=== PATIENT | male | born 1955 | race African-American/Black ===

== ENCOUNTER 2016-04-03 11:48 | Inpatient (IN) | payer OTHER ==
[2016-04-03 12:38] LABS: BASOPHIL 0.8 % (0-2.0); EOSINOPHIL 6.4 % (0-4.5); MCHC 33.5 g/dl (32.0-35.9); MEAN CELL VOLUME 86.5 fl (80-96); MEAN PLT VOLUME 8.7 fl (7.5-11.1); NEUTROPHILS 56.3 % (42.8-82.8); PLATELET COUNT 261 K/MM3 (134-434); RDW 14.7 % (11.9-15.9); WHITE BLOOD COUNT 6.2 K/mm3 (4.0-10.0)
[2016-04-03 12:58] VITALS: BMI 30.9
--- NOTE | 2016-04-03 13:11 | PDOC ---
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 At about 10:30am this morning, the patient felt very weak and almost fell down. The aid went to catch the patient and brought him into the hospital via ambulance. The patients blood sugar was 64 upon arrival to the emergency room. Denies fever, chills, nausea, vomiting. Denies chest pain, SOB, cough. Allergies: Citric acid <Tiffanie Flannery - Last Filed: 04/03/16 13:13> - General History Source: Patient Exam Limitations: No Limitations <Edel Dave - Last Filed: 04/04/16 12:01> - General Chief Complaint: Lethargy Stated Complaint: LETHARGY Time Seen by Provider: 04/03/16 11:56 Past History <Tiffanie Flannery - Last Filed: 04/03/16 13:13> - Past Medical History Asthma: Yes Cardiac Disorders: Yes ([place]) CVA: Yes COPD: Yes DVT: Yes Diabetes: Yes GI Disorders: Yes (dumping syndrome ) HTN: Yes - Surgical History Abdominal Surgery: Yes (gastric bypass 07/2015) Appendectomy: Yes GI Surgery: Yes (BYPASS) - Immunization History Immunization Up to Date: Yes - Psycho/Social/Smoking Cessation Hx Anxiety: No Suicidal Ideation: No Smoking History: Former smoker Have you smoked in the past 12 months: No Number of Cigarettes Smoked Daily: 0 If you are a former smoker, when did you quit?: 37 YRS AGO Information on smoking cessation initiated: No Hx Alcohol Use: No Drug/Substance Use Hx: No Substance Use Type: None <Edel Dave - Last Filed: 04/04/16 12:01> - Past Medical History Allergies/Adverse Reactions: Allergies Allergy/AdvReac Type Severity Reaction Status Date / Time citric acid Allergy Hives Verified 12/19/15 13:22 Home Medications: Ambulatory Orders Pantoprazole Sodium [Protonix] 40 mg PO DAILY 07/15/15 Aspirin [Aspirin EC] 81 mg PO DAILY 12/19/15 Escitalopram Oxalate [Lexapro -] 25 mg PO DAILY 04/03/16 Amlodipine Besylate [Norvasc -] 10 mg PO DAILY 04/04/16 Atorvastatin Ca [Lipitor] 60 mg PO HS #30 tablet 04/04/16 Carvedilol [Coreg] 25 mg PO BID 04/04/16 Cholecalciferol (Vitamin D3) [Vitamin D -] 400 unit PO DAILY 04/04/16 Clopidogrel Bisulfate [Plavix -] 75 mg PO DAILY 04/04/16 Cyanocobalamin (Vitamin B-12) [Vitamin B-12] 1,000 mcg PO DAILY 04/04/16 Glipizide 5 mg PO AC 04/04/16 Iron 18 mg PO DAILY 04/04/16 Multivitamins [Multivit ([facility] Formul[facility])] 1 tab PO DAILY 04/04/16 Thiamine HCl [Vitamin B1 -] 100 mg PO DAILY 04/04/16 Review of Systems - Review of Systems Able to Perform ROS?: Yes Comments:: 04/03/16 13:12 GENERAL/CONSTITUTIONAL: No: fever, chills, weakness, loss of appetite. HEAD, EYES, EARS, NOSE AND THROAT: No: change in vision, ear pain, discharge, sore throat, throat swelling. CARDIOVASCULAR: No: chest pain, lightheadedness, palpitations, syncope RESPIRATORY: No: cough, shortness of breath, wheezing, hemoptysis, stridor. GASTROINTESTINAL: No: nausea, vomiting, abdominal cramping, diarrhea, rectal bleeding, constipation. GENITOURINARY: No: dysuria, hematuria, frequency, urgency, flank pain. MUSCULOSKELETAL: No: back pain, neck pain, joint pain, muscle swelling or pain SKIN: No: lesions, pallor, rash or easy bruising. NEUROLOGIC: yes: slurred speech, weakness,No: headache, vertigo, paresthesias, weakness ENDOCRINE: No: unexplained weight gain or loss HEMATOLOGIC/LYMPHATIC: No: anemia, easy bleeding, swelling nodes <Tiffanie Flannery - Last Filed: 04/03/16 13:13> *Physical Exam - Vital Signs Last Vital Signs Temp Pulse Resp BP Pulse Ox 98.5 F 56 L 21 130/85 97 04/03/16 11:57 04/03/16 11:57 04/03/16 11:57 04/03/16 11:57 04/03/16 11:57 - Physical Exam Comments: 04/03/16 13:13 GENERAL: The patient is in no acute distress. HEAD: Normal with no signs of trauma. EYES: PERRLA, EOMI, sclera anicteric, conjunctiva clear. ENT: Ears normal, nares patent, oropharynx clear without exudates. Moist mucous membranes. NECK: Normal range of motion, supple without lymphadenopathy, JVD, or masses. LUNGS: Breath sounds equal, clear to auscultation bilaterally. No wheezes, and no crackles. HEART: Bradycardic. Regular rhythm, normal S1 and S2 without murmur, rub or gallop. ABDOMEN: Soft, nontender, normoactive bowel sounds. No guarding, no rebound. EXTREMITIES: Normal range of motion, no edema. No clubbing or cyanosis. No erythema, or tenderness. NEUROLOGICAL: See NIHSS. MUSCULOSKELETAL: Back nontender to palpation, no CVA tenderness SKIN: Warm, Dry, normal turgor, no rashes or lesions noted. <Tiffanie Flannery - Last Filed: 04/03/16 13:13> - Vital Signs Last Vital Signs Temp Pulse Resp BP Pulse Ox 98.5 F 56 L 21 130/85 97 04/03/16 11:57 04/03/16 11:57 04/03/16 11:57 04/03/16 11:57 04/03/16 11:57 <Edel Dave - Last Filed: 04/04/16 12:01> ED Treatment Course - LABORATORY CBC & Chemistry Diagram: 04/03/16 12:00 04/03/16 12:00 - RADIOLOGY Radiograph Interpretation: 04/03/16 13:13 EXAM#: TYPE/EXAM: RESULT: [id number] RAD/CHEST X-RAY PORTABLE* Sluggish. Chest. Single AP view compared with October 05, 2015. Unremarkable contour of the cardiomediastinal silhouette. No evidence of pneumonia, atelectasis, CHF. No pneumothorax or large pleural effusion is seen. No evidence of bulky hilar adenopathy. Intact visualized osseous structures. EKG leads are noted. Impression No evidence of active pulmonary disease. Reported By: Arsen Blank MD 04/03/16 [id number] EXAM#: TYPE/EXAM: RESULT: [id number] CT/HEAD CT WITHOUT CONTRAST CT SCAN OF THE BRAIN C-. Reason for the study. Lethargic. Comparison study CT brain, October 24, 2014 Findings. Serial axial images of the brain were obtained from foramen magnum to the cranial vertex without intravenous contrast. The study was supplemented with computer-generated coronal and sagittal reconstruction images. Warehouse Consultant image was reviewed. There is no evidence of acute subarachnoid hemorrhage, acute intra-axial or extra-axial fluid collection consistent with subdural or epidural hematoma. No mass effect, midline shift, acute territorial ischemic changes, herniation or edema is present. Normal kumar matter white matter differentiation. The cortical sulci sylvian fissure, perimesencephalic cisterns are not effaced. CSF spaces are age-appropriate, no interval change from prior CT. Examination of the bone windows show no fracture. Deformity of the right zygomatic arch. Metallic plate is seen in the mandible on the videotape operator images. Retention cyst or polyp in the left matter sinus. Impression. No evidence of acute intracranial hemorrhage, edema, midline shift, mass effect , or skull fracture. No CT evidence of acute territorial infarction. Reported By: Arsen Blank MD 04/03/16 1234 <Tiffanie Flannery - Last Filed: 04/03/16 13:13> - LABORATORY CBC & Chemistry Diagram: 04/04/16 07:45 04/04/16 07:45 - RADIOLOGY Radiology Studies Ordered: Category Date Time Status HEAD CT WITHOUT CONTRAST [CT] Stat CT Scan 04/03/16 11:56 Completed CHEST X-RAY PORTABLE* [RAD] Stat Radiology 04/03/16 11:56 Completed <Edel Dave - Last Filed: 04/04/16 12:01> Medical Decision Making - Medical Decision Making 04/03/16 13:11 A portion of this note was documented by scribe services under my direction. I have reviewed the details of the note, within reason, and agree with the documentation with the following case summary and management plan written by me. Nursing documentation reviewed and incorporated into medical decision making 61 yo M with reported h/o CVA in 2010? 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 noted that he became unsteady on his feel and almost fell over No headache Pt taking all his medications as prescribed Code catrachito called immediately upon evaluation of this patient 04/03/16 13:17 Laboratory Tests 04/03/16 12:00 Sodium 144 Potassium 3.3 L Chloride 106 Carbon Dioxide 28 Anion Gap 10 BUN 8 D Creatinine 0.7 Random Glucose 77 04/03/16 13:25 Laboratory Tests 04/03/16 12:00 Creatine Kinase 113 Troponin I < 0.02 04/03/16 15:03 CT negative and demonstrates no CVA Pt thinks his speech has been slurred since yesterday Case reviewed with Dr Constantino Will admit for further work up Case reviewed with hospitalist Pt is NOT a TPA candidate Clinical impression: possible TIA <Edel Dave - Last Filed: 04/04/16 12:01> *DC/Admit/Observation/Transfer - Attestations Scribe Attestion: 04/03/16 13:13 Documentation prepared by FREDDIE Rodriguez, acting as biomedical repair technician for Edel Dave MD. <Tiffanie Flannery - Last Filed: 04/03/16 13:13> - Discharge Dispostion Admit: Yes <Edel Dave - Last Filed: 04/04/16 12:01> Diagnosis at time of Disposition: TIA (transient ischemic attack) Qualifiers: Transient cerebral ischemia type: other Qualified Code(s): G45.8 - Other transient cerebral ischemic attacks and related syndromes - Discharge Dispostion Disposition: HOME Condition at time of disposition: Stable - Prescriptions - Referrals NIH Stroke Scale - Last Known Well Date/Time & Onset Date Last Known Well: 04/02/16 - Initial Evaluation Level of consciousness: Alert Ask patient the month and their age: Answers both correctly Ask patient to open & close eyes; make fist and let go: Obeys both correctly Best gaze (horizontal eye movement): Normal Visual field testing: Partial hemianopia Facial paresis (Show teeth/raise eyebrows/close eyes tight): Normal symmetrical movement Motor Function: Left Arm: Normal Motor Function: Right Arm: Normal (extends arm 90 (or 45) degrees for 10 seconds without drift Motor Function: Left Leg: Normal (extends leg 30 degrees for 5 seconds without drift) Motor Function: Right Leg: Normal (extends leg 30 degrees for 5 seconds without drift) Limb Ataxia: No ataxia Sensory(Use pinprick test arms,legs,trunk,face/side to side): Normal Best language (Describe picture, name items, read sentences): No Aphasia Dysarthria (read several words): Normal articulation Extinction and Inattention: No abnormality - Total Score NIH Stroke Scale Score: 1 <Edel Dave - Last Filed: 04/04/16 12:01> tPA Exclusion checklist 3-4.5h - Time Elapsed Date last known well: 04/02/16 - Thrombolytic Therapy Candidate Is patient eligible for thrombolytic therapy: No - Exclusion Criteria 3-4.5 hr SBP greater than 185 or DBP greater than 110mmHg despite tx: No Recent IC/spinal surgery,head trauma or stroke<3mos.: No Hx IC hemorrhage, IC neoplasm, AV malformation or aneurysm: No Active internal bleeding: No Blding diathesis(low plt ct, inc PTT,INR>1.7 or use of NOAC): No CT demonstrates multilobar infarct(>1/3 cerebral hemiphere): No Arterial puncture at noncompressible site in previous 7 days: No Blood glucose concentration less than 50mg/dL (2.7mmol/L): No - Relative Exclusion Criteria 3-4.5 hr Life expectancy <1 yr or severe co-morbid illness: No : No Patient/family refused: No Rapid improvement: No Stroke severity too mild: Yes Recent acute MT (w/in previous 3 months): No Seizure at onset with postictal residual neuro impairments: No Major surgery or serious trauma w/in previous 14 days: No Recent GI or hemorrhage (w/in previous 21 days): No - Add'l Relative Exclusion 3-4.5 hr Age > 80: No Hx of both diabetes AND prior ischemic stroke: Yes Taking an oral anticoagulant regardless of INR: No NIHSS >25: No - Ineligibility reason(s) Reasons No tPA given: Outside of window - delayed arrival <Edel Dave - Last Filed: 04/04/16 12:01>
[2016-04-03 13:15] LABS: ALBUMIN 3.6 g/dl (3.4-5.0); ANION GAP 10 (8-16); BILIRUBIN,TOTAL 0.6 mg/dL (0.2-1.0); CALCIUM 8.5 mg/dL (8.5-10.1); CO2 28 mmol/L (21-32); CREATININE 0.7 mg/dL (0.7-1.3); GLUCOSE,RANDOM 77 mg/dL (74-106); SGOT/AST 14 U/L (15-37); SGPT/ALT 25 U/L (12-78); TOT PROT 6.6 g/dl (6.4-8.2)
[2016-04-03 13:17] LABS: ALK PHOS 104 U/L (45-117); TROPONIN I < 0.02 ng/ml (0.00-0.05)
[2016-04-03 13:46] LABS: PH,URINE 6.5 (5.0-8.0); URINE APPEARANCE CLEAR; URINE BILIRUBIN NEGATIVE (NEGATIVE); URINE BLOOD NEGATIVE (NEGATIVE); URINE COLOR LT. YELLOW; URINE GLUCOSE (UA) NEGATIVE (NEGATIVE); URINE KETONE NEGATIVE (NEGATIVE); URINE LEUK ESTERASE NEGATIVE (NEGATIVE); URINE NITRITE NEGATIVE (NEGATIVE); URINE PROTEIN NEGATIVE (NEGATIVE); URINE UROBILINOGEN 0.2 E.U/dl E.U./dl (0.2-1.0)
--- NOTE | 2016-04-03 14:11 | CONSULT ---
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 At about 10:30am this morning, the patient felt very weak and almost fell down. The aid went to catch the patient and brought him into the hospital via ambulance. The patients blood sugar was 64 upon arrival to the emergency room. He completed CT head in the ER and no acute changes noted. Discussed with him importance of CVA work up and he is hesitant on staying but advised him to do so. Will try to expedite work up for him. Past History - Past Medical History Asthma: Yes Cardiac Disorders: Yes ([place]) CVA: Yes COPD: Yes DVT: Yes Diabetes: Yes GI Disorders: Yes (dumping syndrome ) HTN: Yes - Surgical History Abdominal Surgery: Yes (gastric bypass 07/2015) Appendectomy: Yes GI Surgery: Yes (BYPASS) - Immunization History Immunization Up to Date: Yes - Psycho/Social/Smoking Cessation Hx Anxiety: No Suicidal Ideation: No Smoking History: Former smoker Have you smoked in the past 12 months: No Number of Cigarettes Smoked Daily: 0 If you are a former smoker, when did you quit?: 37 YRS AGO Information on smoking cessation initiated: No Hx Alcohol Use: No Drug/Substance Use Hx: No Substance Use Type: None - Past Medical History Allergies/Adverse Reactions: Allergies Allergy/AdvReac Type Severity Reaction Status Date / Time citric acid Allergy Hives Verified 12/19/15 13:22 Home Medications: Ambulatory Orders Metformin HCl [Metformin HCl ER] 1,000 mg PO BID 07/15/15 Pantoprazole Sodium [Protonix] 40 mg PO DAILY 07/15/15 Aspirin [Aspirin EC] 81 mg PO 12/19/15 Cyclobenzaprine HCl [Flexeril -] 10 mg PO TID 04/03/16 Escitalopram Oxalate [Lexapro -] 20 mg PO DAILY 04/03/16 Methocarbamol 500 mg PO BID 04/03/16 Ursodiol [Actigal] 300 mg PO DAILY 04/03/16 Review of Systems GENERAL/CONSTITUTIONAL: No: fever, chills, weakness, loss of appetite. HEAD, EYES, EARS, NOSE AND THROAT: No: change in vision, ear pain, discharge, sore throat, throat swelling. CARDIOVASCULAR: No: chest pain, lightheadedness, palpitations, syncope RESPIRATORY: No: cough, shortness of breath, wheezing, hemoptysis, stridor. GASTROINTESTINAL: No: nausea, vomiting, abdominal cramping, diarrhea, rectal bleeding, constipation. GENITOURINARY: No: dysuria, hematuria, frequency, urgency, flank pain. MUSCULOSKELETAL: No: back pain, neck pain, joint pain, muscle swelling or pain SKIN: No: lesions, pallor, rash or easy bruising. NEUROLOGIC: yes: slurred speech, no weakness, moving extremities equally, sensory intact ENDOCRINE: No: unexplained weight gain or loss HEMATOLOGIC/LYMPHATIC: No: anemia, easy bleeding, swelling nodes *Physical Exam Last Vital Signs Temp Pulse Resp BP Pulse Ox 98.5 F 56 L 21 130/85 97 04/03/16 11:57 04/03/16 11:57 04/03/16 11:57 04/03/16 11:57 04/03/16 11:57 GENERAL: The patient is in no acute distress. HEAD: Normal with no signs of trauma. EYES: PERRLA, EOMI, sclera anicteric, conjunctiva clear. ENT: Ears normal, nares patent, oropharynx clear without exudates. Moist mucous membranes. NECK: Normal range of motion, supple without lymphadenopathy, JVD, or masses. LUNGS: Breath sounds equal, clear to auscultation bilaterally. No wheezes, and no crackles. HEART: Bradycardic. Regular rhythm, normal S1 and S2 without murmur, rub or gallop. ABDOMEN: Soft, nontender, normoactive bowel sounds. No guarding, no rebound. EXTREMITIES: Normal range of motion, no edema. No clubbing or cyanosis. No erythema, or tenderness. NEUROLOGICAL: See ABove, slurred speech, no weakness, moving extremities equally , sensory intact MUSCULOSKELETAL: Back nontender to palpation, no CVA tenderness SKIN: Warm, Dry, normal turgor, no rashes or lesions noted. CBCD WBC 6.2 K/mm3 (4.0-10.0) 04/03/16 12:00 RBC 4.39 M/mm3 (4.00-5.60) 04/03/16 12:00 Hgb 12.7 GM/dL (11.7-16.9) 04/03/16 12:00 Hct 38.0 % (35.4-49) 04/03/16 12:00 MCV 86.5 fl (80-96) 04/03/16 12:00 MCHC 33.5 g/dl (32.0-35.9) 04/03/16 12:00 RDW 14.7 % (11.9-15.9) 04/03/16 12:00 Plt Count 261 K/MM3 (134-434) 04/03/16 12:00 MPV 8.7 fl (7.5-11.1) 04/03/16 12:00 CMP Sodium 144 mmol/L (136-145) 04/03/16 12:00 Potassium 3.3 mmol/L (3.5-5.1) L 04/03/16 12:00 Chloride 106 mmol/L (98-107) 04/03/16 12:00 Carbon Dioxide 28 mmol/L (21-32) 04/03/16 12:00 Anion Gap 10 (8-16) 04/03/16 12:00 BUN 8 mg/dL (7-18) D 04/03/16 12:00 Creatinine 0.7 mg/dL (0.7-1.3) 04/03/16 12:00 Creat Clearance w eGFR > 60 (>60) 04/03/16 12:00 Calcium 8.5 mg/dL (8.5-10.1) 04/03/16 12:00 Total Bilirubin 0.6 mg/dL (0.2-1.0) 04/03/16 12:00 AST 14 U/L (15-37) L 04/03/16 12:00 ALT 25 U/L (12-78) 04/03/16 12:00 Alkaline Phosphatase 104 U/L (45-117) 04/03/16 12:00 Total Protein 6.6 g/dl (6.4-8.2) 04/03/16 12:00 Albumin 3.6 g/dl (3.4-5.0) 04/03/16 12:00 - RADIOLOGY Radiograph Interpretation: CT SCAN OF THE BRAIN C-. Reason for the study. Lethargic. Comparison study CT brain, October 24, 2014 Impression. No evidence of acute intracranial hemorrhage, edema, midline shift, mass effect , or skull fracture. No CT evidence of acute territorial infarction. Plan: 61 year old male, with significant past medical history of HTN, COPD, multiple CVAs with right sided residual weakness (2010), diabetes, gastric bypass, who presents today via ambulance complaining of dizziness and slurred speech starting yesterday. At about 10:30am this morning, the patient felt very weak and almost fell down. The aid went to catch the patient and brought him into the hospital via ambulance. The patients blood sugar was 64 upon arrival to the emergency room. He completed CT head in the ER and no acute changes noted. Discussed with him importance of CVA work up and he is hesitant on staying but advised him to do so. MRI brain CD, Echo Lipid Profile, Statin ASA 81mg (reports taking at home daily, will increase if CVA found) Speech and swallow evaluation BP control, 140-160 systolic acceptable Monitor hypoglycemia Maintain normal glycemic range
[2016-04-03] MEDS ORDERED: ONDANSETRON 4 MG/2 ML VIAL IVPB PRN (14:49)
--- NOTE | 2016-04-03 14:52 | HP ---
CHIEF COMPLAINT: AMS PCP: Dr. 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 On arrival to the ED, he was initially noted to be lethargic. 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 Smoking: Former smoker, quit >35 yrs ago Alcohol: None Drugs: None Allergies citric acid Allergy (Verified 12/19/15 13:22) Hives HOME MEDICATIONS: Medication Instructions Recorded Metformin HCl [Metformin HCl ER] 1,000 mg PO BID 07/15/15 Pantoprazole Sodium [Protonix] 40 mg PO DAILY 07/15/15 Aspirin [Aspirin EC] 81 mg PO DAILY 12/19/15 Cyclobenzaprine HCl [Flexeril -] 10 mg PO TID 04/03/16 Escitalopram Oxalate [Lexapro -] 20 mg PO DAILY 04/03/16 Methocarbamol 500 mg PO BID 04/03/16 Ursodiol [Actigal] 300 mg PO DAILY 04/03/16 REVIEW OF SYSTEMS CONSTITUTIONAL: Absent: fever, chills, diaphoresis, generalized weakness, malaise, loss of appetite, weight change HEENT: Absent: rhinorrhea, nasal congestion, throat pain, throat swelling, difficulty swallowing, mouth swelling, ear pain, eye pain, visual changes CARDIOVASCULAR: Absent: chest pain, syncope, palpitations, irregular heart rate, lightheadedness , peripheral edema RESPIRATORY: Absent: cough, shortness of breath, dyspnea with exertion, orthopnea, wheezing, stridor, hemoptysis GASTROINTESTINAL: Absent: abdominal pain, abdominal distension, nausea, vomiting, diarrhea, constipation, melena, hematochezia GENITOURINARY: Absent: dysuria, frequency, urgency, hesitancy, hematuria, flank pain, genital pain MUSCULOSKELETAL: Absent: myalgia, arthralgia, joint swelling, back pain, neck pain SKIN: Absent: rash, itching, pallor HEMATOLOGIC/IMMUNOLOGIC: Absent: easy bleeding, easy bruising, lymphadenopathy, frequent infections ENDOCRINE: Absent: unexplained weight gain, unexplained weight loss, heat intolerance, cold intolerance NEUROLOGIC: See HPI. PSYCHIATRIC: Absent: anxiety, depression, suicidal or homicidal ideation, hallucinations. PHYSICAL EXAMINATION Vital Signs - 24 hr 04/03/16 04/03/16 11:57 12:00 Temperature 98.5 F Pulse Rate 56 L Respiratory 21 Rate Blood Pressure 130/85 O2 Sat by Pulse 97 97 Oximetry (%) GENERAL: Awake, alert, and fully oriented, in no acute distress. HEAD: Normal with no signs of trauma. EYES: Pupils equal, round and reactive to light, extraocular movements intact, sclera anicteric, conjunctiva clear. No lid lag. EARS, NOSE, THROAT: Ears normal, nares patent, oropharynx clear without exudates. Moist mucous membranes. NECK: Normal range of motion, supple without lymphadenopathy, JVD, or masses. LUNGS: Breath sounds equal, clear to auscultation bilaterally. No wheezes, and no crackles. No accessory muscle use. HEART: Regular rate and rhythm, normal S1 and S2 without murmur, rub or gallop. ABDOMEN: Soft, nontender, not distended, normoactive bowel sounds, no guarding, no rebound, no masses. No hepatomegaly or splenomegaly. MUSCULOSKELETAL: Normal range of motion at all joints. No bony deformities or tenderness. No CVA tenderness. UPPER EXTREMITIES: 2+ pulses, warm, well-perfused. No cyanosis. No clubbing. Cap refill <2 seconds. No peripheral edema. LOWER EXTREMITIES: 2+ pulses, warm, well-perfused. No calf tenderness. No peripheral edema. NEUROLOGICAL: Cranial nerves II-XII intact. Normal speech. Normal gait. PSYCHIATRIC: Cooperative. Good eye contact. Appropriate mood and affect. SKIN: Warm, dry, normal turgor, no rashes or lesions noted. Laboratory Results - last 24 hr 04/03/16 04/03/16 04/03/16 12:00 12:00 12:57 WBC 6.2 RBC 4.39 Hgb 12.7 Hct 38.0 MCV 86.5 MCHC 33.5 RDW 14.7 Plt Count 261 MPV 8.7 Neutrophils % 56.3 D Lymphocytes % 27.1 D Monocytes % 9.4 Eosinophils % 6.4 H Basophils % 0.8 Sodium 144 Potassium 3.3 L Chloride 106 Carbon Dioxide 28 Anion Gap 10 BUN 8 D Creatinine 0.7 Creat Clearance w eGFR > 60 Random Glucose 77 Calcium 8.5 Total Bilirubin 0.6 AST 14 L ALT 25 Alkaline Phosphatase 104 Creatine Kinase 113 Troponin I < 0.02 Total Protein 6.6 Albumin 3.6 Urine Color Lt. yellow Urine Appearance Clear Urine pH 6.5 D Ur Specific D[place]agh <= 1.005 Urine Protein Negative Urine Glucose (UA) Negative Urine Ketones Negative Urine Blood Negative Urine Nitrite Negative Urine Bilirubin Negative Urine Urobilinogen 0.2 e.u/dl Ur Leukocyte Esterase Negative ASSESSMENT/PLAN: 61 year old male placed in observation for TIA. Problem List - Problem (1) TIA (transient ischemic attack) Assessment/Plan: -Brain MRI, carotid dopplers, echocardiogram -Continue ASA -Check lipid profile, A1C -Monitor on telemetry -PT evaluation -Send urine toxicology Code(s): G45.9 - TRANSIENT CEREBRAL ISCHEMIC ATTACK, UNSPECIFIED Qualifiers: Transient cerebral ischemia type: other Qualified Code(s): G45.8 - Other transient cerebral ischemic attacks and related syndromes (2) Back pain Assessment/Plan: -Patient is on two centrally-acting muscle relaxants at home. There is a possibility that this could be contributing to his AMS. Will attempt to dc one if patient can tolerate. Code(s): M54.9 - DORSALGIA, UNSPECIFIED (3) DM II (diabetes mellitus, type II), controlled Assessment/Plan: -Continue Metformin (short expected length of stay) -Diabetic diet Code(s): E11.9 - TYPE 2 DIABETES MELLITUS WITHOUT COMPLICATIONS (4) HLD (hyperlipidemia) Assessment/Plan: -Check lipids -Not currently on medications Code(s): E78.5 - HYPERLIPIDEMIA, UNSPECIFIED (5) HTN (hypertension) Assessment/Plan: -Near goal -Not currently on any medications Code(s): I10 - ESSENTIAL (PRIMARY) HYPERTENSION (6) DVT prophylaxis Assessment/Plan: -Early ambulation -SCDs Code(s): [id number] - Visit type - Emergency Visit Emergency Visit: Yes ED Registration Date: 04/03/16 Care time: The patient presented to the Emergency Department on the above date and was hospitalized for further evaluation of their emergent condition. - New Patient This patient is new to me today: Yes Date on this admission: 04/03/16 - Critical Care Critical Care patient: No
[2016-04-03] MEDS ORDERED: POTASSIUM CHLORIDE TABS 20 MEQ TABLET.ER (FP) PO ONE (18:15)
--- NOTE | 2016-04-03 18:19 | EKG ---
Test Reason : Blood Pressure : / mmHG Vent. Rate : 053 BPM Atrial Rate : 053 BPM P-R Int : 178 ms QRS Dur : 106 ms QT Int : 456 ms P-R-T Axes : 051 061 067 degrees QTc Int : 427 ms SINUS BRADYCARDIA OTHERWISE NORMAL ECG WHEN COMPARED WITH ECG OF 05-OCT-2015 13:17, VENT. RATE HAS DECREASED BY 31 BPM Confirmed by JOANNA CANCHOLA MD ([id number]) on 04/03/2016 6:19:34 PM Referred By: Confirmed By:JOANNA CANCHOLA MD
[2016-04-03] MEDS: metFORMIN HCL 500 MG TABLET (FP) PO SCH (18:47)
--- NOTE | 2016-04-03 19:02 | HOSP ---
Subjective - Review of Symptoms Events since last encounter: Nurse called stating that the patient has cough that he takes Mucinex for it at home. Ordering his Mucinex 600mg po bid Physical Examination Vital Signs: Vital Signs Temperature 98.4 F 04/03/16 18:03 Pulse Rate 62 04/03/16 18:03 Respiratory Rate 18 04/03/16 18:03 Blood Pressure 132/94 04/03/16 18:03 O2 Sat by Pulse Oximetry (%) 98 04/03/16 18:34
[2016-04-03] MEDS: ASPIRIN/DIPYRIDAMOLE 25 MG/200 MG CAPSULE (FP) PO SCH (21:17)
[2016-04-03] MEDS: guaiFENesin 600 MG TABLET.ER (FP) PO SCH (21:17)
[2016-04-03] MEDS: METHOCARBAMOL 500 MG TABLET PO SCH (21:17)
[2016-04-04] MEDS: metFORMIN HCL 500 MG TABLET (FP) PO SCH (06:08)
[2016-04-04 06:25] VITALS: TEMP 98.1
[2016-04-04 08:14] LABS: BASOPHIL 0.9 % (0-2.0); EOSINOPHIL 7.3 % (0-4.5); MCH 29.2 pg (25.7-33.7); MCHC 33.6 g/dl (32.0-35.9); MEAN CELL VOLUME 86.7 fl (80-96); MEAN PLT VOLUME 8.9 fl (7.5-11.1); NEUTROPHILS 47.1 % (42.8-82.8); PLATELET COUNT 265 K/MM3 (134-434); RDW 14.2 % (11.9-15.9)
[2016-04-04] MEDS ORDERED: PT OWN MED DRAWER 7, Y5N ONE (08:56)
[2016-04-04 08:59] LABS: ALBUMIN 3.9 g/dl (3.4-5.0); ALK PHOS 109 U/L (45-117); ANION GAP 6 (8-16); BILIRUBIN,TOTAL 0.8 mg/dL (0.2-1.0); CALCIUM 8.9 mg/dL (8.5-10.1); CHOLESTEROL 166 mg/dL (50-200); CO2 30 mmol/L (21-32); CREATININE 0.8 mg/dL (0.7-1.3); GLUCOSE,RANDOM 85 mg/dL (74-106); LDL CHOLESTEROL (ONLY SJRH) 101 mg/dL (5-100); MAGNESIUM 2.3 mg/dL (1.8-2.4); SGOT/AST 17 U/L (15-37); SGPT/ALT 24 U/L (12-78); THYROID STIMULATING HORMONE 0.83 uIU/ml (0.358-3.74); TOT PROT 6.8 g/dl (6.4-8.2); TROPONIN I < 0.02 ng/ml (0.00-0.05)
[2016-04-04] MEDS: ESCITALOPRAM OXALATE 20 MG TABLET (FP) PO SCH ×2 (08:59→10:01)
[2016-04-04] MEDS: ASPIRIN/DIPYRIDAMOLE 25 MG/200 MG CAPSULE (FP) PO SCH ×2 (08:59→10:01)
[2016-04-04] MEDS: METHOCARBAMOL 500 MG TABLET PO SCH (08:59)
[2016-04-04] MEDS: guaiFENesin 600 MG TABLET.ER (FP) PO SCH (09:00)
[2016-04-04 09:49] LABS: URINE MARIJUANA THC NEGATIVE ng/ml (CUTOFF=50)
[2016-04-04] MEDS ORDERED: URSODIOL 300 MG CAPSULE PO SCH (10:00)
[2016-04-04] MEDS ORDERED: ASPIRIN COATED 81 MG TABLET.EC PO SCH (10:00)
[2016-04-04] MEDS ORDERED: PANTOPRAZOLE 40 MG TABLET (FP) PO SCH (10:00)
--- NOTE | 2016-04-04 10:05 | PN ---
Progress Note (short form) - Note Progress Note: Neurology The patient is a 61 year old male, with significant past medical history of HTN , COPD, multiple CVAs with right sided residual weakness (2010), diabetes, gastric bypass, who presented via ambulance complaining of dizziness and slurred speech. The patients blood sugar was 64 upon arrival to the emergency room. He completed CT head in the ER and no acute changes noted. MRI brain completed and reviewed and with lacunar infarct noted in L periventricular centrum semiovale, subacute in duration. Echo reviewed and normal LV function and EF. CD reviewed and without significant HD stenosis. Patient takes combo ASA 81 and Plavix at home which i advised strong compliance and continuation. His statin has been increased to 80mg but I advised 60mg as outpatient to avoid myalgia. He will be seeing me in the office for follow up. Active Medications Dipyridamole/Aspirin (Aggrenox -) 1 combo PO BID [facility] Last Admin: 04/04/16 08:59 Dose: 1 combo Escitalopram Oxalate (Lexapro -) 20 mg PO DAILY [facility] Last Admin: 04/04/16 08:59 Dose: 20 mg Guaifenesin (Mucinex -) 600 mg PO BID [facility] Last Admin: 04/04/16 09:00 Dose: 600 mg Metformin HCl (Glucophage -) 1,000 mg PO BIDAC [facility] Last Admin: 04/04/16 06:08 Dose: Not Given Methocarbamol (Robaxin -) 500 mg PO BID [facility] Last Admin: 04/04/16 08:59 Dose: Not Given Ondansetron HCl (Zofran Injection) 4 mg IVPB Q6H PRN PRN Reason: NAUSEA Pantoprazole Sodium (Protonix -) 40 mg PO DAILY [facility] Last Admin: 04/04/16 09:00 Dose: 40 mg Ursodiol (Actigal -) 300 mg PO DAILY [facility] Last Admin: 04/04/16 08:59 Dose: Not Given *Physical Exam Vital Signs 04/04/16 06:00 Temperature 98.1 F Pulse Rate 70 Respiratory 20 Rate Blood Pressure 140/99 O2 Sat by Pulse 96 Oximetry (%) GENERAL: The patient is in no acute distress. HEAD: Normal with no signs of trauma. EYES: PERRLA, EOMI, sclera anicteric, conjunctiva clear. ENT: Ears normal, nares patent, oropharynx clear without exudates. Moist mucous membranes. NECK: Normal range of motion, supple without lymphadenopathy, JVD, or masses. LUNGS: Breath sounds equal, clear to auscultation bilaterally. No wheezes, and no crackles. HEART: Bradycardic. Regular rhythm, normal S1 and S2 without murmur, rub or gallop. ABDOMEN: Soft, nontender, normoactive bowel sounds. No guarding, no rebound. EXTREMITIES: Normal range of motion, no edema. No clubbing or cyanosis. No erythema, or tenderness. NEUROLOGICAL: See ABove, slurred speech, no weakness, moving extremities equally , sensory intact MUSCULOSKELETAL: Back nontender to palpation, no CVA tenderness SKIN: Warm, Dry, normal turgor, no rashes or lesions noted. CBCD WBC 6.2 K/mm3 (4.0-10.0) 04/03/16 12:00 RBC 4.39 M/mm3 (4.00-5.60) 04/03/16 12:00 Hgb 12.7 GM/dL (11.7-16.9) 04/03/16 12:00 Hct 38.0 % (35.4-49) 04/03/16 12:00 MCV 86.5 fl (80-96) 04/03/16 12:00 MCHC 33.5 g/dl (32.0-35.9) 04/03/16 12:00 RDW 14.7 % (11.9-15.9) 04/03/16 12:00 Plt Count 261 K/MM3 (134-434) 04/03/16 12:00 MPV 8.7 fl (7.5-11.1) 04/03/16 12:00 CMP Sodium 144 mmol/L (136-145) 04/03/16 12:00 Potassium 3.3 mmol/L (3.5-5.1) L 04/03/16 12:00 Chloride 106 mmol/L (98-107) 04/03/16 12:00 Carbon Dioxide 28 mmol/L (21-32) 04/03/16 12:00 Anion Gap 10 (8-16) 04/03/16 12:00 BUN 8 mg/dL (7-18) D 04/03/16 12:00 Creatinine 0.7 mg/dL (0.7-1.3) 04/03/16 12:00 Creat Clearance w eGFR > 60 (>60) 04/03/16 12:00 Calcium 8.5 mg/dL (8.5-10.1) 04/03/16 12:00 Total Bilirubin 0.6 mg/dL (0.2-1.0) 04/03/16 12:00 AST 14 U/L (15-37) L 04/03/16 12:00 ALT 25 U/L (12-78) 04/03/16 12:00 Alkaline Phosphatase 104 U/L (45-117) 04/03/16 12:00 Total Protein 6.6 g/dl (6.4-8.2) 04/03/16 12:00 Albumin 3.6 g/dl (3.4-5.0) 04/03/16 12:00 - RADIOLOGY CT head MRI brain Echo CD all reviewed as above Plan: 61 year old male, with significant past medical history of HTN, COPD, multiple CVAs with right sided residual weakness (2010), diabetes, gastric bypass, who presents today via ambulance complaining of dizziness and slurred speech starting yesterday. At about 10:30am this morning, the patient felt very weak and almost fell down. The aid went to catch the patient and brought him into the hospital via ambulance. The patients blood sugar was 64 upon arrival to the emergency room. He completed CT head in the ER and no acute changes noted. MRI brain reviewed and consistent with lacunar infarct, my suspicion would be hypertensive CVA given lack of embolic features CD, Echo reviewed and within normal limits Lipid Profile, Statin increased to 60mg Continue dual antiplatelet ASA 81 and Plavix 75 BP control, goal as outpatient < 140/90 Possibly for discharge today Will follow up as outpatient
[2016-04-04 10:56] VITALS: BP 150/90; PULSE 68
--- NOTE | 2016-04-04 10:58 | CONSULT ---
Admitting History and Physical - Primary Care Physician PCP: Ronal Hennessy - Admission History of Present Illness: Per Neurology note in EMR: "Plan: 61 year old male, with significant past medical history of HTN, COPD, multiple CVAs with right sided residual weakness (2010), diabetes, gastric bypass, who presents today via ambulance complaining of dizziness and slurred speech starting yesterday. At about 10:30am this morning, the patient felt very weak and almost fell down. The aid went to catch the patient and brought him into the hospital via ambulance. The patients blood sugar was 64 upon arrival to the emergency room. He completed CT head in the ER and no acute changes noted. MRI brain reviewed and consistent with lacunar infarct, my suspicion would be hypertensive CVA given lack of embolic features CD, Echo reviewed and within normal limits Lipid Profile, Statin increased to 60mg Continue dual antiplatelet ASA 81 and Plavix 75 BP control, goal as outpatient < 140/90 Possibly for discharge today" Chart reviewed. Pt not evaluated. I was told pt signed out AMA. - Past Medical History REPLENISHER: Yes: Peripheral Neuropathy, Vertigo Cardiovascular: Yes: CAD, CHF, HTN, [place] Musculoskeletal: Yes: Chronic low back pain - Smoking History Smoking history: Former smoker Have you smoked in the past 12 months: No Aproximately how many cigarettes per day: 0 If you are a former smoker, when did you quit?: 37 YRS AGO - Alcohol/Substance Use Hx Alcohol Use: No - Social History History of Recent Travel: No History - Admission Reason For Visit: TRANSIENT ISCHEMIC ATTACK - Hearing Hearing: Normal Hearing Aide: No Speech Evaluation - Communication Primary Language: ROMANIAN - Swallow Evaluation/Bedside Assessment Current Nutritional Intake: Regular, Thin Liquids
--- NOTE | 2016-04-04 13:04 | PN ---
Teaching Attending Note Name of Resident: Surya Bansal ATTENDING PHYSICIAN STATEMENT I saw and evaluated the patient. I reviewed the resident's note and discussed the case with the resident. I agree with the resident's findings and plan as documented. SUBJECTIVE: no fever or chills , no weakness, feels back at base line . ate regular breakfast with no problem . walked normally with his cane OBJECTIVE: NAD , AAOx3 CV: RRR, no MRG Lungs : CTAB ext : No edema neuro : no facial droop, EOMI, round equal pupils , reactive to light . NL facial sensation . strength 5/5 in upper and lower ext prox and distally , sensation to light toucah NL , reflexes 2+ biceps , and unable to access knee jerk appropriately due to position . no pronator drift . gait , steady with cane ASSESSMENT AND PLAN: 61 y/o man with h/o multiple medical problems including TIAs, stroke , DM who presnted with slurred speech and AMS. 1- subacute stroke on MRI of the brain. he actually takes ASA and plavix at home which I will cont ( was started on aggrenox here ) . will not increase asa due to increased risk of bleed. tele , no A fib echo reviewed LDL > 70 . will increase Lipitor to 60 /day will resume BP ,meds tomorrow refused PT, but he walked steady fro me . he refused speech eval , but he tolerated his breakfast CUS : with no significant stenosis f/u neuro as outpt 2- DM cont glipizide as out pt . not on Metformin any more 3- HTN as above . cont coreg and norvasc tomorrow . asked to d/w PCP the use of ACEI dispo : dc home .
--- NOTE | 2016-04-04 17:45 | DS ---
Physical Exam: SUBJECTIVE: Patient seen and examined Pt feeling well back at base want to go home no new weakness, numbness, tingling no slurred speech n o dizziness or confusion no lightheadedness, headache, blurred or double vision OBJECTIVE: Vital Signs Period Temp Pulse Resp BP Sys/[place] Pulse Ox Last 24 Hr 97.6 F-98.4 F 62-73 18-20 132-150/88-99 96-98 PHYSICAL EXAM GENERAL: The patient is awake, alert, and fully oriented, in no acute distress. HEAD: Normal with no signs of trauma. EYES: PERRL, extraocular movements intact, sclera anicteric, conjunctiva clear. ENT: Ears normal, nares patent, oropharynx clear without exudates, moist mucous membranes. NECK: Trachea midline, full range of motion, supple. LUNGS: Breath sounds equal, clear to auscultation bilaterally, no wheezes, no crackles, no accessory muscle use. HEART: Regular rate and rhythm, S1, S2 without murmur, rub or gallop. ABDOMEN: Soft, nontender, nondistended, normoactive bowel sounds, no guarding, no rebound, no hepatosplenomegaly, no masses. EXTREMITIES: 2+ pulses, warm, well-perfused, no edema. NEUROLOGICAL: Cranial nerves II through XII grossly intact. Normal speech, gait not observed. normal gross sensation, 2+ reflex in brachial and patellar. strength 5/5 in all ext PSYCH: Normal mood, normal affect. SKIN: Warm, dry, normal turgor, no rashes or lesions noted. LABS Laboratory Results - last 24 hr 04/03/16 04/04/16 04/04/16 18:45 01:15 07:45 WBC 6.0 RBC 4.56 Hgb 13.3 Hct 39.6 MCV 86.7 MCHC 33.6 RDW 14.2 Plt Count 265 MPV 8.9 Neutrophils % 47.1 Lymphocytes % 36.5 D Monocytes % 8.2 Eosinophils % 7.3 H Basophils % 0.9 Sodium Potassium Chloride Carbon Dioxide Anion Gap BUN Creatinine Creat Clearance w eGFR POC Glucometer 99 Random Glucose Hemoglobin A1c % Calcium Magnesium Total Bilirubin AST ALT Alkaline Phosphatase Creatine Kinase Troponin I Total Protein Albumin Triglycerides Cholesterol Total LDL Cholesterol HDL Cholesterol TSH Opiates Screen Negative Methadone Screen Negative Barbiturate Screen Negative Phencyclidine Screen Negative Ur Amphetamines Screen Negative MDMA (Ecstasy) Screen Negative Benzodiazepines Screen Negative Cocaine Screen Negative U Marijuana (THC) Screen Negative 04/04/16 04/04/16 07:45 07:45 WBC RBC Hgb Hct MCV MCHC RDW Plt Count MPV Neutrophils % Lymphocytes % Monocytes % Eosinophils % Basophils % Sodium 142 Potassium 3.3 L Chloride 106 Carbon Dioxide 30 Anion Gap 6 L BUN 11 D Creatinine 0.8 Creat Clearance w eGFR > 60 POC Glucometer Random Glucose 85 Hemoglobin A1c % 5.4 D Calcium 8.9 Magnesium 2.3 Total Bilirubin 0.8 D AST 17 D ALT 24 Alkaline Phosphatase 109 Creatine Kinase 82 Troponin I < 0.02 Total Protein 6.8 Albumin 3.9 Triglycerides 133 Cholesterol 166 D Total LDL Cholesterol 101 H D HDL Cholesterol 40 TSH 0.83 D Opiates Screen Methadone Screen Barbiturate Screen Phencyclidine Screen Ur Amphetamines Screen MDMA (Ecstasy) Screen Benzodiazepines Screen Cocaine Screen U Marijuana (THC) Screen CBC, BMP 04/04/16 07:45 04/04/16 07:45 Laboratory Tests 04/03/16 04/04/16 04/04/16 12:00 07:45 07:45 Hemoglobin A1c % 5.4 D Calcium 8.9 Magnesium 2.3 Total Bilirubin 0.8 D Troponin I < 0.02 < 0.02 Total LDL Cholesterol 101 H D HDL Cholesterol 40 TSH 0.83 D MRI brain w/o contrast 04/03/16: Compared to prior CT scan of the head dated 12/2016 There is moderate atrophy, ventricular dilatation and periventricular chronic microvascular ischemic changes. No mass lesion or intracranial hemorrhage is seen. There is no shift of the midline structures. There is a faint tiny focus of restricted diffusion in the left periventricular white matter, posteriorly on diffusion weighted axial images #20 that appears hypointense on the ADC images compatible with an acute/subacute lacunar infarct , likely subacute. Correlate clinically. The craniocervical junction appears unremarkable. 2.8 cm retention cyst versus polyp in the left maxillary antrum. Partial opacification of the ethmoid air cells. Flow voids are present within the central intracranial arterial circulation there is partial opacification of the mastoid air cells. No suspicious bone marrow abnormal signal is identified. Impression: Moderate atrophy and chronic microvascular ischemic changes without evidence of acute intracranial pathology. Left periventricular lacunar infarct, likely subacute. No mass lesion or intracranial hemorrhage is seen Echocardiogram: 04/03/16 Normal left ventricular size and function. no wall motion abnormalities. Mild MR, TR, Aortic sclerosis Us Carotid 04/03/16 : No color Doppler evidence of any significant plaque or luminal narrowing with no elevation of peak systolic velocity No color Doppler evidence of any hemodynamically significant stenosis No color Doppler evidence of dissection. CXR 04/03/16 No evidence of active pulmonary disease. CT head w/o contrast 04/03/16: No evidence of acute intracranial hemorrhage, edema, midline shift, mass effect, or skull fracture. No CT evidence of acute territorial infarction. 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 On arrival to the ED, he was initially noted to be lethargic. 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 He was started on aggrenox here but we found out that he actually takes ASA and Plavix at home which were continued. Pt has no event on the monitor, no AFIB, echo was done and reviewed. Ultrasound carotid showed no hemodynamically significant stenosis. LDL was 101 due to his risk factors his goal is 70, we increased his Lipitor to 60 mg PO daily. Blood blood pressure was in 140's. Antihypertensives were held today and are to be resumed (norvasc and coreg) tomorrow upon discharges, consider CALEB inhibitors due to Pt diabetes. Pt ate breakfast without complication but refused to wait for speech eval. Pt ambulates without problem without. Pt was seen by Dr Stovall during this admission and is to follow up with him in 1-2 weeks. Pt is supposed to continue his diabetic diet and the glipizide. Follow up with PCP within 1 week. Date of Discharge: 04/04/16 Minutes to complete discharge: 40 Discharge Summary Reason For Visit: TRANSIENT ISCHEMIC ATTACK Current Active Problems DVT prophylaxis (Acute) Stroke (Acute) HLD (hyperlipidemia) (Chronic) HNP (herniated nucleus pulposus) (Chronic) HTN (hypertension) (Chronic) Knee pain, bilateral (Chronic) Neck pain (Chronic) Shoulder pain, right (Chronic) Condition: Stable - Instructions Diet, Activity, Other Instructions: You had a Left Periventricular Subacute Lacunar Infarct You had a subacute Stoke Discharge Home Resume home activity Start Copreg and Norvasc tomorrow Increase Lipitor to 60mg Orally daily Follow up with Dr Stovall neurologist 1-2 weeks Referrals: Rohit Stovall MD [Staff Physician] - STAFF,NOT ON [Primary Care Provider] - Disposition: HOME - Home Medications Comprehensive Discharge Medication List: Ambulatory Orders Pantoprazole Sodium [Protonix] 40 mg PO DAILY 07/15/15 Aspirin [Aspirin EC] 81 mg PO DAILY 12/19/15 Escitalopram Oxalate [Lexapro -] 25 mg PO DAILY 04/03/16 Amlodipine Besylate [Norvasc -] 10 mg PO DAILY 04/04/16 Atorvastatin Ca [Lipitor] 60 mg PO HS #30 tablet 04/04/16 Carvedilol [Coreg] 25 mg PO BID 04/04/16 Cholecalciferol (Vitamin D3) [Vitamin D -] 400 unit PO DAILY 04/04/16 Clopidogrel Bisulfate [Plavix -] 75 mg PO DAILY 04/04/16 Cyanocobalamin (Vitamin B-12) [Vitamin B-12] 1,000 mcg PO DAILY 04/04/16 Glipizide 5 mg PO AC 04/04/16 Iron 18 mg PO DAILY 04/04/16 Multivitamins [Multivit ([facility] Formulary)] 1 tab PO DAILY 04/04/16 Thiamine HCl [Vitamin B1 -] 100 mg PO DAILY 04/04/16 This patient is new to me today: Yes Date on this admission: 04/05/16 Emergency Visit: Yes ED Registration Date: 04/03/16 Care time: The patient presented to the Emergency Department on the above date and was hospitalized for further evaluation of their emergent condition. Critical Care patient: No - Discharge Referral Referred to [facility] No
== END 2016-04-04 10:07 | disposition home or self-care (01) | DRG 45 ==
LOC: JER 11:48 → JERBED 15:10 → OBSVTOIN 15:10 → J4S 17:35
PROVIDERS: ADMIT Internal Medicine; ATTEND Internal Medicine
DX: I63.9 Cerebral infarction, unspecified (principal); E78.5 Hyperlipidemia, unspecified; I10 Essential (primary) hypertension; M25.562 Pain in left knee; M25.561 Pain in right knee; M54.2 Cervicalgia; E11.9 Type 2 diabetes mellitus without complications; I69.351 Hemiplegia and hemiparesis following cerebral infarction affecting right dominant side
CPT/HCPCS: 36415; 70450-TC; 70551-TC; 71010-TC; 80053; 80061; 80307; 81003; 82550; 83036; 83721; 83735; 84443; 84484; 85025; 87086; 93005; 93010; 93306-TC; 93880-TC; 99285-25; G0378

== ENCOUNTER 2016-05-10 09:49 | Observation (INO) | payer OTHER ==
[2016-05-10] MEDS ORDERED: HYDROmorphone HCL CARPU-JECT 1 MG/1 ML DISP.SYRIN IVPUSH ONE ×2 (10:18→12:37)
--- NOTE | 2016-05-10 10:18 | PDOC ---
History of Present Illness - General Chief Complaint: Chest Pain Stated Complaint: CHEST PAIN/BACK PAIN Time Seen by Provider: 05/10/16 09:59 - History of Present Illness Initial Comments: 05/10/16 10:10 61-year-old male with a past medical history of hypertension, COPD, multiple CVAs, with some residual right-sided weakness, diabetes, gastric bypass, MA, who was most recently here on 04/03/16 for a subacute CVA He also has issues with chronic back pain Patient is complaining of 3 days of stabbing right periscapular pain, which is been constant, and is worse with musculoskeletal movements He states the pain is also worse with deep inspiration, and it makes him feel short of breath because it hurts to take a deep breath He does also admit to some midsternal chest pain which is been off and on, rather than constant, for the past 3 days, and he thinks it may be radiating around from his back He denies any palpitations, neck jaw or arm radiation He denies any cough or sputum He denies any fevers or chills He states the chest pain is also worse with musculoskeletal maneuvers He denies any leg swelling or calf pain He denies any abdominal pain He denies any fevers or chills He denies any other complaints at this time, and the remainder of the review of systems is negative He denies any new neurologic complaints Of note, the patient states that he had a costal nerve block on that side, a few days prior to the pain starting Pt is on aspirin and Plavix at this time Past History - Past Medical History Allergies/Adverse Reactions: Allergies Allergy/AdvReac Type Severity Reaction Status Date / Time citric acid Allergy Hives Verified 12/19/15 13:22 Home Medications: Ambulatory Orders Amlodipine Besylate [Norvasc -] 10 mg PO DAILY 05/10/16 Aspirin [Aspirin EC] 81 mg PO DAILY 05/10/16 Atorvastatin Ca [Lipitor] 40 mg PO HS 05/10/16 Carvedilol [Coreg -] 25 mg PO BID 05/10/16 Cholecalciferol (Vitamin D3) [Vitamin D3] 2,000 unit PO DAILY 05/10/16 Clopidogrel Bisulfate [Clopidogrel] 75 mg PO DAILY 05/10/16 Cyanocobalamin (Vitamin B-12) [Vitamin B-12] 1,000 mcg PO DAILY 05/10/16 Diphenhydramine [Benadryl -] 50 mg PO TID PRN 05/10/16 Escitalopram Oxalate [Lexapro -] 5 mg PO DAILY 05/10/16 Escitalopram Oxalate [Lexapro -] 20 mg PO DAILY 05/10/16 Folic Acid 1 mg PO DAILY 05/10/16 Gabapentin 800 mg PO TID 05/10/16 Glipizide 5 mg PO DAILY 05/10/16 Pantoprazole Sodium [Protonix -] 40 mg PO DAILY 05/10/16 Vitamin B Complex 100 No.2 [B-100 Complex] 100 mg PO DAILY 05/10/16 Anemia: No Asthma: Yes Cancer: No Cardiac Disorders: Yes (MA) CVA: Yes COPD: Yes CHF: No DVT: Yes Dementia: No Diabetes: Yes GI Disorders: Yes (dumping syndrome ) Disorders: No HTN: Yes Hypercholesterolemia: No Liver Disease: No Seizures: No Thyroid Disease: No - Surgical History Abdominal Surgery: Yes (gastric bypass 07/2015) Appendectomy: Yes Cardiac Surgery: No Cholecystectomy: No GI Surgery: Yes ([facility]) Lung Surgery: No Neurologic Surgery: No Orthopedic Surgery: No - Immunization History Immunization Up to Date: Yes - Psycho/Social/Smoking Cessation Hx Anxiety: No Suicidal Ideation: No Smoking History: Former smoker Have you smoked in the past 12 months: No Number of Cigarettes Smoked Daily: 0 If you are a former smoker, when did you quit?: 37 YRS AGO Hx Alcohol Use: No Drug/Substance Use Hx: No Substance Use Type: None Review of Systems - Review of Systems Able to Perform ROS?: Yes Comments:: 05/10/16 10:23 12 point review of systems is as per history of present illness and otherwise negative *Physical Exam - Physical Exam Comments: 05/10/16 10:23 Physical exam GENERAL: The patient is awake, alert, and complaining of severe pain HEAD: Normal with no signs of trauma. EYES: Anicteric, conjunctiva normal ENT: Because membranes moist NECK: Normal range of motion, supple LUNGS: Breath sounds equal, clear to auscultation bilaterally. No wheezes, and no crackles. BACK: There is diffuse T-spine tenderness without point tenderness There is right periscapular tenderness to palpation CHEST WALL: There is mid sternal and costochondral tenderness to palpation HEART: Regular rate and rhythm, normal S1 and S2 without murmur, rub or gallop. ABDOMEN: Soft, nontender, normoactive bowel sounds. No guarding, no rebound. No masses appreciated. EXTREMITIES: Normal range of motion, no edema. No clubbing or cyanosis. No cords, erythema, or tenderness. NEUROLOGICAL: Alert and answering questions Chronic neurologic changes as documented on most recent admission from prior CVAs PSYCH: Normal mood, normal affect. SKIN: Warm, Dry, ED Treatment Course - LABORATORY CBC & Chemistry Diagram: 05/10/16 10:55 05/10/16 10:55 Medical Decision Making - Medical Decision Making 05/10/16 10:25 EKG Normal sinus rhythm 79 normal axis Normal AV and IV conduction time Normal QTC There are septal abnormalities of uncertain age There is nonspecific ST-T waves When compared to the EKG of 04/03/16 Today's EKG is similar to the prior EKG 61-year-old male, with musculoskeletal sounding back and chest pain However, he has a history of multiple CVAs, as well as a prior MA, and multiple cardiac risk factors He is currently on aspirin and Plavix Was to cardiac workup, more most likely need a CTA of the chest 05/10/16 12:38 Chest pain suddenly worsened, described as sharp and stabbing Chest x-ray-NAD Repeat EKG Normal sinus rhythm 78, normal axis Normal AV and IV conduction time Essentially normal EKG Unchanged from prior EKG Laboratory Results - last 24 hr 05/10/16 05/10/16 05/10/16 10:55 10:55 10:55 WBC 9.6 D RBC 4.56 Hgb 13.2 Hct 39.9 MCV 87.4 MCHC 33.0 RDW 14.6 Plt Count 239 MPV 8.2 Sodium 141 Potassium 4.2 D Chloride 103 Carbon Dioxide 30 Anion Gap 8 BUN 11 Creatinine 0.7 Creat Clearance w eGFR > 60 Random Glucose 104 D Calcium 8.5 Magnesium 2.1 Total Bilirubin 1.1 H D AST 28 D ALT 35 D Alkaline Phosphatase 117 Creatine Kinase 201 H CK-MB (CK-2) < 1.0 CK-MB (CK-2) Rel Index < 1.0 Troponin I < 0.03 L B-Natriuretic Peptide 45.85 Total Protein 7.1 Albumin 3.5 Lipase 65 L 05/10/16 14:00 CTA chest No evidence of pulmonary embolism Mild right basilar atelectasis with no acute pathology in the chest Labwork reviewed 05/10/16 14:27 Impression-chest pain, possibly musculoskeletal, in patient with multiple cardiac risk factors Will place in observation, serial enzymes, cardiology consult Case discussed with hospitalist *DC/Admit/Observation/Transfer Diagnosis at time of Disposition: Chest pain, Scapulalgia - Discharge Dispostion Admit: Yes
[2016-05-10] MEDS ORDERED: SODIUM CHLORIDE 1,000 ML IV STA (10:20)
[2016-05-10] MEDS ORDERED: HYDROmorphone HCL CARPU-JECT 1 MG/1 ML DISP.SYRIN ONE ×2 (10:43→12:58)
[2016-05-10 11:05] LABS: MCH 28.9 pg (25.7-33.7); MEAN CELL VOLUME 87.4 fl (80-96); MEAN PLT VOLUME 8.2 fl (7.5-11.1); PLATELET COUNT 239 K/MM3 (134-434); RDW 14.6 % (11.9-15.9); WHITE BLOOD COUNT 9.6 K/mm3 (4.0-10.0)
[2016-05-10 11:18] LABS: ALBUMIN 3.5 g/dl (3.4-5.0); ANION GAP 8 (8-16); BILIRUBIN,TOTAL 1.1 mg/dL (0.2-1.0); CALCIUM 8.5 mg/dL (8.5-10.1); CO2 30 mmol/L (21-32); CREATININE 0.7 mg/dL (0.7-1.3); GLUCOSE,RANDOM 104 mg/dL (74-106); SGPT/ALT 35 U/L (12-78); TOT PROT 7.1 g/dl (6.4-8.2)
[2016-05-10 11:21] LABS: ALK PHOS 117 U/L (45-117)
[2016-05-10 11:23] LABS: MAGNESIUM 2.1 mg/dL (1.8-2.4)
[2016-05-10 11:24] LABS: SGOT/AST 28 U/L (15-37)
[2016-05-10 12:21] LABS: CPK(DFH) 201 IU/L (38-174)
[2016-05-10 12:24] LABS: TROPONIN I (DFP) < 0.03 ng/ml (0.03-0.50)
[2016-05-10] MEDS ORDERED: diphenhydrAMINE HCL 25 MG CAPSULE (FP) PO PRN (15:05)
--- NOTE | 2016-05-10 15:05 | HP ---
CHIEF COMPLAINT: Right scapula pain HISTORY OF PRESENT ILLNESS: This is a 61-year-old man who comes to the ER complaining of pain in his right scapula for the last 3 days. The pain sometimes radiated to the middle of his chest. It is worse with movement and with inspiration. He denies palpitations, shortness of breath, nausea, cough, fever, chills. He says he has chronic back pain and last week had a procedure where he got an injection that burned the nerves in his back. He thinks his current symptoms were caused by the procedure. PAST MEDICAL HISTORY CAD AR Hypertension Hyperlipidemia CVA TIAs Type 2 diabetes mellitus Chronic back pain PAST SURGICAL HISTORY Gastric bypass Allergies citric acid Allergy (Verified 12/19/15 13:22) Hives HOME MEDICATIONS 3 Medication Instructions Recorded Amlodipine Besylate [Norvasc -] 10 mg PO DAILY 05/10/16 Aspirin [Aspirin EC] 81 mg PO DAILY 05/10/16 Atorvastatin Ca [Lipitor] 40 mg PO HS 05/10/16 Carvedilol [Coreg -] 25 mg PO BID 05/10/16 Cholecalciferol (Vitamin D3) 2,000 unit PO DAILY 05/10/16 [Vitamin D3] Clopidogrel Bisulfate [Clopidogrel] 75 mg PO DAILY 05/10/16 Cyanocobalamin (Vitamin B-12) 1,000 mcg PO DAILY 05/10/16 [Vitamin B-12] Diphenhydramine [Benadryl -] 50 mg PO TID PRN 05/10/16 Escitalopram Oxalate [Lexapro -] 5 mg PO DAILY 05/10/16 Escitalopram Oxalate [Lexapro -] 20 mg PO DAILY 05/10/16 Folic Acid 1 mg PO DAILY 05/10/16 Gabapentin 800 mg PO TID 05/10/16 Glipizide 5 mg PO DAILY 05/10/16 Pantoprazole Sodium [Protonix -] 40 mg PO DAILY 05/10/16 Vitamin B Complex 100 No.2 [B-100 100 mg PO DAILY 05/10/16 Complex] Social History: Smoking: Former smoker Alcohol: None Drugs: None Recent Travel: No Family History: Non-contributory REVIEW OF SYSTEMS CONSTITUTIONAL: Absent: fever, chills, diaphoresis, generalized weakness, malaise, loss of appetite, weight change HEENT: Absent: rhinorrhea, nasal congestion, throat pain, throat swelling, difficulty swallowing, mouth swelling, ear pain, eye pain, visual changes CARDIOVASCULAR: Present: chest pain. Absent: syncope, palpitations, lightheadedness, peripheral edema RESPIRATORY: Absent: cough, shortness of breath, dyspnea with exertion, orthopnea, wheezing, stridor, hemoptysis GASTROINTESTINAL: Absent: abdominal pain, abdominal distension, nausea, vomiting , diarrhea, constipation, melena, hematochezia GENITOURINARY: Absent: dysuria, frequency, urgency, hesitancy, hematuria, flank pain MUSCULOSKELETAL: Present: back pain, bilateral knee pain, right shoulder pain. Absent: joint swelling, neck pain SKIN: Absent: rash, itching, pallor HEMATOLOGIC/IMMUNOLOGIC: Absent: easy bleeding, easy bruising, lymphadenopathy, frequent infections ENDOCRINE: Absent: unexplained weight gain, unexplained weight loss, heat intolerance, cold intolerance NEUROLOGIC: Absent: headache, focal weakness, paresthesias, dizziness, unsteady gait, seizure, mental status changes, bladder or bowel incontinence PSYCHIATRIC: Absent: anxiety, depression, suicidal or homicidal ideation, hallucinations. PHYSICAL EXAMINATION GENERAL: Awake, alert, and fully oriented, in no acute distress. HEAD: Normal with no signs of trauma. EYES: Pupils equal, round and reactive to light, extraocular movements intact, sclerae anicteric, conjunctivae clear. EARS, NOSE, THROAT: Ears normal, nares patent, oropharynx clear without exudates. Moist mucous membranes. NECK: Normal range of motion, supple without lymphadenopathy, JVD, or masses. LUNGS: Breath sounds equal, clear to auscultation bilaterally. No wheezes, and no crackles. No accessory muscle use. HEART: Regular rate and rhythm, normal S1 and S2 without murmur, rub or gallop. ABDOMEN: Soft, mild RUQ tenderness, not distended, normoactive bowel sounds, no guarding, no rebound, no masses. No hepatomegaly or splenomegaly. MUSCULOSKELETAL: Normal range of motion at all joints. No bony deformities or tenderness. No CVA tenderness. Tenderness of right scapula. No chest wall tenderness. UPPER EXTREMITIES: 2+ pulses, warm, well-perfused. No cyanosis. No clubbing. Cap refill <2 seconds. No peripheral edema. LOWER EXTREMITIES: 2+ pulses, warm, well-perfused. No calf tenderness. No peripheral edema. NEUROLOGICAL: Cranial nerves II-XII intact. Normal speech. Gait not observed. PSYCHIATRIC: Cooperative. Good eye contact. Appropriate mood and affect. SKIN: Warm, dry, normal turgor, no rashes or lesions noted. Laboratory Tests 05/10/16 05/10/16 05/10/16 10:55 10:55 10:55 WBC 9.6 D RBC 4.56 Hgb 13.2 Hct 39.9 MCV 87.4 MCHC 33.0 RDW 14.6 Plt Count 239 MPV 8.2 Sodium 141 Potassium 4.2 D Chloride 103 Carbon Dioxide 30 Anion Gap 8 BUN 11 Creatinine 0.7 Creat Clearance w eGFR > 60 Random Glucose 104 D Calcium 8.5 Magnesium 2.1 Total Bilirubin 1.1 H D AST 28 D ALT 35 D Alkaline Phosphatase 117 Creatine Kinase 201 H CK-MB (CK-2) < 1.0 CK-MB (CK-2) Rel Index < 1.0 Troponin I < 0.03 L B-Natriuretic Peptide 45.85 Total Protein 7.1 Albumin 3.5 Lipase 65 L Chest x-ray: No acute process. Chest CTA: No PE. Right basilar atelectasis. EKG: Sinus rhythm, rate 79, septal infarct. ASSESSMENT/PLAN: This is a 61-year-old man with a history of CAD, AR, HTN, hyperlipidemia, CVA, TIAs, type 2 DM and chronic back pain who presented to the ER with pain in his right shoulder, chest pain for 3 days. The pain appears to be musculoskeletal, but he has history of CAD/AR and he has RUQ tenderness on exam. He is being placed in observation now for further evaluation of an emergent condition. 1. Right shoulder, chest, RUQ abdominal pain - Likely musculoskeletal - Monitor on telemetry - Serial troponins - RUQ US 2. CAD, history of AR - Continue aspirin, Plavix, Coreg, Norvasc, Lipitor 3. Hypertension - Continue Coreg, Norvasc 4. Hyperlipidemia - Continue Lipitor 5. History of CVA, TIAs - Continue aspirin, Lipitor 6. Type 2 diabetes mellitus - Continue glipizide - Fingersticks with Novolog sliding scale 7. Chronic back pain - Continue Neurontin Visit type - Emergency Visit Emergency Visit: Yes ED Registration Date: 05/10/16 Care time: The patient presented to the Emergency Department on the above date and was hospitalized for further evaluation of their emergent condition. - New Patient This patient is new to me today: Yes Date on this admission: 05/10/16 - Critical Care Critical Care patient: No
[2016-05-10] MEDS ORDERED: ONDANSETRON 4 MG/2 ML VIAL IVPB PRN (15:11)
--- NOTE | 2016-05-10 16:04 | EKG ---
Test Reason : Blood Pressure : / mmHG Vent. Rate : 079 BPM Atrial Rate : 079 BPM P-R Int : 162 ms QRS Dur : 094 ms QT Int : 370 ms P-R-T Axes : 071 057 058 degrees QTc Int : 424 ms NORMAL SINUS RHYTHM SEPTAL INFARCT , AGE UNDETERMINED ABNORMAL ECG WHEN COMPARED WITH ECG OF 03-APR-2016 11:57, VENT. RATE HAS INCREASED BY 26 BPM Confirmed by DAVIS SAAB, TRENT ([id number]) on 05/10/2016 4:04:24 PM Referred By: Confirmed By:TRENT CANNON MD
[2016-05-10 17:06] VITALS: BMI 31.6
[2016-05-10] MEDS: INSULIN SLIDING SCALE (NOVOLOG) 1 VIAL SQ SCH ×2 (17:47→23:30)
[2016-05-10] MEDS: morphine CARPU-JECT 2 MG/1 ML DISP.SYRIN IVPUSH PRN ×2 (18:05→23:27)
[2016-05-10] MEDS: oxyCODONE HCL 5 MG TABLET PO PRN (21:12)
[2016-05-10] MEDS: ACETAMINOPHEN 325 MG TABLET (FP) PO PRN (21:19)
[2016-05-10] MEDS ORDERED: ATORVASTATIN CA 40 MG TABLET (FP) PO SCH (22:00)
[2016-05-10] MEDS: GABAPENTIN 400 MG CAPSULE (FP) PO SCH (23:27)
[2016-05-10] MEDS: CARVEDILOL 25 MG TABLET (FP) PO SCH (23:27)
[2016-05-11] MEDS: oxyCODONE HCL 5 MG TABLET PO PRN ×2 (04:23→10:55)
[2016-05-11] MEDS: ACETAMINOPHEN 325 MG TABLET (FP) PO PRN ×2 (04:26→11:03)
[2016-05-11] MEDS: glipiZIDE 5 MG TABLET (FP) PO SCH ×2 (06:51→11:02)
[2016-05-11] MEDS: INSULIN SLIDING SCALE (NOVOLOG) 1 VIAL SQ SCH ×2 (06:51→11:50)
[2016-05-11] MEDS: GABAPENTIN 400 MG CAPSULE (FP) PO SCH (06:51)
--- NOTE | 2016-05-11 07:02 | CON.CARD ---
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 States that over the past 3 days has had ongoing right scapular pain with radiation towards the chest. Worse with movement of his arm or back. Pain intermittently worsens to 10/10. No prior similar discomfort. normally walks with cane b/c of LE weakness 2/2 h/o CVA. no recent change in functional status no orthopnea, pnd, le edema, sob, palps, dizziness, bleeding, new neurologic symptoms no f/c/s, n/v/d, headache, rashes, cough, congestion. 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: Yes: Peripheral Neuropathy, Vertigo Cardio/Vascular: Yes: CAD, CHF, HTN, DC Musculoskeletal: Yes: Chronic low back pain - Alcohol/Substance Use Hx Alcohol Use: No - Smoking History Smoking history: Former smoker Have you smoked in the past 12 months: No Aproximately how many cigarettes per day: 0 If you are a former smoker, when did you quit?: 37 YRS AGO - Family Disease History Family History: Denies hx of premature cad Ambulatory Orders Amlodipine Besylate [Norvasc -] 10 mg PO DAILY 05/10/16 Aspirin [Aspirin EC] 81 mg PO DAILY 05/10/16 Atorvastatin Ca [Lipitor] 40 mg PO HS 05/10/16 Carvedilol [Coreg -] 25 mg PO BID 05/10/16 Cholecalciferol (Vitamin D3) [Vitamin D3] 2,000 unit PO DAILY 05/10/16 Clopidogrel Bisulfate [Clopidogrel] 75 mg PO DAILY 05/10/16 Cyanocobalamin (Vitamin B-12) [Vitamin B-12] 1,000 mcg PO DAILY 05/10/16 Diphenhydramine [Benadryl -] 50 mg PO TID PRN 05/10/16 Escitalopram Oxalate [Lexapro -] 5 mg PO DAILY 05/10/16 Escitalopram Oxalate [Lexapro -] 20 mg PO DAILY 05/10/16 Folic Acid 1 mg PO DAILY 05/10/16 Gabapentin 800 mg PO TID 05/10/16 Glipizide 5 mg PO DAILY 05/10/16 Pantoprazole Sodium [Protonix -] 40 mg PO DAILY 05/10/16 Vitamin B Complex 100 No.2 [B-100 Complex] 100 mg PO DAILY 05/10/16 Current Medications Acetaminophen (Tylenol -) 650 mg PO Q4H PRN PRN Reason: FEVER OR PAIN Last Admin: 05/11/16 04:26 Dose: 650 mg Amlodipine Besylate (Norvasc -) 10 mg PO DAILY [facility] Aspirin (Ecotrin -) 81 mg PO DAILY [facility] Atorvastatin Calcium (Lipitor -) 40 mg PO HS [facility] Last Admin: 05/10/16 23:27 Dose: 40 mg Carvedilol (Coreg -) 25 mg PO BID [facility] Last Admin: 05/10/16 23:27 Dose: 25 mg Cholecalciferol (Vitamin D3 -) 2,000 unit PO DAILY [facility] Clopidogrel Bisulfate (Plavix -) 75 mg PO DAILY [facility] Cyanocobalamin (Vitamin B12 -) 1,000 mcg PO DAILY [facility] Diphenhydramine HCl (Benadryl -) 50 mg PO TID PRN PRN Reason: FOR ITCHING Escitalopram Oxalate (Lexapro -) 20 mg PO DAILY [facility] Folic Acid (Folic Acid -) 1 mg PO DAILY [facility] Gabapentin (Neurontin -) 800 mg PO TID [facility] Last Admin: 05/11/16 06:51 Dose: Not Given Glipizide (Glucotrol -) 5 mg PO ACBK [facility] Last Admin: 05/11/16 06:51 Dose: Not Given Insulin Aspart (Novolog Vial Sliding Scale -) 1 vial SQ ACHS [facility] PRN Reason: Protocol Last Admin: 05/11/16 06:51 Dose: Not Given Morphine Sulfate (Morphine Injection -) 1 mg IVPUSH Q4H PRN PRN Reason: PAIN Last Admin: 05/10/16 23:27 Dose: 1 mg Multivitamins (Total B With C -) 1 each PO DAILY [facility] Ondansetron HCl (Zofran Injection) 4 mg IVPB Q6H PRN PRN Reason: NAUSEA Oxycodone HCl (Roxicodone -) 10 mg PO Q6H PRN PRN Reason: PAIN Last Admin: 05/11/16 04:23 Dose: 10 mg Pantoprazole Sodium (Protonix -) 40 mg PO DAILY [facility] Vital Signs - 24 hr 05/10/16 05/10/16 05/10/16 10:00 15:49 16:53 Temperature 97.8 F 97.9 F Pulse Rate 86 Pulse Rate [ 83 85 Right] Respiratory 20 20 16 Rate Blood Pressure 148/89 Blood Pressure 120/70 125/81 [Left Arm] O2 Sat by Pulse 99 98 95 Oximetry (%) NAD, calm JVD flat, neck supple ctab, nl effort RRR nl s1, s2 no m/r/g ttp of right scapular area + bs soft nt nd ext without e/c/c diminished dp/pt no carotid bruits aaox3 no jaundice, diaphoresis Laboratory Tests 02/28/16 05/10/16 05/10/16 15:00 10:55 10:55 Hgb 13.2 INR 1.12 Potassium 4.2 D Creatinine 0.7 Total Bilirubin 1.1 H D AST 28 D ALT 35 D Alkaline Phosphatase 117 Creatine Kinase CK-MB (CK-2) < 1.0 Troponin I B-Natriuretic Peptide 45.85 Albumin 3.5 Lipase 65 L 05/10/16 10:55 Hgb INR Potassium Creatinine Total Bilirubin AST ALT Alkaline Phosphatase Creatine Kinase 201 H CK-MB (CK-2) Troponin I < 0.03 L B-Natriuretic Peptide Albumin Lipase EKG: wnl tele: NSR CTA: wnl echo 03/2016: nl lv/rv. mild mr/tr 61 yo with h/o possible prior DC's (although states that subsequent catheterization did not require intervention)), per patient enlarged heart/ possible CHF ?diastolic, HTN, HL, COPD, multiple CVA's on dapt, DM II, obesity s /p gastric bypass surgery 07/2015, chronic back pain s/p recent nerve block/pain injection p/w scapular pain. scapular pain - appears musculoskeletal and reproducible to palpation. CE's neg x 2. EKG without ischemic changes - recent echo last month unremarkable - telemetry monitoring - pain management per pmd possible diastolic heart failure - currently euvolemic off diuretics - echo with preserved function - con't coreg. bp/hr well controlled. h/o CVA - con't asa, plavix. no new sx's. HTN - well contorlled on current regimen HL - con't statin
[2016-05-11 07:10] LABS: TROPONIN I < 0.02 ng/ml (0.00-0.05)
[2016-05-11] MEDS ORDERED: ASPIRIN COATED 81 MG TABLET.EC PO SCH (10:00)
[2016-05-11] MEDS ORDERED: CYANOCOBALAMIN 1,000 MCG TABLET (FP) PO SCH (10:00)
[2016-05-11] MEDS ORDERED: CHOLECALCIFEROL (VITAMIN D3) 1,000 UNIT TABLET (FP) PO SCH (10:00)
[2016-05-11] MEDS ORDERED: FOLIC ACID 1 MG TABLET (FP) PO SCH (10:00)
[2016-05-11] MEDS ORDERED: VITAMIN B COMPLEX W/C COMBO TABLET (FP) PO SCH (10:00)
[2016-05-11] MEDS ORDERED: ESCITALOPRAM OXALATE 20 MG TABLET (FP) PO SCH (10:00)
[2016-05-11] MEDS ORDERED: CLOPIDOGREL BISULFATE 75 MG TABLET (FP) PO SCH (10:00)
[2016-05-11] MEDS ORDERED: PANTOPRAZOLE 40 MG TABLET (FP) PO SCH (10:00)
[2016-05-11] MEDS ORDERED: amLODIPine BESYLATE 10 MG TABLET (FP) PO SCH (10:00)
[2016-05-11 10:16] VITALS: BP 106/66; PULSE 63; TEMP 98.1
[2016-05-11] MEDS: CARVEDILOL 25 MG TABLET (FP) PO SCH (10:57)
[2016-05-11] MEDS: morphine CARPU-JECT 2 MG/1 ML DISP.SYRIN IVPUSH PRN (12:00)
--- NOTE | 2016-05-11 12:15 | PN ---
Progress Note (short form) - Note Progress Note: s: no cp sob palps dizzy; c/o right lower back pain o: Vital Signs Period Temp Pulse Resp BP Sys/[place]inton Pulse Ox Last 24 Hr 97.7 F-98.2 F 63-95 16-20 106-175/66-87 93-98 in distress due to back pain JVD flat ctab, nl effort RRR nl s1, s2 no m/r/g ttp of right scapular area ext without e/c/c aaox3 no jaundice, diaphoresis Current Medications Generic Name Dose Route Start Last Admin Trade Name Freq PRN Reason Stop Dose Admin Acetaminophen 650 mg 05/10/16 15:11 05/11/16 11:03 Tylenol - PO 650 mg Q4H PRN Administration FEVER OR PAIN Amlodipine Besylate 10 mg 05/11/16 10:00 05/11/16 10:57 Norvasc - PO 10 mg DAILY [facility] Administration Aspirin 81 mg 05/11/16 10:00 05/11/16 10:57 Ecotrin - PO 81 mg DAILY [facility] Administration Atorvastatin Calcium 40 mg 05/10/16 22:00 05/10/16 23:27 Lipitor - PO 40 mg HS [facility] Administration Carvedilol 25 mg 05/10/16 22:00 05/11/16 10:57 Coreg - PO 25 mg BID [facility] Administration Cholecalciferol 2,000 unit 05/11/16 10:00 05/11/16 10:58 Vitamin D3 - PO 2,000 unit DAILY [facility] Administration Clopidogrel Bisulfate 75 mg 05/11/16 10:00 05/11/16 10:57 Plavix - PO 75 mg DAILY [facility] Administration Cyanocobalamin 1,000 mcg 05/11/16 10:00 05/11/16 10:57 Vitamin B12 - PO 1,000 mcg DAILY [facility] Administration Diphenhydramine HCl 50 mg 05/10/16 15:05 Benadryl - PO TID PRN FOR ITCHING Escitalopram Oxalate 20 mg 05/11/16 10:00 05/11/16 10:57 Lexapro - PO 20 mg DAILY [facility] Administration Folic Acid 1 mg 05/11/16 10:00 05/11/16 10:57 Folic Acid - PO 1 mg DAILY [facility] Administration Gabapentin 800 mg 05/10/16 22:00 05/11/16 06:51 Neurontin - PO Not Given TID [facility] Glipizide 5 mg 05/11/16 07:00 05/11/16 11:02 Glucotrol - PO 5 mg ACBK [facility] Administration Insulin Aspart 1 vial 05/10/16 16:30 05/11/16 11:50 Novolog Vial Sliding Scale - SQ 2 units ACHS [facility] Administration Protocol Morphine Sulfate 1 mg 05/10/16 17:44 05/11/16 12:00 Morphine Injection - IVPUSH 1 mg Q4H PRN Administration PAIN Multivitamins 1 each 05/11/16 10:00 05/11/16 10:58 Total B With C - PO 1 each DAILY [facility] Administration Ondansetron HCl 4 mg 05/10/16 15:11 Zofran Injection IVPB Q6H PRN NAUSEA Oxycodone HCl 10 mg 05/10/16 17:43 05/11/16 10:55 Roxicodone - PO 10 mg Q6H PRN Administration PAIN Pantoprazole Sodium 40 mg 05/11/16 10:00 05/11/16 10:57 Protonix - PO 40 mg DAILY [facility] Administration CBC, BMP 05/10/16 10:55 05/10/16 10:55 tele: sr, sinus tachy echo 03/2016: nl lv/rv. mild mr/tr a/p: 61 yo with h/o possible prior CO's (although states that subsequent catheterization did not require intervention)), per patient enlarged heart/ possible CHF ?diastolic, HTN, HL, COPD, multiple CVA's on dapt, DM II, obesity s /p gastric bypass surgery 07/2015, chronic back pain s/p recent nerve block/pain injection p/w scapular pain. scapular pain - appears musculoskeletal and reproducible to palpation. CE's neg x 3. 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 bp/hr well controlled. h/o CVA - con't asa, plavix. no new sx's. HTN - cont current meds - pain control HL - con't statin can dc tele
--- NOTE | 2016-05-11 12:29 | DS ---
Physical Exam: SUBJECTIVE: Patient seen and examined sitting in chair and eating lunch, denies chest pain, difficulty breathing, lightheadedness or dizziness. Observed walking assist x1, with cane within the room. Abdominal ultrasound done for gordon-scapular pain, no acute disease. OBJECTIVE: Vital Signs Period Temp Pulse Resp BP Sys/[place]inton Pulse Ox Last 24 Hr 97.7 F-98.2 F 63-95 16-20 106-175/66-87 93-98 PHYSICAL EXAM GENERAL: The patient is awake, alert, and fully oriented, in no acute distress. LUNGS: Bilateral posterior diminished breath sounds equal, no wheezes or no crackles on auscultation. HEART: Regular rate and rhythm, S1, S2 without murmur. ABDOMEN: Soft, nondistended, normoactive bowel sounds, no guarding, no rebound, no masses. Tenderness to right gordon-scapula, reproducible with movement and deep inspiration. EXTREMITIES: 2+ pulses, warm, well-perfused, no edema. NEUROLOGICAL: Alert and oriented. Normal speech, gait not observed, walks with cane. PSYCH: Normal mood, normal affect, lethargic, falling asleep during physical exam. SKIN: Warm, diaphoretic, normal turgor, no rashes or lesions noted. LABS CBCD WBC 9.6 K/mm3 (4.0-10.0) D 05/10/16 10:55 RBC 4.56 M/mm3 (4.00-5.60) 05/10/16 10:55 Hgb 13.2 GM/dL (11.7-16.9) 05/10/16 10:55 Hct 39.9 % (35.4-49) 05/10/16 10:55 MCV 87.4 fl (80-96) 05/10/16 10:55 MCHC 33.0 g/dl (32.0-35.9) 05/10/16 10:55 RDW 14.6 % (11.9-15.9) 05/10/16 10:55 Plt Count 239 K/MM3 (134-434) 05/10/16 10:55 MPV 8.2 fl (7.5-11.1) 05/10/16 10:55 CMP Sodium 141 mmol/L (136-145) 05/10/16 10:55 Potassium 4.2 mmol/L (3.5-5.1) D 05/10/16 10:55 Chloride 103 mmol/L (98-107) 05/10/16 10:55 Carbon Dioxide 30 mmol/L (21-32) 05/10/16 10:55 Anion Gap 8 (8-16) 05/10/16 10:55 BUN 11 mg/dL (7-18) 05/10/16 10:55 Creatinine 0.7 mg/dL (0.7-1.3) 05/10/16 10:55 Creat Clearance w eGFR > 60 (>60) 05/10/16 10:55 Random Glucose 104 mg/dL (74-106) D 05/10/16 10:55 Calcium 8.5 mg/dL (8.5-10.1) 05/10/16 10:55 Total Bilirubin 1.1 mg/dL (0.2-1.0) H D 05/10/16 10:55 AST 28 U/L (15-37) D 05/10/16 10:55 ALT 35 U/L (12-78) D 05/10/16 10:55 Alkaline Phosphatase 117 U/L (45-117) 05/10/16 10:55 Total Protein 7.1 g/dl (6.4-8.2) 05/10/16 10:55 Albumin 3.5 g/dl (3.4-5.0) 05/10/16 10:55 CARDIAC ENZYMES Creatine Kinase 95 IU/L (39-308) 05/11/16 06:04 Troponin I < 0.02 ng/ml (0.00-0.05) 05/11/16 06:04 05/10/16 05/10/16 05/11/16 10:55 18:30 06:04 Troponin I < 0.03 L < 0.02 < 0.02 Imaging: Ultrasound Abdomen (05/11/16): Mild hepatosplenomegdaly with course echotexture r /o fatty infiltration vs. hepatocellular disease. No gallstones identified, no intra or extrahepatic bile duct dilation seen. CTA (05/10/16): No evidence of pulmonary embolism. Mild right basilar atelectasis with no acute pathology within the chest. The trachea is mildly enlarged and ectatic. The heart is not enlarged. The upper abdomen demonstrates the patient to be s/p gastric surgery. No acute pathology. CXR (05/10/16): heart size is within normal limits, lung phillips are free of pulmonary infiltrates or pleural effusions. There is tortuosity and calcification of the thoracic aorta and degenerative changes of the thoracic spine. No acute disease. EKG (05/10/16): Normal sinus rhythm, septal infarct. Ventricular rate has increased by 26 bpm when compared to EKG on 04/03/16. HOSPITAL COURSE: This is a 61 year old male with a past medical history of CAD, NE's, HTN, HLD, COPD, CVA with residual right sided weakness, DM II, obesity, gastric bypass surgery in 07/2015, chronic back pain, and s/p recent nerve block/pain injection , presented to the ED on 05/10/16 with 3 days of stabbing, scapular pain radiating to the chest, that is reproducible on muscular movements and with deep inspiration. Most likely pain of musculoskeletal in origin because reproducible on palpation, with movement, and on inspiration, and s/p lumbar radiofrequency, and less likely of cardiac origin because the troponins were negative x 3, ECHO from last month unremarkable, EKG shows no ischemic changes, CXR shows heart size within normal limits, lung phillips clear. Not likely Aortic Dissection, because CTA showed no acute pathology. On 05/11/16 patient received abdominal ultrasound for periscapular pain, showing mild hepatosplenomegdaly, LFT's within normal limits. Pt denies shortness of breath, dizziness, or chest pain, and is stable for discharge. Patient should continue home medications and follow-up with pharmacy consultant within one week. Spoke to nurse at Dr. Maricruz Courtney (pain management: [phone]). Patient had lumbar radio frequency on 05/02. The patient received 30 day Rx for Oxycodone 15mg , Neurotin 800mg, and Nucynta 50mg on 05/02. Instructed the patient to follow-up with Dr. Courtney on 05/15/16 at 4:15pm at [address] [place] [address] Please return to the ED with new, persistent or worsening symptoms. This discharge took 45 minutes to complete. Date of Admission:05/10/16 Date of Discharge: 05/11/16 Minutes to complete discharge: 45 Discharge Summary Reason For Visit: SCAOYKAKGIA,CHEST PAIN Current Active Problems Chest pain (Acute) Periscapular pain (Acute) Back pain (Chronic) Back pain at L4-L5 level (Chronic) Bulging disc (Chronic) Chronic pain (Chronic) DM II (diabetes mellitus, type II), controlled (Chronic) Degenerative joint disease of knee (Chronic) HLD (hyperlipidemia) (Chronic) HNP (herniated nucleus pulposus) (Chronic) HTN (hypertension) (Chronic) Knee pain, bilateral (Chronic) Neck pain (Chronic) Shoulder pain, right (Chronic) Stroke (Chronic) - Home Medications Comprehensive Discharge Medication List: Ambulatory Orders Amlodipine Besylate [Norvasc -] 10 mg PO DAILY 05/10/16 Aspirin [Aspirin EC] 81 mg PO DAILY 05/10/16 Atorvastatin Ca [Lipitor] 40 mg PO HS 05/10/16 Carvedilol [Coreg -] 25 mg PO BID 05/10/16 Cholecalciferol (Vitamin D3) [Vitamin D3] 2,000 unit PO DAILY 05/10/16 Clopidogrel Bisulfate [Clopidogrel] 75 mg PO DAILY 05/10/16 Cyanocobalamin (Vitamin B-12) [Vitamin B-12] 1,000 mcg PO DAILY 05/10/16 Diphenhydramine [Benadryl -] 50 mg PO TID PRN 05/10/16 Escitalopram Oxalate [Lexapro -] 5 mg PO DAILY 05/10/16 Escitalopram Oxalate [Lexapro -] 20 mg PO DAILY 05/10/16 Folic Acid 1 mg PO DAILY 05/10/16 Gabapentin 800 mg PO TID 05/10/16 Glipizide 5 mg PO DAILY 05/10/16 Pantoprazole Sodium [Protonix -] 40 mg PO DAILY 05/10/16 Vitamin B Complex 100 No.2 [B-100 Complex] 100 mg PO DAILY 05/10/16 This patient is new to me today: Yes Date on this admission: 05/11/16 Emergency Visit: Yes ED Registration Date: 05/10/16 Care time: The patient presented to the Emergency Department on the above date and was hospitalized for further evaluation of their emergent condition. Critical Care patient: No - Discharge Referral Referred to [facility] Med P.C.: No
[2016-05-11] MEDS ORDERED: TAPENTADOL HYDROCHLORIDE 50 MG TABLET PO ONE (14:19)
--- NOTE | 2016-05-14 16:26 | EKG ---
Test Reason : Blood Pressure : / mmHG Vent. Rate : 078 BPM Atrial Rate : 078 BPM P-R Int : 162 ms QRS Dur : 090 ms QT Int : 376 ms P-R-T Axes : 080 068 058 degrees QTc Int : 428 ms NORMAL SINUS RHYTHM NORMAL ECG WHEN COMPARED WITH ECG OF 10-MAY-2016 10:03, NO SIGNIFICANT CHANGE WAS FOUND Confirmed by JOANNA CANCHOLA MD ([id number]) on 05/14/2016 4:25:43 PM Referred By: Confirmed By:JOANNA CANCHOLA MD
== END 2016-05-11 15:20 | disposition home health service (06) ==
LOC: JER 09:49 → JERBED 14:36 → J4W 17:30
PROVIDERS: ADMIT Internal Medicine; ATTEND Registered Nurse
DX: M89.8X1 Other specified disorders of bone, shoulder (principal); J44.9 Chronic obstructive pulmonary disease, unspecified; I25.2 Old myocardial infarction; J98.11 Atelectasis; E11.9 Type 2 diabetes mellitus without complications; M54.89 Other dorsalgia; E78.5 Hyperlipidemia, unspecified; I25.10 Atherosclerotic heart disease of native coronary artery without angina pectoris; R10.11 Right upper quadrant pain; M17.9 Osteoarthritis of knee, unspecified; I11.0 Hypertensive heart disease with heart failure; I50.30 Unspecified diastolic (congestive) heart failure; I69.351 Hemiplegia and hemiparesis following cerebral infarction affecting right dominant side; Z98.84 Bariatric surgery status
CPT/HCPCS: 36415; 71010-TC; 71275-TC; 76705-TC; 80053; 82550; 82553; 83690; 83735; 83880; 84484; 85027; 93005; 93010; 99284-25; G0378

== ENCOUNTER 2016-06-13 12:19 | Inpatient (IN) | payer OTHER ==
[2016-06-13 12:41] VITALS: BMI 35.6
--- NOTE | 2016-06-13 12:51 | PDOC ---
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 He reports having a sudden onset of dizziness while watching TV with pain at the of his head. He reports after his alerting 911. He reports over the past 1-2 hours his symptoms improved. He denies any change in version during his symptomatic episode.He notes his last glucose reading was around 300 after eating. His notes having some slurring since his dizziness episode. Upon ED arrival the patient reports feeling lethargic. He reports being plavix and aspirin. He denies any recent fevers, chills, or headache. He denies any recent nausea, vomit, diarrhea or constipation. He denies any recent chest pain or shortness of breath. He denies any recent dysuria, frequency, urgency or hematuria. Allergies: Citric Acid. NKDA. Past surgical history: See HPI and Appendectomy. Social History: Former. Former EtOH use and drug use. PCP: Not on Staff <Checo Meuller - Last Filed: 06/13/16 14:40> <Scott Fuller - Last Filed: 06/13/16 15:15> - General Chief Complaint: Lightheaded Stated Complaint: HIGH BLOOD SUGAR Time Seen by Provider: 06/13/16 12:50 NIH Stroke Scale - Last Known Well Date/Time & Onset Date Last Known Well: 06/13/16 Time Last Known Well: 11:00 - Initial Evaluation Level of consciousness: Alert Ask patient the month and their age: Answers both correctly Ask patient to open & close eyes; make fist and let go: Obeys both correctly Best gaze (horizontal eye movement): Normal Visual field testing: No visual field loss Facial paresis (Show teeth/raise eyebrows/close eyes tight): Normal symmetrical movement Motor Function: Left Arm: Normal Motor Function: Right Arm: Drift Motor Function: Left Leg: Normal (extends leg 30 degrees for 5 seconds without drift) Motor Function: Right Leg: Normal (extends leg 30 degrees for 5 seconds without drift) Limb Ataxia: No ataxia Sensory(Use pinprick test arms,legs,trunk,face/side to side): Normal Best language (Describe picture, name items, read sentences): No Aphasia Dysarthria (read several words): Mild to moderate slurring of words Extinction and Inattention: No abnormality - Total Score NIH Stroke Scale Score: 2 <Scott Fuller - Last Filed: 06/13/16 15:15> tPA Exclusion Checklist 0-3hr - Thrombolytic Therapy Candidate Is the patient eligible for Thrombolytic Therapy?: No - Relative Exclusion Criteria 0-3h Rapid improvement: Yes Stroke severity too mild: Yes - Ineligibility reason(s) Reasons No tPA given: See reason(s) noted above <Scott Fuller - Last Filed: 06/13/16 15:15> Past History <Checo Mueller - Last Filed: 06/13/16 14:40> - Past Medical History Anemia: No Asthma: Yes Cancer: No Cardiac Disorders: Yes (MT) CVA: Yes COPD: Yes CHF: No DVT: Yes Dementia: No Diabetes: Yes GI Disorders: Yes (dumping syndrome ) Disorders: No HTN: Yes Hypercholesterolemia: No Liver Disease: No Seizures: No Thyroid Disease: No - Surgical History Abdominal Surgery: Yes (gastric bypass 07/2015) Appendectomy: Yes Cardiac Surgery: No Cholecystectomy: No GI Surgery: Yes (BYPASS) Lung Surgery: No Neurologic Surgery: No Orthopedic Surgery: No - Immunization History Immunization Up to Date: Yes - Psycho/Social/Smoking Cessation Hx Anxiety: No Suicidal Ideation: No Smoking History: Former smoker Have you smoked in the past 12 months: No Number of Cigarettes Smoked Daily: 0 If you are a former smoker, when did you quit?: 37 YRS AGO Information on smoking cessation initiated: No Hx Alcohol Use: No (past) Drug/Substance Use Hx: No (past) Substance Use Type: None <Scott Fuller - Last Filed: 06/13/16 15:15> - Past Medical History Allergies/Adverse Reactions: Allergies Allergy/AdvReac Type Severity Reaction Status Date / Time citric acid Allergy Hives Verified 12/19/15 13:22 Home Medications: Ambulatory Orders Amlodipine Besylate [Norvasc -] 10 mg PO DAILY 06/13/16 Aspirin [ASA -] 81 mg PO DAILY 06/13/16 Atorvastatin Ca [Lipitor] 40 mg PO HS 06/13/16 Carvedilol 25 mg PO DAILY 06/13/16 Cholecalciferol (Vitamin D3) [Vitamin D3] 2,000 unit PO DAILY 06/13/16 Clopidogrel Bisulfate [Plavix -] 75 mg PO DAILY 06/13/16 Cyanocobalamin (Vitamin B-12) [Vitamin B-12] 1,000 mcg PO DAILY 06/13/16 Diphenhydramine HCl [Benadryl -] 25 mg PO Q6H 06/13/16 Escitalopram Oxalate [Lexapro -] 20 mg PO DAILY 06/13/16 Folic Acid 1 mg PO DAILY 06/13/16 Gabapentin 800 mg PO TID 06/13/16 Glipizide [Glipizide ER] 5 mg PO DAILY 06/13/16 Pantoprazole Sodium 40 mg PO DAILY 06/13/16 Vitamin B Complex 1 each PO DAILY 06/13/16 Review of Systems - Review of Systems Constitutional: No: Chills, Fever Respiratory: No: Cough, Shortness of Breath Cardiac (ROS): No: Chest Pain ABD/GI: No: Vomiting Neurological: Yes: See HPI, Headache All Other Systems: Reviewed and Negative <Scott Fuller - Last Filed: 06/13/16 15:15> *Physical Exam - Vital Signs Last Vital Signs Temp Pulse Resp BP Pulse Ox 98.4 F 71 20 109/72 99 06/13/16 12:39 06/13/16 12:39 06/13/16 12:39 06/13/16 12:39 06/13/16 12:39 - Physical Exam Comments: 06/13/16 13:05 GENERAL: The patient is awake, alert, and fully oriented, in no acute distress. Speaking alert. HEAD: Normal with no signs of trauma. EYES: Pupils equal, round and reactive to light, extraocular movements intact, sclera anicteric, conjunctiva clear with no pallor. ENT: Ears normal, nares patent, oropharynx clear without exudates. Moist mucous membranes. NECK: Normal range of motion, supple without lymphadenopathy, JVD, or masses. LUNGS: Breath sounds equal, clear to auscultation bilaterally. No wheeze/ crackles. HEART: Regular rate and rhythm, normal S1 and S2 without murmur or rub. ABDOMEN: Soft/nontender/nondistended. BS wnl. No guarding or rebound. No palpable masses. No hepatosplenomegaly. EXTREMITIES: Normal range of motion, no edema. No clubbing or cyanosis. No cords , erythema, or tenderness. PSYCH: Normal mood, normal affect. SKIN: Warm, Dry, normal turgor, no rashes or lesions noted. <Checo Mueller - Last Filed: 06/13/16 14:40> - Vital Signs Last Vital Signs Temp Pulse Resp BP Pulse Ox 98.4 F 71 20 109/72 99 06/13/16 12:39 06/13/16 12:39 06/13/16 12:39 06/13/16 12:39 06/13/16 12:39 <Scott Fuller - Last Filed: 06/13/16 15:15> Heart Score/ECG Review #1 ECG reviewed & interpreted by me at: 12:48 General ECG Interpretation: Sinus Rhythm, Normal Rate (72), Normal Intervals ( qtc 422), No acute ischemic changes <Scott Fuller - Last Filed: 06/13/16 15:15> ED Treatment Course - LABORATORY CBC & Chemistry Diagram: 06/13/16 13:04 06/13/16 13:04 - RADIOLOGY Radiograph Interpretation: 06/13/16 13:[address] impressions reported by : No evidence of acute intracranial hemorrhage, edema, midline shift, mass effect , or skull fracture No CT evidence of acute territorial infarction. 06/13/16 14:40 CHEST X-RAY impressions reported by : No acute pathology. No significant change. <Checo Mueller - Last Filed: 06/13/16 14:40> - LABORATORY CBC & Chemistry Diagram: 06/13/16 13:04 06/13/16 13:04 <Scott Fuller - Last Filed: 06/13/16 15:15> Medical Decision Making - Critical Care Time Total Critical Care Time (minutes): 30 Critical Care Statement: The care of this patient involved high complexity decision making to prevent further life threatening deterioration of the patient 's condition and/or to evalute & treat vital organ system(s) failure or risk of failure. - Medical Decision Making 06/13/16 13:14 A portion of this note was documented by scribe services under my direction. I have reviewed the details of the note, within reason, and agree with the documentation with the following case summary and management plan written by me. 61-year-old male with multiple medical problems including TIA and CVA presents with episode of acute onset headache and dizziness around 11 AM while seated watching TV. The dizziness lasted about 1.5-2 hours, now resolved. The headache has also resolved. Patient and aide report a slight exacerbation of his slurred speech which is persistent. He has had episodes of this in the past but he is slurring slightly more than his baseline at this time. Exam as noted. 61-year-old male with multiple medical problems and multiple risk factors for ACS and TIA/CVA presents with acute onset at 11 AM of headache and imbalance, now resolved but with mild persistence of dysarthria. Given last known well 2 hours ago, code kumar initiated and stroke protocol ordered NIH is 2 compared to patient's baseline, he is on aspirin and Plavix, and his symptoms have essentially resolved. Would not be a TPA candidate. Will discuss with neurology. Likely admission 06/13/16 13:50 CT shows no acute bleed. Seen with Dr. Granger at bedside, ? any new deficit. Not candidate for TPA given resolution of symptoms and low NIHSS. Will increase ASA and Plavix, admit for further stroke care. 06/13/16 15:01 Other than glucose 56, no acute abnormalities. Will proceed with stroke admit. 06/13/16 15:14 Accepted for obs stroke by Dr. Pacheco <Scott Fuller - Last Filed: 06/13/16 15:15> *DC/Admit/Observation/Transfer - Attestations Scribe Attestion: 06/13/16 13:05 Documentation prepared by Checo Mueller, acting as medical data entry clerk for Scott Fuller MD. <Checo Mueller - Last Filed: 06/13/16 14:40> - Discharge Dispostion Admit: Yes <Scott Fuller - Last Filed: 06/13/16 15:15> Diagnosis at time of Disposition: TIA (transient ischemic attack) Qualifiers: Transient cerebral ischemia type: unspecified Qualified Code(s): G45.9 - Transient cerebral ischemic attack, unspecified - Discharge Dispostion Condition at time of disposition: Guarded
[2016-06-13] MEDS ORDERED: CLOPIDOGREL BISULFATE 300 MG TABLET PO ONE (13:49)
[2016-06-13] MEDS ORDERED: ASPIRIN 81 MG CHEWABLE TABLETS PO ONE (13:49)
[2016-06-13 13:55] LABS: EOSINOPHIL 7.6 % (0-4.5); MCH 28.9 pg (25.7-33.7); MCHC 33.1 g/dl (32.0-35.9); MEAN CELL VOLUME 87.2 fl (80-96); MEAN PLT VOLUME 8.2 fl (7.5-11.1); NEUTROPHILS 41.7 % (42.8-82.8); PLATELET COUNT 240 K/MM3 (134-434); RDW 14.4 % (11.9-15.9); WHITE BLOOD COUNT 6.7 K/mm3 (4.0-10.0)
[2016-06-13] MEDS ORDERED: ASPIRIN 81 MG CHEWABLE TABLETS ONE (14:01)
[2016-06-13] MEDS ORDERED: CLOPIDOGREL BISULFATE 300 MG TABLET ONE (14:01)
[2016-06-13 14:25] LABS: ALBUMIN 3.3 g/dl (3.4-5.0); ANION GAP 8 (8-16); CALCIUM 8.3 mg/dL (8.5-10.1); CHOLESTEROL 129 mg/dL (50-200); CO2 30 mmol/L (21-32); CREATININE 0.7 mg/dL (0.7-1.3); GLUCOSE,RANDOM 56 mg/dL (74-106)
--- NOTE | 2016-06-13 14:32 | CON.NEURO ---
Consult Consult Specialty:: NEUROLOGY Reason for Consultation:: code kumar: sudden dysarthria, dizziness - History of Present Illness Chief Complaint: dizziness, slurred speech History of Present Illness: 61 year old male, with past medical history of HTN, high cholesterol, COPD, multiple CVAs with residual facial drop, bilateral legs weakness, diabetes, gastric bypass, [place], on ASA and Plavix was BIBA for sudden slurred speech and dizziness. He reports having a sudden onset of dizziness while watching TV with his . He also had occipital pain at that time. His called 911.He states he had multiple CVAs in the past, last one two months ago in [facility] but the MRI brain in is negative for acute stroke. He also reports his first stroke was fifteen years ago and started with bilateral legs weakness. Most of his " strokes" are starting with dizziness and slurred speech. In ED his dizziness and headache solved. Per his home care nurse, which is at bedside he has the same slurry speech in 2016 when he was admitted in [facility] for TIA and he had complete stroke work up. The patient has chronic back pain and he is using oxycodone and other pain medication for this chronic issue. His PMD and his neurologist are located in [place]. He reports over the past 1-2 hours his symptoms improved. He denies any change in version during his symptomatic episode.He notes his last glucose reading was around 300 after eating. The patient is not a candidate for ivtpa as his symptoms improved in ED. His slurred speech seems chronic. 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: Peripheral Neuropathy, Vertigo Cardio/Vascular: Yes: CAD, CHF, HTN, LA Musculoskeletal: Yes: Chronic low back pain - Alcohol/Substance Use Hx Alcohol Use: No (past) - Smoking History Smoking history: Former smoker Have you smoked in the past 12 months: No Aproximately how many cigarettes per day: 0 If you are a former smoker, when did you quit?: 37 YRS AGO - Social History Usual Living Arrangement: With Spouse History of Recent Travel: No Home Medications - Allergies Allergies/Adverse Reactions: Allergies Allergy/AdvReac Type Severity Reaction Status Date / Time citric acid Allergy Hives Verified 12/19/15 13:22 - Home Medications Home Medications: Ambulatory Orders Amlodipine Besylate [Norvasc -] 10 mg PO DAILY 06/13/16 Aspirin [ASA -] 81 mg PO DAILY 06/13/16 Atorvastatin Ca [Lipitor] 40 mg PO HS 06/13/16 Carvedilol 25 mg PO DAILY 06/13/16 Cholecalciferol (Vitamin D3) [Vitamin D3] 2,000 unit PO DAILY 06/13/16 Clopidogrel Bisulfate [Plavix -] 75 mg PO DAILY 06/13/16 Cyanocobalamin (Vitamin B-12) [Vitamin B-12] 1,000 mcg PO DAILY 06/13/16 Diphenhydramine HCl [Benadryl Capsule -] 25 mg PO Q6H 06/13/16 Escitalopram Oxalate [Lexapro -] 20 mg PO DAILY 06/13/16 Folic Acid 1 mg PO DAILY 06/13/16 Gabapentin 800 mg PO TID 06/13/16 Pantoprazole Sodium 40 mg PO DAILY 06/13/16 Vitamin B Complex 1 each PO DAILY 06/13/16 Amoxicillin/Potassium Clav [Augmentin 875-125 Tablet] 1 each PO Q12H #14 tablet 06/14/16 Physical Exam-Neuro Vital Signs: Vital Signs Temperature 98.4 F 06/13/16 12:39 Pulse Rate 71 06/13/16 12:39 Respiratory Rate 20 06/13/16 12:39 Blood Pressure 109/72 06/13/16 12:39 O2 Sat by Pulse Oximetry (%) 99 06/13/16 12:39 Constitutional: Yes: No Distress, Calm Neck: Yes: Supple, Trachea Midline Cardiovascular: Yes: Regular Rate and Rhythm, S1, S2 Respiratory: Yes: Regular, CTA Bilaterally Gastrointestinal: Yes: Normal Bowel Sounds, Soft Edema: No Psychiatric: Yes: Alert, Oriented - Neuro Exam Level Of Consciousness: Yes: Oriented to Person, Oriented to Place Eyes: Yes: PERRLA Speech: Slurred Dominant Hand: Right Cranial Nerves II-XII Intact: No (right facial droop) Gag: Present DTR's: 1+ Left Bicep, 1+ Right Bicep, 1+ Left Tricep, 1+ Right Tricep, 1+ Left Brachioradialis, 1+ Right Brachioradialis, 1+ Left Achilles, 1+ Right Achilles Babinski: Absent Response to light touch: Normal Response to pain prick: Normal Response to temperature: Normal Response to vibration: Normal Coordination: Normal: Finger to Nose, Heel to [place] Motor Strength: 4/5: Left Leg, Right Leg, 5/5: Left Arm, Right Arm Gait: Deferred NIH Stroke Scale - Last Known Well Date/Time & Onset Symptom Onset Date: 06/13/16 Symptom Onset Time: 11:00 Date Last Known Well: 06/13/16 Time Last Known Well: 10:00 - Initial Evaluation Level of consciousness: Alert Ask patient the month & their age: Answers Both Correctly Ask Patient to open & close eyes; make fist and let go.: Obeys Both Correctly Best gaze (horizontal eye movement): Normal Visual Field Testing: No Visual Loss Facial Palsy(Show teeth or raise eyebrows & close eyes: Minor Paralysis ( Flattened nasolabial fold, asymmetry on smiling). Motor Function - Left Arm: No Drift;extends limb 90 (or siting 45) degress & hold full 10 seconds Motor Function - Right Leg: Drift; leg falls by the end of 5 sec period but does not hit the bed. Dysarthria/Articulation: Mild to moderate dysarthria;slurs some words/ understood w/difficulty Extinction and Inattention: No abnormality - Total Score NIH Stroke Scale Score: 3 Imaging - Results Cat Scan: Report Reviewed, Image Reviewed Ultrasound: Report Reviewed, Image Reviewed MRI: Report Reviewed, Image Reviewed Problem List - Problems (1) TIA (transient ischemic attack) Code(s): G45.9 - TRANSIENT CEREBRAL ISCHEMIC ATTACK, UNSPECIFIED Qualifiers: Transient cerebral ischemia type: unspecified Qualified Code(s): G45.9 - Transient cerebral ischemic attack, unspecified (2) Dysarthria as late effect of cerebrovascular accident (CVA) Code(s): I69.322 - DYSARTHRIA FOLLOWING CEREBRAL INFARCTION Assessment/Plan 61 year old male, with past medical history of HTN, high cholesterol, COPD, multiple CVAs with residual facial drop, bilateral legs weakness, diabetes, gastric bypass, [place], on ASA and Plavix was BIBA for sudden slurred speech and dizziness. He reports having a sudden onset of dizziness while watching TV with his . He also had occipital pain at that time. His called 911.He states he had multiple CVAs in the past, last one two months ago in [facility] but the MRI brain in is negative for acute stroke. He also reports his first stroke was fifteen years ago and started with bilateral legs weakness. Most of his " strokes" are starting with dizziness and slurred speech. In ED his dizziness and headache solved. Per his home care nurse, which is at bedside he has the same slurry speech in 2016 when he was admitted in [facility] for TIA and he had complete stroke work up. The patient has chronic back pain and he is using oxycodone and other pain medication for this chronic issue. His PMD and his neurologist are located in [place]. He reports over the past 1-2 hours his symptoms improved. He denies any change in version during his symptomatic episode.He notes his last glucose reading was around 300 after eating. The patient is not a candidate for ivtpa as his symptoms improved in ED. His slurred speech seems chronic. NIHS is 3p: 1p for facial droop, 1p dysarthria, 1p RLE drift Impression: reexpression old lacunar stroke versus new TIA Plan: - give extra 300mg. Plavix. po one time, then continues asa 81mg. po daily, Plavix 75mg.po daily - to do MRI brain to rule out stroke, he had doppler carotids, echocardiogram two months ago. - check for UTI, Holter 24h. - PT/OT/ST - drug screen: slurred speech and dizziness can be side effects from oxycodone overuse or other drugs. - DVT prophylaxis with heparin sq. Critical Care Time spent in ED 50 min. Thank you for this consult. Will follow
[2016-06-13 14:37] LABS: ALK PHOS 112 U/L (45-117); BILIRUBIN,TOTAL 0.6 mg/dL (0.2-1.0); SGPT/ALT 40 U/L (12-78); TOT PROT 6.7 g/dl (6.4-8.2); TROPONIN I < 0.02 ng/ml (0.00-0.05)
[2016-06-13 14:48] LABS: INR 1.12 (0.82-1.09); PROTHROMBIN TIME (PATIENT) 12.3 SEC (9.98-11.88)
[2016-06-13 15:21] LABS: URINE APPEARANCE CLEAR; URINE BILIRUBIN NEGATIVE (NEGATIVE); URINE BLOOD NEGATIVE (NEGATIVE); URINE COLOR YELLOW; URINE GLUCOSE (UA) NEGATIVE (NEGATIVE); URINE KETONE NEGATIVE (NEGATIVE); URINE LEUK ESTERASE NEGATIVE (NEGATIVE); URINE NITRITE NEGATIVE (NEGATIVE); URINE PROTEIN NEGATIVE (NEGATIVE); URINE UROBILINOGEN 2.0 E.U/dl E.U./dl (0.2-1.0)
[2016-06-13 15:58] LABS: LDL CHOLESTEROL (ONLY SJRH) 68 mg/dL (5-100)
[2016-06-13 15:59] LABS: SGOT/AST 40 U/L (15-37)
--- NOTE | 2016-06-13 16:50 | HP ---
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 The symptoms started 11am. The Pt had a dull headache b/l, 8/10, with the severity gradually reduced over the next 2 hours. No accompanied nausea, vomiting, no sudden onset, no focal numbness/tingling/ weakness, no aura, no photophobia, no phonophobia. Pt also complained of dizziness, feels like then room is spinning and moving around, Pt had poor coordination and unsteady gait and worsening balance. Symptoms does not increase with sudden head movement or change in position. Pt denies blurred vision, double vision, no slurred speech, no focal new weakness/tingling/ numbness, no tinnitus. no recent cold, no n/v, no fever, chills, no cough, no chest pain or sob, No dysuria or hematuria. Pt c/o of diarrhea (watery brown non bloody liquid stool) 6 times yesterday but none today. ER course was notable for: (1) ASA, Plavix (2) CT head w/o contrast showed no acute event, no bleeding Recent Travel: None PAST MEDICAL HISTORY: CVA, [place] x2 last one was 8 years ago, DM, HTN, HPLD, COPD, Asthma, Cardiomegaly, chronic low back pain/herniated disc PAST SURGICAL HISTORY: Appendectomy, gastric Bypass Social History: Smoking: former smoker quit 30 years ago, smoker for close to 20 years 1.5 to 2 pack per day Alcohol: denies Drugs: denies Family History: Various family history of cancer from brother and sisters (Pelvic cancer, throat cancer, breast cancer, Liver cirrhosis and cancer). Mother of heart problem Allergies citric acid Allergy (Verified 12/19/15 13:22) Hives HOME MEDICATIONS: Home Medications Medication Instructions Recorded Amlodipine Besylate [Norvasc -] 10 mg PO DAILY 06/13/16 Aspirin [ASA -] 81 mg PO DAILY 06/13/16 Atorvastatin Ca [Lipitor] 40 mg PO HS 06/13/16 Carvedilol 25 mg PO DAILY 06/13/16 Cholecalciferol (Vitamin D3) 2,000 unit PO DAILY 06/13/16 [Vitamin D3] Clopidogrel Bisulfate [Plavix -] 75 mg PO DAILY 06/13/16 Cyanocobalamin (Vitamin B-12) 1,000 mcg PO DAILY 06/13/16 [Vitamin B-12] Diphenhydramine HCl [Benadryl -] 25 mg PO Q6H 06/13/16 Escitalopram Oxalate [Lexapro -] 20 mg PO DAILY 06/13/16 Folic Acid 1 mg PO DAILY 06/13/16 Gabapentin 800 mg PO TID 06/13/16 Glipizide [Glipizide ER] 5 mg PO DAILY 06/13/16 Pantoprazole Sodium 40 mg PO DAILY 06/13/16 Vitamin B Complex 1 each PO DAILY 06/13/16 REVIEW OF SYSTEMS CONSTITUTIONAL: Absent: fever, chills, diaphoresis, generalized weakness, malaise, loss of appetite, weight change HEENT: Absent: rhinorrhea, nasal congestion, throat pain, throat swelling, difficulty swallowing, mouth swelling, ear pain, eye pain, visual changes CARDIOVASCULAR: Absent: chest pain, syncope, palpitations, irregular heart rate, lightheadedness , peripheral edema RESPIRATORY: Absent: cough, shortness of breath, dyspnea with exertion, orthopnea, wheezing, stridor, hemoptysis GASTROINTESTINAL: Absent: abdominal pain, abdominal distension, nausea, vomiting, diarrhea, constipation, melena, hematochezia GENITOURINARY: Absent: dysuria, frequency, urgency, hesitancy, hematuria, flank pain, genital pain MUSCULOSKELETAL: Absent: myalgia, arthralgia, joint swelling, back pain, neck pain SKIN: Absent: rash, itching, pallor HEMATOLOGIC/IMMUNOLOGIC: Absent: easy bleeding, easy bruising, lymphadenopathy, frequent infections ENDOCRINE: Absent: unexplained weight gain, unexplained weight loss, heat intolerance, cold intolerance NEUROLOGIC:mild right right weakness from old CVA , dizziness, unsteady gait, headache, Absent: paresthesias, seizure, mental status changes, bladder or bowel incontinence PSYCHIATRIC: anxiety, Absent: depression, suicidal or homicidal ideation, hallucinations. PHYSICAL EXAMINATION Vital Signs - 24 hr 06/13/16 06/13/16 15:47 16:00 Pulse Rate 75 Pulse Rate [ 68 Left] Respiratory 17 20 Rate Blood Pressure 103/82 [Arm] O2 Sat by Pulse 100 100 Oximetry (%) GENERAL: Awake, alert, and fully oriented, in no acute distress. HEAD: Normal with no signs of trauma. EYES: Pupils equal, round and reactive to light, extraocular movements intact, sclera anicteric, conjunctiva clear. No lid lag. EARS, NOSE, THROAT: Ears normal, nares patent, oropharynx clear without exudates. Moist mucous membranes. NECK: Normal range of motion, supple without lymphadenopathy, JVD, or masses. LUNGS: Breath sounds equal, clear to auscultation bilaterally. No wheezes, and no crackles. No accessory muscle use. HEART: Regular rate and rhythm, normal S1 and S2 without murmur, rub or gallop. ABDOMEN: Soft, nontender, not distended, normoactive bowel sounds, no guarding, no rebound, no masses. No hepatomegaly or splenomegaly. MUSCULOSKELETAL: Normal range of motion at all joints. No bony deformities or tenderness. No CVA tenderness. UPPER EXTREMITIES: 2+ pulses, warm, well-perfused. No cyanosis. No clubbing. No peripheral edema. LOWER EXTREMITIES: 2+ pulses, warm, well-perfused. No calf tenderness. No peripheral edema. NEUROLOGICAL: Cranial nerves II-XII intact. Normal speech. Strength 4.5/5 in right arm and 5/5 in left arm. 4.5/5 b/l lower ext strength. Normal sensation to light touch in all ext. 2+ reflex in bicep and brachioradialis reflex, 2+ b/ l in patellar reflex unsteady gait use cane. PSYCHIATRIC: Cooperative. Good eye contact. Appropriate mood and affect. SKIN: Warm, dry, normal turgor, no rashes or lesions noted, normal capillary refill. CBC, BMP 06/13/16 13:04 06/13/16 13:04 Laboratory Tests 06/13/16 06/13/16 13:04 13:04 INR 1.12 Calcium 8.3 L Total Bilirubin 0.6 D AST 40 H D ALT 40 Alkaline Phosphatase 112 Troponin I < 0.02 Albumin 3.3 L Total LDL Cholesterol 68 D HDL Cholesterol 49 D ASSESSMENT/PLAN: 61 year old male with pmh of HTN, DM, HPLD, MIx2 on ASA and Plavix, multiple CVA and TIAs presented to the ED complaint of dizziness. Dizziness r/o Posterior TIA vs vertigo Symptoms are vertiginous of nature. Worry about central versus peripheral vertigo. Worry about posterior circulation CVA which could cause similar symptoms. Also consider possible dehydration from diarrhea, medication such as narcotic effect or hyper/hypoglycemia. CT head negative ASA given Plavix given Neurology consulted MRI brain ordered MRA head/neck ordered TSH Lipid profile Vitamin B12 HgA1c Consider meclezine 25mg po Prn H/O CAD/NH Resume aspirin and plavix HTN resume antihypertensive (coreg and norvac) DM resume Glipizide Novolog sliding scale HPLD Resume atorvastatin FEN Fluid: none Electrolytes: no abnormalities Nutrition: Diabetic cardiac diet DVT prophylaxis: Heparin 5000 U q8h Disposition: keep in Stroke telemetry pending MRI/MRA. Visit type - Emergency Visit Emergency Visit: Yes ED Registration Date: 06/13/16 Care time: The patient presented to the Emergency Department on the above date and was hospitalized for further evaluation of their emergent condition. - New Patient This patient is new to me today: Yes Date on this admission: 06/14/16 - Critical Care Critical Care patient: No
[2016-06-13] MEDS ORDERED: oxyCODONE HCL 5 MG TABLET PO ONE ×2 (18:22→21:25)
--- NOTE | 2016-06-13 18:31 | PN ---
Teaching Attending Note Name of Resident: Surya Bansal ATTENDING PHYSICIAN STATEMENT I saw and evaluated the patient. I reviewed the resident's note and discussed the case with the resident. I agree with the resident's findings and plan as documented. SUBJECTIVE: This is a 61-year-old man with a history of CAD, ME, HTN, hyperlipidemia, CVA, TIAs, type 2 DM, chronic back pain who presented OBJECTIVE: Vital Signs Period Temp Pulse Resp BP Sys/[place] Pulse Ox Last 24 Hr 97.4 F-98.4 F 68-78 17-20 103-119/45-82 98-100 HEART: LUNGS: ABDOMEN: EXTREMITIES: NEUROLOGICAL: ASSESSMENT AND PLAN:
[2016-06-13] MEDS: HEPARIN NA (PORCINE) 5,000 UNITS/ML 1ML VIAL SQ SCH (21:24)
[2016-06-13] MEDS: GABAPENTIN 400 MG CAPSULE (FP) PO SCH (21:25)
[2016-06-13] MEDS: INSULIN SLIDING SCALE (NOVOLOG) 1 VIAL SQ SCH (21:25)
[2016-06-13] MEDS ORDERED: ATORVASTATIN CA 40 MG TABLET (FP) PO SCH (22:00)
[2016-06-13] MEDS ORDERED: oxyCODONE HCL 5 MG TABLET ONE (22:02)
[2016-06-14] MEDS: GABAPENTIN 400 MG CAPSULE (FP) PO SCH ×2 (05:48→13:17)
[2016-06-14] MEDS: HEPARIN NA (PORCINE) 5,000 UNITS/ML 1ML VIAL SQ SCH ×2 (05:48→13:17)
[2016-06-14] MEDS: INSULIN SLIDING SCALE (NOVOLOG) 1 VIAL SQ SCH ×3 (06:03→16:40)
[2016-06-14] MEDS ORDERED: glipiZIDE-XL 5 MG TAB.ER.24 PO SCH (07:00)
[2016-06-14] MEDS ORDERED: CARVEDILOL 25 MG TABLET (FP) PO SCH (10:00)
[2016-06-14] MEDS ORDERED: amLODIPine BESYLATE 10 MG TABLET (FP) PO SCH (10:00)
[2016-06-14] MEDS ORDERED: CHOLECALCIFEROL (VITAMIN D3) 1,000 UNIT TABLET (FP) PO SCH (10:00)
[2016-06-14] MEDS ORDERED: PANTOPRAZOLE 40 MG TABLET (FP) PO SCH (10:00)
[2016-06-14] MEDS ORDERED: CYANOCOBALAMIN 1,000 MCG TABLET (FP) PO SCH (10:00)
[2016-06-14] MEDS ORDERED: FOLIC ACID 1 MG TABLET (FP) PO SCH (10:00)
[2016-06-14] MEDS ORDERED: CLOPIDOGREL BISULFATE 75 MG TABLET (FP) PO SCH (10:00)
[2016-06-14] MEDS ORDERED: ASPIRIN 81 MG CHEWABLE TABLETS PO SCH (10:00)
[2016-06-14] MEDS ORDERED: oxyCODONE HCL 5 MG TABLET PO PRN (13:07)
--- NOTE | 2016-06-14 13:55 | PN ---
Teaching Attending Note Name of Resident: Surya Bansal ATTENDING PHYSICIAN STATEMENT I saw and evaluated the patient. I reviewed the resident's note and discussed the case with the resident. I agree with the resident's findings and plan as documented. SUBJECTIVE:no repeated episodes of dizzyness since admission. states that he been experiencing "dizzy spells" intermittently for several months but yesterday episode was severe and similar in nature to previous CVA which prompted him to come to the hospital. check his sugar when he woke up (90) he ate and took his home medications including glipizide and shortly afterwards felt dizzy, repeated his sugar at that time and was 300. admits to taking his percocet around the clock the past few days for uncontrolled pain. but states he been eating and drinking well, but did have several loose stools day prior to presentation which he has not experienced since then. no URI like symptoms. CP, SOB, fever, chills, blurred vision. at baseline has R sided weakness and ataxic gait OBJECTIVE: Last Vital Signs Temp Pulse Resp BP Pulse Ox 97.8 F 80 20 135/74 97 06/14/16 10:00 06/14/16 10:00 06/14/16 10:00 06/14/16 10:06/14/16 09:00 General NAD CV S1 S2 RRR no murmur/rub/gallop no carotid bruit Lungs CTA B/L no wheezing/rales/rhonchi Neuro sensation decreased on RUE/RLE strength 4/5 RUE 3/5 RLE/LLE. unsteady stance on standing, gait testing deferred. no dysmetria, negative heel to calvin testing ASSESSMENT AND PLAN: 61yo M with PMH CAD, HTN, CVA/TIA with residual R sided weakness and ataxic gait and DM presented to the ER and was admitted for further evaluation of their emergent condition 1. Dizzyness- cerebellar infarct vs hypoglycemia vs medication induced. Recent CVA workup done including carotid doppler and echo. repeat MRI shows subacute L periventricular infarct, unclear if this is same location as previous CVA. other possibility is glucose variability. states he often wakes up with his sugars 70-90's and that he often wakes up dizzy. he takes glipizide which is known to cause hypoglycemia. A1c 5.8. will recommend holding all oral agents and just diet controlled. will need to monitor sugars closely, perhaps not necessary at this time due to significant weight loss after bariatric surgery. also recommended decreasing opiate use, he states hes had "every intervention" with no relief but is controlled with percocet. refuses spinal surgery which according to him is his next available step. re-start percocet with caution. PT assessment to assess gait status. Vitamin B12 and TSH WNL. UA negative will d/w neuro if any other workup required at this time. if not once on cardiac monitoring for 24H can d/c home. can consider holter monitor if continues to experience dizzy episodes to r/o arrhythmia.
--- NOTE | 2016-06-14 14:50 | DS ---
Physical Exam: SUBJECTIVE: Patient seen and examined No symptoms feeling comfortable Only complains of back back which pt had for years no new focal neurological deficits no change in vision no dizziness no headache no fever or chills OBJECTIVE: Vital Signs Period Temp Pulse Resp BP Sys/[place]inton Pulse Ox Last 24 Hr 97.3 F-97.8 F 66-80 20-20 116-135/45-80 97-97 PHYSICAL EXAM GENERAL: Awake, alert, and fully oriented, in no acute distress. HEAD: Normal with no signs of trauma. EYES: Pupils equal, round and reactive to light, extraocular movements intact, sclera anicteric, conjunctiva clear. No lid lag. EARS, NOSE, THROAT: Ears normal, nares patent, oropharynx clear without exudates. Moist mucous membranes. NECK: Normal range of motion, supple without lymphadenopathy, JVD, or masses. LUNGS: Breath sounds equal, clear to auscultation bilaterally. No wheezes, and no crackles. No accessory muscle use. HEART: Regular rate and rhythm, normal S1 and S2 without murmur, rub or gallop. ABDOMEN: Soft, nontender, not distended, normoactive bowel sounds, no guarding, no rebound, no masses. No hepatomegaly or splenomegaly. MUSCULOSKELETAL: Normal range of motion at all joints. No bony deformities or tenderness. No CVA tenderness. UPPER EXTREMITIES: 2+ pulses, warm, well-perfused. No cyanosis. No clubbing. No peripheral edema. LOWER EXTREMITIES: 2+ pulses, warm, well-perfused. No calf tenderness. No peripheral edema. NEUROLOGICAL: Cranial nerves II-XII intact. Normal speech. Strength 4.5/5 in right arm and 5/5 in left arm. 4.5/5 b/l lower ext strength. Normal sensation to light touch in all ext. 2+ reflex in bicep and brachioradialis reflex, 2+ b/ l in patellar reflex unsteady gait use cane. PSYCHIATRIC: Cooperative. Good eye contact. Appropriate mood and affect. SKIN: Warm, dry, normal turgor, no rashes or lesions noted, normal capillary refill. Ambulatory Orders Amlodipine Besylate [Norvasc -] 10 mg PO DAILY 06/13/16 Aspirin [ASA -] 81 mg PO DAILY 06/13/16 Atorvastatin Ca [Lipitor] 40 mg PO HS 06/13/16 Carvedilol 25 mg PO DAILY 06/13/16 Cholecalciferol (Vitamin D3) [Vitamin D3] 2,000 unit PO DAILY 06/13/16 Clopidogrel Bisulfate [Plavix -] 75 mg PO DAILY 06/13/16 Cyanocobalamin (Vitamin B-12) [Vitamin B-12] 1,000 mcg PO DAILY 06/13/16 Diphenhydramine HCl [Benadryl Capsule -] 25 mg PO Q6H 06/13/16 Escitalopram Oxalate [Lexapro -] 20 mg PO DAILY 06/13/16 Folic Acid 1 mg PO DAILY 06/13/16 Gabapentin 800 mg PO TID 06/13/16 Pantoprazole Sodium 40 mg PO DAILY 06/13/16 Vitamin B Complex 1 each PO DAILY 06/13/16 Amoxicillin/Potassium Clav [Augmentin 875-125 Tablet] 1 each PO Q12H #14 tablet 06/14/16 LABS Laboratory Results - last 24 hr 06/13/16 06/14/16 06/14/16 20:13 05:44 06:20 POC Glucometer 119 88 Hemoglobin A1c % 5.8 D Vitamin B12 TSH 06/14/16 06/14/16 06/14/16 06:20 06:20 11:38 POC Glucometer 107 Hemoglobin A1c % Vitamin B12 601 D TSH 1.41 D HOSPITAL COURSE: Date of Admission:06/13/16 61 year old male with pmh of HTN, DM, HPLD, 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 The symptoms started 11am. The Pt had a dull headache b/l, 8/10, with the severity gradually reduced over the next 2 hours. No accompanied nausea, vomiting, no sudden onset, no focal numbness/tingling/ weakness, no aura, no photophobia, no phonophobia. Pt also complained of dizziness, feels like then room is spinning and moving around, Pt had poor coordination and unsteady gait and worsening balance. Symptoms does not increase with sudden head movement or change in position. Pt denies blurred vision, double vision, no slurred speech, no focal new weakness/tingling/ numbness, no tinnitus. no recent cold, no n/v, no fever, chills, no cough, no chest pain or sob, No dysuria or hematuria. Pt c/o of diarrhea (watery brown non bloody liquid stool) 6 times yesterday but none today. ER course was notable for:(1) ASA, Plavix (2) CT head w/o contrast showed no acute event, no bleeding 61 year old male with pmh of HTN, DM, HPLD, MIx2 on ASA and Plavix, multiple CVA and TIAs presented to the ED complaint of dizziness. Dizziness r/o Posterior TIA vs vertigo. Symptoms are vertiginous of nature. No focal neurological deficit. Worry about central versus peripheral vertigo. Worry about posterior circulation CVA which could cause similar symptoms. Also consider possible dehydration from diarrhea. Consider medication side effect such as narcotic effect with pt taking oxycone 15mg PO q8h. Pt admitted that he has been taking a little more than he supposed due to the increased back pain in the las 2 days. Worry about or hypoglycemia as the pt blood sugar tend to run low when he checks it at home sometimes wakes up with dizziness. CT head negative. On ASA and Plavix. Neurology consulted Dr Granger. MRI brain done, It showed old infarct and artifact and microvacular ischemic gliosis and/or demyelinating disease per neurologist. MRA head and neck showed no large vessel stenosis in basilar and carotid circulation.TSh 1.4, Vit B12 601, HDL 49, LDL 68 , HgA1C 5.8. Pt is to follow up with neurologist Dr Ruffin within 1-2 weeks. Pt has H/O CAD/MO. Resume aspirin and plavix on discharge. Pt has HTN but it is controlled resume antihypertensive (coreg and norvac). Pt has Diabetes type 2. HgA1c 5.8. Pt has multiple episode of blood sugar less than 70 which is too low and pt sometimes becomes symptomatic. Stop taking Glipizide. it causes hypoglycemia in the patient. Will manage blood sugar with diet and no antiglycemic agent. Pt has h/o Hyperlipidemia. LDL 68, pt goal is 70, Resume atorvastatin. Pt has sinusitis, it is seen on MRI brain, Start Augmentin 875- 125 mg q12h for 7 days. 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 It drops your blood sugar and may cause the dizziness Start taking Augmentin per neurology recommendations because you have sinusitis and it may cause your headache Disposition: HOME - Home Medications Comprehensive Discharge Medication List: Ambulatory Orders Amlodipine Besylate [Norvasc -] 10 mg PO DAILY 06/13/16 Aspirin [ASA -] 81 mg PO DAILY 06/13/16 Atorvastatin Ca [Lipitor] 40 mg PO HS 06/13/16 Carvedilol 25 mg PO DAILY 06/13/16 Cholecalciferol (Vitamin D3) [Vitamin D3] 2,000 unit PO DAILY 06/13/16 Clopidogrel Bisulfate [Plavix -] 75 mg PO DAILY 06/13/16 Cyanocobalamin (Vitamin B-12) [Vitamin B-12] 1,000 mcg PO DAILY 06/13/16 Diphenhydramine HCl [Benadryl -] 25 mg PO Q6H 06/13/16 Escitalopram Oxalate [Lexapro -] 20 mg PO DAILY 06/13/16 Folic Acid 1 mg PO DAILY 06/13/16 Gabapentin 800 mg PO TID 06/13/16 Glipizide [Glipizide ER] 5 mg PO DAILY 06/13/16 Pantoprazole Sodium 40 mg PO DAILY 06/13/16 Vitamin B Complex 1 each PO DAILY 06/13/16 This patient is new to me today: No Emergency Visit: Yes ED Registration Date: 06/13/16 Care time: The patient presented to the Emergency Department on the above date and was hospitalized for further evaluation of their emergent condition. Critical Care patient: No - Discharge Referral Referred to [facility] No
[2016-06-14] MEDS ORDERED: CYANOCOBALAMIN (VITAMIN B-12) 1000 MCG/1 ML VIAL IM ONE (16:45)
[2016-06-14 16:52] VITALS: BP 115/73; PULSE 71; TEMP 98.8
--- NOTE | 2016-06-14 17:12 | EKG ---
Test Reason : Blood Pressure : / mmHG Vent. Rate : 072 BPM Atrial Rate : 072 BPM P-R Int : 174 ms QRS Dur : 104 ms QT Int : 386 ms P-R-T Axes : 065 061 058 degrees QTc Int : 422 ms POOR DATA QUALITY, INTERPRETATION MAY BE ADVERSELY AFFECTED NORMAL SINUS RHYTHM NORMAL ECG WHEN COMPARED WITH ECG OF 10-MAY-2016 12:35, NO SIGNIFICANT CHANGE WAS FOUND Confirmed by DAVIS SABA, TRENT ([id number]) on 06/14/2016 5:12:28 PM Referred By: Confirmed By:TRENT CANNON MD
--- NOTE | 2016-06-14 17:52 | PN ---
Progress Note, Physician History of Present Illness: 61 year old male, with past medical history of HTN, high cholesterol, COPD, multiple CVAs with residual facial drop, bilateral legs weakness, diabetes, gastric bypass, [place], on ASA and Plavix was BIBA for sudden slurred speech and dizziness. He reports having a sudden onset of dizziness while watching TV with his . He also had occipital pain at that time. His called 911.He states he had multiple CVAs in the past, last one two months ago in [facility] but the MRI brain in is negative for acute stroke. He also reports his first stroke was fifteen years ago and started with bilateral legs weakness. Most of his " strokes" are starting with dizziness and slurred speech. In ED his dizziness and headache solved. Per his home economics teacher, which is at bedside he has the same slurry speech in 2016 when he was admitted in [facility] for TIA and he had complete stroke work up. The patient has chronic back pain and he is using oxycodone and other pain medication for this chronic issue. His PMD and his neurologist are located in [place]. He reports over the past 1-2 hours his symptoms improved. He denies any change in version during his symptomatic episode.He notes his last glucose reading was around 300 after eating. The patient is not a candidate for ivtpa as his symptoms improved in ED. His slurred speech seems chronic. - Current Medication List Current Medications: Active Medications Amlodipine Besylate (Norvasc -) 10 mg PO DAILY [facility] Last Admin: 06/14/16 09:15 Dose: 10 mg Aspirin (Asa -) 81 mg PO DAILY [facility] Last Admin: 06/14/16 09:15 Dose: 81 mg Atorvastatin Calcium (Lipitor -) 40 mg PO HS [facility] Last Admin: 06/13/16 21:25 Dose: 40 mg Carvedilol (Coreg -) 25 mg PO DAILY [facility] Cholecalciferol (Vitamin D3 -) 2,000 unit PO DAILY [facility] Last Admin: 06/14/16 09:15 Dose: 2,000 unit Clopidogrel Bisulfate (Plavix -) 75 mg PO DAILY [facility] Last Admin: 06/14/16 09:15 Dose: 75 mg Cyanocobalamin (Vitamin B12 -) 1,000 mcg PO DAILY [facility] Last Admin: 06/14/16 09:15 Dose: 1,000 mcg Folic Acid (Folic Acid -) 1 mg PO DAILY [facility] Last Admin: 06/14/16 09:15 Dose: 1 mg Gabapentin (Neurontin -) 800 mg PO TID [facility] Last Admin: 06/14/16 13:17 Dose: 800 mg Glipizide (Glucotrol Xl -) 5 mg PO DAILY@0700 [facility] Last Admin: 06/14/16 08:42 Dose: 5 mg Heparin Sodium (Porcine) (Heparin -) 5,000 unit SQ TID [facility] Last Admin: 06/14/16 13:17 Dose: 5,000 unit Insulin Aspart (Novolog Vial Sliding Scale -) 1 vial SQ ACHS [facility] PRN Reason: Protocol Last Admin: 06/14/16 16:40 Dose: Not Given Oxycodone HCl (Roxicodone -) 15 mg PO Q8H PRN PRN Reason: PAIN Last Admin: 06/14/16 13:18 Dose: 15 mg Pantoprazole Sodium (Protonix -) 40 mg PO DAILY [facility] Last Admin: 06/14/16 09:15 Dose: 40 mg - Objective Vital Signs: Vital Signs Temperature 98.8 F 06/14/16 16:51 Pulse Rate 71 06/14/16 16:51 Respiratory Rate 20 06/14/16 16:51 Blood Pressure 115/73 06/14/16 16:51 O2 Sat by Pulse Oximetry (%) 97 06/14/16 09:00 Constitutional: Yes: No Distress, Calm Eyes: Yes: Conjunctiva Clear, EOM Intact HENT: Yes: Atraumatic, Normocephalic Neck: Yes: Supple, Trachea Midline Genitourinary: Yes: WNL Breast(s): Yes: WNL Musculoskeletal: Yes: Back Pain, Muscle Weakness Extremities: Yes: WNL Edema: Yes Edema: LLE: 1+, RLE: 1+ Neurological: Yes: Alert, Oriented, Babinski negative, Cran Nerves II-XII Intact (right facial droop), Dysarthria, Pre-Existing Deficit, Unsteady Gait ...Motor Strength: LUE, LLE (LLE 4/5), RLE (RLE 4/5) Psychiatric: Yes: Alert, Oriented Labs: INR, PTT INR 1.12 (0.82-1.09) 06/13/16 13:04 - ....Imaging MRI: Report Reviewed, Image Reviewed Problem List - Problems (1) TIA (transient ischemic attack) Code(s): G45.9 - TRANSIENT CEREBRAL ISCHEMIC ATTACK, UNSPECIFIED Qualifiers: Transient cerebral ischemia type: unspecified Qualified Code(s): G45.9 - Transient cerebral ischemic attack, unspecified (2) Dysarthria as late effect of cerebrovascular accident (CVA) Code(s): I69.322 - DYSARTHRIA FOLLOWING CEREBRAL INFARCTION (3) Unsteady gait Code(s): R26.81 - UNSTEADINESS ON FEET Assessment/Plan 61 year old male, with past medical history of HTN, high cholesterol, COPD, multiple CVAs with residual facial drop, bilateral legs weakness, diabetes, gastric bypass, [place], on ASA and Plavix was BIBA for sudden slurred speech and dizziness. He reports having a sudden onset of dizziness while watching TV with his . He also had occipital pain at that time. His called 911.He states he had multiple CVAs in the past, last one two months ago in [facility] but the MRI brain in is negative for acute stroke. He also reports his first stroke was fifteen years ago and started with bilateral legs weakness. Most of his " strokes" are starting with dizziness and slurred speech. In ED his dizziness and headache solved. Per his home economics teacher, which is at bedside he has the same slurry speech in 2016 when he was admitted in [facility] for TIA and he had complete stroke work up. The patient has chronic back pain and he is using oxycodone and other pain medication for this chronic issue. His PMD and his neurologist are located in [place]. He reports over the past 1-2 hours his symptoms improved. He denies any change in version during his symptomatic episode.He notes his last glucose reading was around 300 after eating. The patient is not a candidate for ivtpa as his symptoms improved in ED. His slurred speech seems chronic. NIHS is 3p: 1p for facial droop, 1p dysarthria, 1p RLE drift Impression: reexpression old lacunar stroke ( due to dehydration, hypo/ hyperglycemia) versus opioids overdose versus new TIA MRI brain shows a hyperintense focus in the left smith radiata , hyperintense on DWI, ADC and [id number] . Possible shine throught artefact. The same focus left smith radiata is seen on the previous MRI brain. Plan: - most probable this is a reespresion of the old stroke due to dehydration ( he had diarrheea), hypoglycemia or overdose opioids. - continues asa 81mg. po daily, Plavix 75mg.po daily - counseling decreased opioids , pain medications. - PT/OT/ST - start Augmentin 875/125mg. po.bid for 7 days for his chronic/acute left maxillary sinusitis. - follow up with his neurologist for his headaches as outpatient. He can be discharged today. He is back to his baseline. thank you for this kind referral.
== END 2016-06-14 18:00 | disposition home or self-care (01) | DRG 47 ==
LOC: JER 12:19 → JERBED 15:15 → J4S 17:30 → OBSVTOIN 17:46
PROVIDERS: ADMIT Internal Medicine; ATTEND Internal Medicine
DX: G45.9 Transient cerebral ischemic attack, unspecified (principal); R26.81 Unsteadiness on feet; I10 Essential (primary) hypertension; J44.9 Chronic obstructive pulmonary disease, unspecified; Z86.73 Personal history of transient ischemic attack (TIA), and cerebral infarction without residual deficits; I69.322 Dysarthria following cerebral infarction; E11.9 Type 2 diabetes mellitus without complications; E78.5 Hyperlipidemia, unspecified; I25.10 Atherosclerotic heart disease of native coronary artery without angina pectoris; I25.2 Old myocardial infarction; Z87.891 Personal history of nicotine dependence
CPT/HCPCS: 36415; 70450-TC; 70544-TC; 70551-TC; 71010-TC; 80053; 81003; 82465; 82550; 82607; 83036; 83718; 83721; 84443; 84478; 84484; 85025; 85610; 93005; 93010; 97116-GP; 97162-PG; 99285-25; G0378; J1644

== ENCOUNTER 2016-07-25 12:44 | Inpatient (IN) | payer OTHER ==
--- NOTE | 2016-07-25 13:11 | PDOC ---
History of Present Illness - General History Source: Patient, Old Records Exam Limitations: No Limitations - History of Present Illness Initial Comments: 07/25/16 13:17 The patient is a 61-year-old man with a significant past medical history of asthma, hypertension, hypercholesterolemia, myocardial infarction x2, cerebrovascular accident (with residual right sided weakness), deep venous thrombosis (On Aspirin and Plavix), diabetes mellitus, chronic obstructive pulmonary disease and opioid dependence who presents to the emergency department for further evaluation of speech difficulty since 12:00 pm this afternoon. Upon triage, patient's blood pressure was 124/77, heart rate was 66 bpm and respiratory rate of 19. Patient states that his symptoms started approximately an hour prior to ED arrival (12:00 PM). Last night he was in his usual state of health and woke up feeling fine this morning. On his way to his car, he reports feeling generally weak with decreased bilateral hand strengths, as he was unable to grasp and close his hands. He also notes having speech difficulty, as if he were to be drunk. He currently complaints of a throbbing intermittent band-like headache. Patient was in this ED on 06/13 for similar symptoms. At 13:03 code kumar was activated and patient was rushed to Head CT. At 13:[address] At 13:28 Received a call from Radiology. 13:39 Dr. Stovall arrives to the ER Allergies: Citric Acid Past Surgical History: Gastric Bypass. Appendectomy. Social History: Former cigarette smoker, ETOH and opioid use. Neurologist: Dr. Сергей Herbert <Traci Ward - Last Filed: 07/25/16 15:11> <Scott Fuller - Last Filed: 08/20/16 21:31> - General Chief Complaint: CVA/TIA Stated Complaint: CVA/TIA Time Seen by Provider: 07/25/16 13:00 NIH Stroke Scale - Last Known Well Date/Time & Onset Date Last Known Well: 07/25/16 Time Last Known Well: 12:00 - Initial Evaluation Level of consciousness: Alert Ask patient the month and their age: Answers both correctly Ask patient to open & close eyes; make fist and let go: Obeys both correctly Best gaze (horizontal eye movement): Normal Visual field testing: No visual field loss Facial paresis (Show teeth/raise eyebrows/close eyes tight): Normal symmetrical movement Motor Function: Left Arm: Normal Motor Function: Right Arm: Normal (extends arm 90 (or 45) degrees for 10 seconds without drift Motor Function: Left Leg: Drift Motor Function: Right Leg: Drift Limb Ataxia: No ataxia Sensory(Use pinprick test arms,legs,trunk,face/side to side): Normal Best language (Describe picture, name items, read sentences): No Aphasia Dysarthria (read several words): Mild to moderate slurring of words Extinction and Inattention: No abnormality - Total Score NIH Stroke Scale Score: 3 <Scott Fuller - Last Filed: 08/20/16 21:31> tPA Exclusion Checklist 0-3hr - Thrombolytic Therapy Candidate Is the patient eligible for Thrombolytic Therapy?: No - Relative Exclusion Criteria 0-3h Stroke severity too mild: Yes - Ineligibility reason(s) Reasons No tPA given: See reason(s) noted above <Scott Fuller - Last Filed: 08/20/16 21:31> Past History <Traci Ward - Last Filed: 07/25/16 15:11> - Past Medical History Anemia: No Asthma: Yes Cancer: No Cardiac Disorders: Yes ([place]) CVA: Yes COPD: Yes CHF: No DVT: Yes Dementia: No Diabetes: Yes GI Disorders: Yes (dumping syndrome ) Disorders: No HTN: Yes Hypercholesterolemia: No Liver Disease: No Seizures: No Thyroid Disease: No - Surgical History Abdominal Surgery: Yes (gastric bypass 07/2015) Appendectomy: Yes Cardiac Surgery: No Cholecystectomy: No GI Surgery: Yes (BYPASS) Lung Surgery: No Neurologic Surgery: No Orthopedic Surgery: No - Immunization History Immunization Up to Date: Yes - Psycho/Social/Smoking Cessation Hx Anxiety: No Suicidal Ideation: No Smoking History: Former smoker Have you smoked in the past 12 months: No Number of Cigarettes Smoked Daily: 0 If you are a former smoker, when did you quit?: 37 YRS AGO Information on smoking cessation initiated: No Hx Alcohol Use: No (past) Drug/Substance Use Hx: No (past) Substance Use Type: None <Scott Fuller - Last Filed: 08/20/16 21:31> - Past Medical History Allergies/Adverse Reactions: Allergies Allergy/AdvReac Type Severity Reaction Status Date / Time citric acid Allergy Hives Verified 07/25/16 12:50 Home Medications: Ambulatory Orders Amlodipine Besylate [Norvasc -] 10 mg PO DAILY 06/13/16 Aspirin [ASA -] 81 mg PO DAILY 06/13/16 Carvedilol 25 mg PO DAILY 06/13/16 Cholecalciferol (Vitamin D3) [Vitamin D3] 2,000 unit PO DAILY 06/13/16 Clopidogrel Bisulfate [Plavix -] 75 mg PO DAILY 06/13/16 Cyanocobalamin (Vitamin B-12) [Vitamin B-12] 1,000 mcg PO DAILY 06/13/16 Diphenhydramine HCl [Benadryl Capsule -] 25 mg PO Q6H 06/13/16 Escitalopram Oxalate [Lexapro -] 20 mg PO DAILY 06/13/16 Folic Acid 1 mg PO DAILY 06/13/16 Gabapentin 800 mg PO TID 06/13/16 Pantoprazole Sodium 40 mg PO DAILY 06/13/16 Vitamin B Complex 1 each PO DAILY 06/13/16 Atorvastatin Ca [Lipitor] 80 mg PO HS #30 tablet 07/26/16 Review of Systems - Review of Systems Constitutional: No: Chills, Fever Respiratory: No: Cough, Shortness of Breath Cardiac (ROS): Yes: Lightheadedness. No: Chest Pain ABD/GI: No: Nausea, Vomiting Neurological: Yes: See HPI, Headache All Other Systems: Reviewed and Negative <Scott Fuller - Last Filed: 08/20/16 21:31> *Physical Exam - Vital Signs Last Vital Signs Temp Pulse Resp BP Pulse Ox 97.9 F 66 19 124/77 98 07/25/16 12:50 07/25/16 12:50 07/25/16 12:50 07/25/16 12:50 07/25/16 12:50 - Physical Exam Comments: 07/25/16 13:22 GENERAL: The patient is awake, alert, and fully oriented, in no acute distress. HEAD: Normal with no signs of trauma. EYES: Pupils equal, round and reactive to light, extraocular movements intact, sclera anicteric, conjunctiva clear with no pallor. ENT: Ears normal, nares patent, oropharynx clear without exudates. Moist mucous membranes. NECK: Normal range of motion, supple without lymphadenopathy, JVD, or masses. LUNGS: Breath sounds equal, clear to auscultation bilaterally. No wheeze/ crackles. HEART: Regular rate and rhythm, normal S1 and S2 without murmur or rub. ABDOMEN: Soft/nontender/nondistended. BS wnl. No guarding or rebound. No palpable masses. No hepatosplenomegaly. EXTREMITIES: Normal range of motion, no edema. No clubbing or cyanosis. No cords, erythema, or tenderness. NEUROLOGICAL:See NIHSS. PSYCH: Deferred. SKIN: Warm, Dry, normal turgor, no rashes or lesions noted. <Traci Ward - Last Filed: 07/25/16 15:11> - Vital Signs Last Vital Signs Temp Pulse Resp BP Pulse Ox 97.9 F 66 19 124/77 98 07/25/16 12:50 07/25/16 12:50 07/25/16 12:50 07/25/16 12:50 07/25/16 12:50 <Scott Fuller - Last Filed: 08/20/16 21:31> Heart Score/ECG Review #1 ECG reviewed & interpreted by me at: 13:23 General ECG Interpretation: Sinus Rhythm, Normal Rate (63), Normal Intervals ( qtc 446), No acute ischemic changes <Scott Fuller - Last Filed: 08/20/16 21:31> ED Treatment Course - LABORATORY CBC & Chemistry Diagram: 07/25/16 13:04 07/25/16 13:04 <Traci Ward - Last Filed: 07/25/16 15:11> - LABORATORY CBC & Chemistry Diagram: 07/26/16 05:35 07/26/16 05:35 - RADIOLOGY Radiology Studies Ordered: Category Date Time Status HEAD CT (STROKE) [CT] Stat CT Scan 07/25/16 13:02 Ordered CHEST X-RAY PORTABLE* [RAD] Stat Radiology 07/25/16 13:02 Ordered <Scott Fuller - Last Filed: 08/20/16 21:31> Medical Decision Making - Medical Decision Making 07/25/16 15:04 MicroBlogged Hospitalist. <Traci Ward - Last Filed: 07/25/16 15:11> - Critical Care Time Total Critical Care Time (minutes): 30 Critical Care Statement: The care of this patient involved high complexity decision making to prevent further life threatening deterioration of the patient 's condition and/or to evalute & treat vital organ system(s) failure or risk of failure. - Medical Decision Making 07/25/16 13:34 A portion of this note was documented by scribe services under my direction. I have reviewed the details of the note, within reason, and agree with the documentation with the following case summary and management plan written by me. 61-year-old male with history of hypertension, TIA/CVA in the past with baseline dysarthria presents with home health aide complaining of one hour of worsening of his dysarthria and generalized weakness. Vital signs normal, blood pressure 124/77. see NIH score, questionable change from baseline with mild to moderate dysarthria 61-year-old male admitted here about 4 weeks ago for TIA/CVA when he presented with an exacerbation of his baseline dysarthria, had MRI imaging and was discharged on meds, now presents with exacerbation of his dysarthria over the last one hour. Stroke protocol initiated CT shows interval lucency in the posterior cortical matter Reviewed with Dr. Stovall in the ED, given NIH score of 3 and questionable change from his baseline, TPA is not indicated. Question metabolic or infectious process, question opiate dependence/ intoxication. 07/25/16 15:12 Clinically unchanged. labs wnl, CXR without acute pathology. Tolerating PO. Accepted for inpatient stroke unit by Dr. Cardenas, signout given to SEC[employer] TIME WORKER Martine. <Scott Fuller - Last Filed: 08/20/16 21:31> *DC/Admit/Observation/Transfer - Attestations Scribe Attestion: 07/25/16 13:22 Documentation prepared by Traci Ward, acting as medical education manager for Scott Fuller MD. <Traci Ward - Last Filed: 07/25/16 15:11> - Discharge Dispostion Admit: Yes <Scott Fuller - Last Filed: 08/20/16 21:31> Diagnosis at time of Disposition: Dysarthria as late effect of cerebrovascular accident (CVA) - Discharge Dispostion Disposition: HOME Condition at time of disposition: Stable - Prescriptions
--- NOTE | 2016-07-25 14:00 | CONSULT ---
Consult - text type - Consultation Consultation Note: Neurology History of Present Illness The patient is a 61-year-old man with a significant past medical history of asthma, hypertension, hypercholesterolemia, myocardial infarction x2, cerebrovascular accident (with residual right sided weakness), deep venous thrombosis, diabetes mellitus, chronic obstructive pulmonary disease and opiod dependence who presents to the emergency department for further evaluation of speech difficulty. Patient states that his symptoms started approximately an hour prior to ED arrival. Last night he was in his usual state of health and woke up feeling fine this morning. On his way to his car, he reports feeling generally weak with decreased bilateral hand strengths, as he was unable to grasp objects. He is known from recent admission with similar complaints. Today , does have garbled speech with no other focal deficits. BP was surprisingly normotensive. CT head with questionable lucency in occipital region, not consistent with localization of symptomatology. ER contacted me for code winston evaluation. Patient seen immediately and discussed with Dr. Brown. Past History - Past Medical History Anemia: No Asthma: Yes Cancer: No Cardiac Disorders: Yes ([place]) CVA: Yes COPD: Yes CHF: No DVT: Yes Dementia: No Diabetes: Yes GI Disorders: Yes (dumping syndrome ) Disorders: No HTN: Yes Hypercholesterolemia: No Liver Disease: No Seizures: No Thyroid Disease: No - Surgical History Abdominal Surgery: Yes (gastric bypass 07/2015) Appendectomy: Yes Cardiac Surgery: No Cholecystectomy: No GI Surgery: Yes (BYPASS) Lung Surgery: No Neurologic Surgery: No Orthopedic Surgery: No - Immunization History Immunization Up to Date: Yes - Psycho/Social/Smoking Cessation Hx Anxiety: No Suicidal Ideation: No Smoking History: Former smoker Have you smoked in the past 12 months: No Number of Cigarettes Smoked Daily: 0 If you are a former smoker, when did you quit?: 37 YRS AGO Information on smoking cessation initiated: No Hx Alcohol Use: No (past) Drug/Substance Use Hx: No (past) Substance Use Type: None - Past Medical History Allergies/Adverse Reactions: Allergies Allergy/AdvReac Type Severity Reaction Status Date / Time citric acid Allergy Hives Verified 07/25/16 12:50 Home Medications: Ambulatory Orders Amlodipine Besylate [Norvasc -] 10 mg PO DAILY 06/13/16 Aspirin [ASA -] 81 mg PO DAILY 06/13/16 Atorvastatin Ca [Lipitor] 40 mg PO HS 06/13/16 Carvedilol 25 mg PO DAILY 06/13/16 Cholecalciferol (Vitamin D3) [Vitamin D3] 2,000 unit PO DAILY 06/13/16 Clopidogrel Bisulfate [Plavix -] 75 mg PO DAILY 06/13/16 Cyanocobalamin (Vitamin B-12) [Vitamin B-12] 1,000 mcg PO DAILY 06/13/16 Diphenhydramine HCl [Benadryl Capsule -] 25 mg PO Q6H 06/13/16 Escitalopram Oxalate [Lexapro -] 20 mg PO DAILY 06/13/16 Folic Acid 1 mg PO DAILY 06/13/16 Gabapentin 800 mg PO TID 06/13/16 Pantoprazole Sodium 40 mg PO DAILY 06/13/16 Vitamin B Complex 1 each PO DAILY 06/13/16 Amoxicillin/Potassium Clav [Augmentin 875-125 Tablet] 1 each PO Q12H #14 tablet 06/14/16 Review of Systems - Review of Systems Constitutional: No: Chills, Fever Respiratory: No: Cough, Shortness of Breath Cardiac (ROS): Yes: Lightheadedness. No: Chest Pain ABD/GI: No: Nausea, Vomiting Neurological: Yes: See HPI, Headache All Other Systems: Reviewed and Negative *Physical Exam - Vital Signs Last Vital Signs Temp Pulse Resp BP Pulse Ox 97.9 F 66 19 124/77 98 07/25/16 12:50 07/25/16 12:50 07/25/16 12:50 07/25/16 12:50 07/25/16 12:50 - Physical Exam Comments: 07/25/16 13:22 GENERAL: The patient is awake, alert, and fully oriented, in no acute distress. HEAD: Normal with no signs of trauma. EYES: Pupils equal, round and reactive to light, extraocular movements intact, sclera anicteric, conjunctiva clear with no pallor. ENT: Ears normal, nares patent, oropharynx clear without exudates. Moist mucous membranes. NECK: Normal range of motion, supple without lymphadenopathy, JVD, or masses. LUNGS: Breath sounds equal, clear to auscultation bilaterally. No wheeze/ crackles. HEART: Regular rate and rhythm, normal S1 and S2 without murmur or rub. ABDOMEN: Soft/nontender/nondistended. BS wnl. No guarding or rebound. No palpable masses. No hepatosplenomegaly. EXTREMITIES: Normal range of motion, no edema. No clubbing or cyanosis. No cords, erythema, or tenderness. NEUROLOGICAL: Level of consciousness: Alert Ask patient the month and their age: Answers both correctly Ask patient to open & close eyes; make fist and let go: Obeys both correctly Best gaze (horizontal eye movement): Normal Visual field testing: No visual field loss Facial paresis (Show teeth/raise eyebrows/close eyes tight): Normal symmetrical movement Motor Function: Left Arm: Normal Motor Function: Right Arm: Normal (extends arm 90 (or 45) degrees for 10 seconds without drift Motor Function: Left Leg: Drift Motor Function: Right Leg: Drift Limb Ataxia: No ataxia Sensory(Use pinprick test arms,legs,trunk,face/side to side): Normal Best language (Describe picture, name items, read sentences): No Aphasia Dysarthria (read several words): Mild to moderate slurring of words Extinction and Inattention: No abnormality - RADIOLOGY CT head reviewed Medical Decision Making 61-year-old man with a significant past medical history of asthma, hypertension , hypercholesterolemia, myocardial infarction x2, cerebrovascular accident ( with residual right sided weakness), deep venous thrombosis, diabetes mellitus, chronic obstructive pulmonary disease and opiod dependence who presents to the emergency department for further evaluation of speech difficulty. CT head with questionable lucency in occipital region, not consistent with localization of symptomatology. ER contacted me for code winston evaluation. Patient seen immediately and discussed with Dr. Brown. Low NIHSS and questionable if this is new as it seems consistent with prior CVA. Decision made not to pursue TPA at this time. Recommend MRI brain (may not require CD, Echo if recently completed). Already on ASA, plavix along with Statin 40. Speech/swallow eval.
[2016-07-25 14:03] LABS: EOSINOPHIL 7.1 % (0-4.5); MCH 29.3 pg (25.7-33.7); MCHC 33.9 g/dl (32.0-35.9); MEAN CELL VOLUME 86.5 fl (80-96); MEAN PLT VOLUME 8.3 fl (7.5-11.1); NEUTROPHILS 43.3 % (42.8-82.8); PLATELET COUNT 242 K/MM3 (134-434); RDW 14.4 % (11.9-15.9)
--- NOTE | 2016-07-25 14:10 | EKG ---
Test Reason : Blood Pressure : / mmHG Vent. Rate : 063 BPM Atrial Rate : 063 BPM P-R Int : 172 ms QRS Dur : 106 ms QT Int : 436 ms P-R-T Axes : 060 067 063 degrees QTc Int : 446 ms NORMAL SINUS RHYTHM NORMAL ECG WHEN COMPARED WITH ECG OF 13-JUN-2016 12:48, NO SIGNIFICANT CHANGE WAS FOUND Confirmed by GERARDO GUTIÉRREZ MD ([id number]) on 07/25/2016 2:10:34 PM Referred By: Confirmed By:GERARDO GUTIÉRREZ MD
--- NOTE | 2016-07-25 14:14 | CONSULT ---
Admitting History and Physical - Admission History of Present Illness: Per EMR: "History of Present Illness The patient is a 61-year-old man with a significant past medical history of asthma, hypertension, hypercholesterolemia, myocardial infarction x2, cerebrovascular accident (with residual right sided weakness), deep venous thrombosis, diabetes mellitus, chronic obstructive pulmonary disease and opiod dependence who presents to the emergency department for further evaluation of speech difficulty. Patient states that his symptoms started approximately an hour prior to ED arrival. Last night he was in his usual state of health and woke up feeling fine this morning. On his way to his car, he reports feeling generally weak with decreased bilateral hand strengths, as he was unable to grasp objects. He is known from recent admission with similar complaints. Today , does have garbled speech with no other focal deficits. BP was surprisingly normotensive. CT head with questionable lucency in occipital region, not consistent with localization of symptomatology. 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: Peripheral Neuropathy, Vertigo Cardiovascular: Yes: CAD, CHF, HTN, [place] Musculoskeletal: Yes: Chronic low back pain - Smoking History Smoking history: Former smoker Have you smoked in the past 12 months: No Aproximately how many cigarettes per day: 0 If you are a former smoker, when did you quit?: 37 YRS AGO - Alcohol/Substance Use Hx Alcohol Use: No (past) - Social History History of Recent Travel: No History - Admission Reason For Visit: CVA/TIA - Diagnostics X-ray: Report Reviewed CT Scan: Report Reviewed MRI: Pending - General Mental Status: Alert and Oriented, Awake and Alert, Able to Follow Commands Attention: Intact Ability to Follow Directions: Excellent Head/Neck Control: WFL - Hearing Hearing: Functional Speech Evaluation - Communication Primary Language: CAMBODIAN - Speech Production Able to Make Needs Known: Yes: WNL Intelligibility: Yes: Mildly Impaired - Speech Characteristics Voice Loudness: Normal Voice Pitch: Yes: Normal Voice Phonatory-based Quality: Yes: Hoarse Speech Pattern: Normal Nasal Resonance: Normal Articulation: Yes: Imprecise (slight. 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 Memory: Yes: WNL Short Term Memory: Yes: WNL - Swallow Evaluation/Bedside Assessment Current Nutritional Intake: NPO Oral Secretions: Yes: WFL Dentition: Yes: Adequate, Missing Teeth Facial Symmetry at Rest: Facial Droop Left Facial Symmetry on Retraction: Facial Droop Left Against Resistance Opening: Normal Against Resistance Closing: Normal Smile: Droops Left Lingual Movement: Normal, Symmetric Lingual Speed of Movement: Normal Lingual Movement Strgth Against Opposition: Normal Lingual Movement Characteristics: Normal Velopharyngeal Movement: Normal Laryngeal Elevation: WFL Laryngeal Movement: Able to Palpate Rate of Intake: WFL Labial Seal: WFL Chewing: WFL Oral Prep Time: WFL A-P Transit: WFL Pocketing: None Timing of Swallow: WFL Coughing/Throat Clear: No Change in Voice: No Recommendations - Speech Evaluation, Impression/Plan Impression: Pt presents with left facial weakness and bilateral ptosis, mild hoarse vocal quality. He is a good historian and language seemed intact.Pt passed 3 oz water test, and tolerated a slice of bread without mastication or swallowing difficulty. - Dysphagia Impressions/Plan Dysphagia Impressions: No Impairment *Silent aspiration: cannot be R/O at bedside - Recommendations Diet Consistency: Regular Medication Administration: Whole with water Liquids: Thin Liquids
[2016-07-25 14:33] LABS: INR 1.2 (0.82-1.09); PROTHROMBIN TIME (PATIENT) 13.2 SEC (9.98-11.88)
[2016-07-25 14:36] LABS: ALBUMIN 3.7 g/dl (3.4-5.0); ANION GAP 8 (8-16); CALCIUM 8.7 mg/dL (8.5-10.1); CO2 32 mmol/L (21-32); GLUCOSE,RANDOM 69 mg/dL (74-106)
[2016-07-25 14:42] LABS: ALK PHOS 127 U/L (45-117); BILIRUBIN,TOTAL 0.6 mg/dL (0.2-1.0); CHOLESTEROL 168 mg/dL (50-200); COCKROFT - GAULT 157.49; CREATININE 0.8 mg/dL (0.7-1.3); SGOT/AST 19 U/L (15-37); SGPT/ALT 31 U/L (12-78); TOT PROT 6.7 g/dl (6.4-8.2); TROPONIN I < 0.02 ng/ml (0.00-0.05)
--- NOTE | 2016-07-25 15:18 | HP ---
CHIEF COMPLAINT: Headache PCP: Dr. 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 ER course was notable for: (1) Head CT: Bilateral posterior cerebral lucency involving the occipital and parietal lobes compatible with bilateral acute infarcts with edema effacing the sulci (2) NIHSS=3 (3) Normotensive Recent Travel: None PAST MEDICAL HISTORY: As above PAST SURGICAL HISTORY: Gastric bypass 2015 Social History: Lives alone, has long-term girlfriend who helps him as needed. 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 Smoking: Quit 35 years ago. Alcohol: None x 14 yrs Drugs: None x 14 yrs Family History: Allergies citric acid Allergy (Verified 07/25/16 12:50) Hives HOME MEDICATIONS: Home Medications Medication Instructions Recorded Amlodipine Besylate [Norvasc -] 10 mg PO DAILY 06/13/16 Aspirin [ASA -] 81 mg PO DAILY 06/13/16 Atorvastatin Ca [Lipitor] 40 mg PO HS 06/13/16 Carvedilol 25 mg PO DAILY 06/13/16 Cholecalciferol (Vitamin D3) 2,000 unit PO DAILY 06/13/16 [Vitamin D3] Clopidogrel Bisulfate [Plavix -] 75 mg PO DAILY 06/13/16 Cyanocobalamin (Vitamin B-12) 1,000 mcg PO DAILY 06/13/16 [Vitamin B-12] Diphenhydramine HCl [Benadryl 25 mg PO Q6H 06/13/16 Capsule -] Escitalopram Oxalate [Lexapro -] 20 mg PO DAILY 06/13/16 Folic Acid 1 mg PO DAILY 06/13/16 Gabapentin 800 mg PO TID 06/13/16 Pantoprazole Sodium 40 mg PO DAILY 06/13/16 Vitamin B Complex 1 each PO DAILY 06/13/16 Amoxicillin/Potassium Clav 1 each PO Q12H #14 tablet 06/14/16 [Augmentin 875-125 Tablet] REVIEW OF SYSTEMS CONSTITUTIONAL: Generalized weakness Absent: fever, chills, diaphoresis, malaise, loss of appetite, weight change HEENT: Absent: rhinorrhea, nasal congestion, throat pain, throat swelling, difficulty swallowing, mouth swelling, ear pain, eye pain, visual changes CARDIOVASCULAR: Absent: chest pain, syncope, palpitations, irregular heart rate, lightheadedness , peripheral edema RESPIRATORY: Absent: cough, shortness of breath, dyspnea with exertion, orthopnea, wheezing, stridor, hemoptysis GASTROINTESTINAL: Absent: abdominal pain, abdominal distension, nausea, vomiting, diarrhea, constipation, melena, hematochezia GENITOURINARY: Absent: dysuria, frequency, urgency, hesitancy, hematuria, flank pain, genital pain MUSCULOSKELETAL: Absent: myalgia, arthralgia, joint swelling, back pain, neck pain SKIN: Absent: rash, itching, pallor HEMATOLOGIC/IMMUNOLOGIC: Absent: easy bleeding, easy bruising, lymphadenopathy, frequent infections ENDOCRINE: Absent: unexplained weight gain, unexplained weight loss, heat intolerance, cold intolerance NEUROLOGIC: See HPI PSYCHIATRIC: Absent: anxiety, depression, suicidal or homicidal ideation, hallucinations. PHYSICAL EXAMINATION Vital Signs - 24 hr 07/25/16 07/25/16 12:50 14:21 Temperature 97.9 F Pulse Rate 66 64 Pulse Rate [ 64 Apical] Respiratory 19 18 Rate Blood Pressure 124/77 Blood Pressure 143/68 [Left Arm] O2 Sat by Pulse 98 98 Oximetry (%) GENERAL: Awake, alert, and fully oriented, in no acute distress. EYES: Pupils equal, round and reactive to light, extraocular movements intact, sclera anicteric, conjunctiva clear. No lid lag. EARS, NOSE, THROAT: Ears normal, nares patent, oropharynx clear without exudates. Moist mucous membranes. NECK: Normal range of motion, supple without lymphadenopathy, JVD, or masses. LUNGS: Breath sounds equal, clear to auscultation bilaterally. No wheezes, and no crackles. No accessory muscle use. HEART: Regular rate and rhythm, normal S1 and S2 without murmur, rub or gallop. ABDOMEN: Soft, nontender, not distended, normoactive bowel sounds, no guarding, no rebound, no masses. No hepatomegaly or splenomegaly. MUSCULOSKELETAL: Normal range of motion at all joints. No bony deformities or tenderness. No CVA tenderness. UPPER EXTREMITIES: 2+ pulses, warm, well-perfused. No cyanosis. No clubbing. No peripheral edema. LOWER EXTREMITIES: 2+ pulses, warm, well-perfused. No calf tenderness. No peripheral edema. NEUROLOGICAL: Level of consciousness: Alert Ask patient the month and their age: Answers both correctly Ask patient to open & close eyes; make fist and let go: Obeys both correctly Best gaze (horizontal eye movement): Normal Visual field testing: No visual field loss Facial paresis (Show teeth/raise eyebrows/close eyes tight): Normal symmetrical movement Motor Function: Left Arm: Normal Motor Function: Right Arm: Normal (extends arm 90 (or 45) degrees for 10 seconds without drift Motor Function: Left Leg: Drift Motor Function: Right Leg: Drift Limb Ataxia: No ataxia Sensory(Use pinprick test arms,legs,trunk,face/side to side): Normal Best language (Describe picture, name items, read sentences): No Aphasia Dysarthria (read several words): Mild to moderate slurring of words Extinction and Inattention: No abnormality PSYCHIATRIC: Cooperative. Good eye contact. Appropriate mood and affect. SKIN: Warm, dry, normal turgor, no rashes or lesions noted, normal capillary refill. Laboratory Results - last 24 hr 07/25/16 07/25/16 07/25/16 13:04 13:04 13:04 WBC 6.0 RBC 4.46 Hgb 13.1 Hct 38.6 MCV 86.5 MCHC 33.9 RDW 14.4 Plt Count 242 MPV 8.3 Neutrophils % 43.3 Lymphocytes % 37.1 Monocytes % 11.5 H Eosinophils % 7.1 H Basophils % 1.0 INR 1.20 H Sodium 143 Potassium 3.3 L D Chloride 103 Carbon Dioxide 32 Anion Gap 8 BUN 13 Creatinine 0.8 Creat Clearance w eGFR > 60 Random Glucose 69 L D Calcium 8.7 Total Bilirubin 0.6 AST 19 D ALT 31 D Alkaline Phosphatase 127 H Creatine Kinase 126 Troponin I < 0.02 Total Protein 6.7 Albumin 3.7 Triglycerides 158 Cholesterol 168 D Blood Type Antibody Screen 07/25/16 13:04 WBC RBC Hgb Hct MCV MCHC RDW Plt Count MPV Neutrophils % Lymphocytes % Monocytes % Eosinophils % Basophils % INR Sodium Potassium Chloride Carbon Dioxide Anion Gap BUN Creatinine Creat Clearance w eGFR Random Glucose Calcium Total Bilirubin AST ALT Alkaline Phosphatase Creatine Kinase Troponin I Total Protein Albumin Triglycerides Cholesterol Blood Type A POSITIVE Antibody Screen Negative ASSESSMENT/PLAN: 61 year old male with acute CVA. Problem List - Problem (1) Stroke Assessment/Plan: -Seen by neurology and determined not to be a candidate for TPA given low NIHSS and questionable change from baseline -Monitor on telemetry -Continue ASA, Plavix -Bedside swallow eval passed -Echo and carotid dopplers completed in March 2016 -Increase Lipitor to 80mg hs -Follow up brain MRI Code(s): I63.9 - CEREBRAL INFARCTION, UNSPECIFIED (2) DM II (diabetes mellitus, type II), controlled Assessment/Plan: -Diet-controlled -Check HgbA1C Code(s): E11.9 - TYPE 2 DIABETES MELLITUS WITHOUT COMPLICATIONS (3) HLD (hyperlipidemia) Assessment/Plan: -Check lipids -Increase Lipitor as above Code(s): E78.5 - HYPERLIPIDEMIA, UNSPECIFIED (4) HTN (hypertension) Assessment/Plan: -At goal -Continue home Norvasc Code(s): I10 - ESSENTIAL (PRIMARY) HYPERTENSION (5) DVT prophylaxis Assessment/Plan: -Moderate risk -Early ambulation with PT -SCDs until risk of hemorrhagic conversion has abated Code(s): WFU1113 - Visit type - Emergency Visit Emergency Visit: Yes ED Registration Date: 07/25/16 Care time: The patient presented to the Emergency Department on the above date and was hospitalized for further evaluation of their emergent condition. - New Patient This patient is new to me today: Yes Date on this admission: 07/25/16 - Critical Care Critical Care patient: No
[2016-07-25 15:33] LABS: LDL CHOLESTEROL (ONLY SJRH) 103 mg/dL (5-100)
[2016-07-25] MEDS ORDERED: OXYCODONE/APAP 5/325MG COMBO TABLET PO ONE (16:38)
[2016-07-25] MEDS ORDERED: OXYCODONE/APAP 5/325MG COMBO TABLET ONE (16:48)
[2016-07-25] MEDS ORDERED: diphenhydrAMINE HCL 25 MG CAPSULE (FP) PO PRN (16:49)
[2016-07-25] MEDS ORDERED: ACETAMINOPHEN 325 MG TABLET (FP) PO PRN (16:51)
[2016-07-25] MEDS ORDERED: ONDANSETRON 4 MG/2 ML VIAL IVPB PRN (16:51)
[2016-07-25] MEDS: GABAPENTIN 400 MG CAPSULE (FP) PO SCH (21:51)
[2016-07-25] MEDS ORDERED: ATORVASTATIN CA 80 MG TABLET (FP) PO SCH (22:00)
[2016-07-26 04:31] VITALS: BMI 33.7
[2016-07-26] MEDS: GABAPENTIN 400 MG CAPSULE (FP) PO SCH ×2 (06:35→15:43)
[2016-07-26 07:39] LABS: EOSINOPHIL 6.8 % (0-4.5); MCH 29.4 pg (25.7-33.7); MCHC 34.2 g/dl (32.0-35.9); MEAN PLT VOLUME 8.4 fl (7.5-11.1); NEUTROPHILS 42.7 % (42.8-82.8); PLATELET COUNT 223 K/MM3 (134-434); RDW 14.4 % (11.9-15.9); WHITE BLOOD COUNT 5.6 K/mm3 (4.0-10.0)
[2016-07-26 07:54] LABS: INR 1.17 (0.82-1.09); PROTHROMBIN TIME (PATIENT) 12.9 SEC (9.98-11.88)
[2016-07-26 08:01] LABS: ALBUMIN 3.4 g/dl (3.4-5.0); ANION GAP 8 (8-16); CALCIUM 8.5 mg/dL (8.5-10.1); CO2 31 mmol/L (21-32); GLUCOSE,RANDOM 86 mg/dL (74-106); MAGNESIUM 2.4 mg/dL (1.8-2.4)
[2016-07-26 08:05] LABS: ALK PHOS 114 U/L (45-117); BILIRUBIN,TOTAL 0.6 mg/dL (0.2-1.0); CHOLESTEROL 143 mg/dL (50-200); COCKROFT - GAULT 161.2; CREATININE 0.8 mg/dL (0.7-1.3); LDL CHOLESTEROL (ONLY SJRH) 89 mg/dL (5-100); SGOT/AST 19 U/L (15-37); SGPT/ALT 27 U/L (12-78); TOT PROT 6.2 g/dl (6.4-8.2); TROPONIN I < 0.02 ng/ml (0.00-0.05)
[2016-07-26] MEDS ORDERED: POTASSIUM CHLORIDE ORAL LIQUID 20 MEQ/15 ML PO ONE ×2 (08:45→10:30)
[2016-07-26] MEDS ORDERED: PANTOPRAZOLE 40 MG TABLET (FP) PO SCH (10:00)
[2016-07-26] MEDS ORDERED: CARVEDILOL 25 MG TABLET (FP) PO SCH (10:00)
[2016-07-26] MEDS ORDERED: ESCITALOPRAM OXALATE 20 MG TABLET (FP) PO SCH (10:00)
[2016-07-26] MEDS ORDERED: VITAMIN B COMPLEX W/C COMBO TABLET (FP) PO SCH (10:00)
[2016-07-26] MEDS ORDERED: FOLIC ACID 1 MG TABLET (FP) PO SCH (10:00)
[2016-07-26] MEDS ORDERED: ASPIRIN 81 MG CHEWABLE TABLETS PO SCH (10:00)
[2016-07-26] MEDS ORDERED: CLOPIDOGREL BISULFATE 75 MG TABLET (FP) PO SCH (10:00)
[2016-07-26] MEDS ORDERED: CYANOCOBALAMIN 1,000 MCG TABLET (FP) PO SCH (10:00)
[2016-07-26] MEDS ORDERED: CHOLECALCIFEROL (VITAMIN D3) 1,000 UNIT TABLET (FP) PO SCH (10:00)
[2016-07-26] MEDS ORDERED: amLODIPine BESYLATE 10 MG TABLET (FP) PO SCH (10:00)
[2016-07-26 10:55] LABS: URINE APPEARANCE CLEAR; URINE BILIRUBIN NEGATIVE (NEGATIVE); URINE BLOOD NEGATIVE (NEGATIVE); URINE COLOR YELLOW; URINE GLUCOSE (UA) NEGATIVE (NEGATIVE); URINE KETONE NEGATIVE (NEGATIVE); URINE LEUK ESTERASE NEGATIVE (NEGATIVE); URINE NITRITE NEGATIVE (NEGATIVE); URINE PROTEIN NEGATIVE (NEGATIVE); URINE UROBILINOGEN NEGATIVE E.U./dl (0.2-1.0)
--- NOTE | 2016-07-26 10:56 | PN ---
Progress Note, P[facility]LAKER - Note Progress Note: Selected Entries 07/25/16 07/25/16 07/25/16 12:50 22:00 22:27 Eating (Feeding Independent ) Ability Supper 100% 100% Temperature 97.9 F 98.1 F 07/26/16 07/26/16 02:00 06:00 Eating (Feeding ) Ability Supper Temperature 97.8 F 98.4 F Laboratory Tests 07/25/16 07/26/16 13:04 05:35 WBC 6.0 5.6 Tolerating diet without difficulty.Left facial weakness seems improved. Dysphonia persists- LT vs recent onset? O x 3. Good historian. MRI pending.
--- NOTE | 2016-07-26 12:49 | PN ---
Progress Note (short form) - Note Progress Note: Neurology History of Present Illness The patient is a 61-year-old man with a significant past medical history of asthma, hypertension, hypercholesterolemia, myocardial infarction x2, cerebrovascular accident (with residual right sided weakness), deep venous thrombosis, diabetes mellitus, chronic obstructive pulmonary disease and opiod dependence who presented to the emergency department for further evaluation of speech difficulty. CT head with questionable lucency in occipital region, not consistent with localization of symptomatology. MRI completed and did not show acute infarcts. There was prior L basal ganglia infarcts noted along with R cerebellar. The patient's speech appears to be improved today. Informed him of MRI results and discussed prevention including medication compliance. Active Medications Acetaminophen (Tylenol -) 650 mg PO Q6H PRN PRN Reason: FEVER OR PAIN Amlodipine Besylate (Norvasc -) 10 mg PO DAILY [facility] Last Admin: 07/26/16 10:25 Dose: 10 mg Aspirin (Asa -) 81 mg PO DAILY [facility] Last Admin: 07/26/16 10:24 Dose: 81 mg Atorvastatin Calcium (Lipitor -) 80 mg PO HS [facility] Last Admin: 07/25/16 21:50 Dose: 80 mg Carvedilol (Coreg -) 25 mg PO DAILY [facility] Last Admin: 07/26/16 10:24 Dose: 25 mg Cholecalciferol (Vitamin D3 -) 2,000 unit PO DAILY [facility] Last Admin: 07/26/16 10:25 Dose: 2,000 unit Clopidogrel Bisulfate (Plavix -) 75 mg PO DAILY [facility] Last Admin: 07/26/16 10:25 Dose: 75 mg Cyanocobalamin (Vitamin B12 -) 1,000 mcg PO DAILY [facility] Last Admin: 07/26/16 10:25 Dose: 1,000 mcg Diphenhydramine HCl (Benadryl -) 25 mg PO Q6H PRN PRN Reason: ANXIETY Escitalopram Oxalate (Lexapro -) 20 mg PO DAILY [facility] Last Admin: 07/26/16 10:25 Dose: 20 mg Folic Acid (Folic Acid -) 1 mg PO DAILY [facility] Last Admin: 07/26/16 10:25 Dose: 1 mg Gabapentin (Neurontin -) 800 mg PO TID [facility] Last Admin: 07/26/16 06:35 Dose: 800 mg Multivitamins (Total B With C -) 1 each PO DAILY [facility] Last Admin: 07/26/16 11:28 Dose: 1 each Ondansetron HCl (Zofran Injection) 4 mg IVPB Q6H PRN PRN Reason: NAUSEA Pantoprazole Sodium (Protonix -) 40 mg PO DAILY [facility] Last Admin: 07/26/16 10:25 Dose: 40 mg *Physical Exam Vital Signs Period Temp Pulse Resp BP Sys/[place] Pulse Ox Last 24 Hr 97.8 F-98.4 F 64-76 18-19 124-143/68-93 98-98 - Physical Exam Comments: 07/25/16 13:22 GENERAL: The patient is awake, alert, and fully oriented, in no acute distress. HEAD: Normal with no signs of trauma. EYES: Pupils equal, round and reactive to light, extraocular movements intact, sclera anicteric, conjunctiva clear with no pallor. ENT: Ears normal, nares patent, oropharynx clear without exudates. Moist mucous membranes. NECK: Normal range of motion, supple without lymphadenopathy, JVD, or masses. LUNGS: Breath sounds equal, clear to auscultation bilaterally. No wheeze/ crackles. HEART: Regular rate and rhythm, normal S1 and S2 without murmur or rub. ABDOMEN: Soft/nontender/nondistended. BS wnl. No guarding or rebound. No palpable masses. No hepatosplenomegaly. EXTREMITIES: Normal range of motion, no edema. No clubbing or cyanosis. No cords, erythema, or tenderness. NEUROLOGICAL: Level of consciousness: Alert Ask patient the month and their age: Answers both correctly Ask patient to open & close eyes; make fist and let go: Obeys both correctly Best gaze (horizontal eye movement): Normal Visual field testing: No visual field loss Facial paresis (Show teeth/raise eyebrows/close eyes tight): Normal symmetrical movement Motor Function: Left Arm: Normal Motor Function: Right Arm: Normal (extends arm 90 (or 45) degrees for 10 seconds without drift Motor Function: Left Leg: Drift Motor Function: Right Leg: Drift Limb Ataxia: No ataxia Sensory(Use pinprick test arms,legs,trunk,face/side to side): Normal Best language (Describe picture, name items, read sentences): No Aphasia Dysarthria (read several words): Minimal slurring Extinction and Inattention: No abnormality - RADIOLOGY CT head reviewed MRI brain reviewed Medical Decision Making 61-year-old man with a significant past medical history of asthma, hypertension , hypercholesterolemia, myocardial infarction x2, cerebrovascular accident ( with residual right sided weakness), deep venous thrombosis, diabetes mellitus, chronic obstructive pulmonary disease and opiod dependence who presents to the emergency department for further evaluation of speech difficulty. CT head with questionable lucency in occipital region. MRI completed and did not show acute changes. Already on ASA, plavix along with Statin 40. Speech/swallow eval. Most likely TIA and we discussed CVA prevention in detail. No further work up at this time.
--- NOTE | 2016-07-26 13:28 | PN ---
Teaching Attending Note Name of Resident: Surya Bansal ATTENDING PHYSICIAN STATEMENT I saw and evaluated the patient. I reviewed the resident's note and discussed the case with the resident. I agree with the resident's findings and plan as documented. SUBJECTIVE:states he continues to have slurred speech but improved since yesterday. claims medication compliance. denies CP, SOB, fever, chills, weakness , N/V/C?D, blurred vision OBJECTIVE: Last Vital Signs Temp Pulse Resp BP Pulse Ox 98.2 F 74 18 142/88 96 07/26/16 10:00 07/26/16 10:00 07/26/16 10:00 07/26/16 10:07/26/16 09:00 General NAD CV S1 S2 RRR no murmur/rub/gallop Lungs CTA B/L no wheezing/rales/rhonchi Neuro +dsyphonia, CN II-XII grossly intact. dysmetria intact B/L. negative rhomberg. sensation and strength grossly intact all extremities negative pronator drift ASSESSMENT AND PLAN: 61yo M with PMH CAD, CVA/TIA, and DM presented to the ER and was admitted for further evaluation of their emergent condition 1. TIA- NIHSS low. CT showing questionable occipital infarct, MRI negative for acute changes. symptoms seem to have resolved. mild dysphonia but pt states he has "raspy" voice at baseline. evaluated by neuro and speech pathologist. had echo and carotid doppler last visit. cont asa/plavix. increased statin to 80mg. 2. DM- A1c 5.8. diet controlled. 3. d/c planning home pending PT assessment
--- NOTE | 2016-07-26 14:07 | DS ---
Physical Exam: SUBJECTIVE: Patient seen and examined Pt is awake, alert and fully oriented No focal weakness Pt said his speech is near normal no dizziness, no numbness or tingling OBJECTIVE: Vital Signs Period Temp Pulse Resp BP Sys/[place]inton Pulse Ox Last 24 Hr 97.8 F-98.4 F 65-76 18-18 128-142/84-93 96-98 PHYSICAL EXAM GENERAL: The patient is awake, alert, and fully oriented, in no acute distress. HEAD: Normal with no signs of trauma. EYES: PERRL, extraocular movements intact, sclera anicteric, conjunctiva clear. Minimal B/l Ptosis ENT: Ears normal, nares patent, oropharynx clear without exudates, moist mucous membranes. NECK: Trachea midline, full range of motion, supple. LUNGS: Breath sounds equal, clear to auscultation bilaterally, no wheezes, no crackles, no accessory muscle use. HEART: Regular rate and rhythm, S1, S2 with systolic murmur 2/6, rub or gallop. ABDOMEN: Soft, nontender, nondistended, normoactive bowel sounds, no guarding, no rebound, no hepatosplenomegaly, no masses. EXTREMITIES: 2+ pulses, warm, well-perfused, no edema. NEUROLOGICAL: Cranial nerves II through XII grossly intact. Normal speech, strength 5/5 in all extremities with minimal weakness in right arm, reflexes 2+ in all ext, normal sensation to light touch in all extremities, unsteady gait. PSYCH: Normal mood, normal affect. SKIN: Warm, dry, normal turgor, no rashes or lesions noted. LABS Laboratory Results - last 24 hr 07/26/16 07/26/16 07/26/16 05:35 05:35 05:35 WBC 5.6 RBC 4.35 Hgb 12.8 Hct 37.5 MCV 86.0 MCHC 34.2 RDW 14.4 Plt Count 223 MPV 8.4 Neutrophils % 42.7 L Lymphocytes % 38.3 Monocytes % 11.2 H Eosinophils % 6.8 H Basophils % 1.0 INR 1.17 H Sodium 145 Potassium 3.4 L Chloride 106 Carbon Dioxide 31 Anion Gap 8 BUN 16 D Creatinine 0.8 Creat Clearance w eGFR > 60 Random Glucose 86 D Hemoglobin A1c % Calcium 8.5 Magnesium 2.4 Total Bilirubin 0.6 AST 19 ALT 27 Alkaline Phosphatase 114 Creatine Kinase 95 Troponin I < 0.02 Total Protein 6.2 L Albumin 3.4 Triglycerides 92 D Cholesterol 143 Total LDL Cholesterol 89 HDL Cholesterol 44 Urine Color Urine Appearance Urine pH Urine Protein Urine Glucose (UA) Urine Ketones Urine Blood Urine Nitrite Urine Bilirubin Urine Urobilinogen Ur Leukocyte Esterase 07/26/16 07/26/16 05:35 09:30 WBC RBC Hgb Hct MCV MCHC RDW Plt Count MPV Neutrophils % Lymphocytes % Monocytes % Eosinophils % Basophils % INR Sodium Potassium Chloride Carbon Dioxide Anion Gap BUN Creatinine Creat Clearance w eGFR Random Glucose Hemoglobin A1c % 5.8 Calcium Magnesium Total Bilirubin AST ALT Alkaline Phosphatase Creatine Kinase Troponin I Total Protein Albumin Triglycerides Cholesterol Total LDL Cholesterol HDL Cholesterol Urine Color Yellow Urine Appearance Clear Urine pH 6.0 Urine Protein Negative Urine Glucose (UA) Negative Urine Ketones Negative Urine Blood Negative Urine Nitrite Negative Urine Bilirubin Negative Urine Urobilinogen Negative Ur Leukocyte Esterase Negative CBC, BMP 07/26/16 05:35 07/26/16 05:35 HOSPITAL COURSE: Date of Admission:07/25/16 This is a 61 year old male with a history of CAD s/p PR, 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 ER course was notable for: (1) Head CT: Bilateral posterior cerebral lucency involving the occipital and parietal lobes compatible with bilateral acute infarcts with edema effacing the sulci (2) NIHSS=3 (3) Normotensive Upon arrival to the ED, stroke protocol was initiated and neurology was consulted. Neurology saw patient immediately, CT head with questionable lucency in occipital region. Neurology recommended against TPA and ordered MRI. MRI completed and did not show acute changes. Already on ASA, plavix along with Statin 40. Speech/swallow eval was done. Physical therapy was ordered. Symptoms gradually resolved overnight. Per neurology, it was most likely TIA. CVA prevention was discussed in detail. No further work up at this time. Pt was discharged with follow up with neurology and PCP within 1 week. Date of Discharge: 07/26/16 Minutes to complete discharge: 40 Discharge Summary Reason For Visit: DYSARTHRIALATE EFFECT OF CVA Current Active Problems DVT prophylaxis (Acute) Dysarthria as late effect of cerebrovascular accident (CVA) (Acute) TIA (transient ischemic attack) (Acute) Unsteady gait (Acute) Condition: Stable - Instructions Diet, Activity, Other Instructions: Discharge Home resume diabetic, cardiac, low fat, low cholesterol, low sodium diet Follow up with neurologist within 1 week Follow Up with primary care physician within 1 week Resume Home medication If your start having stroke like symptoms such as weakness in arm, leg, numbness , tingling, slurred speech, facial droop, change in vision, please come back to the emergency room. Disposition: HOME - Home Medications Comprehensive Discharge Medication List: Ambulatory Orders Amlodipine Besylate [Norvasc -] 10 mg PO DAILY 06/13/16 Aspirin [ASA -] 81 mg PO DAILY 06/13/16 Atorvastatin Ca [Lipitor] 40 mg PO HS 06/13/16 Carvedilol 25 mg PO DAILY 06/13/16 Cholecalciferol (Vitamin D3) [Vitamin D3] 2,000 unit PO DAILY 06/13/16 Clopidogrel Bisulfate [Plavix -] 75 mg PO DAILY 06/13/16 Cyanocobalamin (Vitamin B-12) [Vitamin B-12] 1,000 mcg PO DAILY 06/13/16 Diphenhydramine HCl [Benadryl Capsule -] 25 mg PO Q6H 06/13/16 Escitalopram Oxalate [Lexapro -] 20 mg PO DAILY 06/13/16 Folic Acid 1 mg PO DAILY 06/13/16 Gabapentin 800 mg PO TID 06/13/16 Pantoprazole Sodium 40 mg PO DAILY 06/13/16 Vitamin B Complex 1 each PO DAILY 06/13/16 This patient is new to me today: Yes Emergency Visit: Yes ED Registration Date: 07/25/16 Care time: The patient presented to the Emergency Department on the above date and was hospitalized for further evaluation of their emergent condition. Critical Care patient: No - Discharge Referral Referred to [facility] No
[2016-07-26 15:31] VITALS: BP 101/59; PULSE 63; TEMP 97.9
== END 2016-07-26 16:45 | disposition home or self-care (01) | DRG 47 ==
LOC: JER 12:44 → JERBED 15:20 → J4S 19:10
PROVIDERS: ADMIT Internal Medicine; ATTEND Internal Medicine
DX: G45.9 Transient cerebral ischemic attack, unspecified (principal); I69.351 Hemiplegia and hemiparesis following cerebral infarction affecting right dominant side; R29.703 NIHSS score 3; G93.6 Cerebral edema; R26.81 Unsteadiness on feet; E11.9 Type 2 diabetes mellitus without complications; I10 Essential (primary) hypertension; I25.10 Atherosclerotic heart disease of native coronary artery without angina pectoris; I25.2 Old myocardial infarction; E78.00 Pure hypercholesterolemia, unspecified; I69.322 Dysarthria following cerebral infarction; F11.20 Opioid dependence, uncomplicated; J45.909 Unspecified asthma, uncomplicated; J44.9 Chronic obstructive pulmonary disease, unspecified
CPT/HCPCS: 36415; 70450-TC; 70551-TC; 71010-TC; 80053; 80061; 81003; 82465; 82550; 83036; 83718; 83721; 83735; 84478; 84484; 85025; 85610; 86850; 86900; 86901; 93005; 93010; 97116-GP; 97161-GP; 99285-25

== ENCOUNTER 2017-06-19 10:50 | Observation (INO) | payer OTHER ==
--- NOTE | 2017-06-19 11:22 | PDOC ---
History of Present Illness - General History Source: Patient Exam Limitations: No Limitations - History of Present Illness Initial Comments: 06/19/17 11:33 The patient is a 62 year old male with a significant past medical history of diabetes, hypertension, hyperlipidemia, CVA/TIA, CAD s/p [place], COPD, asthma, sleep apnea, and gastric bypass, who presents to the emergency department with left hand weakness and right sided headache since approximately 03:30 this morning. Patient states he was last known well at 01:00 am and woke up with symptoms at 04:30. Patient reports left hand weakness, and right sided frontal headache radiating into the occiput. Patient reports his symptoms are similar to when hes had a TIA in the past. Patient states he had similar symptoms 2 weeks ago, but what prompted him to come in today was the worsening headache. He reports bilateral leg weakness at baseline, but denies any changes in vision , changes in speech, head trauma, LOC, numbness or tingling. He denies any chest pain, shortness of breath, diaphoresis, or palpitations. He denies any abdominal pain, nausea, vomiting, or changes in bowel/bladder habits. He denies any fever or chills. He denies any recent travel or sick contacts. Allergies: NKDA Past Surgical History: Gastric bypass, appendectomy Social History: Non smoker. No ETOH or recreational drug use. <Candice Hoover - Last Filed: 06/19/17 13:44> - General History Source: Patient Exam Limitations: No Limitations <Beryl Pineda - Last Filed: 06/19/17 15:24> - General Chief Complaint: Headache Stated Complaint: HEADACHE Time Seen by Provider: 06/19/17 11:04 Past History <Candice Hoover - Last Filed: 06/19/17 13:44> - Past Medical History Anemia: No Asthma: Yes Cancer: No Cardiac Disorders: Yes (DE) CVA: Yes (nick lower/upper weakness uses a cane) COPD: No CHF: No DVT: Yes Dementia: No Diabetes: Yes GI Disorders: Yes (dumping syndrome ) Disorders: No HTN: Yes Hypercholesterolemia: No Liver Disease: No Seizures: No Thyroid Disease: No - Surgical History Abdominal Surgery: Yes (gastric bypass 07/2015) Appendectomy: Yes Cardiac Surgery: No Cholecystectomy: No GI Surgery: Yes (BYPASS) Lung Surgery: No Neurologic Surgery: No Orthopedic Surgery: No - Immunization History Immunization Up to Date: Yes - Suicide/Smoking/Psychosocial Hx Smoking History: Unknown if ever smoked Have you smoked in the past 12 months: No Number of Cigarettes Smoked Daily: 0 If you are a former smoker, when did you quit?: 37 YRS AGO Information on smoking cessation initiated: No Hx Alcohol Use: No Drug/Substance Use Hx: No Substance Use Type: None <Beryl Pineda - Last Filed: 06/19/17 15:24> - Past Medical History Allergies/Adverse Reactions: Allergies Allergy/AdvReac Type Severity Reaction Status Date / Time citric acid Allergy Hives Verified 06/19/17 11:11 Home Medications: Ambulatory Orders Amlodipine Besylate [Norvasc -] 10 mg PO DAILY 06/13/16 Aspirin [ASA -] 81 mg PO DAILY 06/13/16 Carvedilol 25 mg PO BID 06/13/16 Clopidogrel Bisulfate [Plavix -] 75 mg PO DAILY 06/13/16 Cyanocobalamin (Vitamin B-12) [Vitamin B-12] 1,000 mcg PO DAILY 06/13/16 Escitalopram Oxalate [Lexapro -] 25 mg PO DAILY 06/13/16 Folic Acid 1 mg PO DAILY 06/13/16 Gabapentin 800 mg PO TID 06/13/16 Pantoprazole Sodium 40 mg PO DAILY 06/13/16 Atorvastatin Ca [Lipitor] 80 mg PO HS #30 tablet 07/26/16 Albuterol Sulfate Inhaler - [Ventolin Hfa Inhaler -] 1 puff IH PRN 06/19/17 Cyclobenzaprine HCl 10 mg PO BID 06/19/17 Gabapentin 800 mg PO TID 06/19/17 Glipizide 5 mg PO DAILY 06/19/17 Meclizine HCl 25 mg PO BID 06/19/17 Multivitamins [Tab-A-Vit -] 1 tab PO DAILY 06/19/17 Thiamine HCl [Vitamin B1] 100 mg PO BID 06/19/17 Tramadol HCl 50 mg PO PRN 06/19/17 Review of Systems - Review of Systems Able to Perform ROS?: Yes Comments:: 06/19/17 11:34 GENERAL/CONSTITUTIONAL: No fever or chills. No weakness. HEAD, EYES, EARS, NOSE AND THROAT: No change in vision. No ear pain or discharge. No sore throat. CARDIOVASCULAR: No chest pain or shortness of breath. RESPIRATORY: No cough, wheezing, or hemoptysis. GASTROINTESTINAL: No nausea, vomiting, diarrhea or constipation. GENITOURINARY: No dysuria, frequency, or change in urination. MUSCULOSKELETAL: No joint or muscle swelling or pain. No neck or back pain. SKIN: No rash NEUROLOGIC: +Right sided headache, +Left hand weakness. No vertigo or loss of consciousness ENDOCRINE: No increased thirst. No abnormal weight change. HEMATOLOGIC/LYMPHATIC: No anemia, easy bleeding, or history of blood clots. ALLERGIC/IMMUNOLOGIC: No hives or skin allergy. <Candice Hoover - Last Filed: 06/19/17 13:44> *Physical Exam - Vital Signs Last Vital Signs Temp Pulse Resp BP Pulse Ox 97.5 F L 72 18 121/81 100 06/19/17 10:50 06/19/17 10:50 06/19/17 10:50 06/19/17 10:50 06/19/17 10:50 - Physical Exam Comments: 06/19/17 11:34 GENERAL: Awake, alert, and fully oriented, in no acute distress HEAD: No signs of trauma EYES: PERRLA, EOMI, sclera anicteric, conjunctiva clear ENT: Auricles normal inspection, hearing grossly normal, nares patent. Moist mucosa NECK: Normal ROM, supple, no lymphadenopathy, JVD, or masses LUNGS: Breath sounds equal, clear to auscultation bilaterally. No wheezes, and no crackles HEART: Regular rate and rhythm, normal S1 and S2, no murmurs, rubs or gallops ABDOMEN: Obese. Soft, nontender, normoactive bowel sounds. No guarding, no rebound. No masses EXTREMITIES: Normal range of motion, no edema. No clubbing or cyanosis. No cords, erythema, or tenderness. DP/PT pulses 2+ and symmetric. Warm and Well perfused. NEUROLOGICAL: Moves all extremities. Normal speech. Cranial nerves are grossly intact. Visual phillips intact. Speech clear. Mild left upper extremity weakness 4 +/5. Bilateral lower extremity weakness (old). Gait not tested. SKIN: Warm, Dry, normal turgor, no rashes or lesions noted. <Candice Hoover - Last Filed: 06/19/17 13:44> - Vital Signs Last Vital Signs Temp Pulse Resp BP Pulse Ox 97.5 F L 72 18 121/81 100 06/19/17 10:50 06/19/17 10:50 06/19/17 10:50 06/19/17 10:50 06/19/17 10:50 <Beryl Pineda - Last Filed: 06/19/17 15:24> Heart Score/ECG Review #1 General ECG Interpretation: Sinus Rhythm, Normal Rate (77), Normal Intervals, No acute ischemic changes <Beryl Pineda - Last Filed: 06/19/17 15:24> ED Treatment Course - LABORATORY CBC & Chemistry Diagram: 06/19/17 11:23 06/19/17 11:23 - RADIOLOGY Radiograph Interpretation: 06/19/17 13:13 EXAM: Head CT INTERPRETED BY: Dr. Ledesma REVIEWED BY: Dr. Pineda IMPRESSION: [id number] volume loss and moderate chronic microvascular ischemic disease change. No gross acute intracranial pathology is identified. Correlate clinically to determine further evaluation and follow-up. <Candice Hoover - Last Filed: 06/19/17 13:44> - LABORATORY CBC & Chemistry Diagram: 06/19/17 11:23 06/19/17 11:23 - RADIOLOGY Radiology Studies Ordered: Category Date Time Status HEAD CT (STROKE) [CT] Stat CT Scan 06/19/17 11:18 Ordered <Beryl Pineda - Last Filed: 06/19/17 15:24> Medical Decision Making - Medical Decision Making 06/19/17 13:16 First call placed to Neuro documentation lead at 13:18. Awaiting call back. Case discussed with Dr. Hancock at 13:43. Agreed to admit. <Candice Hoover - Last Filed: 06/19/17 13:44> - Medical Decision Making 06/19/17 11:19 62-year-old male history of diabetes, hypertension, COPD, asthma, obesity and prior TIAs/CVA is here today complaining of left arm weakness. Patient states he was last normal at 1 AM and awoke with symptoms at 4:30 AM. Describes mostly left hand weakness no change to his speech or vision no moderating factors no change since he noticed the weakness no improvement. 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 Sensation is intact throughout he also has bilateral lower extremity weakness with a drift both legs hit the bed which is old. Sensation is intact throughout otherwise is 0 exam is normal cardiac and lung exam is unremarkable and abdomen is soft nontender obese X Differential peripheral nerve injury subtle CVA electrolyte issues hyper-or hypoglycemia ICH plan. Will obtain consult neurology due to the patient's high risk factors and history had. Patient is currently outside the window for any TPA . EKG labs and possible observation <Beryl Pineda - Last Filed: 06/19/17 15:24> *DC/Admit/Observation/Transfer - Attestations Scribe Attestion: 06/19/17 11:34 Documentation prepared by Candice Hoover, acting as medical transcription editor for Beryl Pineda MD. <Candice Hoover - Last Filed: 06/19/17 13:44> - Discharge Dispostion Admit: Yes <Beryl Pineda - Last Filed: 06/19/17 15:24> - Discharge Dispostion Condition at time of disposition: Good - Referrals Referrals: ON STAFF,NOT [Primary Care Provider] - NIH Stroke Scale - Last Known Well Date/Time & Onset Date Last Known Well: 06/19/17 Time Last Known Well: 01:00 - Initial Evaluation Level of consciousness: Alert Ask patient the month and their age: Answers both correctly Ask patient to open & close eyes; make fist and let go: Obeys both correctly Best gaze (horizontal eye movement): Normal Visual field testing: No visual field loss Facial paresis (Show teeth/raise eyebrows/close eyes tight): Normal symmetrical movement Motor Function: Left Arm: Normal (mild decrease apartment leasing agent strength compared to right) Motor Function: Right Arm: Normal (extends arm 90 (or 45) degrees for 10 seconds without drift Motor Function: Left Leg: Drift (old) Motor Function: Right Leg: Drift Limb Ataxia: No ataxia Sensory(Use pinprick test arms,legs,trunk,face/side to side): Normal Best language (Describe picture, name items, read sentences): No Aphasia Dysarthria (read several words): Normal articulation Extinction and Inattention: No abnormality - Total Score NIH Stroke Scale Score: 2 <Beryl Pineda - Last Filed: 06/19/17 15:24>
[2017-06-19 11:34] LABS: EOS % 11.5 % (0-4.5); HEMATOCRIT 39.4 % (35.4-49); HEMOGLOBIN 13.2 GM/dL (11.7-16.9); LYMPH % 37.9 % (8-40); MCH 28.9 pg (25.7-33.7); MCHC 33.5 g/dl (32.0-35.9); MEAN CELL VOLUME 86.4 fl (80-96); MEAN PLT VOLUME 8.1 fl (7.5-11.1); MONO % 12.4 % (3.8-10.2); NEUT % 37.2 % (42.8-82.8); PLATELET COUNT 264 K/MM3 (134-434); RBC 4.56 M/mm3 (4.00-5.60); RDW 14.6 % (11.9-15.9); WHITE BLOOD COUNT 5.3 K/mm3 (4.0-10.0)
[2017-06-19 11:51] LABS: INR 1.04 (0.82-1.09); PROTHROMBIN TIME (PATIENT) 11.8 SEC (9.98-11.88)
[2017-06-19 12:05] LABS: ALBUMIN 3.7 g/dl (3.4-5.0); ANION GAP 10 (8-16); BILIRUBIN,TOTAL 0.9 mg/dL (0.2-1.0); BLOOD UREA NITROGEN 14 mg/dL (7-18); CALCIUM 8.8 mg/dL (8.5-10.1); CHLORIDE 106 mmol/L (98-107); CO2 28 mmol/L (21-32); CREATININE 0.8 mg/dL (0.7-1.3); GLUCOSE,RANDOM 59 mg/dL (74-106); POTASSIUM 3.6 mmol/L (3.5-5.1); SGOT/AST 26 U/L (15-37); SGPT/ALT 33 U/L (12-78); SODIUM 144 mmol/L (136-145)
[2017-06-19 12:08] LABS: ALK PHOS 139 U/L (45-117)
--- NOTE | 2017-06-19 13:01 | EKG ---
Test Reason : Blood Pressure : / mmHG Vent. Rate : 077 BPM Atrial Rate : 077 BPM P-R Int : 166 ms QRS Dur : 096 ms QT Int : 400 ms P-R-T Axes : 059 059 063 degrees QTc Int : 452 ms NORMAL SINUS RHYTHM NORMAL ECG WHEN COMPARED WITH ECG OF 25-JUL-2016 13:23, NO SIGNIFICANT CHANGE WAS FOUND Confirmed by GERARDO GUTIÉRREZ MD ([id number]) on 06/19/2017 1:01:18 PM Referred By: Confirmed By:GERARDO GUTIÉRREZ MD
[2017-06-19] MEDS ORDERED: MECLIZINE HCL 25 MG TABLET (FP) PO PRN (17:15)
[2017-06-19] MEDS ORDERED: ALBUTEROL SO4 18 GM HFA INHALER IH PRN (17:15)
[2017-06-19] MEDS ORDERED: traMADol HCL 50 MG TABLET PO PRN (17:15)
--- NOTE | 2017-06-19 17:38 | HP ---
CHIEF COMPLAINT: Left hand weakness PCP: unknown HISTORY OF PRESENT ILLNESS: This is a 62 year old male with PMHx of diabetes, HTN, hyperlipidemia, CVA/TIA, CAD s/p [place], COPD, asthma, sleep apnea, gastric bypass who presented to the ED with left hand weakness and right sided headache that began at approximately 3: 30am this morning. The patient reports he was in good health when he went to sleep. He reports from his previous CVA he has a baseline of b/l lower extremity weakness. He denies any chest pain, nausea, vomiting, diarrhea, palpitations. He states that he also had a right sided headache at the time of the left hand weakness. All of his symptoms resolved when he arrived in the ED ER course was notable for: (1) Temp 97.5, pulse 72, BP 121/81, resp 18, O2 100% on RA (2) Head CT mild to moderate volume loss and moderate chronic microvascular ischemic disease change. No gross acute intracranial pathology Recent Travel: denies PAST MEDICAL HISTORY: as above Social History: Smoking: denies Alcohol: denies Drugs: denies Family History: Allergies citric acid Allergy (Verified 06/19/17 11:11) Hives HOME MEDICATIONS: Home Medications Medication Instructions Recorded Amlodipine Besylate [Norvasc -] 10 mg PO DAILY 06/13/16 Aspirin [ASA -] 81 mg PO DAILY 06/13/16 Carvedilol 25 mg PO BID 06/13/16 Clopidogrel Bisulfate [Plavix -] 75 mg PO DAILY 06/13/16 Cyanocobalamin (Vitamin B-12) 1,000 mcg PO DAILY 06/13/16 [Vitamin B-12] Escitalopram Oxalate [Lexapro -] 25 mg PO DAILY 06/13/16 Folic Acid 1 mg PO DAILY 06/13/16 Gabapentin 800 mg PO TID 06/13/16 Pantoprazole Sodium 40 mg PO DAILY 06/13/16 Atorvastatin Ca [Lipitor] 80 mg PO HS #30 tablet 07/26/16 Albuterol Sulfate Inhaler - 1 puff IH PRN 06/19/17 [Ventolin Hfa Inhaler -] Cyclobenzaprine HCl 10 mg PO BID 06/19/17 Gabapentin 800 mg PO TID 06/19/17 Glipizide 5 mg PO DAILY 06/19/17 Meclizine HCl 25 mg PO BID 06/19/17 Multivitamins [Tab-A-Vit -] 1 tab PO DAILY 06/19/17 Thiamine HCl [Vitamin B1] 100 mg PO BID 06/19/17 Tramadol HCl 50 mg PO PRN 06/19/17 REVIEW OF SYSTEMS CONSTITUTIONAL: Absent: fever, chills, diaphoresis, generalized weakness, malaise, loss of appetite, weight change HEENT: Absent: rhinorrhea, nasal congestion, throat pain, throat swelling, difficulty swallowing, mouth swelling, ear pain, eye pain, visual changes CARDIOVASCULAR: Absent: chest pain, syncope, palpitations, irregular heart rate , lightheadedness, peripheral edema RESPIRATORY: Absent: cough, shortness of breath, dyspnea with exertion, orthopnea, wheezing, stridor, hemoptysis GASTROINTESTINAL:Absent: abdominal pain, abdominal distension, nausea, vomiting , diarrhea, constipation, melena, hematochezia GENITOURINARY: Absent: dysuria, frequency, urgency, hesitancy, hematuria, flank pain, genital pain MUSCULOSKELETAL: Absent: myalgia, arthralgia, joint swelling, back pain, neck pain SKIN: Absent: rash, itching, pallor HEMATOLOGIC/IMMUNOLOGIC: Absent: easy bleeding, easy bruising, lymphadenopathy, frequent infections ENDOCRINE:Absent: unexplained weight gain, unexplained weight loss, heat intolerance, cold intolerance NEUROLOGIC: Right sided headache and left hand weakness that began at 3:30 AM and resolved by the time he arrived in the ED. Absent: paresthesias, dizziness, unsteady gait, seizure, mental status changes, bladder or bowel incontinence PSYCHIATRIC: Absent: anxiety, depression, suicidal or homicidal ideation, hallucinations. PHYSICAL EXAMINATION Vital Signs - 24 hr 06/19/17 06/19/17 10:50 15:48 Temperature 97.5 F L 97.8 F Pulse Rate 72 Pulse Rate [ 83 Right Radial] Respiratory 18 17 Rate Blood Pressure 121/81 Blood Pressure 105/60 [Left Arm] O2 Sat by Pulse 100 97 Oximetry (%) GENERAL: Awake, alert, and fully oriented, in no acute distress. HEAD: Normal with no signs of trauma. EYES: B/l lid lag. Pupils equal, round and reactive to light, extraocular movements intact, sclera anicteric, conjunctiva clear. EARS, NOSE, THROAT: Ears normal, nares patent, oropharynx clear without exudates. Moist mucous membranes. NECK: Normal range of motion, supple without lymphadenopathy, JVD, or masses. LUNGS: Breath sounds equal, clear to auscultation bilaterally. No wheezes, and no crackles. No accessory muscle use. HEART: Regular rate and rhythm, normal S1 and S2 ABDOMEN: Soft, nontender, not distended, normoactive bowel sounds, no guarding, no rebound, no masses. MUSCULOSKELETAL: Normal range of motion at all joints. No bony deformities or tenderness. No CVA tenderness. UPPER EXTREMITIES: 2+ pulses, warm, well-perfused. No cyanosis. No clubbing. No peripheral edema. LOWER EXTREMITIES: 2+ pulses, warm, well-perfused. No calf tenderness. NEUROLOGICAL: Normal speech. Gait not observed PSYCHIATRIC: Cooperative. Good eye contact. Appropriate mood and affect. SKIN: Warm, dry, normal turgor, no rashes or lesions noted, normal capillary refill. Laboratory Results - last 24 hr 06/19/17 06/19/17 06/19/17 11:23 11:23 11:23 WBC 5.3 RBC 4.56 Hgb 13.2 Hct 39.4 MCV 86.4 MCH 28.9 MCHC 33.5 RDW 14.6 Plt Count 264 MPV 8.1 Neutrophils % 37.2 L Lymphocytes % 37.9 Monocytes % 12.4 H Eosinophils % 11.5 H Basophils % 1.0 PT with INR 11.80 INR 1.04 Sodium 144 Potassium 3.6 Chloride 106 Carbon Dioxide 28 Anion Gap 10 BUN 14 Creatinine 0.8 Creat Clearance w eGFR > 60 Random Glucose 59 L D Calcium 8.8 Total Bilirubin 0.9 D AST 26 D ALT 33 D Alkaline Phosphatase 139 H D Creatine Kinase 319 H Creatine Kinase Index 0.5 CK-MB (CK-2) 1.882 Troponin I < 0.02 Total Protein 7.0 Albumin 3.7 Assessment: This is a 62 year old male with PMHx of diabetes, HTN, hyperlipidemia, CVA/TIA, CAD s/p [place], COPD, asthma, sleep apnea, gastric bypass who presented to the ED with left hand weakness and right sided headache that began at approximately 3:30am this morning. Plan: 1) Left hand weakness - Resolved - r/o TIA vs. CVA - Head CT with mild to moderate volume loss and moderate chronic microvascular ischemic disease change. No gross acute intracranial pathology - F/u neurology consult 2) DM - BGM ACHS - ISS ACHS 3) Hx of CVA/TIA - Continue ASA - Continue Plavix - Continue Lipitor 4) HTN - Continue coreg - Continue Norvasc 5) Asthma - Continue Albuterol 6) F/E/N: - Diabetic, sodium controlled diet - Monitor electrolytes 7) Prophylaxis: - Heparin 5,000u sq tid 8) Dispo: - Requires continued inpatient care CODE STATUS: FULL CODE Visit type - Emergency Visit Emergency Visit: Yes ED Registration Date: 06/19/17 Care time: The patient presented to the Emergency Department on the above date and was hospitalized for further evaluation of their emergent condition. - New Patient This patient is new to me today: Yes Date on this admission: 06/21/17 - Critical Care Critical Care patient: No Hospitalist Screening - Colonoscopy Questionnaire Colonoscopy Questionnaire: Colonoscopy Questionnaire - Patient: 50 - 75 years old and never had a screening colonoscopy: Yes History of colon or rectal polyps, or CA: No History of IBD, Crohn's disease or UC: No History of abdominal radiation therapy as a child: No - Relative: 1 with colon or rectal CA, or polyps at age 60 or younger: Unknown Colon or rectal CA diagnosed at age 45 or younger: Unknown Multiple relatives with colon or rectal CA: Unknown - Outcome: Screening Result: Positive Screen
[2017-06-19] MEDS ORDERED: CYCLOBENZAPRINE HCL 10 MG TABLET (FP) ONE (23:12)
[2017-06-19] MEDS ORDERED: ATORVASTATIN CA 80 MG TABLET (FP) ONE (23:12)
[2017-06-19] MEDS ORDERED: CARVEDILOL 12.5 MG TABLET (FP) ONE (23:12)
[2017-06-19] MEDS: GABAPENTIN 400 MG CAPSULE (FP) PO SCH (23:28)
[2017-06-19] MEDS: ATORVASTATIN CA 80 MG TABLET (FP) PO SCH (23:28)
[2017-06-19] MEDS: THIAMINE HCL 100 MG TABLET (FP) PO SCH (23:28)
[2017-06-19] MEDS: CYCLOBENZAPRINE HCL 10 MG TABLET (FP) PO SCH (23:29)
[2017-06-19] MEDS: CARVEDILOL 25 MG TABLET (FP) PO SCH (23:29)
[2017-06-19] MEDS: INSULIN SLIDING SCALE (NOVOLOG) 1 VIAL SQ SCH (23:30)
[2017-06-20] MEDS: GABAPENTIN 400 MG CAPSULE (FP) PO SCH ×3 (06:20→23:00)
[2017-06-20] MEDS: INSULIN SLIDING SCALE (NOVOLOG) 1 VIAL SQ SCH ×4 (07:16→23:01)
[2017-06-20 08:41] LABS: BASO % 0.7 % (0-2.0); EOS % 10.3 % (0-4.5); LYMPH % 40.6 % (8-40); MCH 28.9 pg (25.7-33.7); MCHC 33.4 g/dl (32.0-35.9); MEAN CELL VOLUME 86.7 fl (80-96); MEAN PLT VOLUME 8.5 fl (7.5-11.1); MONO % 11.1 % (3.8-10.2); NEUT % 37.3 % (42.8-82.8); PLATELET COUNT 236 K/MM3 (134-434); RBC 4.16 M/mm3 (4.00-5.60); RDW 14.9 % (11.9-15.9); WHITE BLOOD COUNT 5.1 K/mm3 (4.0-10.0)
[2017-06-20 09:08] LABS: ALBUMIN 3.3 g/dl (3.4-5.0); ALK PHOS 128 U/L (45-117); ANION GAP 4 (8-16); BILIRUBIN,TOTAL 0.7 mg/dL (0.2-1.0); BLOOD UREA NITROGEN 19 mg/dL (7-18); CALCIUM 8.3 mg/dL (8.5-10.1); CHLORIDE 110 mmol/L (98-107); CO2 29 mmol/L (21-32); CREATININE 0.9 mg/dL (0.7-1.3); GLUCOSE,RANDOM 88 mg/dL (74-106); POTASSIUM 3.5 mmol/L (3.5-5.1); SGOT/AST 21 U/L (15-37); SGPT/ALT 27 U/L (12-78); SODIUM 143 mmol/L (136-145); TOT PROT 6.4 g/dl (6.4-8.2)
[2017-06-20] MEDS ORDERED: CLOPIDOGREL BISULFATE 75 MG TABLET (FP) PO SCH (10:00)
[2017-06-20] MEDS: CARVEDILOL 25 MG TABLET (FP) PO SCH ×2 (10:17→23:00)
[2017-06-20] MEDS: ASPIRIN 81 MG CHEWABLE TABLETS PO SCH (10:18)
[2017-06-20] MEDS: glipiZIDE 5 MG TABLET (FP) PO SCH (10:18)
[2017-06-20] MEDS: CYCLOBENZAPRINE HCL 10 MG TABLET (FP) PO SCH ×2 (10:18→23:00)
[2017-06-20] MEDS: THIAMINE HCL 100 MG TABLET (FP) PO SCH ×2 (10:18→23:00)
[2017-06-20] MEDS: CYANOCOBALAMIN 1,000 MCG TABLET (FP) PO SCH (10:19)
[2017-06-20] MEDS: amLODIPine BESYLATE 10 MG TABLET (FP) PO SCH (10:19)
[2017-06-20] MEDS: MULTIVITAMINS (DAILY MVI) TABLET (FP) PO SCH (10:19)
[2017-06-20] MEDS: PANTOPRAZOLE 40 MG TABLET (FP) PO SCH (10:19)
[2017-06-20] MEDS: ESCITALOPRAM OXALATE 20 MG TABLET (FP) PO SCH (10:19)
[2017-06-20] MEDS: FOLIC ACID 1 MG TABLET (FP) PO SCH (10:19)
--- NOTE | 2017-06-20 11:53 | CON.NEURO ---
Consult Consult Specialty:: NEUROLOGY-[facility] - History of Present Illness History of Present Illness: his is a 62 year old male with PMHx of diabetes, HTN, hyperlipidemia, CVA/TIA, CAD s/p [place], COPD, asthma, sleep apnea, gastric bypass who presented to the ED with left hand weakness and right sided headache that began at approximately 3: 30am this morning. The patient reports he was in good health when he went to sleep. He reports from his previous CVA he has a baseline of b/l lower extremity weakness. He denies any chest pain, nausea, vomiting, diarrhea, palpitations. He states that he also had a right sided headache at the time of the left hand weakness. All of his symptoms resolved when he arrived in the ED. He reports he has been told he has 'clots" in left sided cerebral arteries, has to be onj both ASA/Plavix for cardiac reasons and has a 'enlarged heart', PMD in [place], has had residual right sided weakness in arm, new left hand weakness has resolved. ER course was notable for: (1) Temp 97.5, pulse 72, BP 121/81, resp 18, O2 100% on RA (2) Head CT mild to moderate volume loss and moderate chronic microvascular ischemic disease change. 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: Peripheral Neuropathy, Vertigo Cardio/Vascular: Yes: CAD, CHF, HTN, VT Musculoskeletal: Yes: Chronic low back pain - Alcohol/Substance Use Hx Alcohol Use: No - Smoking History Smoking history: Unknown if ever smoked Have you smoked in the past 12 months: No Aproximately how many cigarettes per day: 0 If you are a former smoker, when did you quit?: 37 YRS AGO - Social History Usual Living Arrangement: With Spouse History of Recent Travel: No Home Medications - Allergies Allergies/Adverse Reactions: Allergies Allergy/AdvReac Type Severity Reaction Status Date / Time citric acid Allergy Hives Verified 06/19/17 11:11 - Home Medications Home Medications: Ambulatory Orders Amlodipine Besylate [Norvasc -] 10 mg PO DAILY 06/13/16 Aspirin [ASA -] 81 mg PO DAILY 06/13/16 Carvedilol 25 mg PO BID 06/13/16 Clopidogrel Bisulfate [Plavix -] 75 mg PO DAILY 06/13/16 Cyanocobalamin (Vitamin B-12) [Vitamin B-12] 1,000 mcg PO DAILY 06/13/16 Escitalopram Oxalate [Lexapro -] 25 mg PO DAILY 06/13/16 Folic Acid 1 mg PO DAILY 06/13/16 Gabapentin 800 mg PO TID 06/13/16 Pantoprazole Sodium 40 mg PO DAILY 06/13/16 Atorvastatin Ca [Lipitor] 80 mg PO HS #30 tablet 07/26/16 Albuterol Sulfate Inhaler - [Ventolin Hfa Inhaler -] 1 puff IH PRN 06/19/17 Cyclobenzaprine HCl 10 mg PO BID 06/19/17 Gabapentin 800 mg PO TID 06/19/17 Glipizide 5 mg PO DAILY 06/19/17 Meclizine HCl 25 mg PO BID 06/19/17 Multivitamins [Tab-A-Vit -] 1 tab PO DAILY 06/19/17 Thiamine HCl [Vitamin B1] 100 mg PO BID 06/19/17 Tramadol HCl 50 mg PO PRN 06/19/17 Physical Exam-Neuro Vital Signs: Vital Signs Temperature 98.5 F 06/19/17 19:31 Pulse Rate 72 06/20/17 10:02 Respiratory Rate 18 06/20/17 10:02 Blood Pressure 130/82 06/20/17 10:02 O2 Sat by Pulse Oximetry (%) 95 06/20/17 10:02 Labs: CBC, BMP 06/20/17 07:50 06/20/17 07:50 INR, PTT INR 1.04 (0.82-1.09) 06/19/17 11:23 - Neuro Exam Level Of Consciousness: Yes: Alert, Oriented to Person, Oriented to Place, Oriented to Time Eyes: Yes: PERRL Speech: WNL Dominant Hand: Right Mini Mental Exam: Normal Cranial Nerves II-XII Intact: No (slight old righ diminished nlf) Gag: Present DTR's: 0 Left Achilles, 0 Right Achilles, 1+ Left Bicep, 1+ Left Tricep, 1+ Left Brachioradialis, 2+ Right Bicep, 2+ Right Tricep, 2+ Right Brachioradialis Babinski: Absent Motor Strength: 4/5: Right Arm (+ RUE pronator drift, rest 5/5) Gait: Normal Assessment/Plan Resolved new right hand weakness, has old residual right pronator drift. He does not appear to have had a TIA, given he has multiple risk factors he may had an infarct. Suggest: MRI brain Cont ASA/Plavix/high dose statin If MRI brain without acute ischemic event would d/c pt. home. Thank you, Shay Hancock MD.
[2017-06-20] MEDS ORDERED: GABAPENTIN 100 MG CAPSULE (FP) ONE (15:07)
--- NOTE | 2017-06-20 18:19 | PN ---
Progress Note (short form) - Note Progress Note: Subjective: The patient was seen and examined at the bedside, he has no complaints at this time MRI pending read Current Medications Generic Name Dose Route Start Last Admin Trade Name Norris PRN Reason Stop Dose Admin Albuterol Sulfate 1 puff 06/19/17 17:15 Ventolin Hfa Inhaler - IH Q4H PRN SHORTNESS OF BREATH Amlodipine Besylate 10 mg 06/20/17 10:00 06/20/17 10:19 Norvasc - PO 10 mg DAILY JUWAN Administration Aspirin 81 mg 06/20/17 10:00 06/20/17 10:18 Asa - PO 81 mg DAILY JUWAN Administration Atorvastatin Calcium 80 mg 06/19/17 22:00 06/19/17 23:28 Lipitor - PO 80 mg HS JUWAN Administration Carvedilol 25 mg 06/19/17 22:00 06/20/17 10:17 Coreg - PO 25 mg BID JUWAN Administration Clopidogrel Bisulfate 75 mg 06/20/17 10:00 06/20/17 10:19 Plavix - PO 75 mg DAILY JUWAN Administration Cyanocobalamin 1,000 mcg 06/20/17 10:00 06/20/17 10:19 Vitamin B12 - PO 1,000 mcg DAILY JUWAN Administration Cyclobenzaprine HCl 10 mg 06/19/17 22:00 06/20/17 10:18 Flexeril - PO 10 mg BID JUWAN Administration Escitalopram Oxalate 20 mg 06/20/17 10:00 06/20/17 10:19 Lexapro - PO 20 mg DAILY JUWAN Administration Folic Acid 1 mg 06/20/17 10:00 06/20/17 10:19 Folic Acid - PO 1 mg DAILY JUWAN Administration Gabapentin 800 mg 06/19/17 22:00 06/20/17 15:09 Neurontin - PO 800 mg TID JUWAN Administration Glipizide 5 mg 06/20/17 07:00 06/20/17 10:18 Glucotrol - PO 5 mg DAILY@0700 JUWAN Administration Insulin Aspart 1 vial 06/19/17 22:00 06/20/17 16:50 Novolog Vial Sliding Scale - SQ Not Given ACHS JUWAN Protocol Meclizine HCl 25 mg 06/19/17 17:15 Antivert - PO BID PRN VERTIGO Multivitamins/Minerals/Vitamin C 1 tab 06/20/17 10:00 06/20/17 10:19 Tab-A-Vit - PO 1 tab DAILY JUWAN Administration Pantoprazole Sodium 40 mg 06/20/17 10:00 06/20/17 10:19 Protonix - PO 40 mg DAILY JUWAN Administration Thiamine HCl 100 mg 06/19/17 22:00 06/20/17 10:18 Vitamin B1 - PO 100 mg BID JUWAN Administration Tramadol HCl 50 mg 06/19/17 17:15 Ultram - PO BID PRN PAIN LEVEL 6-10 Objective: Vital Signs Period Temp Pulse Resp BP Sys/[place]inton Pulse Ox Last 24 Hr 98.5 F 72-84 18-18 128-130/82-98 95-95 Physical Exam: GENERAL: Awake, alert, and fully oriented, in no acute distress. LUNGS: Breath sounds equal, clear to auscultation bilaterally. No wheezes, and no crackles. No accessory muscle use. HEART: Regular rate and rhythm, normal S1 and S2 ABDOMEN: Soft, nontender, not distended, normoactive bowel sounds, no guarding, no rebound, no masses. MUSCULOSKELETAL: Normal range of motion at all joints. No bony deformities or tenderness. No CVA tenderness. UPPER EXTREMITIES: 2+ pulses, warm, well-perfused. No cyanosis. No clubbing. No peripheral edema. LOWER EXTREMITIES: 2+ pulses, warm, well-perfused. No calf tenderness. NEUROLOGICAL: Normal speech. Gait not observed PSYCHIATRIC: Cooperative. Good eye contact. Appropriate mood and affect. SKIN: Warm, dry, normal turgor, no rashes or lesions noted, normal capillary refill. CBCD WBC 5.1 K/mm3 (4.0-10.0) 06/20/17 07:50 RBC 4.16 M/mm3 (4.00-5.60) 06/20/17 07:50 Hgb 12.0 GM/dL (11.7-16.9) 06/20/17 07:50 Hct 36.0 % (35.4-49) 06/20/17 07:50 MCV 86.7 fl (80-96) 06/20/17 07:50 MCHC 33.4 g/dl (32.0-35.9) 06/20/17 07:50 RDW 14.9 % (11.9-15.9) 06/20/17 07:50 Plt Count 236 K/MM3 (134-434) 06/20/17 07:50 MPV 8.5 fl (7.5-11.1) 06/20/17 07:50 CMP Sodium 143 mmol/L (136-145) 06/20/17 07:50 Potassium 3.5 mmol/L (3.5-5.1) 06/20/17 07:50 Chloride 110 mmol/L (98-107) H 06/20/17 07:50 Carbon Dioxide 29 mmol/L (21-32) 06/20/17 07:50 Anion Gap 4 (8-16) L 06/20/17 07:50 BUN 19 mg/dL (7-18) H D 06/20/17 07:50 Creatinine 0.9 mg/dL (0.7-1.3) 06/20/17 07:50 Creat Clearance w eGFR > 60 (>60) 06/20/17 07:50 Random Glucose 88 mg/dL (74-106) D 06/20/17 07:50 Calcium 8.3 mg/dL (8.5-10.1) L 06/20/17 07:50 Total Bilirubin 0.7 mg/dL (0.2-1.0) D 06/20/17 07:50 AST 21 U/L (15-37) 06/20/17 07:50 ALT 27 U/L (12-78) 06/20/17 07:50 Alkaline Phosphatase 128 U/L (45-117) H 06/20/17 07:50 Total Protein 6.4 g/dl (6.4-8.2) 06/20/17 07:50 Albumin 3.3 g/dl (3.4-5.0) L 06/20/17 07:50 CARDIAC ENZYMES Creatine Kinase 254 IU/L (39-308) 06/19/17 19:30 Troponin I < 0.02 ng/ml (0.00-0.05) 06/19/17 19:30 Assessment: This is a 62 year old male with PMHx of diabetes, HTN, hyperlipidemia, CVA/TIA, CAD s/p [place], COPD, asthma, sleep apnea, gastric bypass who presented to the ED with left hand weakness and right sided headache that began at approximately 3:30am this morning. Plan: 1) Left hand weakness - Resolved - r/o TIA vs. CVA - Head CT with mild to moderate volume loss and moderate chronic microvascular ischemic disease change. No gross acute intracranial pathology - F/u brain MRI - Appreciate neurology consult 2) DM - BGM ACHS - ISS ACHS 3) Hx of CVA/TIA - Continue ASA - Continue Plavix - Continue Lipitor 4) HTN - Continue coreg - Continue Norvasc 5) Asthma - Continue Albuterol 6) F/E/N: - Diabetic, sodium controlled diet - Monitor electrolytes 7) Prophylaxis: - Heparin 5,000u sq tid 8) Dispo: - Requires continued inpatient care CODE STATUS: FULL CODE Visit type - Emergency Visit Emergency Visit: Yes ED Registration Date: 06/19/17 Care time: The patient presented to the Emergency Department on the above date and was hospitalized for further evaluation of their emergent condition. - New Patient This patient is new to me today: No - Critical Care Critical Care patient: No
[2017-06-20 21:35] VITALS: BMI 40.4
[2017-06-20] MEDS: ATORVASTATIN CA 80 MG TABLET (FP) PO SCH (23:00)
[2017-06-21] MEDS: GABAPENTIN 400 MG CAPSULE (FP) PO SCH (06:16)
[2017-06-21] MEDS: glipiZIDE 5 MG TABLET (FP) PO SCH (06:16)
[2017-06-21] MEDS: INSULIN SLIDING SCALE (NOVOLOG) 1 VIAL SQ SCH (06:17)
[2017-06-21] MEDS: CYCLOBENZAPRINE HCL 10 MG TABLET (FP) PO SCH (09:36)
[2017-06-21] MEDS: ASPIRIN 81 MG CHEWABLE TABLETS PO SCH (09:36)
[2017-06-21] MEDS: MULTIVITAMINS (DAILY MVI) TABLET (FP) PO SCH (09:36)
[2017-06-21] MEDS: THIAMINE HCL 100 MG TABLET (FP) PO SCH (09:37)
[2017-06-21] MEDS: CARVEDILOL 25 MG TABLET (FP) PO SCH (09:37)
[2017-06-21] MEDS: ESCITALOPRAM OXALATE 20 MG TABLET (FP) PO SCH (09:38)
[2017-06-21] MEDS: PANTOPRAZOLE 40 MG TABLET (FP) PO SCH (09:38)
[2017-06-21] MEDS: FOLIC ACID 1 MG TABLET (FP) PO SCH (09:38)
[2017-06-21] MEDS: amLODIPine BESYLATE 10 MG TABLET (FP) PO SCH (09:38)
[2017-06-21] MEDS ORDERED: PT OWN MED DRAWER 7, Y5N ONE (09:40)
[2017-06-21] MEDS: CYANOCOBALAMIN 1,000 MCG TABLET (FP) PO SCH (09:40)
--- NOTE | 2017-06-21 11:25 | DS ---
Physical Examination Vital Signs: Vital Signs Temperature 98.2 F 06/21/17 06:00 Pulse Rate 64 06/21/17 06:00 Respiratory Rate 18 06/21/17 06:00 Blood Pressure 142/82 06/21/17 06:00 O2 Sat by Pulse Oximetry (%) 99 06/20/17 21:00 Labs: CBC, BMP 06/20/17 07:50 06/20/17 07:50 Discharge Summary Reason For Visit: WEAKNESS Hospital Course: Assessment: This is a 62 year old male with PMHx of diabetes, HTN, hyperlipidemia, CVA/TIA, CAD s/p [place], COPD, asthma, sleep apnea, gastric bypass who presented to the ED with left hand weakness and right sided headache that began at approximately 3:30am this morning. Plan: 1) Left hand weakness - Resolved - r/o TIA vs. CVA - Head CT with mild to moderate volume loss and moderate chronic microvascular ischemic disease change. No gross acute intracranial pathology - Brain MRI with no change - Appreciate neurology consult 2) Per chart review, patient NIDDM - Hgb A1c 5.8, will not discharge on any DM medications, patient not a diabetic 3) Hx of CVA/TIA - Continue ASA - Continue Plavix - Continue Lipitor 4) HTN - Continue coreg - Continue Norvasc 5) Asthma - Continue Albuterol Condition: Improved - Instructions Diet, Activity, Other Instructions: Please return to the ED with new, persistent, or worsening symptoms. Please follow-up with providers as indicated. Referrals: Jed Leo MD [Staff Physician] - (Please follow-up with Dr. Leo, or your primary care provider within 1 week. ) Nadine Hancock MD [Staff Physician] - (Please follow-up with neurology within 1 week for further outpatient mangement. ) Disposition: VNS/HOME HEALTH CARE - Home Medications Comprehensive Discharge Medication List: Ambulatory Orders RX: Amlodipine Besylate [Norvasc -] 10 mg PO DAILY 06/13/16 RX: Aspirin [ASA -] 81 mg PO DAILY 06/13/16 RX: Carvedilol 25 mg PO BID 06/13/16 RX: Clopidogrel Bisulfate [Plavix -] 75 mg PO DAILY 06/13/16 RX: Cyanocobalamin (Vitamin B-12) [Vitamin B-12] 1,000 mcg PO DAILY 06/13/16 RX: Folic Acid 1 mg PO DAILY 06/13/16 RX: Gabapentin 800 mg PO TID 06/13/16 RX: Pantoprazole Sodium 40 mg PO DAILY 06/13/16 RX: Atorvastatin Ca [Lipitor] 80 mg PO HS #30 tablet 07/26/16 RX: Albuterol Sulfate Inhaler - [Ventolin HFA Inhaler -] 1 puff IH PRN 06/19/17 RX: Cyclobenzaprine HCl 10 mg PO BID 06/19/17 RX: Gabapentin 800 mg PO TID 06/19/17 RX: Glipizide 5 mg PO DAILY 06/19/17 RX: Meclizine HCl 25 mg PO BID 06/19/17 RX: Multivitamins [Multivit ([facility] Formulary)] 1 tab PO DAILY 06/19/17 RX: Thiamine HCl [Vitamin B1] 100 mg PO BID 06/19/17 RX: Tramadol HCl 50 mg PO PRN 06/19/17 Escitalopram Oxalate [Lexapro -] 20 mg PO DAILY #30 tablet 06/21/17 This patient is new to me today: No Emergency Visit: Yes ED Registration Date: 06/19/17 Care time: The patient presented to the Emergency Department on the above date and was hospitalized for further evaluation of their emergent condition. Critical Care patient: No - Discharge Referral Referred to [facility] Med [facility] Yes Physician Referral: Jed Bhatti MD ([facility])
[2017-06-21 12:20] VITALS: BP 142/89; PULSE 65; TEMP 98.5
== END 2017-06-21 12:30 | disposition home health service (06) ==
LOC: JER 10:50 → JERBED 15:24 → J2W 06-20 20:28
PROVIDERS: ADMIT Internal Medicine; ATTEND Registered Nurse
DX: M62.81 Muscle weakness (generalized) (principal); I10 Essential (primary) hypertension; E78.5 Hyperlipidemia, unspecified; I25.2 Old myocardial infarction; G47.30 Sleep apnea, unspecified; J45.909 Unspecified asthma, uncomplicated; J44.9 Chronic obstructive pulmonary disease, unspecified; E66.9 Obesity, unspecified; R26.2 Difficulty in walking, not elsewhere classified; Z68.41 Body mass index [BMI] 40.0-44.9, adult; Z99.89 Dependence on other enabling machines and devices; Z98.84 Bariatric surgery status; Z86.73 Personal history of transient ischemic attack (TIA), and cerebral infarction without residual deficits; Z86.718 Personal history of other venous thrombosis and embolism; Z79.01 Long term (current) use of anticoagulants; Z79.82 Long term (current) use of aspirin
CPT/HCPCS: 36415; 70450-TC; 70551-TC; 80053; 82550; 82553; 82962; 84484; 85025; 85610; 93005; 93010; 99285-25; G0378

== ENCOUNTER 2018-01-28 15:50 | Observation (INO) | payer OTHER ==
--- NOTE | 2018-01-28 15:58 | PDOC ---
History of Present Illness <Doreen Dick - Last Filed: 01/28/18 18:00> - History of Present Illness Initial Comments: 63yo M with PMH of HTN, HLD, T2DM, Stroke, TIA, YAMILETH, COPD, PE/DVT, gastric bypass presenting with blood sugar problem and chest pain. He was told to stop his diabetes medicine a month ago due to more controlled levels following gastric bypass surgery. Patient continues to check his blood sugar level regularly. Levels in the past week have been normal between 100 and 150. Patient reports that he was feeling woozy today, decided to measure his glucose, and found he had a level of 300. Patient took glipizide which he had leftover and felt woozy once again. Subsequently, he reports feeling 4/10 sharp chest pain which was similar to chest pain he had had previously during heart attacks. He also experienced diaphoresis, but no nausea or vomiting. Patient states that he has had prior MIs but such have not been documented in the medical record. His fee clerk is Dr. Mcgowan. EMS measured his glucose level which was 54 and gave him 15g of glucose orally. Patient reports feeling at his baseline. No fevers or chills. <Tory Lauren - Last Filed: 01/28/18 19:27> - General Stated Complaint: Blood Sugar Problem Time Seen by Provider: 01/28/18 15:57 Past History <Doreen Dikc - Last Filed: 01/28/18 18:00> - Past Medical History Anemia: No Asthma: Yes Cancer: No Cardiac Disorders: Yes ([place]) CVA: Yes (nick lower/upper weakness uses a cane) COPD: No CHF: No DVT: Yes Dementia: No Diabetes: Yes GI Disorders: Yes (dumping syndrome ) Disorders: No HTN: Yes Hypercholesterolemia: No Liver Disease: No Seizures: No Thyroid Disease: No - Surgical History Abdominal Surgery: Yes (gastric bypass 07/2015) Appendectomy: Yes Cardiac Surgery: No Cholecystectomy: No GI Surgery: Yes (BYPASS) Lung Surgery: No Neurologic Surgery: No Orthopedic Surgery: No - Immunization History Immunization Up to Date: Yes - Suicide/Smoking/Psychosocial Hx Smoking History: Former smoker Have you smoked in the past 12 months: No Number of Cigarettes Smoked Daily: 0 If you are a former smoker, when did you quit?: 37 YRS AGO 'Breaking Loose' booklet given: 06/20/17 Hx Alcohol Use: No Drug/Substance Use Hx: No Substance Use Type: None <Tory Lauren - Last Filed: 01/28/18 19:27> - Past Medical History Allergies/Adverse Reactions: Allergies Allergy/AdvReac Type Severity Reaction Status Date / Time citric acid Allergy Hives Verified 01/28/18 16:00 Home Medications: Ambulatory Orders Amlodipine Besylate [Norvasc -] 10 mg PO DAILY 06/13/16 Aspirin [ASA -] 81 mg PO DAILY 06/13/16 Carvedilol 25 mg PO BID 06/13/16 Clopidogrel Bisulfate [Plavix -] 75 mg PO DAILY 06/13/16 Folic Acid 1 mg PO DAILY 06/13/16 Pantoprazole Sodium 40 mg PO DAILY 06/13/16 Atorvastatin Ca [Lipitor] 80 mg PO HS #30 tablet 07/26/16 Albuterol Sulfate Inhaler - [Ventolin HFA Inhaler -] 1 puff IH PRN 06/19/17 Cyclobenzaprine HCl 10 mg PO BID 06/19/17 Gabapentin 800 mg PO TID 06/19/17 Glipizide 5 mg PO DAILY 06/19/17 Meclizine HCl 25 mg PO BID 06/19/17 Multivitamins [Multivit ([facility] Formulary)] 1 tab PO DAILY 06/19/17 Thiamine HCl [Vitamin B1] 100 mg PO BID 06/19/17 Escitalopram Oxalate [Lexapro -] 20 mg PO DAILY #30 tablet 06/21/17 Arm Brace [Wrist Brace] 1 each MC DAILY #1 each 11/21/17 Bupropion HCl 100 mg PO BID 11/21/17 Naproxen 500 mg PO BID PRN #20 tablet 11/21/17 Sulfamethoxazole/Trimethoprim [Bactrim Ds Tablet] 1 each PO BID 7 Days #14 tablet 11/21/17 Tamsulosin HCl 0.4 mg PO BID 11/21/17 Calcium Carbonate/Vitamin D3 [Calcium 250+D Tablet] 1 tab PO DAILY 01/28/18 Ergocalciferol (Vitamin D2) [Vitamin D2] 50,000 unit PO WEEKLY 01/28/18 Ferrous Sulfate 324 mg PO DAILY 01/28/18 Folic Acid 1 mg PO DAILY 01/28/18 Meclizine HCl 25 mg PO TID PRN 01/28/18 Multivitamin [Poly-Vitamin] 1 tab PO DAILY 01/28/18 Thiamine HCl [Vitamin B-1] 100 mg PO DAILY 01/28/18 Vitamin B12 - 1,000 mg PO DAILY 01/28/18 Vitamin E 400 units PO DAILY 01/28/18 Review of Systems - Review of Systems Comments:: Constitutional: no fever, no chills HEENT: no throat pain, no dysphagia Cardiovascular: +chest pain, no palpitations Respiratory: no cough, no shortness of breath Gastrointestinal: +abdominal pain, no nausea, no vomiting Genitourinary: no dysuria, no frequency Musculoskeletal: +back pain, no myalgia Skin: no rash, no itching Neurologic: no headache, no dizziness <Tory Lauren - Last Filed: 01/28/18 19:27> *Physical Exam - Vital Signs Last Vital Signs Temp Pulse Resp BP Pulse Ox 98.2 F 70 16 128/69 98 01/28/18 15:50 01/28/18 15:50 01/28/18 15:50 01/28/18 15:50 01/28/18 15:50 <Doreen Dick - Last Filed: 01/28/18 18:00> - Physical Exam Comments: General: Awake, alert, and fully oriented, in no acute distress Head: No signs of trauma Eyes: EOMI, sclera anicteric ENT: Dry mucus membranes Neck: Normal ROM, supple Lungs: Lungs clear, Normal breath sounds Cardio: Regular rhythm, S1 and S2 present Abdomen: Soft, nontender. No guarding, no rebound, no masses; old midline surgical scar present Extremities: Normal range of motion, Distal pulses present SKIN: Warm, Dry, normal turgor Neurologic: Cranial nerves II through XII grossly intact. Normal speech <Tory Lauren - Last Filed: 01/28/18 19:27> ED Treatment Course - LABORATORY CBC & Chemistry Diagram: 01/28/18 17:00 01/28/18 17:00 - ADDITIONAL ORDERS Additional order review: Laboratory Results 01/28/18 01/28/18 01/28/18 17:00 17:00 16:25 PT with INR 12.60 INR 1.07 PTT (Actin FS) 32.2 Sodium 142 Potassium 2.8 L* Chloride 107 Carbon Dioxide 28 Anion Gap 7 L BUN 10 Creatinine 0.8 Creat Clearance w eGFR > 60 POC Glucometer 103.82216 Random Glucose 90 Calcium 8.1 L Total Bilirubin 0.3 AST 22 ALT 24 Alkaline Phosphatase 122 H Troponin I < 0.02 Total Protein 6.7 Albumin 3.6 01/28/18 01/28/18 17:00 16:25 RBC 4.40 MCV 87.0 MCHC 34.6 RDW 14.8 MPV 8.9 Neutrophils % 54.9 D Lymphocytes % 29.9 D Monocytes % 9.5 Eosinophils % 4.8 H Basophils % 0.9 POC Glucometer 103.17423 - Medications Given in the ED: ED Medications Discontinued Medications Generic Name Dose Route Start Last Admin Trade Name Freq PRN Reason Stop Dose Admin Aspirin 162 mg 01/28/18 16:34 01/28/18 16:37 Asa - PO 01/28/18 16:35 162 mg ONCE ONE Administration <Doreen Dick - Last Filed: 01/28/18 18:00> - LABORATORY CBC & Chemistry Diagram: 01/28/18 17:00 01/28/18 17:00 <Tory Lauren - Last Filed: 01/28/18 19:27> Medical Decision Making - Medical Decision Making 63yo M with PMH of HTN, HLD, T2DM, Stroke, TIA, YAMILETH, COPD, PE/DVT, gastric bypass presenting with blood sugar problem and chest pain. -DDX includes but not limited to ACS, valvular heart disease, pericarditis, GERD , MSK, psychogenic, DKA, HHS, PE/DVT -Labs -EKG: rate 69, QTc 430, NSR -ASA 162 ordered -CXR: no acute chest pathology 01/28/18 17:17 Tpn negative, no leukocytosis or anemia. HEART score of 4 given history, age, and risk factors Hypokalemia at 2.8. KCl po and iv ordered Discussed patient with hospitalist team who accepted patient for admission under attending, Dr. Hennessy 01/28/18 19:23 <Tory Lauren - Last Filed: 01/28/18 19:27> *DC/Admit/Observation/Transfer - Discharge Dispostion Decision to Admit order: Yes <Doreen Dick - Last Filed: 01/28/18 18:00> - Discharge Dispostion Decision to Admit order: Yes <Tory Lauren - Last Filed: 01/28/18 19:27> Diagnosis at time of Disposition: Chest pain, Hypokalemia - Discharge Dispostion Condition at time of disposition: Guarded - Referrals Referrals: ON STAFF,NOT [Primary Care Provider] -
[2018-01-28 16:08] VITALS: PULSE 70; BMI 33.0
--- NOTE | 2018-01-28 16:29 | PDOC ---
Attending Attestation - Resident Resident Name: Tory Lauren - ED Attending Attestation I have performed the following: I have examined & evaluated the patient, The case was reviewed & discussed with the resident, I agree w/resident's findings & plan - HPI HPI: 01/28/18 18:06 Yasmani 63 year old male with PMHx of diabetes, HTN, hyperlipidemia, CVA/TIA, CAD s/p [place], COPD, DVT/PE, asthma, sleep apnea, gastric bypass presenting with initially hyperglycemia in 300s. Ate some muffin and bagel earlier today. When he noted his sugar was elevated to 300s, took PO glipizide and immediately after felt dizzy and confused, diaphoretic. During this time, also had sharp sternal CP, nonradiating, a/w diaphoresis, as if icicles were poking him in the chest, which is his anginal equivalent. Via EMS, he was given Glucose orally, now improved sx. - Physicial Exam PE: 01/28/18 18:01 NAD, well appearing, PERRL, EOMI, MMM, nl conjunctiva, anicteric; neck supple. lungs clear, RRR, abdomen soft nontender. DENNY x4, no focal neuro deficits. No peripheral edema. normal color for ethnicity, [facility]. - Medical Decision Making 01/28/18 18:04 Yasmani 63 year old male with PMHx of diabetes, HTN, hyperlipidemia, CVA/TIA, CAD s/p [place], COPD, DVT/PE, asthma, sleep apnea, gastric bypass presenting with initially hyperglycemia in 300s and chest pain. Vital signs reviewed, wnl. Fingerstick normal Prior notes reviewed, including admissions, discharges and consultations. laboratory results and imaging reviewed, basic labs and lytes notable for hypokalemia, normal CBC and remainder of Cr/lytes. check UA for ketones/glucose or e/o end organ damage. CXR_no acute pathology, normal. Cardiac panel_neg trop, will need serial trops EKG normal sinus rhythm, no interval abnormalities, narrow QRS, ST and T wave segments and morphology normal. Nonspecific T wave abnormalities ED course: no acute events, remained stable and well appearing. Clinically improved after interventions, including ASA for cardioprotection, IV and PO potassium. Tolerated PO crackers and meds. Dispo: Admit for tele, r/o ACS and chest pain eval given h/o CAD, and electrolyte abnormality. Discussed results and management plan with pt and family member at bedside, agree with impression and plan 01/28/18 18:08 Heart Score/ECG Review - ECG Impressions Comment:: 01/28/18 18:08 EKG normal sinus rhythm, no interval abnormalities, narrow QRS, ST and T wave segments and morphology normal. Nonspecific T wave abnormalities
[2018-01-28] MEDS ORDERED: ASPIRIN 81 MG CHEWABLE TABLETS PO ONE (16:34)
[2018-01-28] MEDS ORDERED: ASPIRIN 81 MG CHEWABLE TABLETS ONE (16:38)
[2018-01-28 17:14] LABS: BASO % 0.9 % (0-2.0); EOS % 4.8 % (0-4.5); HEMATOCRIT 38.3 % (35.4-49); HEMOGLOBIN 13.3 GM/dL (11.7-16.9); LYMPH % 29.9 % (8-40); MCH 30.1 pg (25.7-33.7); MCHC 34.6 g/dl (32.0-35.9); MEAN PLT VOLUME 8.9 fl (7.5-11.1); MONO % 9.5 % (3.8-10.2); NEUT % 54.9 % (42.8-82.8); PLATELET COUNT 255 K/MM3 (134-434); RDW 14.8 % (11.9-15.9); WHITE BLOOD COUNT 5.8 K/mm3 (4.0-10.0)
[2018-01-28 17:39] LABS: INR 1.07 (0.83-1.09); PROTHROMBIN TIME (PATIENT) 12.6 SEC (9.7-13.0)
[2018-01-28 17:42] LABS: ACTIVATED PTT 32.2 SECONDS (25.2-36.5)
[2018-01-28 17:43] LABS: ALBUMIN 3.6 g/dl (3.4-5.0); ALK PHOS 122 U/L (45-117); ANION GAP 7 MMOL/L (8-16); BILIRUBIN,TOTAL 0.3 mg/dL (0.2-1); BLOOD UREA NITROGEN 10 mg/dL (7-18); CALCIUM 8.1 mg/dL (8.5-10.1); CHLORIDE 107 mmol/L (98-107); CO2 28 mmol/L (21-32); CREATININE 0.8 mg/dL (0.55-1.3); GLUCOSE,RANDOM 90 mg/dL (74-106); SGOT/AST 22 U/L (15-37); SGPT/ALT 24 U/L (13-61); SODIUM 142 mmol/L (136-145); TOT PROT 6.7 g/dl (6.4-8.2)
[2018-01-28 17:45] LABS: POTASSIUM 2.8 mmol/L (3.5-5.1)
[2018-01-28] MEDS ORDERED: POTASSIUM CHLORIDE TABS 20 MEQ TABLET.ER (FP) PO ONE ×2 (17:55→18:04)
[2018-01-28] MEDS ORDERED: KCL 10 MEQ IVPB 10 MEQ/100 ML INFUS.BAG IVPB SCH (17:55)
[2018-01-28] MEDS ORDERED: KCL 10 MEQ IVPB 10 MEQ/100 ML INFUS.BAG IVPB ONE (18:05)
--- NOTE | 2018-01-28 19:22 | PN ---
Teaching Attending Note Name of Resident: Khanh Moore ATTENDING PHYSICIAN STATEMENT I saw and evaluated the patient. I reviewed the resident's note and discussed the case with the resident. I agree with the resident's findings and plan as documented. SUBJECTIVE: Patient is a 63 year old man with PMH of NIDDM, HTN, hyperlipidemia, CVA/TIA, CAD s/p [place], Vitamin D deficiency, COPD, DVT/PE, asthma, sleep apnea, obesity and gastric bypass presenting with initially hyperglycemia in 300s. Ate some muffin and bagel earlier today. When he noted his sugar was elevated to 300s, took PO glipizide and immediately after felt dizzy and confused, diaphoretic. EMS measured his glucose level which was 54 and gave him 15g of glucose orally. Patient reports feeling at his baseline. No fevers or chills. During this time, he also had sharp sternal chest pain, nonradiating, associated with diaphoresis , as if icicles were poking him in the chest. OBJECTIVE: Alert Vital Signs Period Temp Pulse Resp BP Sys/[place] Pulse Ox Last 24 Hr 98.2 F 70 16 128/69 98 HEENT: No Jaundice, eye redness or discharge, PERRLA, EOMI. Normocephalic, atraumatic. External ears are normal and hearing is grossly intact. No nasal discharge. Neck: Supple, nontender. No palpable adenopathy or thyromegaly. No JVD Chest: Good effort. Clear to auscultation and percussion. Heart: Regular. No S3, rub or murmur Abdomen: Not distended, soft, nontender and no HSM. No rebound or guarding. Normoactive bowel sounds. Ext: Peripheral pulses intact. No leg edema. Skin: Warm and dry. No petechiae, rash or ecchymosis. Neuro: Alert. Oriented x3. CN 2-12 grossly intact. Sensation grossly intact in all four extremities and DTR are symmetric. Home Medications Medication Instructions Recorded Amlodipine Besylate [Norvasc -] 10 mg PO DAILY 06/13/16 Aspirin [ASA -] 81 mg PO DAILY 06/13/16 Carvedilol 25 mg PO BID 06/13/16 Clopidogrel Bisulfate [Plavix -] 75 mg PO DAILY 06/13/16 Folic Acid 1 mg PO DAILY 06/13/16 Pantoprazole Sodium 40 mg PO DAILY 06/13/16 Atorvastatin Ca [Lipitor] 80 mg PO HS #30 tablet 07/26/16 Albuterol Sulfate Inhaler - 1 puff IH PRN 06/19/17 [Ventolin HFA Inhaler -] Cyclobenzaprine HCl 10 mg PO BID 06/19/17 Gabapentin 800 mg PO TID 06/19/17 Glipizide 5 mg PO DAILY 06/19/17 Meclizine HCl 25 mg PO BID 06/19/17 Multivitamins [Multivit ([facility] 1 tab PO DAILY 06/19/17 Formulary)] Thiamine HCl [Vitamin B1] 100 mg PO BID 06/19/17 Escitalopram Oxalate [Lexapro -] 20 mg PO DAILY #30 tablet 06/21/17 Arm Brace [Wrist Brace] 1 each MC DAILY #1 each 11/21/17 Bupropion HCl 100 mg PO BID 11/21/17 Naproxen 500 mg PO BID PRN #20 tablet 11/21/17 Sulfamethoxazole/Trimethoprim 1 each PO BID 7 Days #14 tablet 11/21/17 [Bactrim Ds Tablet] Tamsulosin HCl 0.4 mg PO BID 11/21/17 Calcium Carbonate/Vitamin D3 1 tab PO DAILY 01/28/18 [Calcium 250+D Tablet] Ergocalciferol (Vitamin D2) 50,000 unit PO WEEKLY 01/28/18 [Vitamin D2] Ferrous Sulfate 324 mg PO DAILY 01/28/18 Folic Acid 1 mg PO DAILY 01/28/18 Meclizine HCl 25 mg PO TID PRN 01/28/18 Multivitamin [Poly-Vitamin] 1 tab PO DAILY 01/28/18 Thiamine HCl [Vitamin B-1] 100 mg PO DAILY 01/28/18 Vitamin B12 - 1,000 mg PO DAILY 01/28/18 Vitamin E 400 units PO DAILY 01/28/18 ASSESSMENT AND PLAN: 1. Symptomatic hypoglycemia - It is unclear why patient developed hyperglycemia after being off his diabetes medications for a while. Will hold the home diabetes drugs and implement sliding scale insulin regimen. Consult endocrine for outpatient regimen. Provide comprehensive diabetes care with patient teaching and counseling about the importance of eye care and foot care. Hypokalemia likely signals transcellular shifts. Will check serum Mg+, give KCL and repeat BMP. Continue Vitamin D for hypocalcemia. 2. Obesity - Will provide patient all the necessary assistance, counseling and positive reinforcement to facilitate weight loss. Consult interior design assistant. 3. DVT prophylaxis - Lovenox 40 mg SQ q 24 hours. 4. Advance directives - Full code
--- NOTE | 2018-01-28 19:55 | HP ---
CHIEF COMPLAINT: Chest pain, lightheadedness PCP: Dr Pavel MIRANDA (Not on staff) HISTORY OF PRESENT ILLNESS: Pt is a 63 y/o gentleman with a significant past medical history of NIDDM, HTN , hyperlipidemia, CVA/TIA, CAD s/p [place], Vitamin D deficiency, COPD, DVT/PE, asthma, sleep apnea, obesity and gastric bypass. Pt endorses that earlier today he went to vote and then returned home and consumed a muffin. After consuming the muffin, pt began to feel " woozy". This prompted him to check his blood glucose which was in the 300s range. Pt then took a glipizide pill that was prescribed by his PMD. After taking the medication, pt began to feel lightheaded and his health aid subequently called 911. EMS checked pt's BGM while in the field as recorded a level of 54. Pt endorses that he felt a stabbing chest pain as well described as "icles stabbing him in the chest". Pt was then given 15 g of glucose orally. Pt currently denies chest pain, shortness of breath, headache, nausea or vomting. ER course was notable for: (1) Potassium of 2.8 (2) Troponin <0.02 (3) 40 mEq kdur, 10 Meq KRIDER Recent Travel: denies PAST MEDICAL HISTORY: per hpi PAST SURGICAL HISTORY: Gastric Sleeve Social History: Smoking: former smoker quit 40 years ago Alcohol: denies Drugs: Denies. Use to use cocaine and marijuana but has quit many years ago. Family History: Allergies citric acid Allergy (Verified 01/28/18 16:00) Hives HOME MEDICATIONS: Home Medications Medication Instructions Recorded Amlodipine Besylate [Norvasc -] 10 mg PO DAILY 06/13/16 Aspirin [ASA -] 81 mg PO DAILY 06/13/16 Carvedilol 25 mg PO BID 06/13/16 Clopidogrel Bisulfate [Plavix -] 75 mg PO DAILY 06/13/16 Folic Acid 1 mg PO DAILY 06/13/16 Pantoprazole Sodium 40 mg PO DAILY 06/13/16 Atorvastatin Ca [Lipitor] 80 mg PO HS #30 tablet 07/26/16 Albuterol Sulfate Inhaler - 1 puff IH PRN 06/19/17 [Ventolin HFA Inhaler -] Cyclobenzaprine HCl 10 mg PO BID 06/19/17 Gabapentin 800 mg PO TID 06/19/17 Glipizide 5 mg PO DAILY 06/19/17 Meclizine HCl 25 mg PO BID 06/19/17 Multivitamins [Multivit ([facility] 1 tab PO DAILY 06/19/17 Formulary)] Thiamine HCl [Vitamin B1] 100 mg PO BID 06/19/17 Escitalopram Oxalate [Lexapro -] 20 mg PO DAILY #30 tablet 06/21/17 Arm Brace [Wrist Brace] 1 each MC DAILY #1 each 11/21/17 Bupropion HCl 100 mg PO BID 11/21/17 Naproxen 500 mg PO BID PRN #20 tablet 11/21/17 Sulfamethoxazole/Trimethoprim 1 each PO BID 7 Days #14 tablet 11/21/17 [Bactrim Ds Tablet] Tamsulosin HCl 0.4 mg PO BID 11/21/17 Calcium Carbonate/Vitamin D3 1 tab PO DAILY 01/28/18 [Calcium 250+D Tablet] Ergocalciferol (Vitamin D2) 50,000 unit PO WEEKLY 01/28/18 [Vitamin D2] Ferrous Sulfate 324 mg PO DAILY 01/28/18 Folic Acid 1 mg PO DAILY 01/28/18 Meclizine HCl 25 mg PO TID PRN 01/28/18 Multivitamin [Poly-Vitamin] 1 tab PO DAILY 01/28/18 Thiamine HCl [Vitamin B-1] 100 mg PO DAILY 01/28/18 Vitamin B12 - 1,000 mg PO DAILY 01/28/18 Vitamin E 400 units PO DAILY 01/28/18 REVIEW OF SYSTEMS CONSTITUTIONAL: Absent: fever, chills, diaphoresis, generalized weakness, malaise, loss of appetite, weight change HEENT: Absent: rhinorrhea, nasal congestion, throat pain, throat swelling, difficulty swallowing, mouth swelling, ear pain, eye pain, visual changes CARDIOVASCULAR: Absent: chest pain, syncope, palpitations, irregular heart rate, lightheadedness , peripheral edema RESPIRATORY: Absent: cough, shortness of breath, dyspnea with exertion, orthopnea, wheezing, stridor, hemoptysis GASTROINTESTINAL: Absent: abdominal pain, abdominal distension, nausea, vomiting, diarrhea, constipation, melena, hematochezia GENITOURINARY: Absent: dysuria, frequency, urgency, hesitancy, hematuria, flank pain, genital pain MUSCULOSKELETAL: Absent: myalgia, arthralgia, joint swelling, back pain, neck pain SKIN: Absent: rash, itching, pallor HEMATOLOGIC/IMMUNOLOGIC: Absent: easy bleeding, easy bruising, lymphadenopathy, frequent infections ENDOCRINE: Absent: unexplained weight gain, unexplained weight loss, heat intolerance, cold intolerance NEUROLOGIC: Absent: headache, focal weakness or paresthesias, dizziness, unsteady gait, seizure, mental status changes, bladder or bowel incontinence PSYCHIATRIC: Absent: anxiety, depression, suicidal or homicidal ideation, hallucinations. PHYSICAL EXAMINATION Vital Signs - 24 hr 01/28/18 15:50 Temperature 98.2 F Pulse Rate 70 Respiratory 16 Rate Blood Pressure 128/69 O2 Sat by Pulse 98 Oximetry (%) GENERAL: AAOX#, NAD Pleasant HEAD: Normal with no signs of trauma. EYES: PERRLA EOMI EARS, NOSE, THROAT: MMM NECK: Supple LUNGS: CTA B/L No wheezing rhonchi or rales HEART: RRR No MRG S1S2 ABDOMEN: Soft NDNT No HSM MUSCULOSKELETAL: FROM throughout UPPER EXTREMITIES: No CCE LOWER EXTREMITIES: No CCE, Feet no cracks or breaks, well perfused. NEUROLOGICAL: Cranial nerves II-XII intact. Normal speech. Normal gait. PSYCHIATRIC: Cooperative. Good eye contact. Appropriate mood and affect. SKIN: No rashes or lesions appreciated Laboratory Results - last 24 hr 01/28/18 01/28/18 01/28/18 16:25 17:00 17:00 WBC 5.8 RBC 4.40 Hgb 13.3 Hct 38.3 MCV 87.0 MCH 30.1 MCHC 34.6 RDW 14.8 Plt Count 255 MPV 8.9 Absolute Neuts (auto) 3.2 Neutrophils % 54.9 D Lymphocytes % 29.9 D Monocytes % 9.5 Eosinophils % 4.8 H Basophils % 0.9 Nucleated RBC % 0 PT with INR 12.60 INR 1.07 PTT (Actin FS) 32.2 Sodium Potassium Chloride Carbon Dioxide Anion Gap BUN Creatinine Creat Clearance w eGFR POC Glucometer [id number] Random Glucose Calcium Total Bilirubin AST ALT Alkaline Phosphatase Troponin I Total Protein Albumin 01/28/18 17:00 WBC RBC Hgb Hct MCV MCH MCHC RDW Plt Count MPV Absolute Neuts (auto) Neutrophils % Lymphocytes % Monocytes % Eosinophils % Basophils % Nucleated RBC % PT with INR INR PTT (Actin FS) Sodium 142 Potassium 2.8 L* Chloride 107 Carbon Dioxide 28 Anion Gap 7 L BUN 10 Creatinine 0.8 Creat Clearance w eGFR > 60 POC Glucometer Random Glucose 90 Calcium 8.1 L Total Bilirubin 0.3 AST 22 ALT 24 Alkaline Phosphatase 122 H Troponin I < 0.02 Total Protein 6.7 Albumin 3.6 ASSESSMENT/PLAN: Pt is a 63 y/o gentleman with a significant past medical history of NIDDM, HTN , hyperlipidemia, CVA/TIA, CAD s/p [place], Vitamin D deficiency, COPD, DVT/PE, asthma, sleep apnea, obesity and gastric bypass who presented to [facility] complaining of chest pain and low blood sugar. #Hypoglycemia 2/2 Sulfonylurea use -Blood sugar 54 2/2 glipizide use -Given 15 g Glucose in field -Withhold glipizide use -Start Insulin sliding scale ACHS -BGM Q4H -Endocrinology consult #Hypokalemia -Potassium in ED 2.8 -Repeat BMP Q6H - KCL 10 Meq in ED -40 mEq KDUR in ED -Check Magnesium # Chest 2/2 ACS? -Troponin <0.02 -Repeat Trop Q6H -Echo -EKG: rate 69, QTc 430, NSR #HTN, CAD, CVA/TIA -Day team to reconcile meds FEN No Fluids Monitor Electrolytes Sodium Controlled Diet DVT ppx: Lovenox 40 SQ Dispo: Tele Obs Visit type - Emergency Visit Emergency Visit: Yes Care time: The patient presented to the Emergency Department on the above date and was hospitalized for further evaluation of their emergent condition. - New Patient This patient is new to me today: Yes Date on this admission: 01/28/18 - Critical Care Critical Care patient: No
[2018-01-28 22:06] LABS: MAGNESIUM 2.1 mg/dL (1.8-2.4)
--- NOTE | 2018-01-28 23:08 | PN ---
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 Dressed in street clothing. Patient states that does not want to stay in hospital. Discussed the patient's hypoglycemic presentation, and hypokalemia noted upon labs. Discussed importance of waiting for follow up labs to ensure adequate electrolyte repletion. Patient refused to wait for the labs, stating that he will follow up with his primary care provider in the morning, and has a "life alert" system. Discussed risks of leaving hospital including fluctuation of blood glucose, potassium, concern for arrhythmias, lightheadedness, fall, loss of consciousness , trauma to head or any part of body, . Patient expressed verbal understanding of the risks, and re-iterated that he wants to follow up with his primary care physician tomorrow. Patient signed AMA forms, and left hospital against medical advice.
[2018-01-29 02:36] VITALS: BP 130/70; TEMP 98.1
[2018-01-29] MEDS ORDERED: ENOXAPARIN NA (PORCINE) 40 MG/0.4 ML DISP.SYRIN SQ SCH (10:00)
--- NOTE | 2018-01-30 11:12 | EKG ---
Test Reason : Blood Pressure : / mmHG Vent. Rate : 069 BPM Atrial Rate : 069 BPM P-R Int : 172 ms QRS Dur : 100 ms QT Int : 402 ms P-R-T Axes : 075 060 060 degrees QTc Int : 430 ms NORMAL SINUS RHYTHM WITH SINUS ARRHYTHMIA NORMAL ECG WHEN COMPARED WITH ECG OF 19-JUN-2017 11:10, NONSPECIFIC T WAVE ABNORMALITY NOW EVIDENT IN ANTERIOR LEADS Confirmed by DAVIS SAAB, TRENT ([id number]) on 01/30/2018 11:12:05 AM Referred By: Confirmed By:TRENT CANNON MD
== END 2018-01-28 21:30 | disposition left against medical advice (07) ==
LOC: JER 15:50 → JERBED 20:28
PROVIDERS: ADMIT Internal Medicine; ATTEND Internal Medicine
PROC: 3E0337Z Introduction of Electrolytic and Water Balance Substance into Peripheral Vein, Percutaneous Approach (ICD-10-PCS; principal; 2018-01-28)
DX: R07.9 Chest pain, unspecified (principal); E87.6 Hypokalemia; I10 Essential (primary) hypertension; E78.5 Hyperlipidemia, unspecified; E16.2 Hypoglycemia, unspecified; E11.9 Type 2 diabetes mellitus without complications; G47.33 Obstructive sleep apnea (adult) (pediatric); J44.9 Chronic obstructive pulmonary disease, unspecified; E66.9 Obesity, unspecified; Z68.33 Body mass index [BMI] 33.0-33.9, adult; R26.2 Difficulty in walking, not elsewhere classified; Z99.89 Dependence on other enabling machines and devices; Z79.82 Long term (current) use of aspirin; Z79.02 Long term (current) use of antithrombotics/antiplatelets; Z86.718 Personal history of other venous thrombosis and embolism; Z86.711 Personal history of pulmonary embolism; Z86.73 Personal history of transient ischemic attack (TIA), and cerebral infarction without residual deficits; Z98.84 Bariatric surgery status; Z87.891 Personal history of nicotine dependence; Z79.84 Long term (current) use of oral hypoglycemic drugs
CPT/HCPCS: 36415; 71045-TC-FY; 80053; 82962; 83735; 84484; 85025; 85610; 85730; 93005; 93010; 99283-25; G0378

== ENCOUNTER 2018-03-10 12:28 | Inpatient (IN) | payer OTHER ==
[2018-03-10 12:34] VITALS: BMI 34.9
[2018-03-10 13:19] LABS: BASO % 1.2 % (0-2.0); EOS % 6.6 % (0-4.5); HEMATOCRIT 36.8 % (35.4-49); HEMOGLOBIN 12.7 GM/dL (11.7-16.9); LYMPH % 32.2 % (8-40); MCH 29.7 pg (25.7-33.7); MCHC 34.4 g/dl (32.0-35.9); MEAN CELL VOLUME 86.2 fl (80-96); MEAN PLT VOLUME 8.5 fl (7.5-11.1); MONO % 11.9 % (3.8-10.2); NEUT % 48.1 % (42.8-82.8); PLATELET COUNT 239 K/MM3 (134-434); RBC 4.27 M/mm3 (4.00-5.60); RDW 14.4 % (11.9-15.9); WHITE BLOOD COUNT 5.1 K/mm3 (4.0-10.0)
[2018-03-10 13:25] LABS: INR 1.13 (0.83-1.09); PROTHROMBIN TIME (PATIENT) 13.3 SEC (9.7-13.0)
[2018-03-10 13:39] LABS: ALBUMIN 3.4 g/dl (3.4-5.0); ALK PHOS 105 U/L (45-117); ANION GAP 6 MMOL/L (8-16); BILIRUBIN,TOTAL 0.6 mg/dL (0.2-1); BLOOD UREA NITROGEN 13 mg/dL (7-18); CALCIUM 8.1 mg/dL (8.5-10.1); CHLORIDE 108 mmol/L (98-107); CHOLESTEROL 132 mg/dL (50-200); CO2 28 mmol/L (21-32); CREATININE 0.8 mg/dL (0.55-1.3); GLUCOSE,RANDOM 118 mg/dL (74-106); HDL CHOLESTEROL 46 mg/dL (40-60); POTASSIUM 3.4 mmol/L (3.5-5.1); SGOT/AST 20 U/L (15-37); SGPT/ALT 26 U/L (13-61); SODIUM 142 mmol/L (136-145); TOT PROT 6.4 g/dl (6.4-8.2); TRIGLYCERIDES 126 mg/dL (0-150)
--- NOTE | 2018-03-10 14:43 | PDOC ---
Attending Attestation - Resident Resident Name: Yoandy Sierra - ED Attending Attestation I have performed the following: I have examined & evaluated the patient, The case was reviewed & discussed with the resident, I agree w/resident's findings & plan - HPI HPI: 03/10/18 14:38 63-year-old male with history of multiple medical problems including several CVAs presents for evaluation for persistent speech disturbance and right hand weakness since yesterday around 2 PM. Patient notes difficulty holding items in his right hand yesterday, felt like it was his stroke symptoms but he says he usually waits and they go away. This morning, patient noted that his right hand weakness was persistent and he was also having some slowing of his speech, so he presents for evaluation. Patient aide, at bedside, confirms his speech is slightly different than baseline. Of note, patient had a recent fall and was evaluated at outside hospital ED without imaging for his head injury. - Physicial Exam PE: 03/10/18 14:40 Vital signs within normal limits Alert, speaking full sentences but slightly slurred/dysarthric Heart is regular with 2/6 systolic ejection murmur, lungs are clear Abdomen benign 5 out of 5 strength 4 extremities, no notable unilateral weakness on hand grasp , no pronator drift noted on my examination. - Medical Decision Making 03/10/18 14:40 63-year-old male with history of multiple strokes presents with persistent new right hand weakness and slurred speech since yesterday around 2 PM, concerning for CVA. Hemodynamically stable here. Stroke protocol initiated CT shows no acute lesions We'll give aspirin and cholesterol meds Will need admission to stroke unit for further evaluation. not tpa candidate given delayed presentation, not MT candidate given clinical presentation. NIH Stroke Scale - Last Known Well Date/Time & Onset Date Last Known Well: 03/09/18 Time Last Known Well: 14:00 - Initial Evaluation Level of consciousness: Alert Ask patient the month and their age: Answers both correctly Ask patient to open & close eyes; make fist and let go: Obeys both correctly Best gaze (horizontal eye movement): Normal Visual field testing: No visual field loss Facial paresis (Show teeth/raise eyebrows/close eyes tight): Normal symmetrical movement Motor Function: Left Arm: Normal Motor Function: Right Arm: Normal (extends arm 90 (or 45) degrees for 10 seconds without drift Motor Function: Left Leg: Normal (extends leg 30 degrees for 5 seconds without drift) Motor Function: Right Leg: Normal (extends leg 30 degrees for 5 seconds without drift) Limb Ataxia: No ataxia Sensory(Use pinprick test arms,legs,trunk,face/side to side): Normal Best language (Describe picture, name items, read sentences): No Aphasia Dysarthria (read several words): Mild to moderate slurring of words Extinction and Inattention: No abnormality - Total Score NIH Stroke Scale Score: 1 tPA Exclusion checklist 3-4.5h - Thrombolytic Therapy Candidate Is patient eligible for thrombolytic therapy: No - Ineligibility reason(s) Reasons No tPA given: Outside of window - delayed arrival
--- NOTE | 2018-03-10 14:45 | PDOC ---
History of Present Illness - General Chief Complaint: CVA/TIA Stated Complaint: WEAKNESS Time Seen by Provider: 03/10/18 12:39 History Source: Patient Exam Limitations: No Limitations - History of Present Illness Initial Comments: 03/10/18 14:41 63 yo male pmh HTN, HLD, NIDDM, CVAs, TIAs (on plavix and 81 mg aspirin) COPD, PE/DVT and gastric bypass presets to the ED from home for REYES and believes he suffered from a new stroke yesterday. Pt sates his last known well was 2 pm yesterday when he felt sudden weakness in the right hand along with changes in his speech. Pts residual deficits are NIH Stroke Scale - Last Known Well Date/Time & Onset Date Last Known Well: 03/09/18 Time Last Known Well: 14:00 - Initial Evaluation Level of consciousness: Alert Ask patient the month and their age: Answers both correctly Ask patient to open & close eyes; make fist and let go: Obeys both correctly Best gaze (horizontal eye movement): Normal Visual field testing: No visual field loss Facial paresis (Show teeth/raise eyebrows/close eyes tight): Normal symmetrical movement Past History - Past Medical History Allergies/Adverse Reactions: Allergies Allergy/AdvReac Type Severity Reaction Status Date / Time citric acid Allergy Hives Verified 01/28/18 16:00 Home Medications: Ambulatory Orders Amlodipine Besylate [Norvasc -] 10 mg PO DAILY 06/13/16 Aspirin [ASA -] 81 mg PO DAILY 06/13/16 Carvedilol 25 mg PO BID 06/13/16 Clopidogrel Bisulfate [Plavix -] 75 mg PO DAILY 06/13/16 Folic Acid 1 mg PO DAILY 06/13/16 Pantoprazole Sodium 40 mg PO DAILY 06/13/16 Atorvastatin Ca [Lipitor] 80 mg PO HS #30 tablet 07/26/16 Albuterol Sulfate Inhaler - [Ventolin HFA Inhaler -] 1 puff IH PRN 06/19/17 Cyclobenzaprine HCl 10 mg PO BID 06/19/17 Gabapentin 800 mg PO TID 06/19/17 Glipizide 5 mg PO DAILY 06/19/17 Meclizine HCl 25 mg PO BID 06/19/17 Multivitamins [Multivit ([facility] Formulary)] 1 tab PO DAILY 06/19/17 Thiamine HCl [Vitamin B1] 100 mg PO BID 06/19/17 Escitalopram Oxalate [Lexapro -] 20 mg PO DAILY #30 tablet 06/21/17 Arm Brace [Wrist Brace] 1 each MC DAILY #1 each 11/21/17 Bupropion HCl 100 mg PO BID 11/21/17 Naproxen 500 mg PO BID PRN #20 tablet 11/21/17 Sulfamethoxazole/Trimethoprim [Bactrim Ds Tablet] 1 each PO BID 7 Days #14 tablet 11/21/17 Tamsulosin HCl 0.4 mg PO BID 11/21/17 Calcium Carbonate/Vitamin D3 [Calcium 250+D Tablet] 1 tab PO DAILY 01/28/18 Ergocalciferol (Vitamin D2) [Vitamin D2] 50,000 unit PO WEEKLY 01/28/18 Ferrous Sulfate 324 mg PO DAILY 01/28/18 Folic Acid 1 mg PO DAILY 01/28/18 Meclizine HCl 25 mg PO TID PRN 01/28/18 Multivitamin [Poly-Vitamin] 1 tab PO DAILY 01/28/18 Thiamine HCl [Vitamin B-1] 100 mg PO DAILY 01/28/18 Vitamin B12 - 1,000 mg PO DAILY 01/28/18 Vitamin E 400 units PO DAILY 01/28/18 Anemia: No Asthma: Yes Cancer: No Cardiac Disorders: Yes ([place]) CVA: Yes (nick lower/upper weakness uses a cane) COPD: No CHF: No DVT: Yes Dementia: No Diabetes: Yes GI Disorders: Yes (dumping syndrome ) Disorders: No HTN: Yes Hypercholesterolemia: No Liver Disease: No Seizures: No Thyroid Disease: No - Surgical History Abdominal Surgery: Yes (gastric bypass 07/2015) Appendectomy: Yes Cardiac Surgery: No Cholecystectomy: No GI Surgery: Yes ([facility]) Lung Surgery: No Neurologic Surgery: No Orthopedic Surgery: No - Immunization History Immunization Up to Date: Yes - Suicide/Smoking/Psychosocial Hx Smoking History: Never smoked Have you smoked in the past 12 months: No Number of Cigarettes Smoked Daily: 0 If you are a former smoker, when did you quit?: 37 YRS AGO Information on smoking cessation initiated: No 'Breaking Loose' booklet given: 06/20/17 Hx Alcohol Use: No Drug/Substance Use Hx: No Substance Use Type: None *Physical Exam - Vital Signs Last Vital Signs Temp Pulse Resp BP Pulse Ox 98.6 F 89 18 153/76 99 03/10/18 12:30 03/10/18 12:30 03/10/18 12:30 03/10/18 12:30 03/10/18 12:30 Moderate Sedation - Procedure Monitoring Vital Signs: Procedure Monitoring Vital Signs Temperature 98.6 F 03/10/18 12:30 Pulse Rate 89 03/10/18 12:30 Respiratory Rate 18 03/10/18 12:30 Blood Pressure 153/76 03/10/18 12:30 O2 Sat by Pulse Oximetry (%) 99 03/10/18 12:30 ED Treatment Course - LABORATORY CBC & Chemistry Diagram: 03/10/18 13:00 03/10/18 13:00 - ADDITIONAL ORDERS Additional order review: Laboratory Results 03/10/18 03/10/18 13:00 13:00 PT with INR 13.30 H INR 1.13 H Sodium 142 Potassium 3.4 L Chloride 108 H Carbon Dioxide 28 Anion Gap 6 L BUN 13 Creatinine 0.8 Creat Clearance w eGFR > 60 Random Glucose 118 H Calcium 8.1 L Total Bilirubin 0.6 AST 20 ALT 26 Alkaline Phosphatase 105 Creatine Kinase 126 Troponin I < 0.02 Total Protein 6.4 Albumin 3.4 Triglycerides 126 Cholesterol 132 Total LDL Cholesterol 66 HDL Cholesterol 46 03/10/18 13:00 RBC 4.27 MCV 86.2 MCHC 34.4 RDW 14.4 MPV 8.5 Neutrophils % 48.1 Lymphocytes % 32.2 Monocytes % 11.9 H Eosinophils % 6.6 H Basophils % 1.2 *DC/Admit/Observation/Transfer Diagnosis at time of Disposition: Headache Qualifiers: Headache type: unspecified Headache chronicity pattern: unspecified pattern Intractability: not intractable Qualified Code(s): R51 - Headache - Discharge Dispostion Condition at time of disposition: Fair Decision to Admit order: Yes - Referrals - Patient Instructions - Post Discharge Activity
--- NOTE | 2018-03-10 15:40 | EKG ---
Test Reason : Blood Pressure : / mmHG Vent. Rate : 078 BPM Atrial Rate : 078 BPM P-R Int : 164 ms QRS Dur : 096 ms QT Int : 374 ms P-R-T Axes : 066 057 050 degrees QTc Int : 426 ms NORMAL SINUS RHYTHM NORMAL ECG WHEN COMPARED WITH ECG OF 28-JAN-2018 15:58, NO SIGNIFICANT CHANGE WAS FOUND Confirmed by JOANNA CANCHOLA MD ([id number]) on 03/10/2018 3:40:00 PM Referred By: Confirmed By:JOANNA CANCHOLA MD
--- NOTE | 2018-03-10 16:43 | HP ---
Admitting History and Physical - Primary Care Physician PCP: Deborah Li - Admission Chief Complaint: R hand weakness History of Present Illness: 63-year-old male with history of multiple medical problems including several CVAs presents for evaluation for persistent speech disturbance and right hand weakness since yesterday around 2 PM. Patient notes difficulty holding items in his right hand yesterday, felt like it was his stroke symptoms but he says he usually waits and they go away. This morning, patient noted that his right hand weakness was persistent and he was also having some slowing of his speech, so he presents for evaluation. Patient aide, at bedside, confirms his speech is slightly different than baseline. Of note, patient had a recent fall and was evaluated at outside hospital ED without imaging for his head injury. - Past Medical History [employer] WORK[employer]: Yes: CVA, Peripheral Neuropathy, Vertigo Cardiovascular: Yes: CAD, CHF, HTN, [place] Musculoskeletal: Yes: Chronic low back pain - Smoking History Smoking history: Never smoked Have you smoked in the past 12 months: No Aproximately how many cigarettes per day: 0 If you are a former smoker, when did you quit?: 37 YRS AGO - Alcohol/Substance Use Hx Alcohol Use: No - Social History History of Recent Travel: No Home Medications - Allergies Allergies/Adverse Reactions: Allergies Allergy/AdvReac Type Severity Reaction Status Date / Time citric acid Allergy Hives Verified 01/28/18 16:00 - Home Medications Home Medications: Ambulatory Orders Amlodipine Besylate [Norvasc -] 10 mg PO DAILY 06/13/16 Aspirin [ASA -] 81 mg PO DAILY 06/13/16 Carvedilol 25 mg PO BID 06/13/16 Clopidogrel Bisulfate [Plavix -] 75 mg PO DAILY 06/13/16 Pantoprazole Sodium 40 mg PO DAILY 06/13/16 Atorvastatin Ca [Lipitor] 80 mg PO HS #30 tablet 07/26/16 Albuterol Sulfate Inhaler - [Ventolin HFA Inhaler -] 1 puff IH PRN 06/19/17 Cyclobenzaprine HCl 10 mg PO BID 06/19/17 Gabapentin 800 mg PO TID 06/19/17 Glipizide 5 mg PO DAILY 06/19/17 Meclizine HCl 25 mg PO DAILY 06/19/17 Multivitamins [Multivit ([facility] Formul[facility])] 1 tab PO DAILY 06/19/17 Escitalopram Oxalate [Lexapro -] 20 mg PO DAILY #30 tablet 06/21/17 Bupropion HCl 100 mg PO BID 11/21/17 Naproxen 500 mg PO BID PRN #20 tablet 11/21/17 Sulfamethoxazole/Trimethoprim [Bactrim Ds Tablet] 1 each PO BID 7 Days #14 tablet 11/21/17 Tamsulosin HCl 0.4 mg PO BID 11/21/17 Calcium Carbonate/Vitamin D3 [Calcium 250+D Tablet] 1 tab PO DAILY 01/28/18 Ergocalciferol (Vitamin D2) [Vitamin D2] 50,000 unit PO WEEKLY 01/28/18 Ferrous Sulfate 324 mg PO DAILY 01/28/18 Folic Acid 1 mg PO DAILY 01/28/18 Multivitamin [Poly-Vitamin] 1 tab PO DAILY 01/28/18 Thiamine HCl [Vitamin B-1] 100 mg PO DAILY 01/28/18 Vitamin B12 - 1,000 mg PO DAILY 01/28/18 Vitamin E 400 units PO DAILY 01/28/18 Physical Examination Vital Signs: Vital Signs Temperature 98.6 F 03/10/18 12:30 Pulse Rate 85 03/10/18 15:58 Respiratory Rate 20 03/10/18 15:58 Blood Pressure 136/80 03/10/18 15:58 O2 Sat by Pulse Oximetry (%) 98 03/10/18 15:58 Constitutional: Yes: No Distress HENT: Yes: Atraumatic Neck: Yes: Supple Cardiovascular: Yes: Regular Rate and Rhythm Respiratory: Yes: CTA Bilaterally Gastrointestinal: Yes: Normal Bowel Sounds Extremities: Yes: WNL Edema: No Peripheral Pulses WNL: Yes Neurological: Yes: Alert, Oriented ...Motor Strength: WNL Labs: CBC, BMP 03/10/18 13:00 03/10/18 13:00 Imaging - Results Cat Scan: Report Reviewed Problem List - Problems (1) TIA (transient ischemic attack) Assessment/Plan: doing good no deficit mri pending Code(s): G45.9 - TRANSIENT CEREBRAL ISCHEMIC ATTACK, UNSPECIFIED Qualifiers: Transient cerebral ischemia type: unspecified Qualified Code(s): G45.9 - Transient cerebral ischemic attack, unspecified (2) Unsteady gait Assessment/Plan: pt/ot Code(s): R26.81 - UNSTEADINESS ON FEET (3) HLD (hyperlipidemia) Assessment/Plan: on meds Code(s): E78.5 - HYPERLIPIDEMIA, UNSPECIFIED Qualifiers: Hyperlipidemia type: pure hypercholesterolemia Qualified Code(s): E78.00 - Pure hypercholesterolemia, unspecified; E78.0 - Pure hypercholesterolemia (4) HTN (hypertension) Assessment/Plan: on meds Code(s): I10 - ESSENTIAL (PRIMARY) HYPERTENSION Qualifiers: Hypertension type: essential hypertension Qualified Code(s): I10 - Essential (primary) hypertension Assessment/Plan Laboratory Results - last 24 hr 03/10/18 03/10/18 03/10/18 13:00 13:00 13:00 WBC 5.1 RBC 4.27 Hgb 12.7 Hct 36.8 MCV 86.2 MCH 29.7 MCHC 34.4 RDW 14.4 Plt Count 239 MPV 8.5 Absolute Neuts (auto) 2.4 Neutrophils % 48.1 Lymphocytes % 32.2 Monocytes % 11.9 H Eosinophils % 6.6 H Basophils % 1.2 Nucleated RBC % 0 PT with INR 13.30 H INR 1.13 H Sodium 142 Potassium 3.4 L Chloride 108 H Carbon Dioxide 28 Anion Gap 6 L BUN 13 Creatinine 0.8 Creat Clearance w eGFR > 60 Random Glucose 118 H Calcium 8.1 L Total Bilirubin 0.6 AST 20 ALT 26 Alkaline Phosphatase 105 Creatine Kinase 126 Troponin I < 0.02 Total Protein 6.4 Albumin 3.4 Triglycerides 126 Cholesterol 132 Total LDL Cholesterol 66 HDL Cholesterol 46 Blood Type Antibody Screen 03/10/18 13:00 WBC RBC Hgb Hct MCV MCH MCHC RDW Plt Count MPV Absolute Neuts (auto) Neutrophils % Lymphocytes % Monocytes % Eosinophils % Basophils % Nucleated RBC % PT with INR INR Sodium Potassium Chloride Carbon Dioxide Anion Gap BUN Creatinine Creat Clearance w eGFR Random Glucose Calcium Total Bilirubin AST ALT Alkaline Phosphatase Creatine Kinase Troponin I Total Protein Albumin Triglycerides Cholesterol Total LDL Cholesterol HDL Cholesterol Blood Type A POSITIVE Antibody Screen Negative Active Medications Generic Name Dose Route Start Last Admin Trade Name Freq PRN Reason Stop Dose Admin Acetaminophen 650 mg 03/11/18 08:02 03/11/18 08:09 Tylenol - PO 650 mg Q6H PRN Administration PAIN 1-7 Amlodipine Besylate 5 mg 03/11/18 10:00 03/11/18 09:43 Norvasc - PO 5 mg DAILY JUWAN Administration Aspirin 81 mg 03/11/18 10:00 03/11/18 09:23 Asa - PO 81 mg DAILY JUWAN Administration Atorvastatin Calcium 80 mg 03/10/18 22:00 03/10/18 21:14 Lipitor - PO 80 mg HS JUWAN Administration Carvedilol 25 mg 03/10/18 22:00 03/11/18 09:23 Coreg - PO 25 mg BID JUWAN Administration Clopidogrel Bisulfate 75 mg 03/11/18 10:00 03/11/18 09:24 Plavix - PO 75 mg DAILY JUWAN Administration Escitalopram Oxalate 20 mg 03/11/18 10:00 03/11/18 09:23 Lexapro - PO 20 mg DAILY JUWAN Administration Gabapentin 800 mg 03/10/18 22:00 03/11/18 13:22 Neurontin - PO 800 mg TID JUWAN Administration Glipizide 5 mg 03/11/18 07:00 03/11/18 06:45 Glucotrol - PO Not Given DAILY@0700 JUWAN Pantoprazole Sodium 40 mg 03/11/18 10:00 03/11/18 09:24 Protonix - PO 40 mg DAILY JUWAN Administration Potassium Chloride 40 meq 03/11/18 10:00 03/11/18 09:24 K-Dur - PO 03/13/18 10:01 40 meq DAILY JUWAN Administration Tamsulosin HCl 0.4 mg 03/10/18 22:00 03/11/18 08:09 Flomax - PO 0.4 mg BID@0830,2200 JUWAN Administration Valsartan 80 mg 03/11/18 10:00 03/11/18 09:43 Diovan - PO 80 mg DAILY JUWAN Administration
--- NOTE | 2018-03-10 20:02 | CONSULT ---
Consult - text type - Consultation Consultation Note: NEUROLOGY CONSULTATION is greatly appreciated: This 63 yo RH s man with h/o HTN, DM, Chol and ASHD is said to have had multiple CVA's since age 53 (when he did not have his chronic medical conditions. Maintained on: Amlodipine; ASA 81; Carvedilol; Clopidogrel; Pantoprazole; Atorvastatin; Albuterol; Cyclobenzaprine; Gabapentin 800 mg PO TID; Glipizide; Meclizine; Escitalopram; Bupropion HCl 100 mg PO BID; Tamsulosin; Ferrous Sulfate; and multiple vitamin supplements. His "first stroke" around age 53 involved the subacute onset of weakness in both legs and loss of ambulation which took 6 mos to improve in rehab. He cannot recall if he had sensory loss or bladder problems at the time but clearly remembers that he had no involvement of speech, vision or his arms. He recalls requiring a wheelchair and notes that his walking was never normal after this. Multiple, subsequent, neurological events have all been transient. Multiple MRI scans of the brain (04/03/16; 06/12/16; 07/25/16 and 06/20/17) are all reviewed and show lacunar infarcts but also, more diffuse, periventricular and subcortical white matter lesions. Now admitted after developing slurred speech and right sided weakness and paresthesie over the weekend. CT of head (reviewed) shows scattered chronic microvascular changes but no acute lesions. NOEL: BP's 136-150/80-90. No carotid bruits. cor re. Healing abrasion over the bridge of the nose and right supraorbital region. NEURO: MS: normal. Speech: Sl dysarthric CN II-XII essentially normal with sl reduced tongue MARIBELL's. Motor: No drift or tremor. Normal strength. Sl decreased MARIBELL's. Normal reflexes in the arms but reduced in the legs, Plantars silent Coord: No FTN dystaxia Sensory: Reduced vibration in the feet. Romberg +/- Gait: Sl wide-based. variable stride. unsteady turns. IMP: Non-focal exam at this time. Cannot r/o TIA, or microvascular CVA but, Pt's initial presentation with B/L leg weakness suggestive of Transverse Myelitis, may be more consistent with a diagnosis of demyelinating disease (Multiple Sclerosis). Paraplegia is not seen with central stroke syndromes. SUGGEST: Check homocyteine, B12, methylmalonic acid. Genetic testing for CADASIL MRI of cervical spine. May need MRI of the brain WITH contrast to search or enhancing plaques (old strokes will not enhance). Continue BP control, Plavix and ASA for now. Cardiology consultation for cardioembolic source. Thank you very much, Сергей Herbert MD
[2018-03-10] MEDS: GABAPENTIN 400 MG CAPSULE (FP) PO SCH (21:14)
[2018-03-10] MEDS: ATORVASTATIN CA 80 MG TABLET (FP) PO SCH (21:14)
[2018-03-10] MEDS: CARVEDILOL 25 MG TABLET (FP) PO SCH (21:14)
[2018-03-10] MEDS: TAMSULOSIN HCL 0.4 MG CAP PO SCH (21:14)
[2018-03-10 21:22] LABS: URINE APPEARANCE CLEAR; URINE BILIRUBIN NEGATIVE (<2.0 mg/dL); URINE COLOR YELLOW; URINE GLUCOSE (UA) NEGATIVE (NEGATIVE); URINE KETONE NEGATIVE (NEGATIVE); URINE LEUK ESTERASE NEGATIVE (NEGATIVE); URINE NITRITE NEGATIVE (NEGATIVE); URINE PROTEIN NEGATIVE (NEGATIVE)
[2018-03-11] MEDS: GABAPENTIN 400 MG CAPSULE (FP) PO SCH ×3 (05:28→21:07)
[2018-03-11] MEDS: glipiZIDE 5 MG TABLET (FP) PO SCH (06:45)
[2018-03-11] MEDS: ACETAMINOPHEN 325 MG TABLET (FP) PO PRN ×2 (08:09→23:44)
[2018-03-11] MEDS: TAMSULOSIN HCL 0.4 MG CAP PO SCH ×2 (08:09→21:07)
--- NOTE | 2018-03-11 08:46 | PN ---
Progress Note (short form) - Note Progress Note: Chief Complaint: Events noted, notes reviewed, transient right hand weakness and speech abnormality, denies any chest pain or dyspnea History of Present Illness: Seen and examined on telemetry. Full consult dictated Echocardiography study is pending Echocardiography dated April 03, 2016 revealed normal left ventricular size and systolic function mild mitral valve regurgitation, mild tricuspid valve regurgitation Carotid Doppler study dated April 03, 2016 was negative for hemodynamically significant stenosis Medications: Current Medications Acetaminophen (Tylenol -) 650 mg PO Q6H PRN PRN Reason: PAIN 1-7 Last Admin: 03/11/18 08:09 Dose: 650 mg Amlodipine Besylate (Norvasc -) 10 mg PO DAILY [facility] Aspirin (Asa -) 81 mg PO DAILY [facility] Atorvastatin Calcium (Lipitor -) 80 mg PO HS [facility] Last Admin: 03/10/18 21:14 Dose: 80 mg Carvedilol (Coreg -) 25 mg PO BID [facility] Last Admin: 03/10/18 21:14 Dose: 25 mg Clopidogrel Bisulfate (Plavix -) 75 mg PO DAILY [facility] Escitalopram Oxalate (Lexapro -) 20 mg PO DAILY [facility] Gabapentin (Neurontin -) 800 mg PO TID [facility] Last Admin: 03/11/18 05:28 Dose: 800 mg Glipizide (Glucotrol -) 5 mg PO DAILY@0700 [facility] Last Admin: 03/11/18 06:45 Dose: Not Given Pantoprazole Sodium (Protonix -) 40 mg PO DAILY [facility] Potassium Chloride (K-Dur -) 40 meq PO DAILY [facility] Stop: 03/13/18 10:01 Tamsulosin HCl (Flomax -) 0.4 mg PO BID@0830,2200 [facility] Last Admin: 03/11/18 08:09 Dose: 0.4 mg Review of Systems - Review of Systems Constitutional: denies: Chills, Fever Cardiovascular: As noted above Respiratory: denies: Cough or Sputum Production Gastrointestinal: denies: Nausea, Vomiting, Diarrhea, Constipation, Abdominal Pain Neurological: denies: Headaches Vital Signs: Last Vital Signs Temp Pulse Resp BP Pulse Ox 97.5 F L 70 22 H 136/60 98 03/11/18 07:52 03/11/18 07:52 03/11/18 07:52 03/11/18 07:52 03/10/18 17:36 Intake & Output 03/08/18 03/09/18 03/10/18 03/11/18 23:59 23:59 23:59 23:59 Intake Total 550 100 Balance 550 100 Weight 265 lb Neck: Supple Negative JVD No Bruit Respiratory: Clear to A&P Cardiovascular: S1 S2 Regular Rate and Rhythm Gastrointestinal: Soft Benign Normal Bowel Sounds Ext: No Edema Labs: Troponin, BNP 03/10/18 13:00 Troponin I < 0.02 CBC, BMP 03/10/18 13:00 03/10/18 13:00 Hepatic Panel Total Bilirubin 0.6 mg/dL (0.2-1) 03/10/18 13:00 AST 20 U/L (15-37) 03/10/18 13:00 ALT 26 U/L (13-61) 03/10/18 13:00 Alkaline Phosphatase 105 U/L (45-117) 03/10/18 13:00 Albumin 3.4 g/dl (3.4-5.0) 03/10/18 13:00 INR, PTT INR 1.13 (0.83-1.09) H 03/10/18 13:00 Assessment/Plan ASSESSMENT: 1. Right upper extremity weakness/transient, speech abnormality/transient in a patient with known history of recurrent strokes/CVA 2. Coronary artery disease history of a myocardial infarction no history of percutaneous coronary intervention angina pectoris 3. Diastolic left ventricular dysfunction with clinical class 0 [place] [employer] classification left ventricular failure 4. Cannot exclude paroxysmal atrial fibrillation as a potential culprit for the above-noted recurrent strokes/CVA 5. Questionable recurrent syncope 6. Hypertensive cardiovascular disease 7. Acc-fzkfind-fjuxswwzn diabetes mellitus 8. Hypercholesterolemia 9. History of chronic obstructive pulmonary disease 10. Morbid obesity, post gastric bypass PLAN: 1. Continue Coreg 2. Continue ASA and Plavix 3. Continue Lipitor 4. Recommend the addition of CALEB inhibitor or angiotensin receptor dayana therapy unless it is absolutely contraindicated 5. Continue Norvasc therapy but decrease dosage 6. Await echocardiography 7. Recommend extended outpatient monitoring to exclude atrial fibrillation 8. Additional neurologic evaluation as recommended by neurology service Bárbara Christianson M.D.
[2018-03-11] MEDS: ASPIRIN 81 MG CHEWABLE TABLETS PO SCH (09:23)
[2018-03-11] MEDS: ESCITALOPRAM OXALATE 20 MG TABLET (FP) PO SCH (09:23)
[2018-03-11] MEDS: CARVEDILOL 25 MG TABLET (FP) PO SCH ×2 (09:23→21:07)
[2018-03-11] MEDS: POTASSIUM CHLORIDE TABS 20 MEQ TABLET.ER (FP) PO SCH (09:24)
[2018-03-11] MEDS: CLOPIDOGREL BISULFATE 75 MG TABLET (FP) PO SCH (09:24)
[2018-03-11] MEDS: PANTOPRAZOLE 40 MG TABLET (FP) PO SCH (09:24)
[2018-03-11] MEDS: VALSARTAN 80 MG TABLET (UD) PO SCH (09:43)
[2018-03-11] MEDS: amLODIPine BESYLATE 5 MG TABLET (FP) PO SCH (09:43)
[2018-03-11] MEDS ORDERED: amLODIPine BESYLATE 10 MG TABLET (FP) PO SCH (10:00)
--- NOTE | 2018-03-11 12:07 | CONS ---
DATE OF CONSULTATION: 03/11/2018 REQUESTING PHYSICIAN: Deborah Li MD CHIEF COMPLAINT: Cardiovascular evaluation, right upper extremity weakness, slurred speech. A 63-year-old, morbidly obese male of descent with known history of coronary artery disease, post remote myocardial infarction without intervention, angina pectoris, diastolic left ventricular dysfunction with clinical class 0 [place] [employer] classification left ventricular failure, hypertensive cardiovascular disease, mfu-lwdtjko-fmlmgkzkk diabetes mellitus, hypercholesterolemia, recurrent hospitalizations for stroke and questionable TIA, chronic obstructive pulmonary disease, who presented to [facility] with sudden onset of right upper extremity weakness and, in addition, speech abnormality/slurred speech. Patient stated that he was in usual state of health until presenting with right upper extremity weakness, failure to meat smoker, and then, subsequently, he was noted to have an abnormal speech/slurred speech. Patient has had similar presentations in the past, which were attributed to recurrent CVA. Patient was recently evaluated at [facility] Emergency Room after sustaining a mechanical fall with forehead laceration. Patient currently denies any focal neurologic deficits. Patient denies any chest discomfort. Patient reports dyspnea with [id number] physical exertion. Patient denies any orthopnea, paroxysmal nocturnal dyspnea, but reports intermittent bilateral lower extremity edema that worsens in the latter part of the day. Questionable syncope has been reported, although patient is unclear. Patient denies any palpitations. Patient reports fatigue and tiredness. Patient admits to lack of ambulation/exercise. PAST MEDICAL HISTORY: Coronary artery disease post myocardial infarction with no history of percutaneous coronary intervention; angina pectoris; diastolic left ventricular dysfunction with clinical class 0 [place] [employer] classification left ventricular failure; hypertensive cardiovascular disease; cml-pcqflhc-cjlnlihhf diabetes mellitus; hypercholesterolemia; stroke; questionable recurrent TIA; chronic obstructive pulmonary disease; morbid obesity post bariatric surgery, gastric bypass; appendectomy/ruptured appendix with peritonitis requiring surgical intervention. SOCIAL HISTORY: Prior history of smoking. FAMILY HISTORY: Positive coronary artery disease. ALLERGIES: CITRIC ACID. MEDICAL THERAPY: Currently includes acetaminophen 650 mg every 6 hours as needed, Norvasc 10 mg once a day, aspirin 81 mg once a day, Lipitor 80 mg once a day, Coreg 25 mg twice a day, Plavix 75 mg once a day, Lexapro 20 mg once a day, Neurontin 800 mg 3 times a day, Glucotrol 5 mg once a day, Protonix 40 mg once a day, potassium chloride 40 mEq once a day, Flomax 0.4 mg twice daily. REVIEW OF SYSTEMS: Head and Neck: Denies headache, photophobia, blurring of vision. Respiratory: No cough or sputum production. Cardiovascular: As noted above. Gastrointestinal: Denies nausea, vomiting, diarrhea, abdominal discomfort. Genitourinary: No symptoms reported. Musculoskeletal: No symptoms reported. PHYSICAL EXAMINATION: Vital Signs: Blood pressure is 136/60 mmHg, pulse rate is 70 beats per minute. Head and Neck: Pupils equal and reactive to light and accommodation. Extraocular muscles are intact. Anicteric sclerae. Negative JVD. No bruit appreciated. Chest: Clear to auscultation and percussion. Cardiovascular: S1 and S2 regular. Grade 1/6 systolic ejection murmur. No clicks or gallops. Abdomen: Soft, benign. Normoactive bowel sounds. Extremities: Negative edema. Distal pulses 1+. No calf tenderness. CPK, troponin-I levels were noted. CBC revealed white cell count 5.1, hemoglobin 12.7, platelets 239. Basic metabolic profile revealed sodium 142, potassium 3.4, BUN 13, creatinine 0.8, glucose 118. INR 1.13. CT scan of the head report was noted. EKG revealed sinus rhythm with nonspecific T-wave abnormality. No changed compared to prior EKG performed January 28, 2018. ASSESSMENT: 1. Right upper extremity weakness/transient with speech abnormality/transient in a patient with known history of recurrent strokes, cerebrovascular accident. 2. Coronary artery disease with history of myocardial infarction, no history of percutaneous coronary intervention, angina pectoris. 3. Diastolic left ventricular dysfunction with clinical class 0 [place] [employer] classification left ventricular failure. 4. Cannot exclude paroxysmal atrial fibrillation as the potential culprit for the above-noted recurrent stroke/cerebrovascular accident. 5. Questionable recurrent syncope. 6. Hypertensive cardiovascular disease. 7. Mfc-xqzibeu-lgesfiqzs diabetes mellitus. 8. Hypercholesterolemia. 9. History of chronic obstructive pulmonary disease. 10. Morbid obesity post gastric bypass. RECOMMENDATION: 1. Continuation of carvedilol. 2. Continuation of aspirin and Plavix. 3. Continuation of Lipitor. 4. Recommend the addition of CALEB inhibitors or angiotensin receptor dayana therapy unless it is absolutely contraindicated. 5. Continuation of Norvasc therapy but decreasing dosage. 6. Echocardiogram for evaluation of left ventricular size and systolic function. 7. Recommend extended outpatient monitoring to exclude atrial fibrillation. 8. Additional neurologic evaluation as recommended by neurology service. Thank you for the kind referral. DOMO GRAY M.D. [id number]
--- NOTE | 2018-03-11 17:11 | ECHO ---
Name: FRANCO HOLT Exam:Adult Echocardiogram Study Date: 03/11/2018 10:17 AM Age: 63 yrs Reason For Study: Evaluate LV Function, NC Height: 73 in Weight: 265 lb BSA: 2.4 m2 MMode/2D Measurements & Calculations IVSd: 0.99 cm Ao root diam: 3.2 cm LVIDd: 5.5 cm ACS: 2.0 cm LVIDs: 4.2 cm LVPWd: 1.6 cm EDV(Teich): 148.2 ml LVOT diam: 2.1 cm ESV(Teich): 80.4 ml Doppler Measurements & Calculations TV V2 max: 215.1 cm/sec Med Peak E' Fernando: 5.7 cm/sec TV max P.5 mmHg Lat Peak E' Fernando: 6.8 cm/sec Procedure The study was technically difficult with many images being suboptimal in quality. Left Ventricle The left ventricle is normal in size. Left ventricular systolic function is normal. No regional wall motion abnormalities noted from this technically difficult study. LVEF = 60%. Left Ventricular Filling patte rn is normal for age. Right Ventricle The right ventricle is normal in size and function. Atria Normal left and right atrial size and function. Mitral Valve The mitral valve is normal in structure and function. Tricuspid Valve The tricuspid valve is normal. There was insufficient TR detected to calculate RV systolic pressure. Aortic Valve The aortic valve is normal in structure and function. Pulmonic Valve The pulmonic valve is not well visualized. Great Vessels The aortic root is not well visualized. Pericardium/Pleura There is no pericardial effusion. Interpretation Summary The study was technically difficult with many images being suboptimal in quality. Left ventricular systolic function is normal. No regional wall motion abnormalities noted from this technically difficult study. LVEF = 60%. The right ventricle is normal in size and function. Normal left and right atrial size and function. The aortic valve is normal in structure and function. The mitral valve is normal in structure and function. MD Rubi Terry 03/11/2018 05:11 PM
--- NOTE | 2018-03-11 17:11 | PN ---
Progress Note, Physician History of Present Illness: doing well - Current Medication List Current Medications: Active Medications Acetaminophen (Tylenol -) 650 mg PO Q6H PRN PRN Reason: PAIN 1-7 Last Admin: 03/11/18 08:09 Dose: 650 mg Amlodipine Besylate (Norvasc -) 5 mg PO DAILY [facility] Last Admin: 03/11/18 09:43 Dose: 5 mg Aspirin (Asa -) 81 mg PO DAILY [facility] Last Admin: 03/11/18 09:23 Dose: 81 mg Atorvastatin Calcium (Lipitor -) 80 mg PO HS [facility] Last Admin: 03/10/18 21:14 Dose: 80 mg Carvedilol (Coreg -) 25 mg PO BID [facility] Last Admin: 03/11/18 09:23 Dose: 25 mg Clopidogrel Bisulfate (Plavix -) 75 mg PO DAILY [facility] Last Admin: 03/11/18 09:24 Dose: 75 mg Escitalopram Oxalate (Lexapro -) 20 mg PO DAILY [facility] Last Admin: 03/11/18 09:23 Dose: 20 mg Gabapentin (Neurontin -) 800 mg PO TID [facility] Last Admin: 03/11/18 13:22 Dose: 800 mg Glipizide (Glucotrol -) 5 mg PO DAILY@0700 [facility] Last Admin: 03/11/18 06:45 Dose: Not Given Pantoprazole Sodium (Protonix -) 40 mg PO DAILY [facility] Last Admin: 03/11/18 09:24 Dose: 40 mg Potassium Chloride (K-Dur -) 40 meq PO DAILY [facility] Stop: 03/13/18 10:01 Last Admin: 03/11/18 09:24 Dose: 40 meq Tamsulosin HCl (Flomax -) 0.4 mg PO BID@0830,2200 [facility] Last Admin: 03/11/18 08:09 Dose: 0.4 mg Valsartan (Diovan -) 80 mg PO DAILY [facility] Last Admin: 03/11/18 09:43 Dose: 80 mg - Objective Vital Signs: Vital Signs Temperature 97.4 F L 03/11/18 13:46 Pulse Rate 83 03/11/18 13:46 Respiratory Rate 18 03/11/18 13:46 Blood Pressure 136/86 03/11/18 13:46 O2 Sat by Pulse Oximetry (%) 100 03/11/18 09:00 Constitutional: Yes: No Distress HENT: Yes: Atraumatic Neck: Yes: Supple Cardiovascular: Yes: Regular Rate and Rhythm Respiratory: Yes: CTA Bilaterally Gastrointestinal: Yes: Normal Bowel Sounds Extremities: Yes: WNL Edema: No Peripheral Pulses WNL: Yes Neurological: Yes: Alert, Oriented Labs: CBC, BMP 03/10/18 13:00 03/10/18 13:00 INR, PTT INR 1.13 (0.83-1.09) H 03/10/18 13:00 Problem List - Problems (1) TIA (transient ischemic attack) Assessment/Plan: doing good no deficit mri pending Code(s): G45.9 - TRANSIENT CEREBRAL ISCHEMIC ATTACK, UNSPECIFIED Qualifiers: Transient cerebral ischemia type: unspecified Qualified Code(s): G45.9 - Transient cerebral ischemic attack, unspecified (2) Unsteady gait Assessment/Plan: pt/ot Code(s): R26.81 - UNSTEADINESS ON FEET (3) HLD (hyperlipidemia) Assessment/Plan: on meds Code(s): E78.5 - HYPERLIPIDEMIA, UNSPECIFIED Qualifiers: Hyperlipidemia type: pure hypercholesterolemia Qualified Code(s): E78.00 - Pure hypercholesterolemia, unspecified; E78.0 - Pure hypercholesterolemia (4) HTN (hypertension) Assessment/Plan: on meds Code(s): I10 - ESSENTIAL (PRIMARY) HYPERTENSION Qualifiers: Hypertension type: essential hypertension Qualified Code(s): I10 - Essential (primary) hypertension
[2018-03-11] MEDS: ATORVASTATIN CA 80 MG TABLET (FP) PO SCH (21:07)
[2018-03-12] MEDS: GABAPENTIN 400 MG CAPSULE (FP) PO SCH ×3 (05:40→21:22)
[2018-03-12] MEDS: glipiZIDE 5 MG TABLET (FP) PO SCH (05:59)
[2018-03-12] MEDS: CARVEDILOL 25 MG TABLET (FP) PO SCH ×2 (09:00→21:22)
[2018-03-12] MEDS: VALSARTAN 80 MG TABLET (UD) PO SCH (09:00)
[2018-03-12] MEDS: POTASSIUM CHLORIDE TABS 20 MEQ TABLET.ER (FP) PO SCH (09:00)
[2018-03-12] MEDS: ESCITALOPRAM OXALATE 20 MG TABLET (FP) PO SCH (09:01)
[2018-03-12] MEDS: TAMSULOSIN HCL 0.4 MG CAP PO SCH ×2 (09:01→21:22)
[2018-03-12] MEDS: CLOPIDOGREL BISULFATE 75 MG TABLET (FP) PO SCH (09:01)
[2018-03-12] MEDS: PANTOPRAZOLE 40 MG TABLET (FP) PO SCH (09:01)
[2018-03-12] MEDS: ASPIRIN 81 MG CHEWABLE TABLETS PO SCH (09:01)
[2018-03-12] MEDS: amLODIPine BESYLATE 5 MG TABLET (FP) PO SCH (09:06)
--- NOTE | 2018-03-12 14:48 | PN ---
Progress Note, Physician History of Present Illness: No further neurologic deficits. Tele shows suspected PAF in 150s. - Current Medication List Current Medications: Active Medications Acetaminophen (Tylenol -) 650 mg PO Q6H PRN PRN Reason: PAIN 1-7 Last Admin: 03/11/18 23:44 Dose: 650 mg Amlodipine Besylate (Norvasc -) 5 mg PO DAILY [facility] Last Admin: 03/12/18 09:06 Dose: 5 mg Aspirin (Asa -) 81 mg PO DAILY [facility] Last Admin: 03/12/18 09:01 Dose: 81 mg Atorvastatin Calcium (Lipitor -) 80 mg PO HS [facility] Last Admin: 03/11/18 21:07 Dose: 80 mg Carvedilol (Coreg -) 25 mg PO BID [facility] Last Admin: 03/12/18 09:00 Dose: 25 mg Clopidogrel Bisulfate (Plavix -) 75 mg PO DAILY [facility] Last Admin: 03/12/18 09:01 Dose: 75 mg Escitalopram Oxalate (Lexapro -) 20 mg PO DAILY [facility] Last Admin: 03/12/18 09:01 Dose: 20 mg Gabapentin (Neurontin -) 800 mg PO TID [facility] Last Admin: 03/12/18 05:40 Dose: 800 mg Glipizide (Glucotrol -) 5 mg PO DAILY@0700 [facility] Last Admin: 03/12/18 05:59 Dose: Not Given Pantoprazole Sodium (Protonix -) 40 mg PO DAILY [facility] Last Admin: 03/12/18 09:01 Dose: 40 mg Potassium Chloride (K-Dur -) 40 meq PO DAILY [facility] Stop: 03/13/18 10:01 Last Admin: 03/12/18 09:00 Dose: 40 meq Tamsulosin HCl (Flomax -) 0.4 mg PO BID@0830,2200 [facility] Last Admin: 03/12/18 09:01 Dose: 0.4 mg Valsartan (Diovan -) 80 mg PO DAILY [facility] Last Admin: 03/12/18 09:00 Dose: 80 mg - Objective Vital Signs: Vital Signs Temperature 98 F 03/12/18 14:00 Pulse Rate 78 03/12/18 14:00 Respiratory Rate 18 03/12/18 14:00 Blood Pressure 135/74 03/12/18 14:00 O2 Sat by Pulse Oximetry (%) 98 03/12/18 08:58 Constitutional: Yes: No Distress, Calm Neck: Yes: Supple Cardiovascular: Yes: Regular Rate and Rhythm Respiratory: Yes: Regular, CTA Bilaterally Gastrointestinal: Yes: Normal Bowel Sounds, Soft Edema: No Labs: CBC, BMP 03/10/18 13:00 03/10/18 13:00 INR, PTT INR 1.13 (0.83-1.09) H 03/10/18 13:00 - ....Imaging EKG: Report Reviewed (Tele: PAF->SR) Problem List - Problems (1) TIA (transient ischemic attack) Code(s): G45.9 - TRANSIENT CEREBRAL ISCHEMIC ATTACK, UNSPECIFIED Qualifiers: Transient cerebral ischemia type: unspecified Qualified Code(s): G45.9 - Transient cerebral ischemic attack, unspecified (2) DM II (diabetes mellitus, type II), controlled Code(s): E11.9 - TYPE 2 DIABETES MELLITUS WITHOUT COMPLICATIONS Qualifiers: Diabetes mellitus residential insulin use: without residential use (3) HLD (hyperlipidemia) Code(s): E78.5 - HYPERLIPIDEMIA, UNSPECIFIED Qualifiers: Hyperlipidemia type: pure hypercholesterolemia Qualified Code(s): E78.00 - Pure hypercholesterolemia, unspecified; E78.0 - Pure hypercholesterolemia (4) HTN (hypertension) Code(s): I10 - ESSENTIAL (PRIMARY) HYPERTENSION Qualifiers: Hypertension type: essential hypertension Qualified Code(s): I10 - Essential (primary) hypertension (5) Old myocardial infarction Code(s): I25.2 - OLD MYOCARDIAL INFARCTION Assessment/Plan Echocardiography dated April 03, 2016 revealed normal left ventricular size and systolic function mild mitral valve regurgitation, mild tricuspid valve regurgitation Carotid Doppler study dated April 03, 2016 was negative for hemodynamically significant stenosis Echo: 03/11/2018 Normal LV and RV size and fxn, LVEF 60%, normal atrial sizes 1. Right upper extremity weakness/transient, speech abnormality/transient in a patient with known history of recurrent strokes/CVA, r/o TIA, or microvascular CVA 2. Coronary artery disease history of a myocardial infarction no history of percutaneous coronary intervention angina pectoris 3. Diastolic left ventricular dysfunction with clinical class 0 [place] [employer] classification left ventricular failure 4. Suspect paroxysmal atrial fibrillation as a potential culprit for the above- noted recurrent strokes/CVA 5. Questionable recurrent syncope 6. Hypertensive cardiovascular disease 7. Lym-[id number] diabetes mellitus 8. Hypercholesterolemia 9. History of chronic obstructive pulmonary disease 10. Morbid obesity, post gastric bypass PLAN: 1. Continue Coreg 25 bid 2. Continue ASA 81 qd and Plavix 75 qd 3. Continue Lipitor 80 qhs 4. Continue Norvasc 5 qd and Diovan 80 qd 5. Holter to further elucidate paroxysmal atrial fibrillation. if confirmed PAF , will change ASA/Plavix to NOAC 6. MRI of brain and spine pending
--- NOTE | 2018-03-12 16:29 | PN ---
Progress Note, Physician History of Present Illness: has mild headache - Current Medication List Current Medications: Active Medications Acetaminophen (Tylenol -) 650 mg PO Q6H PRN PRN Reason: PAIN 1-7 Last Admin: 03/11/18 23:44 Dose: 650 mg Amlodipine Besylate (Norvasc -) 5 mg PO DAILY [facility] Last Admin: 03/12/18 09:06 Dose: 5 mg Apixaban (Eliquis -) 5 mg PO BID [facility] Atorvastatin Calcium (Lipitor -) 80 mg PO HS [facility] Last Admin: 03/11/18 21:07 Dose: 80 mg Carvedilol (Coreg -) 25 mg PO BID [facility] Last Admin: 03/12/18 09:00 Dose: 25 mg Escitalopram Oxalate (Lexapro -) 20 mg PO DAILY [facility] Last Admin: 03/12/18 09:01 Dose: 20 mg Gabapentin (Neurontin -) 800 mg PO TID [facility] Last Admin: 03/12/18 14:59 Dose: 800 mg Glipizide (Glucotrol -) 5 mg PO DAILY@0700 [facility] Last Admin: 03/12/18 05:59 Dose: Not Given Pantoprazole Sodium (Protonix -) 40 mg PO DAILY [facility] Last Admin: 03/12/18 09:01 Dose: 40 mg Potassium Chloride (K-Dur -) 40 meq PO DAILY [facility] Stop: 03/13/18 10:01 Last Admin: 03/12/18 09:00 Dose: 40 meq Tamsulosin HCl (Flomax -) 0.4 mg PO BID@0830,2200 [facility] Last Admin: 03/12/18 09:01 Dose: 0.4 mg Valsartan (Diovan -) 80 mg PO DAILY [facility] Last Admin: 03/12/18 09:00 Dose: 80 mg - Objective Vital Signs: Vital Signs Temperature 98 F 03/12/18 14:00 Pulse Rate 78 03/12/18 14:00 Respiratory Rate 18 03/12/18 14:00 Blood Pressure 135/74 03/12/18 14:00 O2 Sat by Pulse Oximetry (%) 98 03/12/18 08:58 Constitutional: Yes: No Distress HENT: Yes: Atraumatic Neck: Yes: Supple Cardiovascular: Yes: Regular Rate and Rhythm Respiratory: Yes: CTA Bilaterally Extremities: Yes: WNL Edema: No Peripheral Pulses WNL: Yes Neurological: Yes: Alert, Oriented Labs: CBC, BMP 03/10/18 13:00 03/10/18 13:00 INR, PTT INR 1.13 (0.83-1.09) H 03/10/18 13:00 Problem List - Problems (1) TIA (transient ischemic attack) Assessment/Plan: doing good no deficit mri pending Code(s): G45.9 - TRANSIENT CEREBRAL ISCHEMIC ATTACK, UNSPECIFIED Qualifiers: Transient cerebral ischemia type: unspecified Qualified Code(s): G45.9 - Transient cerebral ischemic attack, unspecified (2) Unsteady gait Assessment/Plan: pt/ot Code(s): R26.81 - UNSTEADINESS ON FEET (3) HLD (hyperlipidemia) Assessment/Plan: on meds Code(s): E78.5 - HYPERLIPIDEMIA, UNSPECIFIED Qualifiers: Hyperlipidemia type: pure hypercholesterolemia Qualified Code(s): E78.00 - Pure hypercholesterolemia, unspecified; E78.0 - Pure hypercholesterolemia (4) HTN (hypertension) Assessment/Plan: on meds Code(s): I10 - ESSENTIAL (PRIMARY) HYPERTENSION Qualifiers: Hypertension type: essential hypertension Qualified Code(s): I10 - Essential (primary) hypertension
[2018-03-12] MEDS ORDERED: IBUPROFEN 600 MG TABLET (FP) PO ONE (16:45)
--- NOTE | 2018-03-12 20:53 | PN ---
Progress Note (short form) - Note Progress Note: NEUROLOGY PROGRESS: Events reviewed and discussed with RN. Extended discussion with patient who is upset that he has had a headache since sudden-onset in [place] on Saturday. MRI of cervical spine (ordered to distinguish demyelinating disease from cerebrovascular disease) was performed but not yet reported. Reviewed by me: Bulging/ herniated disks at multiple levels including C34, C45, C56 and C67 with some posterior cord displacement at C34. However, there is no cord compression or evidence for demyelinating leions in the cervical cord. Additional history provided by patient: Episodic, severe Headaches approx every 3 or 4 months for most of his adult life. Bitemptoral throbbing with photophobia. Now with waxing and waning headache x 3 days since sudden-onset in [place] on Saturday. Pt did NOT have a headache after trauma on Sat. Recall admission CT is without traumatic lesions. Also: patient has had nocturnal throbbing pains in both legs at night causing insomnia for 10 years. He develops pain on whichever side he is laying on and must toss and turn to gain comfort. Exam: Full phillips. No facial No drift. Normal reflexes Slightly wide-based and waddling Unchanged from initial consultation. IMP: [employer] microvascular disease vs. Demyelinating disease Migraine Headaches Restless Legs Syndrome (RLS). Suggest: Continue antiplatelet Rx Sumatriptan 100 mg PO q d PRN Headache. First dose Stat. Pramipexole 0.25 mg PO q HS for RLS and sleep. OK to D/C in AM Neuro follow-up as out patient. Thank you very much, Сергей Herbert MD
[2018-03-12] MEDS: SUMAtriptan SUCCINATE 50 MG TABLET PO PRN (21:21)
[2018-03-12] MEDS: PRAMIPEXOLE DIHYDROCHLORIDE 0.25 MG TABLET PO SCH (21:21)
[2018-03-12] MEDS: APIXABAN 5 MG TABLET PO SCH (21:22)
[2018-03-12] MEDS: ATORVASTATIN CA 80 MG TABLET (FP) PO SCH (21:22)
[2018-03-13] MEDS: GABAPENTIN 400 MG CAPSULE (FP) PO SCH ×3 (05:45→21:05)
[2018-03-13] MEDS: glipiZIDE 5 MG TABLET (FP) PO SCH (06:00)
[2018-03-13] MEDS ORDERED: PT OWN MED DRAWER 7, Y5N ONE ×2 (09:38→20:46)
[2018-03-13] MEDS: APIXABAN 5 MG TABLET PO SCH ×2 (09:55→21:05)
[2018-03-13] MEDS: CARVEDILOL 25 MG TABLET (FP) PO SCH ×2 (09:55→21:06)
[2018-03-13] MEDS: ESCITALOPRAM OXALATE 20 MG TABLET (FP) PO SCH (09:55)
[2018-03-13] MEDS: PANTOPRAZOLE 40 MG TABLET (FP) PO SCH (09:56)
[2018-03-13] MEDS: TAMSULOSIN HCL 0.4 MG CAP PO SCH ×2 (09:56→21:05)
[2018-03-13] MEDS: POTASSIUM CHLORIDE TABS 20 MEQ TABLET.ER (FP) PO SCH (09:56)
[2018-03-13] MEDS: VALSARTAN 80 MG TABLET (UD) PO SCH (09:56)
[2018-03-13] MEDS: SUMAtriptan SUCCINATE 50 MG TABLET PO PRN (09:56)
[2018-03-13] MEDS: amLODIPine BESYLATE 5 MG TABLET (FP) PO SCH (09:56)
--- NOTE | 2018-03-13 10:44 | PN ---
Progress Note, Physician History of Present Illness: Reports RYEES, neuro treating as migraine and RLS. Tele shows PAF in 130s. - Current Medication List Current Medications: Active Medications Acetaminophen (Tylenol -) 650 mg PO Q6H PRN PRN Reason: PAIN 1-7 Last Admin: 03/11/18 23:44 Dose: 650 mg Amlodipine Besylate (Norvasc -) 5 mg PO DAILY [facility] Last Admin: 03/13/18 09:56 Dose: 5 mg Apixaban (Eliquis -) 5 mg PO BID [facility] Last Admin: 03/13/18 09:55 Dose: 5 mg Atorvastatin Calcium (Lipitor -) 80 mg PO HS [facility] Last Admin: 03/12/18 21:22 Dose: 80 mg Carvedilol (Coreg -) 25 mg PO BID [facility] Last Admin: 03/13/18 09:55 Dose: 25 mg Escitalopram Oxalate (Lexapro -) 20 mg PO DAILY [facility] Last Admin: 03/13/18 09:55 Dose: 20 mg Gabapentin (Neurontin -) 800 mg PO TID [facility] Last Admin: 03/13/18 05:45 Dose: 800 mg Glipizide (Glucotrol -) 5 mg PO DAILY@0700 [facility] Last Admin: 03/13/18 06:00 Dose: Not Given Pantoprazole Sodium (Protonix -) 40 mg PO DAILY [facility] Last Admin: 03/13/18 09:56 Dose: 40 mg Pramipexole Dihydrochloride (Mirapex -) 0.25 mg PO HS [facility] Last Admin: 03/12/18 21:21 Dose: 0.25 mg Sumatriptan Succinate (Imitrex -) 100 mg PO DAILY PRN PRN Reason: MIGRANE Last Admin: 03/13/18 09:56 Dose: 50 mg Tamsulosin HCl (Flomax -) 0.4 mg PO BID@0830,2200 [facility] Last Admin: 03/13/18 09:56 Dose: 0.4 mg Valsartan (Diovan -) 80 mg PO DAILY [facility] Last Admin: 03/13/18 09:56 Dose: 80 mg - Objective Vital Signs: Vital Signs Temperature 97.8 F 03/13/18 09:01 Pulse Rate 60 03/13/18 09:01 Respiratory Rate 18 03/13/18 09:01 Blood Pressure 130/60 03/13/18 09:01 O2 Sat by Pulse Oximetry (%) 98 03/13/18 09:00 Constitutional: Yes: No Distress, Calm Neck: Yes: Supple Cardiovascular: Yes: Regular Rate and Rhythm Respiratory: Yes: Regular, CTA Bilaterally Gastrointestinal: Yes: Normal Bowel Sounds, Soft Edema: No Labs: CBC, BMP 03/10/18 13:00 03/10/18 13:00 INR, PTT INR 1.13 (0.83-1.09) H 03/10/18 13:00 - ....Imaging EKG: Report Reviewed (Tele: PAF->SR @ 133) Problem List - Problems (1) TIA (transient ischemic attack) Code(s): G45.9 - TRANSIENT CEREBRAL ISCHEMIC ATTACK, UNSPECIFIED Qualifiers: Transient cerebral ischemia type: unspecified Qualified Code(s): G45.9 - Transient cerebral ischemic attack, unspecified (2) DM II (diabetes mellitus, type II), controlled Code(s): E11.9 - TYPE 2 DIABETES MELLITUS WITHOUT COMPLICATIONS Qualifiers: Diabetes mellitus care home insulin use: without manager intermediate use (3) HLD (hyperlipidemia) Code(s): E78.5 - HYPERLIPIDEMIA, UNSPECIFIED Qualifiers: Hyperlipidemia type: pure hypercholesterolemia Qualified Code(s): E78.00 - Pure hypercholesterolemia, unspecified; E78.0 - Pure hypercholesterolemia (4) HTN (hypertension) Code(s): I10 - ESSENTIAL (PRIMARY) HYPERTENSION Qualifiers: Hypertension type: essential hypertension Qualified Code(s): I10 - Essential (primary) hypertension (5) Old myocardial infarction Code(s): I25.2 - OLD MYOCARDIAL INFARCTION Assessment/Plan Echocardiography dated April 03, 2016 revealed normal left ventricular size and systolic function mild mitral valve regurgitation, mild tricuspid valve regurgitation Carotid Doppler study dated April 03, 2016 was negative for hemodynamically significant stenosis Echo: 03/11/2018 Normal LV and RV size and fxn, LVEF 60%, normal atrial sizes 1. Right upper extremity weakness/transient, speech abnormality/transient in a patient with known history of recurrent strokes/CVA, r/o TIA, or microvascular CVA 2. Coronary artery disease history of a myocardial infarction no history of percutaneous coronary intervention angina pectoris 3. Diastolic left ventricular dysfunction with clinical class 0 [place] Heart [employer] classification left ventricular failure 4. Suspect paroxysmal atrial fibrillation as a potential culprit for the above- noted recurrent strokes/CVA 5. Questionable recurrent syncope 6. Hypertensive cardiovascular disease 7. Oxd-tctyhps-[id number] diabetes mellitus 8. Hypercholesterolemia 9. History of chronic obstructive pulmonary disease 10. Morbid obesity, post gastric bypass PLAN: 1. Continue Coreg 25 bid 2. Changed ASA 81 qd and Plavix 75 qd to Eliquis 5 bid given episodes of PAF 3. Continue Lipitor 80 qhs 4. Continue Norvasc 5 qd and Diovan 80 qd 5. Holter monitor to further elucidate paroxysmal atrial fibrillation burden 6. MRI of brain and c-spine pending
--- NOTE | 2018-03-13 16:04 | DS ---
Physical Examination Vital Signs: Vital Signs Temperature 98.3 F 03/13/18 14:48 Pulse Rate 74 03/13/18 14:48 Respiratory Rate 18 03/13/18 14:48 Blood Pressure 131/71 03/13/18 14:48 O2 Sat by Pulse Oximetry (%) 98 03/13/18 09:00 Labs: CBC, BMP 03/10/18 13:00 03/10/18 13:00 Discharge Summary Reason For Visit: CVA Current Active Problems Headache (Acute) Old myocardial infarction (Acute) Condition: Fair - Instructions Referrals: Сергей Herbert MD [Staff Physician] - Mundo Mccurdy MD [Staff Physician] - - Home Medications Comprehensive Discharge Medication List: Ambulatory Orders Amlodipine Besylate [Norvasc -] 10 mg PO DAILY 06/13/16 Aspirin [ASA -] 81 mg PO DAILY 06/13/16 Carvedilol 25 mg PO BID 06/13/16 Clopidogrel Bisulfate [Plavix -] 75 mg PO DAILY 06/13/16 Pantoprazole Sodium 40 mg PO DAILY 06/13/16 Atorvastatin Ca [Lipitor] 80 mg PO HS #30 tablet 07/26/16 Albuterol Sulfate Inhaler - [Ventolin HFA Inhaler -] 1 puff IH PRN 06/19/17 Cyclobenzaprine HCl 10 mg PO BID 06/19/17 Gabapentin 800 mg PO TID 06/19/17 Glipizide 5 mg PO DAILY 06/19/17 Meclizine HCl 25 mg PO DAILY 06/19/17 Multivitamins [Multivit ([facility] Formul[facility])] 1 tab PO DAILY 06/19/17 Escitalopram Oxalate [Lexapro -] 20 mg PO DAILY #30 tablet 06/21/17 Bupropion HCl 100 mg PO BID 11/21/17 Naproxen 500 mg PO BID PRN #20 tablet 11/21/17 Sulfamethoxazole/Trimethoprim [Bactrim Ds Tablet] 1 each PO BID 7 Days #14 tablet 11/21/17 Tamsulosin HCl 0.4 mg PO BID 11/21/17 Calcium Carbonate/Vitamin D3 [Calcium 250+D Tablet] 1 tab PO DAILY 01/28/18 Ergocalciferol (Vitamin D2) [Vitamin D2] 50,000 unit PO WEEKLY 01/28/18 Ferrous Sulfate 324 mg PO DAILY 01/28/18 Folic Acid 1 mg PO DAILY 01/28/18 Multivitamin [Poly-Vitamin] 1 tab PO DAILY 01/28/18 Thiamine HCl [Vitamin B-1] 100 mg PO DAILY 01/28/18 Vitamin B12 - 1,000 mg PO DAILY 01/28/18 Vitamin E 400 units PO DAILY 01/28/18 Pramipexole Dihydrochloride [Mirapex -] 0.25 mg PO HS #30 tablet 03/13/18 Sumatriptan Succinate [Imitrex -] 100 mg PO DAILY PRN #14 tablet 03/13/18 dc
--- NOTE | 2018-03-13 18:40 | PN ---
Progress Note, Physician History of Present Illness: still has headache - Current Medication List Current Medications: Active Medications Acetaminophen (Tylenol -) 650 mg PO Q6H PRN PRN Reason: PAIN 1-7 Last Admin: 03/11/18 23:44 Dose: 650 mg Amlodipine Besylate (Norvasc -) 5 mg PO DAILY [facility] Last Admin: 03/13/18 09:56 Dose: 5 mg Apixaban (Eliquis -) 5 mg PO BID [facility] Last Admin: 03/13/18 09:55 Dose: 5 mg Atorvastatin Calcium (Lipitor -) 80 mg PO [facility] Last Admin: 03/12/18 21:22 Dose: 80 mg Carvedilol (Coreg -) 25 mg PO BID [facility] Last Admin: 03/13/18 09:55 Dose: 25 mg Escitalopram Oxalate (Lexapro -) 20 mg PO DAILY [facility] Last Admin: 03/13/18 09:55 Dose: 20 mg Gabapentin (Neurontin -) 800 mg PO TID [facility] Last Admin: 03/13/18 13:52 Dose: 800 mg Glipizide (Glucotrol -) 5 mg PO DAILY@0700 [facility] Last Admin: 03/13/18 06:00 Dose: Not Given Pantoprazole Sodium (Protonix -) 40 mg PO DAILY [facility] Last Admin: 03/13/18 09:56 Dose: 40 mg Pramipexole Dihydrochloride (Mirapex -) 0.25 mg PO [facility] Last Admin: 03/12/18 21:21 Dose: 0.25 mg Sumatriptan Succinate (Imitrex -) 100 mg PO DAILY PRN PRN Reason: MIGRANE Last Admin: 03/13/18 09:56 Dose: 100 mg Tamsulosin HCl (Flomax -) 0.4 mg PO BID@0830,2200 [facility] Last Admin: 03/13/18 09:56 Dose: 0.4 mg Valsartan (Diovan -) 80 mg PO DAILY [facility] Last Admin: 03/13/18 09:56 Dose: 80 mg - Objective Vital Signs: Vital Signs Temperature 98.3 F 03/13/18 14:48 Pulse Rate 74 03/13/18 14:48 Respiratory Rate 18 03/13/18 14:48 Blood Pressure 131/71 03/13/18 14:48 O2 Sat by Pulse Oximetry (%) 98 03/13/18 09:00 Constitutional: Yes: No Distress HENT: Yes: Atraumatic Neck: Yes: Supple Cardiovascular: Yes: Regular Rate and Rhythm Respiratory: Yes: CTA Bilaterally Gastrointestinal: Yes: Normal Bowel Sounds Extremities: Yes: WNL Edema: No Neurological: Yes: Alert, Oriented Labs: CBC, BMP 03/10/18 13:00 03/10/18 13:00 INR, PTT INR 1.13 (0.83-1.09) H 03/10/18 13:00 Problem List - Problems (1) TIA (transient ischemic attack) Assessment/Plan: doing good no deficit mri pending Code(s): G45.9 - TRANSIENT CEREBRAL ISCHEMIC ATTACK, UNSPECIFIED Qualifiers: Transient cerebral ischemia type: unspecified Qualified Code(s): G45.9 - Transient cerebral ischemic attack, unspecified (2) Unsteady gait Assessment/Plan: pt/ot improving Code(s): R26.81 - UNSTEADINESS ON FEET (3) HLD (hyperlipidemia) Assessment/Plan: on meds Code(s): E78.5 - HYPERLIPIDEMIA, UNSPECIFIED Qualifiers: Hyperlipidemia type: pure hypercholesterolemia Qualified Code(s): E78.00 - Pure hypercholesterolemia, unspecified; E78.0 - Pure hypercholesterolemia (4) HTN (hypertension) Assessment/Plan: on meds Code(s): I10 - ESSENTIAL (PRIMARY) HYPERTENSION Qualifiers: Hypertension type: essential hypertension Qualified Code(s): I10 - Essential (primary) hypertension
[2018-03-13] MEDS ORDERED: ACETAMINOPHEN 500 MG TABLET (FP) PO ONE (20:30)
[2018-03-13] MEDS: ATORVASTATIN CA 80 MG TABLET (FP) PO SCH (21:05)
[2018-03-13] MEDS: PRAMIPEXOLE DIHYDROCHLORIDE 0.25 MG TABLET PO SCH (21:06)
[2018-03-14] MEDS: GABAPENTIN 400 MG CAPSULE (FP) PO SCH ×2 (05:24→13:54)
[2018-03-14] MEDS: ACETAMINOPHEN 325 MG TABLET (FP) PO PRN (05:25)
[2018-03-14] MEDS: glipiZIDE 5 MG TABLET (FP) PO SCH (06:00)
[2018-03-14 07:41] LABS: BASO % 0.8 % (0-2.0); EOS % 7.2 % (0-4.5); HEMATOCRIT 38.1 % (35.4-49); HEMOGLOBIN 12.2 GM/dL (11.7-16.9); LYMPH % 39.9 % (8-40); MCH 28.2 pg (25.7-33.7); MCHC 32.2 g/dl (32.0-35.9); MEAN CELL VOLUME 87.5 fl (80-96); MEAN PLT VOLUME 8.5 fl (7.5-11.1); MONO % 8.3 % (3.8-10.2); NEUT % 43.8 % (42.8-82.8); PLATELET COUNT 207 K/MM3 (134-434); RBC 4.35 M/mm3 (4.00-5.60); RDW 14.3 % (11.9-15.9); WHITE BLOOD COUNT 4.9 K/mm3 (4.0-10.0)
[2018-03-14 08:46] LABS: ALBUMIN 3.2 g/dl (3.4-5.0); ALK PHOS 101 U/L (45-117); ANION GAP 8 MMOL/L (8-16); BILIRUBIN,TOTAL 0.4 mg/dL (0.2-1); BLOOD UREA NITROGEN 12 mg/dL (7-18); CALCIUM 8.5 mg/dL (8.5-10.1); CHLORIDE 105 mmol/L (98-107); CO2 29 mmol/L (21-32); CREATININE 0.8 mg/dL (0.55-1.3); GLUCOSE,RANDOM 124 mg/dL (74-106); POTASSIUM 3.5 mmol/L (3.5-5.1); SGOT/AST 23 U/L (15-37); SGPT/ALT 31 U/L (13-61); SODIUM 141 mmol/L (136-145); TOT PROT 6.2 g/dl (6.4-8.2)
[2018-03-14] MEDS: VALSARTAN 80 MG TABLET (UD) PO SCH (09:56)
[2018-03-14] MEDS: TAMSULOSIN HCL 0.4 MG CAP PO SCH (09:57)
[2018-03-14] MEDS: ESCITALOPRAM OXALATE 20 MG TABLET (FP) PO SCH (09:58)
[2018-03-14] MEDS: CARVEDILOL 25 MG TABLET (FP) PO SCH (09:58)
[2018-03-14] MEDS: PANTOPRAZOLE 40 MG TABLET (FP) PO SCH (09:58)
[2018-03-14] MEDS: amLODIPine BESYLATE 5 MG TABLET (FP) PO SCH (09:58)
[2018-03-14] MEDS: APIXABAN 5 MG TABLET PO SCH (10:00)
--- NOTE | 2018-03-14 11:44 | PN ---
Progress Note, Physician History of Present Illness: Reports REYES, neuro treating as migraine and RLS. Tele shows PAF in 130s. - Current Medication List Current Medications: Active Medications Acetaminophen (Tylenol -) 650 mg PO Q6H PRN PRN Reason: PAIN 1-7 Last Admin: 03/14/18 05:25 Dose: 650 mg Amlodipine Besylate (Norvasc -) 5 mg PO DAILY [facility] Last Admin: 03/14/18 09:58 Dose: 5 mg Apixaban (Eliquis -) 5 mg PO BID [facility] Last Admin: 03/14/18 10:00 Dose: 5 mg Atorvastatin Calcium (Lipitor -) 80 mg PO HS [facility] Last Admin: 03/13/18 21:05 Dose: 80 mg Carvedilol (Coreg -) 25 mg PO BID [facility] Last Admin: 03/14/18 09:58 Dose: 25 mg Escitalopram Oxalate (Lexapro -) 20 mg PO DAILY [facility] Last Admin: 03/14/18 09:58 Dose: 20 mg Gabapentin (Neurontin -) 800 mg PO TID [facility] Last Admin: 03/14/18 05:24 Dose: 800 mg Glipizide (Glucotrol -) 5 mg PO DAILY@0700 [facility] Last Admin: 03/14/18 06:00 Dose: 5 mg Pantoprazole Sodium (Protonix -) 40 mg PO DAILY [facility] Last Admin: 03/14/18 09:58 Dose: 40 mg Pramipexole Dihydrochloride (Mirapex -) 0.25 mg PO HS [facility] Last Admin: 03/13/18 21:06 Dose: 0.25 mg Sumatriptan Succinate (Imitrex -) 100 mg PO DAILY PRN PRN Reason: MIGRANE Last Admin: 03/13/18 09:56 Dose: 100 mg Tamsulosin HCl (Flomax -) 0.4 mg PO BID@0830,2200 [facility] Last Admin: 03/14/18 09:57 Dose: 0.4 mg Valsartan (Diovan -) 80 mg PO DAILY [facility] Last Admin: 03/14/18 09:56 Dose: 80 mg - Objective Vital Signs: Vital Signs Temperature 98 F 03/14/18 09:00 Pulse Rate 68 03/14/18 09:00 Respiratory Rate 18 03/14/18 09:00 Blood Pressure 124/72 03/14/18 09:00 O2 Sat by Pulse Oximetry (%) 96 03/14/18 09:00 Constitutional: Yes: No Distress, Calm Neck: Yes: Supple Cardiovascular: Yes: Regular Rate and Rhythm Respiratory: Yes: Regular, CTA Bilaterally Gastrointestinal: Yes: Normal Bowel Sounds, Soft Edema: No Labs: CBC, BMP 03/14/18 06:15 03/14/18 06:15 INR, PTT INR 1.13 (0.83-1.09) H 03/10/18 13:00 - ....Imaging EKG: Report Reviewed (Tele: No further PAF) Problem List - Problems (1) TIA (transient ischemic attack) Code(s): G45.9 - TRANSIENT CEREBRAL ISCHEMIC ATTACK, UNSPECIFIED Qualifiers: Transient cerebral ischemia type: unspecified Qualified Code(s): G45.9 - Transient cerebral ischemic attack, unspecified (2) DM II (diabetes mellitus, type II), controlled Code(s): E11.9 - TYPE 2 DIABETES MELLITUS WITHOUT COMPLICATIONS Qualifiers: Diabetes mellitus business process analyst insulin use: without intermediate use (3) HLD (hyperlipidemia) Code(s): E78.5 - HYPERLIPIDEMIA, UNSPECIFIED Qualifiers: Hyperlipidemia type: pure hypercholesterolemia Qualified Code(s): E78.00 - Pure hypercholesterolemia, unspecified; E78.0 - Pure hypercholesterolemia (4) HTN (hypertension) Code(s): I10 - ESSENTIAL (PRIMARY) HYPERTENSION Qualifiers: Hypertension type: essential hypertension Qualified Code(s): I10 - Essential (primary) hypertension (5) Old myocardial infarction Code(s): I25.2 - OLD MYOCARDIAL INFARCTION Assessment/Plan Echocardiography dated April 03, 2016 revealed normal left ventricular size and systolic function mild mitral valve regurgitation, mild tricuspid valve regurgitation Carotid Doppler study dated April 03, 2016 was negative for hemodynamically significant stenosis Echo: 03/11/2018 Normal LV and RV size and fxn, LVEF 60%, normal atrial sizes 1. Right upper extremity weakness/transient, speech abnormality/transient in a patient with known history of recurrent strokes/CVA, r/o TIA, or microvascular CVA 2. Coronary artery disease history of a myocardial infarction no history of percutaneous coronary intervention angina pectoris 3. Diastolic left ventricular dysfunction with clinical class 0 [place] [employer] classification left ventricular failure 4. Suspect paroxysmal atrial fibrillation as a potential culprit for the above- noted recurrent strokes/CVA 5. Questionable recurrent syncope 6. Hypertensive cardiovascular disease 7. Prb-weluzpr-iyhekrwmo diabetes mellitus 8. Hypercholesterolemia 9. History of chronic obstructive pulmonary disease 10. Morbid obesity, post gastric bypass PLAN: 1. Continue Coreg 25 bid 2. Continue Eliquis 5 bid given episodes of PAF 3. Continue Lipitor 80 qhs 4. Continue Norvasc 5 qd and Diovan 80 qd 5. Holter monitor to further elucidate paroxysmal atrial fibrillation burden 6. MRI of brain pending
--- NOTE | 2018-03-14 14:20 | HOL ---
Hook-up date: 2018-03-13 08:44:00 Duration: 24:00:00 Test Indications: TIA,EVAL PAF Medications: 89154 QRS complexes 17 Ventricular ectopics which represent <1 % of total QRS comp. 27 Supraventricular ectopics which represent <1 % of total QRS comp. * Paced QRS complexs which represent % of total QRS comp. 1 % of Time Classified as Noise VENTRICULAR ECTOPY 15 Isolated 0 Bigeminal Cycles 1 Couplets 0 Runs 0 Beats in Runs * Beats LONGEST at * BPM at :: -- * Beats FASTEST at * BPM at :: -- SUPRAVENTRICULAR ECTOPY 24 Isolated 1 Couplets 0 Runs 0 Beats in Runs * Beats LONGEST at * BPM at :: -- * Beats FASTEST at * BPM at :: -- HEART RATES 48 MIN at 23:06:44 2018-03-13 68 AVG 112 MAX at 09:28:59 2018-03-13 LONGEST RR 1.280 secs at 01:53:49 2018-03-14 The underlying rhythm is normal sinus with an average rate of 68bpm. Rare, single VPCs. One ventricular couplet was noted. Rare atrial premature contractions. One atrial couplet noted. No sustained arrhythmias. No significant pauses. No diary entries. Confirmed by LAURIE SAAB, ANNIKA ([id number]) on 03/14/2018 2:19:58 PM [facility]: [facility] Overread By: ANNIKA SULLIVAN MD
[2018-03-14 17:58] VITALS: BP 122/74; PULSE 68; TEMP 98.4
--- NOTE | 2018-03-14 19:11 | DS ---
Physical Examination Vital Signs: Vital Signs Temperature 98.4 F 03/14/18 17:00 Pulse Rate 68 03/14/18 17:00 Respiratory Rate 18 03/14/18 17:00 Blood Pressure 122/74 03/14/18 17:00 O2 Sat by Pulse Oximetry (%) 96 03/14/18 09:00 Labs: CBC, BMP 03/14/18 06:15 03/14/18 06:15 Discharge Summary Reason For Visit: CVA Condition: Fair - Instructions Referrals: Сергей Herbert MD [Staff Physician] - Mundo Mccurdy MD [Staff Physician] - Disposition: HOME - Home Medications Comprehensive Discharge Medication List: Ambulatory Orders Amlodipine Besylate [Norvasc -] 10 mg PO DAILY 06/13/16 Aspirin [ASA -] 81 mg PO DAILY 06/13/16 Carvedilol 25 mg PO BID 06/13/16 Clopidogrel Bisulfate [Plavix -] 75 mg PO DAILY 06/13/16 Pantoprazole Sodium 40 mg PO DAILY 06/13/16 Atorvastatin Ca [Lipitor] 80 mg PO HS #30 tablet 07/26/16 Albuterol Sulfate Inhaler - [Ventolin HFA Inhaler -] 1 puff IH PRN 06/19/17 Cyclobenzaprine HCl 10 mg PO BID 06/19/17 Gabapentin 800 mg PO TID 06/19/17 Glipizide 5 mg PO DAILY 06/19/17 Meclizine HCl 25 mg PO DAILY 06/19/17 Multivitamins [Multivit ([facility] Formulary)] 1 tab PO DAILY 06/19/17 Escitalopram Oxalate [Lexapro -] 20 mg PO DAILY #30 tablet 06/21/17 Bupropion HCl 100 mg PO BID 11/21/17 Naproxen 500 mg PO BID PRN #20 tablet 11/21/17 Sulfamethoxazole/Trimethoprim [Bactrim Ds Tablet] 1 each PO BID 7 Days #14 tablet 11/21/17 Tamsulosin HCl 0.4 mg PO BID 11/21/17 Calcium Carbonate/Vitamin D3 [Calcium 250+D Tablet] 1 tab PO DAILY 01/28/18 Ergocalciferol (Vitamin D2) [Vitamin D2] 50,000 unit PO WEEKLY 01/28/18 Ferrous Sulfate 324 mg PO DAILY 01/28/18 Folic Acid 1 mg PO DAILY 01/28/18 Multivitamin [Poly-Vitamin] 1 tab PO DAILY 01/28/18 Thiamine HCl [Vitamin B-1] 100 mg PO DAILY 01/28/18 Vitamin B12 - 1,000 mg PO DAILY 01/28/18 Vitamin E 400 units PO DAILY 01/28/18 Pramipexole Dihydrochloride [Mirapex -] 0.25 mg PO HS #30 tablet 03/13/18 Sumatriptan Succinate [Imitrex -] 100 mg PO DAILY PRN #14 tablet 03/13/18 cleared by cardioligy to be dc fu cardio and neuro as out patient
[2018-03-20 16:53] LABS: HOMOCYSTINE-PLASMA OR SERUM 7.5 umol/L (5.1-13.9); METHYLMALONIC ACID- 92 nmol/L (0-378)
== END 2018-03-14 17:46 | disposition home or self-care (01) | DRG 47 ==
LOC: JER 12:28 → SUPCPDRO 12:28 → JERBED 14:50 → J4S 16:18
PROVIDERS: ADMIT Internal Medicine; ATTEND Internal Medicine
DX: G45.9 Transient cerebral ischemic attack, unspecified (principal); J44.9 Chronic obstructive pulmonary disease, unspecified; E66.01 Morbid (severe) obesity due to excess calories; I48.0 Paroxysmal atrial fibrillation; R29.701 NIHSS score 1; E11.9 Type 2 diabetes mellitus without complications; E78.5 Hyperlipidemia, unspecified; Z86.718 Personal history of other venous thrombosis and embolism; Z86.711 Personal history of pulmonary embolism; Z79.84 Long term (current) use of oral hypoglycemic drugs; R26.81 Unsteadiness on feet; I25.10 Atherosclerotic heart disease of native coronary artery without angina pectoris; Z98.84 Bariatric surgery status; Z68.35 Body mass index [BMI] 35.0-35.9, adult; I25.2 Old myocardial infarction; I11.9 Hypertensive heart disease without heart failure; G25.81 Restless legs syndrome; G43.909 Migraine, unspecified, not intractable, without status migrainosus
CPT/HCPCS: 36415; 70450-TC; 70551-TC; 71045-TC-FY; 72141-TC; 80053; 81003; 82136; 82465; 82550; 82607; 82962; 83718; 83721; 83918; 84478; 84484; 85025; 85610; 86850; 86900; 86901; 93005; 93010; 93225; 93226; 93306-TC; 97116-GP; 97161-GP; 99283-25

== ENCOUNTER 2018-07-27 13:01 | Inpatient (IN) | payer OTHER ==
[2018-07-27] MEDS ORDERED: SODIUM CHLORIDE 1,000 ML IV SCH (13:15)
--- NOTE | 2018-07-27 13:26 | PDOC ---
Documentation entered by Cynthia Garcia SCRIBE, acting as scribe for Tory Schmitt MD. Tory Schmitt MD: This documentation has been prepared by the scribe, Cynthia Garcia SCRIBE, under my direction and personally reviewed by me in its entirety. I confirm that the documentation accurately reflects all work, treatment, procedures, and medical decision making performed by me. Attending Attestation - Resident Resident Name: Valerio Jett - ED Attending Attestation I have performed the following: I have examined & evaluated the patient, The case was reviewed & discussed with the resident, I agree w/resident's findings & plan, Exceptions are as noted - HPI HPI: 07/27/18 13:13 The patient is a 63-year-old male, with a past medical history of HTN, CAD, CHF , ME, CVAs, peripheral neuropathy, vertigo, and chronic lower back pain, who presents to the ED for stroke evaluation. Patient states "I feel like I am having another stroke." He reports having generalized weakness and speech changes. Symptoms began 1 hour prior to arrival while the patient was at [employer]. He denies any trauma, loss of consciousness, fevers, chills, nausea, vomiting, diarrhea, abdominal pain, chest pain, or shortness of breath. Allergies: Citric Acid. Social History: None reported. Surgical History: None reported. - Physicial Exam PE: GENERAL: Awake, alert, and fully oriented, in no acute distress HEAD: No signs of trauma EYES: PERRLA, EOMI, sclera anicteric, conjunctiva clear ENT: Auricles normal inspection, hearing grossly normal, nares patent, oropharynx clear without exudates. Moist mucosa NECK: Normal ROM, supple, no lymphadenopathy, JVD, or masses LUNGS: Breath sounds equal, clear to auscultation bilaterally. No wheezes, and no crackles HEART: Regular rate and rhythm, normal S1 and S2, no murmurs, rubs or gallops ABDOMEN: Soft, nontender, normoactive bowel sounds. No guarding, no rebound. No masses EXTREMITIES: Normal range of motion, no edema. No clubbing or cyanosis. No cords, erythema, or tenderness NEUROLOGICAL: Cranial nerves II through XII grossly intact. Speech somewhat slurred. Motor and sensation intact SKIN: Warm, Dry, normal turgor, no rashes or lesions noted. - Medical Decision Making 63 yo M history prior TIA presents with mild aphasia and dysarthria, which he describes as similar to last event. In the interim his speech had improved. No other findings on the stroke scale. NIHSS is very low, will not give tPA based on mild symptoms, risk outweighs benefits. NIH Stroke Scale - Last Known Well Date/Time & Onset Date Last Known Well: 07/27/18 Time Last Known Well: 12:00 - Initial Evaluation Level of consciousness: Alert Ask patient the month and their age: Answers both correctly Ask patient to open & close eyes; make fist and let go: Obeys both correctly Best gaze (horizontal eye movement): Normal Visual field testing: No visual field loss Facial paresis (Show teeth/raise eyebrows/close eyes tight): Normal symmetrical movement Motor Function: Left Arm: Normal Motor Function: Right Arm: Normal (extends arm 90 (or 45) degrees for 10 seconds without drift Motor Function: Left Leg: Normal (extends leg 30 degrees for 5 seconds without drift) Motor Function: Right Leg: Normal (extends leg 30 degrees for 5 seconds without drift) Limb Ataxia: No ataxia Sensory(Use pinprick test arms,legs,trunk,face/side to side): Normal Best language (Describe picture, name items, read sentences): Mild to moderate aphasia Dysarthria (read several words): Mild to moderate slurring of words Extinction and Inattention: No abnormality - Total Score NIH Stroke Scale Score: 2 tPA Exclusion Checklist 0-3hr - Time Elapsed Date last known well: 07/27/18 Time last known well: 12:00 Elaspsed time: Day(s) and 2 Hour(s) and 53 Minutes - Thrombolytic Therapy Candidate Is the patient eligible for Thrombolytic Therapy?: Yes - Relative Exclusion Criteria 0-3h Stroke severity too mild: Yes - Ineligibility reason(s) Reasons No tPA given: See reason(s) noted above
[2018-07-27 13:43] LABS: BASO % 0.2 % (0-2.0); EOS % 5.3 % (0-4.5); HEMATOCRIT 38.3 % (35.4-49); HEMOGLOBIN 12.9 GM/dL (11.7-16.9); MCH 28.9 pg (25.7-33.7); MCHC 33.7 g/dl (32.0-35.9); MEAN CELL VOLUME 85.6 fl (80-96); MEAN PLT VOLUME 8.3 fl (7.5-11.1); MONO % 12.1 % (3.8-10.2); NEUT % 51.4 % (42.8-82.8); PLATELET COUNT 259 K/MM3 (134-434); RBC 4.47 M/mm3 (4.00-5.60); RDW 14.2 % (11.9-15.9); WHITE BLOOD COUNT 5.2 K/mm3 (4.0-10.0)
--- NOTE | 2018-07-27 13:43 | PDOC ---
History of Present Illness - General Chief Complaint: CVA/TIA Stated Complaint: POSSIBLE STROKE Time Seen by Provider: 07/27/18 13:09 History Source: Patient Exam Limitations: No Limitations - History of Present Illness Initial Comments: 07/27/18 13:36 63 yo M with a hx of HTN, HLD, DM, CVA/TIA, CAD s/p KS without stents or CABG per patient, and COPD presents to the emergency department with sudden onset of slurred speech and global weakness since 12 pm today 07/27/2018. Per the patient, he has had multiple TIAs in the past both documented in the hospital and those without ED presentation. Today, he was at [employer] when he felt sudden onset of global weakness and slurred speech. He was previously seen at [facility] for a TIA. tPA Exclusion Checklist 0-3hr - Time Elapsed Date last known well: 07/27/18 Time last known well: 12:00 Elaspsed time: Day(s) and 13 Hour(s) and 45 Minutes - Thrombolytic Therapy Candidate Is the patient eligible for Thrombolytic Therapy?: Yes - Exclusion Criteria 0-3hr SBP greater than 185 or DBP greater than 110mmHg despite tx: No Recent IC/spinal surgery,head trauma or stroke w/in last 3mo: No Hx of previous IC hemorrhage, IC neoplasm, AVM or aneurysm: No Active internal bleeding: No Symptoms suggest subarachnoid hemorrhage: No CT demonstrates multilobar infarct(>1/3 cerebral hemiphere): No Arterial puncture at noncompressible site in previous 7 days: No Blood glucose concentration less than 50mg/dL (2.7mmol/L): No - Relative Exclusion Criteria 0-3h Life expectancy <1yr/severe co-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 illness/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: No : No Patient/family refused: No Rapid improvement: No Stroke severity too mild: Yes Recent acute KS (w/in previous 3 months): No Seizure at onset with postictal residual neuro impairments: No Major surgery or serious trauma w/in previous 14 days: No Recent GI or hemorrhage (w/in previous 21 days): No - Ineligibility reason(s) Reasons No tPA given: See reason(s) noted above NIH Stroke Scale - Last Known Well Date/Time & Onset Date Last Known Well: 07/27/18 Time Last Known Well: 12:00 - Initial Evaluation Level of consciousness: Alert Ask patient the month and their age: Answers both correctly Ask patient to open & close eyes; make fist and let go: Obeys both correctly Best gaze (horizontal eye movement): Normal Visual field testing: No visual field loss Facial paresis (Show teeth/raise eyebrows/close eyes tight): Normal symmetrical movement Motor Function: Left Arm: Normal Motor Function: Right Arm: Normal (extends arm 90 (or 45) degrees for 10 seconds without drift Motor Function: Left Leg: Normal (extends leg 30 degrees for 5 seconds without drift) Motor Function: Right Leg: Normal (extends leg 30 degrees for 5 seconds without drift) Limb Ataxia: No ataxia Sensory(Use pinprick test arms,legs,trunk,face/side to side): Normal Best language (Describe picture, name items, read sentences): No Aphasia Dysarthria (read several words): Mild to moderate slurring of words Extinction and Inattention: No abnormality - Total Score NIH Stroke Scale Score: 1 Past History - Past Medical History Allergies/Adverse Reactions: Allergies Allergy/AdvReac Type Severity Reaction Status Date / Time citric acid Allergy Hives Verified 07/27/18 13:10 Home Medications: Ambulatory Orders Amlodipine Besylate [Norvasc -] 10 mg PO DAILY 06/13/16 Aspirin [ASA -] 81 mg PO DAILY 06/13/16 Carvedilol 25 mg PO BID 06/13/16 Clopidogrel Bisulfate [Plavix -] 75 mg PO DAILY 06/13/16 Atorvastatin Ca [Lipitor] 80 mg PO HS #30 tablet 07/26/16 Albuterol Sulfate Inhaler - [Ventolin HFA Inhaler -] 1 puff IH PRN 06/19/17 Cyclobenzaprine HCl 10 mg PO BID PRN 06/19/17 Gabapentin 800 mg PO TID 06/19/17 Meclizine HCl 25 mg PO ASDIR PRN 06/19/17 Multivitamins [Multivit ([facility] Formulary)] 1 tab PO DAILY 06/19/17 Escitalopram Oxalate [Lexapro -] 20 mg PO DAILY #30 tablet 06/21/17 Bupropion HCl 100 mg PO DAILY 11/21/17 Tamsulosin HCl 0.4 mg PO HS 11/21/17 Ergocalciferol (Vitamin D2) [Vitamin D2] 50,000 unit PO WEEKLY 01/28/18 Ferrous Sulfate 324 mg PO DAILY 01/28/18 Thiamine HCl [Vitamin B-1] 100 mg PO DAILY 01/28/18 Vitamin B12 - 1,000 mg PO DAILY 01/28/18 Vitamin E 400 units PO DAILY 01/28/18 Diphenhydramine [Benadryl -] 50 mg PO TID 07/27/18 Lidocaine 5% Top. Ointment [Xylocaine 5% Top. Ointment] 1 applic TP ASDIR Xalatan 0.005% Eye Drops - 1 drop OU HS 07/27/18 Anemia: No Asthma: Yes Cancer: No Cardiac Disorders: Yes (KS) CVA: Yes (nick lower/upper weakness uses a cane) COPD: No CHF: No DVT: Yes Dementia: No Diabetes: Yes GI Disorders: Yes (dumping syndrome ) Disorders: No HTN: Yes Hypercholesterolemia: No Liver Disease: No Seizures: No Thyroid Disease: No - Surgical History Abdominal Surgery: Yes (gastric bypass 07/2015) Appendectomy: Yes Cardiac Surgery: No Cholecystectomy: No GI Surgery: Yes ([facility]) Lung Surgery: No Neurologic Surgery: No Orthopedic Surgery: No - Immunization History Immunization Up to Date: Yes - Suicide/Smoking/Psychosocial Hx Smoking History: Former smoker Have you smoked in the past 12 months: No Number of Cigarettes Smoked Daily: 0 If you are a former smoker, when did you quit?: 37 YRS AGO Information on smoking cessation initiated: No 'Breaking Loose' booklet given: 06/20/17 Hx Alcohol Use: No Drug/Substance Use Hx: No Substance Use Type: None Hx Substance Use Treatment: No Review of Systems - Review of Systems Able to Perform ROS?: Yes Is the patient limited Faroese proficient: No Constitutional: Yes: Weakness. No: Chills, Diaphoresis, Fever HEENTM: No: Eye Pain, Recent change in vision, Ear Pain, Nose Pain, Throat Pain , Mouth Pain Respiratory: No: Cough, Shortness of Breath, Hemoptysis Cardiac (ROS): Yes: Lightheadedness. No: Chest Pain, Palpitations, Syncope, Chest Tightness ABD/GI: No: Constipated, Diarrhea, Nausea, Poor Appetite, Poor Fluid Intake, Rectal Bleeding, Vomiting, Indigestion, Abdominal cramping, Tarry Stools : No: Burning, Dysuria, Hematuria, Incontinence Musculoskeletal: No: Back Pain, Joint Pain, Neck Pain Integumentary: No: Bruising, Erythema, Rash Neurological: Yes: Unsteady Gait. No: Headache, Numbness, Paresthesia, Tingling , Tremors, Ataxia, Dizziness Psychiatric: No: Change in Appetite Endocrine: No: Unexplained Weight Gain Hematologic/Lymphatic: No: Anemia *Physical Exam - Vital Signs Last Vital Signs Temp Pulse Resp BP Pulse Ox 98 F 80 18 110/79 97 07/27/18 13:12 07/27/18 13:12 07/27/18 13:12 07/27/18 13:12 07/27/18 13:12 - Physical Exam General Appearance: Yes: Nourished, Appropriately Dressed. No: Apparent Distress, Alcohol on Breath, Intoxicated HEENT: positive: EOMI, RADHA, Normal Voice, Symmetrical, Pharynx Normal, Hearing Grossly Normal. negative: Pale Conjunctivae, Scleral Icterus (R), Scleral Icterus (L), Muffled/Hoarse voice, Pharyngeal Erythema, Tonsillar Exudate, Tonsillar Erythema, Nasal Congestion, Excessive drooling Neck: positive: Trachea midline, Supple. negative: Tender, Lymphadenopathy (R) , Lymphadenopathy (L), Tender lateral, Tender midline Respiratory/Chest: positive: Lungs Clear, Normal Breath Sounds. negative: Chest Tender, Respiratory Distress, Accessory Muscle Use, Paradoxal Breathing, Crackles, Rales, Rhonchi, Stridor, Wheezing, Hyperresonant Cardiovascular: positive: Regular Rhythm, Regular Rate, S1, S2. negative: Systolic Murmur Gastrointestinal/Abdominal: positive: Normal Bowel Sounds, Flat, Soft. negative : Tender, Protuberent, Distended, Guarding Lymphatic: negative: Adenopathy Musculoskeletal: positive: Normal Inspection. negative: CVA Tenderness, Vertebral Tenderness Extremity: positive: Normal Capillary Refill, Normal Inspection, Normal Range of Motion. negative: Tender, Coldness, Cyanosis, Swelling, Calf Tenderness, Erythema Integumentary: positive: Normal Color, Dry, Warm. negative: Diaphoresis, Moist , Swelling, Ecchymosis, Bruising Neurologic: positive: lockstitch sleeve maker II-XII NML intact, Fully Oriented, Alert, Normal Mood/ Affect, Normal Response, Motor Strength 5/5, Finger to Nose (intact bilaterally) . negative: EOM Palsy, Facial Droop, Numbness, Sensory Deficit, Confused, Depressed Affect Heart Score/ECG Review - ECG Intrepretation Comment:: 07/27/18 14:13 ventricular rate is 71 bpm, UT is 172 ms, QRS 96 ms, QTc [address] elevations or depression. ED Treatment Course - LABORATORY CBC & Chemistry Diagram: 07/27/18 13:36 07/27/18 13:36 - ADDITIONAL ORDERS Additional order review: Laboratory Results 07/27/18 13:08 POC Glucometer 97 07/27/18 13:08 POC Glucometer 97 Medical Decision Making - Medical Decision Making 07/27/18 13:43 63 yo M with a hx of HTN, HLD, DM, CVA/TIA, CAD s/p KS without stents or CABG per patient, and COPD presents to the emergency department with sudden onset of slurred speech and global weakness since 12 pm today 07/27/2018. Initial vitals: Initial Vital Signs Temp Pulse Resp BP Pulse Ox 98 F 80 18 110/79 97 07/27/18 13:12 07/27/18 13:12 07/27/18 13:12 07/27/18 13:12 07/27/18 13:12 DDx: TIA/CVA rule out. 1st stroke was approximately at age 53 with acute onset of bilateral leg weakness that took 6 months of recovery in rehab. His last presentation shows that he had mild dysarthria with right hand weakness. patient presents to the emergency department with multiple TIAs in the past. His last MRI for TIA on 02/2018 shows periventricular micro ischemic changes, demyleinating plaques vs focal chronic infarcts in the right cerebellar peduncle , and chronic lacunar infarct in the left basal ganglia. MRI c-spine shows central spinal stenosis from C2-C7 with mass effect at C3-C4. Will order CVA/TIA set. 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 TPA will not be used due to symptoms too mild. Patient's had orthostatics done with the following BPs: 115/69 75 bpm --> 104/ 67 82 bpm. Patient states he is compliant with his medications. PMD: Dr. Holley in [place]. Laboratory Tests 07/27/18 07/27/18 07/27/18 13:08 13:36 13:36 WBC 5.2 RBC 4.47 Hgb 12.9 Hct 38.3 MCV 85.6 MCH 28.9 MCHC 33.7 RDW 14.2 Plt Count 259 D MPV 8.3 Absolute Neuts (auto) 2.7 Neutrophils % 51.4 Lymphocytes % 31.0 D Monocytes % 12.1 H Eosinophils % 5.3 H Basophils % 0.2 Nucleated RBC % 0 PT with INR 12.90 INR 1.09 Sodium Potassium Chloride Carbon Dioxide Anion Gap BUN Creatinine Creat Clearance w eGFR POC Glucometer 97 Random Glucose Calcium Total Bilirubin AST ALT Alkaline Phosphatase Creatine Kinase Troponin I Total Protein Albumin Triglycerides Cholesterol Total LDL Cholesterol HDL Cholesterol Blood Type Antibody Screen 07/27/18 07/27/18 13:36 13:36 WBC RBC Hgb Hct MCV MCH MCHC RDW Plt Count MPV Absolute Neuts (auto) Neutrophils % Lymphocytes % Monocytes % Eosinophils % Basophils % Nucleated RBC % PT with INR INR Sodium 140 Potassium 3.9 Chloride 108 H Carbon Dioxide 27 Anion Gap 6 L BUN 18 Creatinine 1.1 Creat Clearance w eGFR 67.83 POC Glucometer Random Glucose 102 Calcium 8.9 Total Bilirubin 0.4 AST 26 ALT 33 Alkaline Phosphatase 119 H Creatine Kinase 134 Troponin I < 0.02 Total Protein 7.2 Albumin 3.9 Triglycerides 240 H Cholesterol 156 Total LDL Cholesterol 92 HDL Cholesterol 40 Blood Type Cancelled Antibody Screen Cancelled Patient to be admitted to [facility] for further TIA work up. Dispo: Admit 07/27/18 21:01 *DC/Admit/Observation/Transfer Diagnosis at time of Disposition: Weakness, TIA (transient ischemic attack) - Referrals - Patient Instructions - Post Discharge Activity
[2018-07-27 13:54] LABS: INR 1.09 (0.83-1.09); PROTHROMBIN TIME (PATIENT) 12.9 SEC (9.7-13.0)
[2018-07-27 14:38] LABS: ALBUMIN 3.9 g/dl (3.4-5.0); ALK PHOS 119 U/L (45-117); ANION GAP 6 MMOL/L (8-16); BILIRUBIN,TOTAL 0.4 mg/dL (0.2-1); BLOOD UREA NITROGEN 18 mg/dL (7-18); CALCIUM 8.9 mg/dL (8.5-10.1); CHLORIDE 108 mmol/L (98-107); CHOLESTEROL 156 mg/dL (50-200); CO2 27 mmol/L (21-32); CREATININE 1.1 mg/dL (0.55-1.3); GLUCOSE,RANDOM 102 mg/dL (74-106); HDL CHOLESTEROL 40 mg/dL (40-60); POTASSIUM 3.9 mmol/L (3.5-5.1); SGOT/AST 26 U/L (15-37); SODIUM 140 mmol/L (136-145); TOT PROT 7.2 g/dl (6.4-8.2); TRIGLYCERIDES 240 mg/dL (0-150)
[2018-07-27 14:53] LABS: SGPT/ALT 33 U/L (13-61)
--- NOTE | 2018-07-27 15:25 | HP ---
CHIEF COMPLAINT: weakness, slurred speech PCP: HISTORY OF PRESENT ILLNESS: Patient is a 63 year old male with history of numerous CVA (first one occurring approx age 53, had previous admission on 02/2018 for CVA workup; microvascular disease vs. demyelinating disease), paroxysmal afib (not on anticoagulation), hypertension, hyperlipidemia, diabetes mellitus non insulin dependent, presents with complaint of weakness and associated slurring of speech. Symptoms began with sudden onset while he was at [employer] early this afternoon. Patient denies fall or loss of consciousness. He endorsed blurry, hazy vision, with shortness of breath. Patient endorses these symptoms are similar to those from prior "srtokes". 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 Patient has not followed up with neurologist since last discharge from hospital in February 2018. Currently he endorses improvement of his weakness, blurry vision, and shortness of breath. He does endorse his voice is still hoarse which is not his baseline. ER course was notable for: (1) CT head negative for acute pathology (2) (3) Recent Travel: PAST MEDICAL HISTORY: numerous CVA, paroxysmal afib, hypertension, hyperlipidemia, diabetes mellitus PAST SURGICAL HISTORY: Open appendectomy (approx 6 years ago), laparoscopic bariatric surgery (last year) Social History: Smoking: former smoker quit 30 years ago. Smoked 1.5 packs per day for approx 15 years. Alcohol: former drinker. Quit 20 years ago. Used to drink 1 "bottle of [place]" daily Drugs: Admits past use of Mescaline, marijuana, cocaine, heroine. Denies any drug use in past 20 years. Currently walks with walker. Endorses some difficulty ambulating after his first stroke. Family History: Allergies citric acid Allergy (Verified 07/27/18 13:10) Hives HOME MEDICATIONS: Home Medications Medication Instructions Recorded Amlodipine Besylate [Norvasc -] 10 mg PO DAILY 06/13/16 Aspirin [ASA -] 81 mg PO DAILY 06/13/16 Carvedilol 25 mg PO BID 06/13/16 Clopidogrel Bisulfate [Plavix -] 75 mg PO DAILY 06/13/16 Atorvastatin Ca [Lipitor] 80 mg PO HS #30 tablet 07/26/16 Albuterol Sulfate Inhaler - 1 puff IH PRN 03/28/18 [Ventolin HFA Inhaler -] Cyclobenzaprine HCl 10 mg PO BID PRN 06/19/17 Gabapentin 800 mg PO TID 06/19/17 Meclizine HCl 25 mg PO ASDIR PRN 06/19/17 Multivitamins [Multivit ([facility] 1 tab PO DAILY 06/19/17 Formulary)] Escitalopram Oxalate [Lexapro -] 20 mg PO DAILY #30 tablet 06/21/17 Bupropion HCl 100 mg PO DAILY 11/21/17 Tamsulosin HCl 0.4 mg PO HS 11/21/17 Ergocalciferol (Vitamin D2) 50,000 unit PO WEEKLY 01/28/18 [Vitamin D2] Ferrous Sulfate 324 mg PO DAILY 01/28/18 Thiamine HCl [Vitamin B-1] 100 mg PO DAILY 01/28/18 Vitamin B12 - 1,000 mg PO DAILY 01/28/18 Vitamin E 400 units PO DAILY 01/28/18 Diphenhydramine [Benadryl -] 50 mg PO TID 07/27/18 Lidocaine 5% Top. Ointment 1 applic TP ASDIR 07/27/18 [Xylocaine 5% Top. Ointment] Xalatan 0.005% Eye Drops - 1 drop OU HS 07/27/18 REVIEW OF SYSTEMS As per HPI PHYSICAL EXAMINATION Vital Signs - 24 hr 07/27/18 07/27/18 07/27/18 13:12 14:04 14:06 Temperature 98 F Pulse Rate 80 Pulse Rate [ 75 82 Supine] Respiratory 18 Rate Blood Pressure 110/79 Blood Pressure 115/69 104/67 [Supine] O2 Sat by Pulse 97 Oximetry (%) GENERAL: Awake, alert, and fully oriented, in no acute distress. HEAD: Normocephalic, atraumatic EYES: Pupils equal, round and reactive to light, extraocular movements intact without mystagmus, sclera anicteric, conjunctiva clear. EARS, NOSE, THROAT: Oropharynx clear without exudates. Moist mucous membranes. NECK: Normal range of motion, supple without lymphadenopathy. LUNGS: Good inspiratory effort. Breath sounds equal, CTA bilaterally. No wheezes , and no crackles. No accessory muscle use. HEART: Regular rate and rhythm, normal S1 and S2 without murmur, rub or gallop. ABDOMEN: Obese abdomen. Soft, nontender to light and deep palpation x4 quadrants , not distended. Normoactive bowel sounds x4 quadrants. No guarding, no rebound tenderness. MUSCULOSKELETAL: Normal range of motion at all joints. No bony deformities or tenderness. No CVA tenderness. UPPER EXTREMITIES: 2+ radial pulses bilaterally, warm, well-perfused. LOWER EXTREMITIES: 2+ dorsalis pedis pulses bilaterally, warm, well-perfused. No calf tenderness. 1+ peripheral edema bilaterally. NEUROLOGICAL: Cranial nerves II-XII grossly intact (with exception of slight lower facial drooping; uncertain baseline). Hoarse speech. Patient has difficulty with heel to calvin testing bilaterally (patient states this is chronic finding). Negative pronator drift bilaterally. Sensation grossly intact bilateral upper and lower extremities. PSYCHIATRIC: Cooperative. Good eye contact. Appropriate mood and affect upon my encounter. SKIN: Warm, dry. Vertical midline abdominal scar, and laparoscopic scars clean, dry, well healed. Laboratory Results - last 24 hr 07/27/18 07/27/18 07/27/18 13:08 13:36 13:36 WBC 5.2 RBC 4.47 Hgb 12.9 Hct 38.3 MCV 85.6 MCH 28.9 MCHC 33.7 RDW 14.2 Plt Count 259 D MPV 8.3 Absolute Neuts (auto) 2.7 Neutrophils % 51.4 Lymphocytes % 31.0 D Monocytes % 12.1 H Eosinophils % 5.3 H Basophils % 0.2 Nucleated RBC % 0 PT with INR 12.90 INR 1.09 Sodium Potassium Chloride Carbon Dioxide Anion Gap BUN Creatinine Creat Clearance w eGFR POC Glucometer 97 Random Glucose Calcium Total Bilirubin AST ALT Alkaline Phosphatase Creatine Kinase Troponin I Total Protein Albumin Triglycerides Cholesterol Total LDL Cholesterol HDL Cholesterol Blood Type Antibody Screen 07/27/18 07/27/18 13:36 13:36 WBC RBC Hgb Hct MCV MCH MCHC RDW Plt Count MPV Absolute Neuts (auto) Neutrophils % Lymphocytes % Monocytes % Eosinophils % Basophils % Nucleated RBC % PT with INR INR Sodium 140 Potassium 3.9 Chloride 108 H Carbon Dioxide 27 Anion Gap 6 L BUN 18 Creatinine 1.1 Creat Clearance w eGFR 67.83 POC Glucometer Random Glucose 102 Calcium 8.9 Total Bilirubin 0.4 AST 26 ALT 33 Alkaline Phosphatase 119 H Creatine Kinase 134 Troponin I < 0.02 Total Protein 7.2 Albumin 3.9 Triglycerides 240 H Cholesterol 156 Total LDL Cholesterol 92 HDL Cholesterol 40 Blood Type Cancelled Antibody Screen Cancelled ASSESSMENT/PLAN: Patient is a 63 year old male with history of numerous CVA, paroxysmal afib, hypertension, hyperlipidemia, diabetes mellitus non insulin dependent, presents with complaint of weakness and associated slurring of speech. Transient ischemic attack -Weakness, slurring of speech, blurry vision improving per patient. Per prior cardiology notes, patient was in paroxysmal Afib, however denies taking Eliquis (he states he takes only Aspirin, Plavix). TIA may be secondary to paroxysmal Afib. -NIHSS 6 (minor facial paralysis, left leg motor drift, right leg motor drift, heel/ calvin ataxia bilaterally, mild dysarthria) -CT head negative for acute hemorrhage -Neurology recommendations (Dr. Herbert) -Cardiology recommendations (Dr. Mccurdy). Uncertain history regarding Aspirin, Palvix vs. Eliquis from prior admission. -Aspirin 81mg PO daily -Plavix 75mg PO daily -Cardaic ECHO -Carotid duplex -Atorvastatin 80mg PO HS -Speech swallow evaluation -Physical therapy evaluation -Fall precautions -Aspiration precautions Afib -EKG shows normal sinus rhythm at 71BPM -Rate control with Carvedilol 25mg PO BID -Reinstate Eliquis 5mg PO BID -Cardiology recommendations (Dr. Mccurdy) Hypertension -Amlodipine 10mg PO daily -Carvedilol 25mg PO BID Hyperlpidemia -Atorvastatin 80mg PO HS Diabetes mellitus -HbA1c -Insulin sliding scale ACHS -Fingerstick blood glucose monitoring BPH -Tamsulosin 0.4mg PO daily FEN -No IV fluids indicated -Follow CMP -Soft diet. Patient noted to have eaten cheeseburger with danish fries at bedside without any difficulty or coughing. Prophylaxis -Heparin 5000u subq TID Disposition -Admit to Telemetry floor Visit type - Emergency Visit Emergency Visit: Yes ED Registration Date: 07/27/18 Care time: The patient presented to the Emergency Department on the above date and was hospitalized for further evaluation of their emergent condition. - New Patient This patient is new to me today: Yes Date on this admission: 07/27/18 - Critical Care Critical Care patient: No
[2018-07-27 16:15] LABS: EPI CELLS 1.2 /HPF (0-5/HPF); URINE APPEARANCE CLOUDY; URINE BILIRUBIN NEGATIVE (NEGATIVE); URINE CASTS 4 /lpf (0-8); URINE COLOR YELLOW; URINE GLUCOSE (UA) NEGATIVE (NEGATIVE); URINE KETONE NEGATIVE (NEGATIVE); URINE LEUK ESTERASE TRACE (NEGATIVE); URINE NITRITE NEGATIVE (NEGATIVE); URINE PROTEIN NEGATIVE (NEGATIVE); URINE RBC 2 /hpf (0-4); URINE WBC 3 /hpf (0-5)
--- NOTE | 2018-07-27 18:06 | PN ---
Teaching Attending Note Name of Resident: Sebastian Harper ATTENDING PHYSICIAN STATEMENT I saw and evaluated the patient. I reviewed the resident's note and discussed the case with the resident. I agree with the resident's findings and plan as documented. SUBJECTIVE: OBJECTIVE: AAOX3 s1 and S2 RRR lungs CTA good air entry No facial drooping or eye drooping no neurological deficit in the ext patient is articulating well no edema PERRLA Abdomen obese, distended Soft non-tender ASSESSMENT AND PLAN: 63 year old male with history of multiple CVA , paroxysmal afib diagnosed in February 2018, hypertension, hyperlipidemia, NIDDM, presented to the hospital with weakness and slurred speech. Symptoms began with sudden onset while he was at [employer] early this afternoon, associated with blurry vision, he denied any fall or loss of consciousness. Patient endorses these symptoms are similar to those from prior "srtokes". 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 Patient has not followed up with neurologist since last discharge from hospital in February 2018. Currently he endorses improvement of his weakness, blurry vision, and shortness of breath. He does endorse his voice is still hoarse which is not his baseline. Plan: TIA/CVA - patient was seen by cardiology for which the patient was found to have paroxysmal atrial fibrillation on the tele monitor - he was started on apixiban that time but the patient was not d/c on the medication after careful review and discussion with the patient I have explained to him that he might benefit from being on NOAC more than being on a DAPT if he has paroxysmal atrial fibrillation, the patient understood but he also wishes to speak to his PCP regarding stopping the medicatio, he stated if the team can call and discuss he is willing. at this time will consider keeping the patient on the DAPT, until cardiology re- evaluate the patient also the primary team discuss with his PCP the reason why he is supposed to be on it and the patient is willing to take it c/w DAPT (asa, clopidogre) - cardiology consltation - admit to tele - neurology recommendation - neurological watch Paroxysmal atrial fibrillation: - patient might benefit from rhythm control - will consult the cardiology for the drug of choice rate vs rhythm - c/w carvedilol 25mg twice a day - will discuss with the patient PCP the reason why he should be on NOAC vs DAPT and after neurology and cardiology will start the patient on apixiban 5mg twice a day - NIDDM: ISS during hospitalization Obesity class II - s/p bariatric surgery - Diabetic, low cholesterol low salt diet - HTN: carvediloll 25mg twice day HDL: - atorvastatin 80mg daily
[2018-07-27] MEDS ORDERED: ASPIRIN 81 MG CHEWABLE TABLETS ONE (19:26)
[2018-07-27] MEDS ORDERED: CLOPIDOGREL BISULFATE 75 MG TABLET (FP) ONE (19:26)
[2018-07-27] MEDS: ASPIRIN 81 MG CHEWABLE TABLETS PO SCH (19:32)
[2018-07-27] MEDS: CLOPIDOGREL BISULFATE 75 MG TABLET (FP) PO SCH (19:33)
[2018-07-27] MEDS ORDERED: CARVEDILOL 12.5 MG TABLET (FP) ONE (21:46)
[2018-07-27] MEDS ORDERED: ATORVASTATIN CA 80 MG TABLET (FP) ONE (21:46)
[2018-07-27] MEDS ORDERED: TAMSULOSIN HCL 0.4 MG CAP ONE (21:47)
[2018-07-27] MEDS: INSULIN SLIDING SCALE (NOVOLOG) 1 VIAL SQ SCH (21:55)
[2018-07-27] MEDS: CARVEDILOL 25 MG TABLET (FP) PO SCH (21:55)
[2018-07-27] MEDS: TAMSULOSIN HCL 0.4 MG CAP PO SCH (21:55)
[2018-07-27] MEDS: ATORVASTATIN CA 80 MG TABLET (FP) PO SCH (21:55)
[2018-07-28 06:29] LABS: BASO % 0.8 % (0-2.0); EOS % 7.5 % (0-4.5); LYMPH % 39.2 % (8-40); MCHC 33.5 g/dl (32.0-35.9); MEAN CELL VOLUME 86.7 fl (80-96); MEAN PLT VOLUME 8.4 fl (7.5-11.1); MONO % 12.1 % (3.8-10.2); NEUT % 40.4 % (42.8-82.8); PLATELET COUNT 222 K/MM3 (134-434); RBC 4.15 M/mm3 (4.00-5.60); RDW 14.4 % (11.9-15.9); WHITE BLOOD COUNT 4.7 K/mm3 (4.0-10.0)
[2018-07-28] MEDS: INSULIN SLIDING SCALE (NOVOLOG) 1 VIAL SQ SCH ×4 (06:55→22:28)
[2018-07-28 07:32] LABS: ANION GAP 6 MMOL/L (8-16); BLOOD UREA NITROGEN 19 mg/dL (7-18); CALCIUM 8.5 mg/dL (8.5-10.1); CHLORIDE 112 mmol/L (98-107); CO2 25 mmol/L (21-32); CREATININE 0.9 mg/dL (0.55-1.3); GLUCOSE,RANDOM 91 mg/dL (74-106); MAGNESIUM 2.5 mg/dL (1.8-2.4); PHOSPHOROUS 4.8 mg/dL (2.5-4.9); POTASSIUM 3.8 mmol/L (3.5-5.1); SODIUM 143 mmol/L (136-145)
--- NOTE | 2018-07-28 08:37 | PN ---
Physical Exam: SUBJECTIVE: Patient seen and examined at bedside- no acute events overnight patient states he is feeling better but still feels a little bit weak and is still having some trouble speaking. denies any CP/SOB/N/V fevers or chills OBJECTIVE: Vital Signs Period Temp Pulse Resp BP Sys/[place] Pulse Ox Last 24 Hr 98 F-99 F 75-85 18-18 97-124/58-79 97-97 GENERAL: The patient is awake, alert, and fully oriented, in no acute distress. EYES: PEERLA: EOMI: no sclerla icterus. NECK: Trachea midline, full range of motion, supple. LUNGS: Breath sounds equal, clear to auscultation bilaterally, no wheezes, no crackles, no accessory muscle use. HEART: Regular rate and rhythm, S1, S2 without murmur, rub or gallop. ABDOMEN: Soft, nontender, nondistended, normoactive bowel sounds, no guarding, no rebound, no hepatosplenomegaly, no masses. EXTREMITIES: 2+ pulses, warm, well-perfused, no edema. NEUROLOGICAL: Cranial nerves II through XII grossly intact. slight slurred speech; 4/4 strength B.L; slight pronator drift in the R extremity PSYCH: Normal mood, normal affect. SKIN: Warm, dry, normal turgor, no rashes or lesions noted Laboratory Results - last 24 hr 07/27/18 07/27/18 07/27/18 13:08 13:36 13:36 WBC 5.2 RBC 4.47 Hgb 12.9 Hct 38.3 MCV 85.6 MCH 28.9 MCHC 33.7 RDW 14.2 Plt Count 259 D MPV 8.3 Absolute Neuts (auto) 2.7 Neutrophils % 51.4 Lymphocytes % 31.0 D Monocytes % 12.1 H Eosinophils % 5.3 H Basophils % 0.2 Nucleated RBC % 0 PT with INR 12.90 INR 1.09 Sodium Potassium Chloride Carbon Dioxide Anion Gap BUN Creatinine Creat Clearance w eGFR POC Glucometer 97 Random Glucose Hemoglobin A1c % Calcium Phosphorus Magnesium Total Bilirubin AST ALT Alkaline Phosphatase Creatine Kinase Troponin I Total Protein Albumin Triglycerides Cholesterol Total LDL Cholesterol HDL Cholesterol Vitamin B12 TSH Urine Color Urine Appearance Urine pH Ur Specific Kelliher Urine Protein Urine Glucose (UA) Urine Ketones Urine Blood Urine Nitrite Urine Bilirubin Urine Urobilinogen Ur Leukocyte Esterase Urine WBC (Auto) Urine RBC (Auto) Urine Casts (Auto) U Epithel Cells (Auto) Urine Crystals (Auto) Urine Bacteria (Auto) Blood Type Antibody Screen 07/27/18 07/27/18 07/27/18 13:36 13:36 16:00 WBC RBC Hgb Hct MCV MCH MCHC RDW Plt Count MPV Absolute Neuts (auto) Neutrophils % Lymphocytes % Monocytes % Eosinophils % Basophils % Nucleated RBC % PT with INR INR Sodium 140 Potassium 3.9 Chloride 108 H Carbon Dioxide 27 Anion Gap 6 L BUN 18 Creatinine 1.1 Creat Clearance w eGFR 67.83 POC Glucometer Random Glucose 102 Hemoglobin A1c % Calcium 8.9 Phosphorus Magnesium Total Bilirubin 0.4 AST 26 ALT 33 Alkaline Phosphatase 119 H Creatine Kinase 134 Troponin I < 0.02 Total Protein 7.2 Albumin 3.9 Triglycerides 240 H Cholesterol 156 Total LDL Cholesterol 92 HDL Cholesterol 40 Vitamin B12 TSH Urine Color Yellow Urine Appearance Cloudy Urine pH 5.0 Ur Specific Kelliher 1.016 Urine Protein Negative Urine Glucose (UA) Negative Urine Ketones Negative Urine Blood Negative Urine Nitrite Negative Urine Bilirubin Negative Urine Urobilinogen 1.0 Ur Leukocyte Esterase Trace Urine WBC (Auto) 3 Urine RBC (Auto) 2 Urine Casts (Auto) 4 U Epithel Cells (Auto) 1.2 Urine Crystals (Auto) Urine Bacteria (Auto) 10.0 Blood Type Cancelled Antibody Screen Cancelled 07/27/18 07/28/18 07/28/18 21:53 05:30 05:30 WBC RBC Hgb Hct MCV MCH MCHC RDW Plt Count MPV Absolute Neuts (auto) Neutrophils % Lymphocytes % Monocytes % Eosinophils % Basophils % Nucleated RBC % PT with INR INR Sodium 143 Potassium 3.8 Chloride 112 H Carbon Dioxide 25 Anion Gap 6 L BUN 19 H Creatinine 0.9 Creat Clearance w eGFR 85.50 POC Glucometer 94 Random Glucose 91 Hemoglobin A1c % 5.9 Calcium 8.5 Phosphorus 4.8 Magnesium 2.5 H Total Bilirubin AST ALT Alkaline Phosphatase Creatine Kinase Troponin I Total Protein Albumin Triglycerides Cholesterol Total LDL Cholesterol HDL Cholesterol Vitamin B12 544 TSH 0.63 D Urine Color Urine Appearance Urine pH Ur Specific Kelliher Urine Protein Urine Glucose (UA) Urine Ketones Urine Blood Urine Nitrite Urine Bilirubin Urine Urobilinogen Ur Leukocyte Esterase Urine WBC (Auto) Urine RBC (Auto) Urine Casts (Auto) U Epithel Cells (Auto) Urine Crystals (Auto) Urine Bacteria (Auto) Blood Type Antibody Screen 07/28/18 07/28/18 05:30 06:50 WBC 4.7 RBC 4.15 Hgb 12.0 Hct 36.0 MCV 86.7 MCH 29.0 MCHC 33.5 RDW 14.4 Plt Count 222 MPV 8.4 Absolute Neuts (auto) 1.9 Neutrophils % 40.4 L D Lymphocytes % 39.2 D Monocytes % 12.1 H Eosinophils % 7.5 H Basophils % 0.8 D Nucleated RBC % 0 PT with INR INR Sodium Potassium Chloride Carbon Dioxide Anion Gap BUN Creatinine Creat Clearance w eGFR POC Glucometer 123 Random Glucose Hemoglobin A1c % Calcium Phosphorus Magnesium Total Bilirubin AST ALT Alkaline Phosphatase Creatine Kinase Troponin I Total Protein Albumin Triglycerides Cholesterol Total LDL Cholesterol HDL Cholesterol Vitamin B12 TSH Urine Color Urine Appearance Urine pH Ur Specific Kelliher Urine Protein Urine Glucose (UA) Urine Ketones Urine Blood Urine Nitrite Urine Bilirubin Urine Urobilinogen Ur Leukocyte Esterase Urine WBC (Auto) Urine RBC (Auto) Urine Casts (Auto) U Epithel Cells (Auto) Urine Crystals (Auto) Urine Bacteria (Auto) Blood Type Antibody Screen Active Medications Generic Name Dose Route Start Last Admin Trade Name Freq PRN Reason Stop Dose Admin Amlodipine Besylate 10 mg 07/28/18 10:00 Norvasc - PO DAILY JUWAN Aspirin 81 mg 07/27/18 18:45 07/27/18 19:32 Asa - PO 81 mg DAILY JUWAN Administration Atorvastatin Calcium 80 mg 07/27/18 22:00 07/27/18 21:55 Lipitor - PO 80 mg HS JUWAN Administration Carvedilol 25 mg 07/27/18 22:00 07/27/18 21:55 Coreg - PO 25 mg BID JUWAN Administration Clopidogrel Bisulfate 75 mg 07/27/18 18:45 07/27/18 19:33 Plavix - PO 75 mg DAILY JUWAN Administration Sodium Chloride 1,000 mls @ 42 mls/hr 07/27/18 13:15 07/27/18 13:39 Normal Saline - IV 42 mls/hr ASDIR JUWAN Administration Insulin Aspart 1 vial 07/27/18 22:00 07/28/18 06:55 Novolog Vial Sliding Scale - SQ Not Given ACHS JUWAN Protocol Tamsulosin HCl 0.4 mg 07/27/18 22:00 07/27/18 21:55 Flomax - PO 0.4 mg HS JUWAN Administration ASSESSMENT/PLAN: Patient is a 63 year old male with history of numerous CVA, paroxysmal afib, hypertension, hyperlipidemia, diabetes mellitus non insulin dependent, presents with complaint of weakness and associated slurring of speech. Transient ischemic attack -Weakness, slurring of speech, blurry vision improving per patient. Per prior cardiology notes, patient was in paroxysmal Afib, however denies taking Eliquis (he states he takes only Aspirin, Plavix). TIA may be secondary to paroxysmal Afib. -CT head negative for acute hemorrhage -MRA shows no evidence of anuyersm ; MRI shows hyperintense white matter lesions in the R cerebellum; L middle cerebellar peduncle and cici -Dr Herbert on board; recs appreciated -Dr. Mccurdy on board; recs appreciated. -Aspirin 81mg PO daily -starting eliquis 5 BID -Cardaic ECHO; grossly normal EF 55-60 percent ; no RWMA -Carotid duplex - no significant stenosis seen -Atorvastatin 80mg PO HS -Fall precautions -Aspiration precautions Afib -EKG shows normal sinus rhythm at 71BPM -Rate control with Carvedilol 25mg PO BID -Reinstate Eliquis 5mg PO BID Hypertension -Amlodipine 10mg PO daily -Carvedilol 25mg PO BID Hyperlpidemia -Atorvastatin 80mg PO HS Diabetes mellitus -HbA1c -Insulin sliding scale ACHS -Fingerstick blood glucose monitoring BPH -Tamsulosin 0.4mg PO daily FEN -No IV fluids indicated -Follow CMP -Soft diet. Patient noted to have eaten cheeseburger with german fries at bedside without any difficulty or coughing. Prophylaxis -Heparin 5000u subq TID Disposition -Admit to Telemetry floor Problem List - Problems (1) TIA (transient ischemic attack) Code(s): G45.9 - TRANSIENT CEREBRAL ISCHEMIC ATTACK, UNSPECIFIED Qualifiers: (2) Weakness Code(s): R53.1 - WEAKNESS Visit type - Emergency Visit Emergency Visit: Yes ED Registration Date: 07/27/18 Care time: The patient presented to the Emergency Department on the above date and was hospitalized for further evaluation of their emergent condition. - New Patient This patient is new to me today: Yes Date on this admission: 07/28/18 - Critical Care Critical Care patient: No
[2018-07-28] MEDS ORDERED: APIXABAN 5 MG TABLET PO SCH (10:00)
[2018-07-28] MEDS ORDERED: ESCITALOPRAM OXALATE 20 MG TABLET (FP) PO SCH (10:00)
[2018-07-28] MEDS ORDERED: BUPROPION HCL 100 MG PO SCH (10:00)
--- NOTE | 2018-07-28 10:02 | EKG ---
Test Reason : Blood Pressure : / mmHG Vent. Rate : 071 BPM Atrial Rate : 071 BPM P-R Int : 172 ms QRS Dur : 096 ms QT Int : 404 ms P-R-T Axes : 066 069 064 degrees QTc Int : 439 ms NORMAL SINUS RHYTHM NORMAL ECG WHEN COMPARED WITH ECG OF 10-MAR-2018 12:44, NO SIGNIFICANT CHANGE WAS FOUND Confirmed by JOANNA CANCHOLA MD ([id number]) on 07/28/2018 10:01:52 AM Referred By: Confirmed By:JOANNA CANCHOLA MD
--- NOTE | 2018-07-28 10:45 | ECHO ---
Name: FRANCO HOLT Exam:Adult Echocardiogram Study Date: 07/28/2018 09:41 AM Age: 63 yrs Reason For Study: TIA Height: 73 in Weight: 270 lb BSA: 2.4 m2 MMode/2D Measurements & Calculations IVSd: 1.1 cm Ao root diam: 3.4 cm LVIDd: 5.8 cm LA dimension: 3.9 cm LVIDs: 3.9 cm LVPWd: 1.1 cm EDV(Teich): 164.6 ml LVOT diam: 2.2 cm ESV(Teich): 66.4 ml RV S Fernando: 11.2 cm/sec Doppler Measurements & Calculations MV E max fernando: 65.0 cm/sec Ao V2 max: 131.9 cm/sec MV A max fernando: 81.5 cm/sec Ao max P.0 mmHg MV E/A: 0.80 Ao V2 mean: 93.0 cm/sec MV dec time: 0.26 sec Ao mean P.9 mmHg Ao V2 VTI: 27.5 cm NAIMA(I,D): 2.6 cm2 NAIMA(V,D): 2.5 cm2 LV V1 max P.9 mmHg SV(LVOT): 70.6 ml LV V1 mean P.6 mmHg LV V1 max: 84.9 cm/sec LV V1 mean: 60.4 cm/sec LV V1 VTI: 18.1 cm Med Peak E' Fernando: 8.7 cm/sec Med E/e': 7.5 Lat Peak E' Fernando: 10.1 cm/sec Lat E/e': 6.4 Procedure A complete two-dimensional transthoracic echocardiogram was performed (2D, M-mode, Doppler and color flow Doppler). Left Ventricle The left ventricle is normal in size. Left ventricular systolic function is normal. Ejection Fraction = 55- 60%. E/A reversal consistent with but not diagnostic of poor LV compliance. No regional wall motion abnormalities noted. Right Ventricle The right ventricle is normal size. The right ventricular systolic function is normal. RV systolic TD I is 11 cm/s. Atria The left atrial size is normal. Right atrial size is normal. Mitral Valve The mitral valve is normal in structure and function. There is mild to moderate mitral regurgitation. Tricuspid Valve The tricuspid valve is normal in structure and function. No tricuspid regurgitation. Aortic Valve The aortic valve is normal in structure and function. Trace to mild aortic regurgitation. Pulmonic Valve The pulmonic valve is not well visualized. Great Vessels The aortic root is normal size. Pericardium/Pleura There is no pericardial effusion. Interpretation Summary The left ventricle is normal in size. Left ventricular systolic function is normal. Ejection Fraction = 55-60%. No regional wall motion abnormalities noted. E/A reversal consistent with but not diagnostic of poor LV compliance The right ventricular systolic function is normal. The left atrial size is normal. Right atrial size is normal. There is mild to moderate mitral regurgitation. Trace to mild aortic regurgitation. There is no pericardial effusion. When compared to study dated 03/11/19. MR is seen Codey Smith MD 07/28/2018 10:45 AM
[2018-07-28] MEDS: ASPIRIN 81 MG CHEWABLE TABLETS PO SCH (12:38)
[2018-07-28] MEDS: amLODIPine BESYLATE 10 MG TABLET (FP) PO SCH (12:38)
[2018-07-28] MEDS: CARVEDILOL 25 MG TABLET (FP) PO SCH ×2 (12:38→22:23)
[2018-07-28] MEDS: CLOPIDOGREL BISULFATE 75 MG TABLET (FP) PO SCH (12:38)
--- NOTE | 2018-07-28 12:39 | CONSULT ---
Consult - text type - Consultation Consultation Note: NEUROLOGY CONSULTATION is greatly appreciated: Events reviewed and discussed with YOUSIF Lomeli. Cardiology consult read and appreciated. Patient examined. This 63 yo RH s man with h/o HTN, DM, Chol, ASHD, Depression, chronic neck/LBP is said to have had multiple CVA's. Last seen by me 02/28/18 in consult. Maintained on: Amlodipine; Carvedilol 25 mg BID; Clopidogrel; Pantoprazole; Atorvastatin; Albuterol; Cyclobenzaprine; Gabapentin 800 mg PO TID; Glipizide; Meclizine; Escitalopram; Bupropion HCl 100 mg PO BID; Tamsulosin; Ferrous Sulfate. His "first stroke" around age 53 involved the subacute onset of weakness in BOTH legs and loss of ambulation which took 6 mos to improve in rehab. Since then he describes ">100" stereotyped episodes beginning with lightheadedness, staring, speech arrest, obscuration of consciousness, "weakness " of both legs with "imbalance," "disorientation of thoughts," and slurred speech. Ex-girlfriend (witnessed > 10 events) confirms the description. He cannot recall headache at time of events but notes episodic headaches since his "stroke" approx 3x/month with associated photophobia and kinesiophobia. Also Since my consultation patient notes the development of AFib- now on Apixiban. Multiple, subsequent, neurological events have all been transient. All < few hours. Now admitted after recurrent episode of slurred speech, "confusion" and B/L leg weakness while at [facility]. Multiple MRI scans of the brain (04/03/16; 06/12/16; 07/25/16,06/20/17, 07/28/18) are all reviewed and show lacunar infarcts but also, more diffuse, periventricular and subcortical white matter lesions. MRI of C spine 03/12/18 (reviewed): Multilevel DJD, disc desiccation and anterior spondylosis without cord compression. Normal signal intensity in cord. MRA 07/28/18: no evidence of aneurysm, AVM or stenosis. ROS sig. for chronic pains in low back, legs, and neck, worsened at nighttime and interrupting sleep. Stiffness in legs in AM or after prolonged sitting. FH neg for early strokes/ in family. Unsure if anyone in family suffers from headaches. CT of head (reviewed) shows scattered chronic microvascular changes but no acute lesions. Carotid duplex: no sig. stenosis; EKG NSR; Homocysteine= 8.4; MMA =92; B12 = 544 NOEL: BP's 97/59 supine. 114/60 sitting. No carotid bruits. cor re. No evidence of head trauma. NEURO: MS: normal. Speech: Normal. CN II-XII essentially normal. Motor: No drift or tremor. Normal strength. Normal reflexes in the arms but reduced in the legs, Plantars silent Coord: No FTN dystaxia Sensory: Normal vibration. Romberg +/- Gait: Sl wide-based. variable stride. Initially stiff then improves with walking. IMP: Normal Neurological Exam Cannot r/o TIA but strongly doubt. Recurrent episodes most likely represent Complex Partial Seizures (CPS). Migraine headaches/ Restless legs syndrome SUGGEST: Begin levetiracetam 1000 mg slow IV drip tonight then 500 mg PO q 12 hrs Continue abixaban 5 mg BID for paroysmal afib. Continue Carvedilol 25 BID for migraine prophylaxis. Continue Gabapentin 800 TID for chronic pain. D/C meclizine, D/C cyclobenzaprine. Neuro f/u for seizures, migraines and for Rx of RLS Thank you very much, Сергей Herbert MD
--- NOTE | 2018-07-28 13:06 | CONSULT ---
Admitting History and Physical - Primary Care Physician PCP: Luis Alberto Irvin - Admission History of Present Illness: Per EMR: HISTORY OF PRESENT ILLNESS: Patient is a 63 year old male with history of numerous CVA (first one occurring approx age 53, had previous admission on 02/2018 for CVA workup; microvascular disease vs. demyelinating disease), paroxysmal afib (not on anticoagulation), hypertension, hyperlipidemia, diabetes mellitus non insulin dependent, presents with complaint of weakness and associated slurring of speech. Symptoms began with sudden onset while he was at [facility] early this afternoon. Patient denies fall or loss of consciousness. He endorsed blurry, hazy vision, with shortness of breath. Patient endorses these symptoms are similar to those from prior "strokes". He admits he last saw his telemetry technician three months ago, and had a stress test which he states was normal. Patient has not followed up with neurologist since last discharge from hospital in February 2018. Currently he endorses improvement of his weakness, blurry vision, and shortness of breath. He does endorse his voice is still hoarse which is not his baseline. Selected Entries 07/28/18 07/28/18 07/28/18 01:13 07:30 12:37 Temperature 98.0 F 97.5 F L 97.5 F L Laboratory Tests 07/28/18 05:30 WBC 4.7 Pt reports difficulty pronouncing words yesterday which has improved. He feels he is at baseline. Previously seen by me in Mar and July 2016. Voice was dysphonic in July. 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: CVA, Peripheral Neuropathy, Vertigo Cardiovascular: Yes: CAD, CHF, HTN, [place] Musculoskeletal: Yes: Chronic low back pain - Smoking History Smoking history: Former smoker Have you smoked in the past 12 months: No Aproximately how many cigarettes per day: 0 If you are a former smoker, when did you quit?: 37 YRS AGO - Alcohol/Substance Use Hx Alcohol Use: No - Social History History of Recent Travel: No History - Admission Reason For Visit: TRANSIENT ISCHEMIC ATTACK - Diagnostics X-ray: Report Reviewed CT Scan: Report Reviewed MRI: Report Reviewed (Multiple MRI scans of the brain (04/03/16; 06/12/16; 07/25/16, 06/20/17, 07/28/18) show lacunar infarcts but also, more diffuse, periventricular and subcortical white matter lesions) - General Mental Status: Alert and Oriented, Awake and Alert, Able to Follow Commands Attention: Intact Ability to Follow Directions: Excellent Head/Neck Control: WFL - Hearing Hearing: Functional Speech Evaluation - Communication Primary Language: POLISH Communication: Yes: Within Normal Limits Oral Expression Ability: Yes: No Impairment - Speech Production Able to Make Needs Known: Yes: WNL Intelligibility: Yes: WNL - Speech Characteristics Voice Loudness: Normal Voice Pitch: Yes: Normal Voice Phonatory-based Quality: Yes: Dysphonia (mild. Dysphonic in July 2016 as well) Speech Pattern: Normal Speech Clarity: < 100% Nasal Resonance: Normal Articulation: Yes: Precise Rate of Speech: Intact - Language/Auditory Comprehension Follows: Yes: 2 Stage Simple Commands - Language/Verbal Expression Able to Respond to Simple Queries: Yes: WNL Able to Communicate Wants and Needs: Yes: WNL Functional Communication Status: Yes: WNL - Memory/Perception detention Memory: Yes: WNL Short Term Memory: Yes: WNL - Swallow Evaluation/Bedside Assessment Current Nutritional Intake: Soft, Thin Liquids Oral Secretions: Yes: WFL Dentition: Yes: Missing Teeth Facial Symmetry at Rest: Symmetrical Facial Symmetry on Retraction: Symmetrical Against Resistance Opening: Normal Against Resistance Closing: Normal Pucker Lips: Normal Smile: Normal Lingual Movement: Normal, Symmetric Lingual Speed of Movement: Normal Lingual Movement Strgth Against Opposition: Normal Lingual Movement Characteristics: Normal Velopharyngeal Movement: Normal Laryngeal Elevation: WFL Rate of Intake: WFL Sensation: Bite Reflex Labial Seal: WFL Chewing: WFL Oral Prep Time: WFL A-P Transit: WFL Pocketing: None Coughing/Throat Clear: No Change in Voice: No Recommendations - Speech Evaluation, Impression/Plan Impression: Dysphonia, seen in July 2016 evaluation as well. Pt reports speech deficits noted yesterday have cleared. Tolerating diet in ER. sp/sw/cognition/ language grossly WNL - Dysphagia Impressions/Plan Swallowing Skills: WFL Dysphagia Impressions: No Impairment *Silent aspiration: cannot be R/O at bedside Dysphagia Treatment Plan: OOB for meals, OOB for 1 h. after meals - Recommendations Diet Consistency: Regular (soft. Missing dentition) Medication Administration: Whole with water Liquids: Thin Liquids
--- NOTE | 2018-07-28 13:17 | CON.CARD ---
Consult Consult Specialty:: Cardiology Referred by:: Hospitalist Medicine Reason for Consultation:: Recurrent stroke, PAF - History of Present Illness Chief Complaint: Recurrent TIA sxs History of Present Illness: 63 year old male with history of multiple CVA , paroxysmal afib diagnosed in February 2018 telemetry monitoring, hypertension, hyperlipidemia, NIDDM, presented to the hospital with weakness and slurred speech. Symptoms began with sudden onset while he was at [facility] early this afternoon, associated with blurry vision, he denied any fall or loss of consciousness. Patient endorses these symptoms are similar to those from prior "strokes". He admits he last saw his drag sawyer three months ago, and had a stress test which he states was normal. Patient has not followed up with neurologist since last discharge from hospital in February 2018. Currently he endorses improvement of his weakness, blurry vision, and shortness of breath. Multiple MRI scans of the brain (04/03/16; 06/12/16; 07/25/16,06/20/17, 07/28/18) are all reviewed and show lacunar infarcts but also, more diffuse, periventricular and subcortical white matter lesions. MRI of C spine 03/12/18 (reviewed): Multilevel DJD, disc desiccation and anterior spondylosis without cord compression. Normal signal intensity. MRA 07/28/18: no evidence of aneurysm, AVM or stenosis. Now admitted after similar complaints with report L facial droop noted while at [facility]. Tele showed PAF 130s on previous admission. ROS sig. for episodic headaches and chronic pains in low back and neck, worsened at nighttime and interrupting sleep. 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, Peripheral Neuropathy, Vertigo Cardio/Vascular: Yes: CAD, CHF, HTN, [place] Musculoskeletal: Yes: Chronic low back pain - Alcohol/Substance Use Hx Alcohol Use: No - Smoking History Smoking history: Former smoker Have you smoked in the past 12 months: No Aproximately how many cigarettes per day: 0 If you are a former smoker, when did you quit?: 37 YRS AGO - Social History Usual Living Arrangement: With Spouse History of Recent Travel: No Home Medications - Allergies Allergies/Adverse Reactions: Allergies Allergy/AdvReac Type Severity Reaction Status Date / Time citric acid Allergy Hives Verified 07/27/18 13:10 - Home Medications Home Medications: Ambulatory Orders Amlodipine Besylate [Norvasc -] 10 mg PO DAILY 06/13/16 Aspirin [ASA -] 81 mg PO DAILY 06/13/16 Carvedilol 25 mg PO BID 06/13/16 Clopidogrel Bisulfate [Plavix -] 75 mg PO DAILY 06/13/16 Atorvastatin Ca [Lipitor] 80 mg PO HS #30 tablet 07/26/16 Albuterol Sulfate Inhaler - [Ventolin HFA Inhaler -] 1 puff IH PRN 06/19/17 Cyclobenzaprine HCl 10 mg PO BID PRN 06/19/17 Gabapentin 800 mg PO TID 06/19/17 Meclizine HCl 25 mg PO ASDIR PRN 06/19/17 Multivitamins [Multivit ([facility] Formulary)] 1 tab PO DAILY 06/19/17 Escitalopram Oxalate [Lexapro -] 20 mg PO DAILY #30 tablet 06/21/17 Bupropion HCl 100 mg PO DAILY 11/21/17 Tamsulosin HCl 0.4 mg PO HS 11/21/17 Ergocalciferol (Vitamin D2) [Vitamin D2] 50,000 unit PO WEEKLY 01/28/18 Ferrous Sulfate 324 mg PO DAILY 01/28/18 Thiamine HCl [Vitamin B-1] 100 mg PO DAILY 01/28/18 Vitamin B12 - 1,000 mg PO DAILY 01/28/18 Vitamin E 400 units PO DAILY 01/28/18 Diphenhydramine [Benadryl -] 50 mg PO TID 07/27/18 Lidocaine 5% Top. Ointment [Xylocaine 5% Top. Ointment] 1 applic TP ASDIR Xalatan 0.005% Eye Drops - 1 drop OU HS 07/27/18 Review of Systems - Review of Systems Neurological: reports: Weakness Vital Signs: Vital Signs Temperature 97.5 F L 07/28/18 12:37 Pulse Rate 65 07/28/18 12:37 Respiratory Rate 18 07/28/18 12:37 Blood Pressure 142/78 07/28/18 12:37 O2 Sat by Pulse Oximetry (%) 98 07/28/18 12:37 Constitutional: Yes: No Distress, Calm Neck: Yes: Supple Respiratory: Yes: Regular, CTA Bilaterally Gastrointestinal: Yes: Normal Bowel Sounds, Soft Cardiovascular: Yes: Regular Rate and Rhythm JVD: No Carotid Bruit: No Heart Sounds: Yes: S1, S2 Murmur: Yes: Systolic Murmur, Grade 1 Edema: No - Other Data Labs, Other Data: CBC, BMP 07/28/18 05:30 07/28/18 05:30 INR, PTT INR 1.09 (0.83-1.09) 07/27/18 13:36 Troponin, BNP 07/27/18 13:36 Troponin I < 0.02 Troponin, BNP 07/27/18 13:36 Troponin I < 0.02 NSR @ [address]-T changes Ejection Fraction %: LVEF > or = 40 % Imaging - Results Cat Scan: Report Reviewed (No HCT changes) MRI: Report Reviewed Problem List - Problems (1) Paroxysmal atrial fibrillation with RVR Code(s): I48.0 - PAROXYSMAL ATRIAL FIBRILLATION (2) TIA (transient ischemic attack) Code(s): G45.9 - TRANSIENT CEREBRAL ISCHEMIC ATTACK, UNSPECIFIED Qualifiers: (3) Dysarthria as late effect of cerebrovascular accident (CVA) Code(s): I69.322 - DYSARTHRIA FOLLOWING CEREBRAL INFARCTION (4) DM II (diabetes mellitus, type II), controlled Code(s): E11.9 - TYPE 2 DIABETES MELLITUS WITHOUT COMPLICATIONS Qualifiers: Diabetes mellitus correction insulin use: without intermodal dispatcher use (5) HLD (hyperlipidemia) Code(s): E78.5 - HYPERLIPIDEMIA, UNSPECIFIED Qualifiers: Hyperlipidemia type: pure hypercholesterolemia Qualified Code(s): E78.00 - Pure hypercholesterolemia, unspecified; E78.0 - Pure hypercholesterolemia (6) HTN (hypertension) Code(s): I10 - ESSENTIAL (PRIMARY) HYPERTENSION Qualifiers: Hypertension type: essential hypertension Qualified Code(s): I10 - Essential (primary) hypertension Assessment/Plan Echo: 07/28/2018 Normal LV and RV size and fxn, LVEF 55-60%, abnl LV compliance , normal atrial sizes, mild-mod MR, mild AR Echo: 03/11/2018 Normal LV and RV size and fxn, LVEF 60%, normal atrial sizes Holter monitor: 03/12/2018 NSR, rare PAC, PVC, no PAF Echocardiography dated April 03, 2016 revealed normal left ventricular size and systolic function mild mitral valve regurgitation, mild tricuspid valve regurgitation Carotid US 07/2018 No sig stenosis Carotid Doppler study dated April 03, 2016 was negative for hemodynamically significant stenosis 1. Right upper extremity weakness/transient, speech abnormality/transient in a patient with known history of recurrent strokes/CVA, r/o TIA, or microvascular CVA 2. Coronary artery disease history of a myocardial infarction no history of percutaneous coronary intervention angina pectoris 3. Diastolic left ventricular dysfunction with clinical class 0 [place] [employer] classification left ventricular failure 4. Suspect paroxysmal atrial fibrillation as a potential culprit for the above- noted recurrent strokes/CVA 5. Questionable recurrent syncope 6. Hypertensive cardiovascular disease 7. [id number] diabetes mellitus 8. Hypercholesterolemia 9. History of chronic obstructive pulmonary disease 10. Morbid obesity, post gastric bypass PLAN: 1. Continue Coreg 25 bid 2. Agree with change DAPT to Eliquis 5 bid given episodes of PAF on prior telemetry monitoring 3. Continue Lipitor 80 qhs 4. Continue Norvasc 5 qd and Diovan 80 qd 5. Holter monitor to further elucidate paroxysmal atrial fibrillation burden 6. Thank you for consultative opportunity
--- NOTE | 2018-07-28 15:22 | PN ---
Teaching Attending Note Name of Resident: Stefani Robles ATTENDING PHYSICIAN STATEMENT I saw and evaluated the patient. I reviewed the resident's note and discussed the case with the resident. I agree with the resident's findings and plan as documented. SUBJECTIVE: Feeling improvement in his symptoms. Slurring of speech resolved. No ongoing limb numbness/weakness. No visual disturbance/headache. No Nausea/ vomiting. OBJECTIVE: Afebrile, Hemodynamically Stable. Last Vital Signs Temp Pulse Resp BP Pulse Ox 97.5 F L 65 18 142/78 98 07/28/18 12:37 07/28/18 12:37 07/28/18 12:37 07/28/18 12:37 07/28/18 12:37 HEENT - Atraumatic. L partial facial droop. No lymphadenopathy Heart - S1, S2, RRR Lungs - clear to auscultation Abdomen - Soft, non-tender. Bowel Sounds normal. Extremities - minimal edema, no calf tenderness. Laboratory Results - last 24 hr 07/27/18 07/27/18 07/28/18 16:00 21:53 05:30 WBC RBC Hgb Hct MCV MCH MCHC RDW Plt Count MPV Absolute Neuts (auto) Neutrophils % Lymphocytes % Monocytes % Eosinophils % Basophils % Nucleated RBC % Sodium 143 Potassium 3.8 Chloride 112 H Carbon Dioxide 25 Anion Gap 6 L BUN 19 H Creatinine 0.9 Creat Clearance w eGFR 85.50 POC Glucometer 94 Random Glucose 91 Hemoglobin A1c % Calcium 8.5 Phosphorus 4.8 Magnesium 2.5 H Vitamin B12 544 TSH 0.63 D Urine Color Yellow Urine Appearance Cloudy Urine pH 5.0 Ur Specific [place] 1.016 Urine Protein Negative Urine Glucose (UA) Negative Urine Ketones Negative Urine Blood Negative Urine Nitrite Negative Urine Bilirubin Negative Urine Urobilinogen 1.0 Ur Leukocyte Esterase Trace Urine WBC (Auto) 3 Urine RBC (Auto) 2 Urine Casts (Auto) 4 U Epithel Cells (Auto) 1.2 Urine Crystals (Auto) Urine Bacteria (Auto) 10.0 07/28/18 07/28/18 07/28/18 05:30 05:30 06:50 WBC 4.7 RBC 4.15 Hgb 12.0 Hct 36.0 MCV 86.7 MCH 29.0 MCHC 33.5 RDW 14.4 Plt Count 222 MPV 8.4 Absolute Neuts (auto) 1.9 Neutrophils % 40.4 L D Lymphocytes % 39.2 D Monocytes % 12.1 H Eosinophils % 7.5 H Basophils % 0.8 D Nucleated RBC % 0 Sodium Potassium Chloride Carbon Dioxide Anion Gap BUN Creatinine Creat Clearance w eGFR POC Glucometer 123 Random Glucose Hemoglobin A1c % 5.9 Calcium Phosphorus Magnesium Vitamin B12 TSH Urine Color Urine Appearance Urine pH Ur Specific [place] Urine Protein Urine Glucose (UA) Urine Ketones Urine Blood Urine Nitrite Urine Bilirubin Urine Urobilinogen Ur Leukocyte Esterase Urine WBC (Auto) Urine RBC (Auto) Urine Casts (Auto) U Epithel Cells (Auto) Urine Crystals (Auto) Urine Bacteria (Auto) 07/28/18 12:32 WBC RBC Hgb Hct MCV MCH MCHC RDW Plt Count MPV Absolute Neuts (auto) Neutrophils % Lymphocytes % Monocytes % Eosinophils % Basophils % Nucleated RBC % Sodium Potassium Chloride Carbon Dioxide Anion Gap BUN Creatinine Creat Clearance w eGFR POC Glucometer 91 Random Glucose Hemoglobin A1c % Calcium Phosphorus Magnesium Vitamin B12 TSH Urine Color Urine Appearance Urine pH Ur Specific [place] Urine Protein Urine Glucose (UA) Urine Ketones Urine Blood Urine Nitrite Urine Bilirubin Urine Urobilinogen Ur Leukocyte Esterase Urine WBC (Auto) Urine RBC (Auto) Urine Casts (Auto) U Epithel Cells (Auto) Urine Crystals (Auto) Urine Bacteria (Auto) Current Medications Generic Name Dose Route Start Last Admin Trade Name Freq PRN Reason Stop Dose Admin Amlodipine Besylate 10 mg 07/28/18 10:00 07/28/18 12:38 Norvasc - PO 10 mg DAILY JUWAN Administration Apixaban 5 mg 07/28/18 22:00 Eliquis - PO BID JUWAN Aspirin 81 mg 07/27/18 18:45 07/28/18 12:38 Asa - PO 81 mg DAILY JUWAN Administration Atorvastatin Calcium 80 mg 07/27/18 22:00 07/27/18 21:55 Lipitor - PO 80 mg HS JUWAN Administration Carvedilol 25 mg 07/27/18 22:00 07/28/18 12:38 Coreg - PO 25 mg BID JUWAN Administration Sodium Chloride 1,000 mls @ 42 mls/hr 07/27/18 13:15 07/27/18 13:39 Normal Saline - IV 42 mls/hr ASDIR JUWAN Administration Insulin Aspart 1 vial 07/27/18 22:00 07/28/18 12:38 Novolog Vial Sliding Scale - SQ Not Given ACHS [facility] Protocol Tamsulosin HCl 0.4 mg 07/27/18 22:00 07/27/18 21:55 Flomax - PO 0.4 mg HS [facility] Administration Home Medications Medication Instructions Recorded Amlodipine Besylate [Norvasc -] 10 mg PO DAILY 06/13/16 Aspirin [ASA -] 81 mg PO DAILY 06/13/16 Carvedilol 25 mg PO BID 06/13/16 Clopidogrel Bisulfate [Plavix -] 75 mg PO DAILY 06/13/16 Atorvastatin Ca [Lipitor] 80 mg PO HS #30 tablet 07/26/16 Albuterol Sulfate Inhaler - 1 puff IH PRN 06/19/17 [Ventolin HFA Inhaler -] Cyclobenzaprine HCl 10 mg PO BID PRN 06/19/17 Gabapentin 800 mg PO TID 06/19/17 Meclizine HCl 25 mg PO ASDIR PRN 06/19/17 Multivitamins [Multivit ([facility] 1 tab PO DAILY 06/19/17 Formulary)] Escitalopram Oxalate [Lexapro -] 20 mg PO DAILY #30 tablet 06/21/17 Bupropion HCl 100 mg PO DAILY 11/21/17 Tamsulosin HCl 0.4 mg PO HS 11/21/17 Ergocalciferol (Vitamin D2) 50,000 unit PO WEEKLY 01/28/18 [Vitamin D2] Ferrous Sulfate 324 mg PO DAILY 01/28/18 Thiamine HCl [Vitamin B-1] 100 mg PO DAILY 01/28/18 Vitamin B12 - 1,000 mg PO DAILY 01/28/18 Vitamin E 400 units PO DAILY 01/28/18 Diphenhydramine [Benadryl -] 50 mg PO TID 07/27/18 Lidocaine 5% Top. Ointment 1 applic TP ASDIR 07/27/18 [Xylocaine 5% Top. Ointment] Xalatan 0.005% Eye Drops - 1 drop OU HS 07/27/18 ASSESSMENT AND PLAN: 63 year old male with history of multiple CVAs, Paroxysmal Atrial Fibrillation, HTN, HLD, DM 2, BPH, presented with slurring of speech, confusion. 1. Recurrent TIAs in setting of paroxysmal Atrial Fibrillation CT Brain - no acute findings MRI/MRA Brain - Chronic lacunar infarct L putamen and R cerebellum; R posterior communicating artery. Echo - normal EF, moderate MR. Carotid Duplex - mild intimal thickening and small plaques at common carotid bifurcation - no hemodynamically significant stenosis. Evaluated by Cardiology and Neurology Started on Eliquis. (Patient previously recommended to take Eliquis but opted for DDAT instead). Importance of Eliquis in preventing future strokes impressed up the patient. Continue Coreg. Telemonitoring, Neurochecks. 2. HTN - continue Coreg, Norvasc, Diovan. 3. DM 2 - maintain on Novolog sliding scale as in-patient. 4. HLD - Continue Atorvastatin. 5. BPH - Continue Tamsulosin. DVT Px - started on Eliquis.
[2018-07-28 15:36] VITALS: BMI 89.3
--- NOTE | 2018-07-28 19:21 | CONS ---
DATE OF CONSULTATION: 07/28/2018 HISTORY OF PRESENT ILLNESS: The patient is a 63-year-old man with past medical history of atrial fibrillation, not on anticoagulation; as well as multiple CVAs and TIAs, who was admitted with slurred speech and weakness. The patient states he was in [employer]ianism and developed sudden slurred speech and weakness. An ambulance was called. He was brought to [facility]. CT of the head showed no acute intracranial pathology and no change from March 14, 2018, with some mild volume loss and ventricular dilatation. Carotid Doppler study demonstrated mild intimal thickening and small plaque without any hemodynamically significant stenosis. Blood work on admission, WBCs 5.2, hemoglobin 12.9, platelet count 259. Repeat today was stable with WBCs 4.7, hemoglobin 12, and platelet count 222. The patient had chemistry on admission, July 27, which showed slightly elevated chloride of 108, sodium normal 140, potassium 3.9, BUN normal at 18, creatinine 1.1, triglycerides elevated at 240. Repeat blood work done today showed a high magnesium level of 2.5, elevated chloride of 112, BUN elevated at 19, creatinine 0.9. His B12 level was normal at 544, TSH normal at 0.63. The patient notes some significant improvement with his speech, which had been very slurred but remains very weak. He has no numbness or tingling and no isolated weakness. He feels more general weakness. The patient apparently was started on Plavix and Eliquis and is now seen in rehabilitation evaluation. He remains in the emergency room awaiting a bed to be transferred. PAST MEDICAL/SURGICAL HISTORY: Multiple CVAs and TIAs, atrial fibrillation not on anticoagulation prior to admission, hypertension, diabetes. SOCIAL HISTORY: Lives alone in an apartment with no stairs. He has an aide 12 hours a day 7 days a week. Ambulates with a straight cane. Current function, he is able to sit at the edge of the bed but has not been ambulatory in the emergency room. REVIEW OF SYSTEMS: No dizziness or lightheadedness. No blurry vision or double vision but he does feel that his speech was very slurred yesterday. Had difficulty getting words out. Today he states it is significantly improved. No difficulty swallowing or chewing currently. No chest pain or shortness of breath. No dyspnea on exertion or abdominal pain. No isolated weakness but general weakness in both his legs as well as fatigue. Again, numbness, tingling, or upper extremity weakness. No joint arthralgias. PHYSICAL EXAMINATION: General: The patient is seen sitting at the edge of the stretcher. He is awake and cooperative. He seems to either have extreme fatigue or lid ptosis bilaterally. Possibly a minimal left facial droop, but his extraocular muscles are intact. He is able to move his face fairly well. Speech is fluent and not slurred. No word finding difficulties. Extremities: He has trace edema in the lower extremities but no calf tenderness. Skin: Without any rash or breakdown. Neuromuscular: He is awake and alert and cooperative. Seems to have decent insight into his medical conditions, although he did not know anything about being anticoagulated. He is hoping to consult with his primary care physician on discharge in this regard. His cranial nerves 2-12 appear grossly intact. He has good strength throughout his extremities but weakness in both lower extremities particularly more in the proximal muscles with fairly good dorsiflexion, plantar flexion. He has normal sensation. Symmetric reflexes. Unable to stand or ambulate him at this time. He has difficulty with heel to calvin, but this could be due to proximal weakness in the lower extremities. OVERALL IMPRESSION: 1. Deficits in mobility, activities of daily living. 2. Slurred speech and generalized weakness, rule out transient ischemic attack or other etiology. 3. History of cerebrovascular accident/transient ischemic attacks. 4. Atrial fibrillation. Apparently not previously on anticoagulation. 5. Diabetes. 6. Hypertension. 7. Elevated body mass index. 8. Status post dysarthria, possible word finding difficulties, which he states have improved. 9. Elevated risk for decubitus ulcers due to immobility. PLAN/SUGGESTION: 1. Follow up with Cardiology regarding anticoagulation. 2. No further DVT prophylaxis needed. 3. Physical therapy once he is taken to a hospital room from the emergency room for bed mobility transfers, gait training, strengthening, reconditioning. 4. Cardiopulmonary precaution. 5. Skin precaution. 6. Consider swallowing evaluation if he develops any further speech or swallow issues. 7. Probable discharge home with outpatient follow up but this may depend on his response to therapy and length of hospitalization. Thank you for this referral. KARLY WASHINGTON M.D. [id number]
[2018-07-28] MEDS ORDERED: levETIRAcetam 500 MG/5 ML INJECTION VIAL IVPB ONE (20:13)
[2018-07-28] MEDS: APIXABAN 5 MG TABLET PO SCH (22:23)
[2018-07-28] MEDS: ATORVASTATIN CA 80 MG TABLET (FP) PO SCH (22:23)
[2018-07-28] MEDS: TAMSULOSIN HCL 0.4 MG CAP PO SCH (22:23)
[2018-07-29] MEDS: INSULIN SLIDING SCALE (NOVOLOG) 1 VIAL SQ SCH ×2 (06:28→12:31)
[2018-07-29 07:58] LABS: HEMATOCRIT 35.8 % (35.4-49); HEMOGLOBIN 11.9 GM/dL (11.7-16.9); MCH 28.9 pg (25.7-33.7); MCHC 33.4 g/dl (32.0-35.9); MEAN CELL VOLUME 86.6 fl (80-96); MEAN PLT VOLUME 8.7 fl (7.5-11.1); PLATELET COUNT 219 K/MM3 (134-434); RBC 4.13 M/mm3 (4.00-5.60); RDW 14.2 % (11.9-15.9); WHITE BLOOD COUNT 4.6 K/mm3 (4.0-10.0)
[2018-07-29 08:54] LABS: ALBUMIN 3.3 g/dl (3.4-5.0); ALK PHOS 108 U/L (45-117); ANION GAP 6 MMOL/L (8-16); BILIRUBIN,TOTAL 0.8 mg/dL (0.2-1); BLOOD UREA NITROGEN 15 mg/dL (7-18); CALCIUM 8.2 mg/dL (8.5-10.1); CHLORIDE 108 mmol/L (98-107); CO2 28 mmol/L (21-32); CREATININE 0.7 mg/dL (0.55-1.3); GLUCOSE,RANDOM 80 mg/dL (74-106); MAGNESIUM 2.3 mg/dL (1.8-2.4); PHOSPHOROUS 4.5 mg/dL (2.5-4.9); POTASSIUM 3.5 mmol/L (3.5-5.1); SGOT/AST 15 U/L (15-37); SGPT/ALT 25 U/L (13-61); SODIUM 142 mmol/L (136-145); TOT PROT 6.2 g/dl (6.4-8.2)
[2018-07-29] MEDS ORDERED: levETIRAcetam 500 MG TABLET (FP) PO SCH (10:00)
--- NOTE | 2018-07-29 10:31 | PN ---
Progress Note, Physician Chief Complaint: Events noted Sitting and appears comfortable Not in distress History of Present Illness: Patient was seen and examined. Awake and alert. Chart was reviewed Denies chest pain, SOB or palpitations. Remains in sinus rhythm - Current Medication List Current Medications: Active Medications Amlodipine Besylate (Norvasc -) 10 mg PO DAILY [facility] Last Admin: 07/28/18 12:38 Dose: 10 mg Apixaban (Eliquis -) 5 mg PO BID [facility] Last Admin: 07/28/18 22:23 Dose: 5 mg Aspirin (Asa -) 81 mg PO DAILY [facility] Last Admin: 07/28/18 12:38 Dose: 81 mg Atorvastatin Calcium (Lipitor -) [address] [facility] Last Admin: 07/28/18 22:23 Dose: 80 mg Carvedilol (Coreg -) 25 mg PO BID [facility] Last Admin: 07/28/18 22:23 Dose: 25 mg Sodium Chloride (Normal Saline -) 1,000 mls @ 42 mls/hr IV ASDIR [facility] Last Admin: 07/27/18 13:39 Dose: 42 mls/hr Insulin Aspart (Novolog Vial Sliding Scale -) 1 vial SQ [facility]; Protocol Last Admin: 07/29/18 06:28 Dose: Not Given Levetiracetam (Keppra -) 500 mg PO BID [facility] Tamsulosin HCl (Flomax -) 0.[address] [facility] Last Admin: 07/28/18 22:23 Dose: 0.4 mg - Objective Vital Signs: Vital Signs Temperature 97.8 F 07/29/18 05:51 Pulse Rate 84 07/29/18 05:51 Respiratory Rate 20 07/29/18 05:51 Blood Pressure 145/80 07/29/18 05:51 O2 Sat by Pulse Oximetry (%) 96 07/28/18 21:00 Eyes: Yes: PERRL HENT: Yes: Atraumatic Neck: Yes: Supple Cardiovascular: Yes: Regular Rate and Rhythm, S1, S2 Respiratory: Yes: CTA Bilaterally Gastrointestinal: Yes: Normal Bowel Sounds, Soft. No: Tenderness Edema: No Additional Findings/Remarks: - Review of Systems Constitutional: denies: Chills, Fever Cardiovascular: denies: Chest Pain. denies: Palpitations, Shortness of Breath Respiratory: denies: Cough, Hemoptysis, Orthopnea, PND, SOB, SOB on Exertion Gastrointestinal: denies: Diarrhea, Nausea. denies: Abdominal Pain, Constipation, Melena, Rectal Bleeding, Vomiting Genitourinary: denies: Dysuria, Hematuria Musculoskeletal: denies: Back Pain, Joint Pain Neurological: denies: Dizziness, Headache, Seizure, Syncope Labs: CBC, BMP 07/29/18 05:35 07/29/18 05:35 INR, PTT INR 1.09 (0.83-1.09) 07/27/18 13:36 Problem List - Problems (1) Paroxysmal atrial fibrillation with RVR Code(s): I48.0 - PAROXYSMAL ATRIAL FIBRILLATION (2) TIA (transient ischemic attack) Code(s): G45.9 - TRANSIENT CEREBRAL ISCHEMIC ATTACK, UNSPECIFIED Qualifiers: (3) Weakness Code(s): R53.1 - WEAKNESS (4) Dysarthria as late effect of cerebrovascular accident (CVA) Code(s): I69.322 - DYSARTHRIA FOLLOWING CEREBRAL INFARCTION (5) Old myocardial infarction Code(s): I25.2 - OLD MYOCARDIAL INFARCTION (6) DM II (diabetes mellitus, type II), controlled Code(s): E11.9 - TYPE 2 DIABETES MELLITUS WITHOUT COMPLICATIONS Qualifiers: Diabetes mellitus assisted insulin use: without roasterman use (7) HLD (hyperlipidemia) Code(s): E78.5 - HYPERLIPIDEMIA, UNSPECIFIED Qualifiers: Hyperlipidemia type: pure hypercholesterolemia Qualified Code(s): E78.00 - Pure hypercholesterolemia, unspecified; E78.0 - Pure hypercholesterolemia (8) HTN (hypertension) Code(s): I10 - ESSENTIAL (PRIMARY) HYPERTENSION Qualifiers: Hypertension type: essential hypertension Qualified Code(s): I10 - Essential (primary) hypertension Assessment/Plan 1. Right upper extremity weakness/transient, speech abnormality/transient in a patient with known history of recurrent strokes/CVA, suspect TIA vs. microvascular CVA 2. Coronary artery disease, history of a myocardial infarction, angina 3. Diastolic left ventricular dysfunction with clinical class 0 [place] [employer] classification left ventricular failure 4. Suspect paroxysmal atrial fibrillation as a potential culprit for the above- noted recurrent strokes/CVA 5. Questionable recurrent syncope 6. Hypertensive cardiovascular disease 7. [id number] diabetes mellitus 8. Hypercholesterolemia 9. History of chronic obstructive pulmonary disease 10. Morbid obesity, post gastric bypass PLAN: 1. Continue Coreg 25 mg BID 2. Currently on Eliquis 5 mg BID given episodes of PAF on prior telemetry monitoring 3. Continue Lipitor 80 mg QHS 4. Continue Norvasc 5 mg QD and Diovan 80 mg QD as tolerated 5. Holter monitor to further elucidate paroxysmal atrial fibrillation burden or to consider extended monitoring as outpatient 6. Neuro follow up Further plans are to follow Codey Smith MD
[2018-07-29] MEDS: APIXABAN 5 MG TABLET PO SCH (11:02)
[2018-07-29] MEDS: ASPIRIN 81 MG CHEWABLE TABLETS PO SCH (11:02)
[2018-07-29] MEDS: CARVEDILOL 25 MG TABLET (FP) PO SCH (11:02)
[2018-07-29] MEDS: amLODIPine BESYLATE 10 MG TABLET (FP) PO SCH (11:02)
--- NOTE | 2018-07-29 11:02 | PN ---
Progress Note, SIGN LETTERER - Note Progress Note: Selected Entries 07/28/18 07/28/18 07/28/18 01:13 07:30 12:37 Supper Temperature 98.0 F 97.5 F L 97.5 F L 07/28/18 07/28/18 07/28/18 15:13 18:00 19:00 Supper 100% Temperature 98.5 F 98.3 F 98.1 F 07/29/18 07/29/18 07/29/18 02:00 05:51 10:00 Supper Temperature 97.9 F 97.8 F 97.7 F Laboratory Tests 07/29/18 05:35 WBC 4.6 On reg diet/thin liquids.
--- NOTE | 2018-07-29 11:27 | DS ---
Physical Exam: SUBJECTIVE: Patient seen and examined at bedside- no acute events overnight ; patient states that he is feeling better he is feeling stronger- denies any CP/ SOB/N/V fevers or chills OBJECTIVE: Vital Signs Period Temp Pulse Resp BP Sys/[place] Pulse Ox Last 24 Hr 97.5 F-98.5 F 65-84 18-20 118-158/76-94 96-98 PHYSICAL EXAM GENERAL: The patient is awake, alert, and fully oriented, in no acute distress. EYES: PEERLA: EOMI no scleral icterus NECK: no JVD; no lymphadenopathy LUNGS: CTA B/L; no rales,rhonchi or wheezing HEART: Regular rate and rhythm, S1, S2 without murmur, rub or gallop. ABDOMEN: Soft, nontender, nondistended, normoactive bowel sounds, no guarding, no rebound, no hepatosplenomegaly, no masses. EXTREMITIES: 2+ pulses, warm, well-perfused, no edema. NEUROLOGICAL: Cranial nerves II through XII grossly intact. Normal speech, gait not observed.4/5 strength B/L extremities- sensation intact througout PSYCH: Normal mood, normal affect. SKIN: Warm, dry, normal turgor, no rashes or lesions noted. LABS Laboratory Results - last 24 hr 07/28/18 07/28/18 07/28/18 12:32 17:50 22:26 WBC RBC Hgb Hct MCV MCH MCHC RDW Plt Count MPV Sodium Potassium Chloride Carbon Dioxide Anion Gap BUN Creatinine Creat Clearance w eGFR POC Glucometer 91 97 169 Random Glucose Calcium Phosphorus Magnesium Total Bilirubin AST ALT Alkaline Phosphatase Total Protein Albumin 07/29/18 07/29/18 07/29/18 05:35 05:35 05:54 WBC 4.6 RBC 4.13 Hgb 11.9 Hct 35.8 MCV 86.6 MCH 28.9 MCHC 33.4 RDW 14.2 Plt Count 219 MPV 8.7 Sodium 142 Potassium 3.5 Chloride 108 H Carbon Dioxide 28 Anion Gap 6 L BUN 15 Creatinine 0.7 Creat Clearance w eGFR 114.27 POC Glucometer 84 Random Glucose 80 Calcium 8.2 L Phosphorus 4.5 Magnesium 2.3 Total Bilirubin 0.8 AST 15 ALT 25 Alkaline Phosphatase 108 Total Protein 6.2 L Albumin 3.[address]: no acute intracranial pathology Carotid Dopplers: Mild intimal thickening and small plaques at the common carotid bifurcation/bulb, bilaterally without evidence of hemodynamically significant stenosis. Brain MRI: No evidence of edema, acute ischemia changes, hemorrhage. Following intravenous infusion with gadolinium, no blood brain barrier defect, or abnormal focus of enhancement is seen. Chronic lacunar infarct left putamen. Chronic infarct right cerebellum. T2 FLAIR, hyperintense white matter lesion is observed in the right cerebellum , left middle cerebellar peduncle, lateral aspect of the left cici. Confluent T2/ FLAIR hyperintense signal in the periventricular white matter, subcortical white matter to the greater degree involving the posterior periventricular white matter. Microangiopathic ischemic changes, gliosis. Brain MRA: no evidence of malformation on [facility] HOSPITAL COURSE: Date of Admission:07/27/18 Patient is a 63 year old male with history of numerous CVA (first one occurring approx age 53, had previous admission on 02/2018 for CVA workup; microvascular disease vs. demyelinating disease), paroxysmal afib (not on anticoagulation), hypertension, hyperlipidemia, diabetes mellitus non insulin dependent, presents with complaint of weakness and associated slurring of speech. Symptoms began with sudden onset while he was at [employer] early this afternoon. Patient denies fall or loss of consciousness. He endorsed blurry, hazy vision, with shortness of breath. Patient endorses these symptoms are similar to those from prior "strokes". He admits he last saw his collating machine operator three months ago, and had a stress test which he states was normal. Patient has not followed up with neurologist since last discharge from hospital in February 2018. Imaging done shown above with results. He was seen by neuro who thinks that these may be complex partial seizues and he was stated on Keppra 500 BID. In addition, he was previously on ASA and plavix for his previous CVA history however he has paroxysmal A fib and was seen by cardio who thinks it should patient should be placed on eliquis and to s/c his DAPT. So he was discharged home on eliquis and keprra in addiiton to his other home meds He was also d/c home with cardio referral for possible holter monitoring for paroxysmal afib and was also d/c home with neurology follow up. he has home services Date of Discharge: 07/29/18 Minutes to complete discharge: 35 Discharge Summary Reason For Visit: TRANSIENT ISCHEMIC ATTACK Current Active Problems Paroxysmal atrial fibrillation with RVR (Acute) TIA (transient ischemic attack) (Acute) Weakness (Acute) Condition: Stable - Instructions Diet, Activity, Other Instructions: You came in with complaints of dizziness and weakness in both of your legs and this possibly due to something called Complex Partial Seizures. You were seen by both a collating machine operator and a neurologist who started you on new medications. We are making a few changes to your medications: 1)Please take Eliquis 5mg twice a day 2)Please take Keppra 500mg twice a day Please stop taking the following medications: 1)Stop taking Aspirin 81mg 2)Stop taking Plavix 75mg 3)Stop taking both the Meclizine and the Flexeril Please follow up with your primary care physician within one week Please follow up with the neurologist, Dr. Herbert within one week Please follow up with the collating machine operator, Dr. Mccurdy within one week *if you begin to experience worsening numbness/weakness chest pains shortness of breath, nausea/vomiting please return to the emergency room immediately Referrals: Сергей Herbert MD [Staff Physician] - 1 Week Mundo Mccurdy MD [Staff Physician] - 1 Week Disposition: HOME - Home Medications Comprehensive Discharge Medication List: Ambulatory Orders Amlodipine Besylate [Norvasc -] 10 mg PO DAILY 06/13/16 Carvedilol 25 mg PO BID 06/13/16 Atorvastatin Ca [Lipitor] 80 mg PO HS #30 tablet 07/26/16 Albuterol Sulfate Inhaler - [Ventolin HFA Inhaler -] 1 puff IH PRN 06/19/17 Gabapentin 800 mg PO TID 06/19/17 Multivitamins [Multivit ([facility] Formulary)] 1 tab PO DAILY 06/19/17 Escitalopram Oxalate [Lexapro -] 20 mg PO DAILY #30 tablet 06/21/17 Bupropion HCl 100 mg PO DAILY 11/21/17 Tamsulosin HCl 0.4 mg PO HS 11/21/17 Ergocalciferol (Vitamin D2) [Vitamin D2] 50,000 unit PO WEEKLY 01/28/18 Ferrous Sulfate 324 mg PO DAILY 01/28/18 Thiamine HCl [Vitamin B-1] 100 mg PO DAILY 01/28/18 Vitamin B12 - 1,000 mg PO DAILY 01/28/18 Vitamin E 400 units PO DAILY 01/28/18 Diphenhydramine [Benadryl Capsule -] 50 mg PO TID 07/27/18 Lidocaine 5% Top. Ointment [Xylocaine 5% Top. Ointment -] 1 applic TP ASDIR 08/10 Xalatan 0.005% Eye Drops - 1 drop OU HS 07/27/18 Apixaban [Eliquis -] 5 mg PO BID #60 tablet 07/29/18 levETIRAcetam [Keppra -] 500 mg PO BID #60 tablet 07/29/18 Problem List - Problems (1) TIA (transient ischemic attack) Code(s): G45.9 - TRANSIENT CEREBRAL ISCHEMIC ATTACK, UNSPECIFIED Qualifiers: (2) Weakness Code(s): R53.1 - WEAKNESS This patient is new to me today: No Emergency Visit: Yes ED Registration Date: 07/27/18 Care time: The patient presented to the Emergency Department on the above date and was hospitalized for further evaluation of their emergent condition. Critical Care patient: No - Discharge Referral Referred to [facility] No
--- NOTE | 2018-07-29 12:47 | PN ---
Progress Note (short form) - Note Progress Note: NEUROLOGY PROGRESS: Pt received 1000 mg IVPB leveteracitam last night and started on 500 mg po BID this AM. Well tolerated without adverse effect. Ambulated with PT with walker down hallway today. Residual mild headache at vertex with photophobia and kinesiophobia. NEURO EXAM: Normal examination. 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
--- NOTE | 2018-07-29 12:54 | PN ---
Teaching Attending Note Name of Resident: Stefani Robles ATTENDING PHYSICIAN STATEMENT I saw and evaluated the patient. I reviewed the resident's note and discussed the case with the resident. I agree with the resident's findings and plan as documented. SUBJECTIVE: Symptoms resolved. No further slurring of speech or ongoing limb numbness/weakness. No visual disturbance/headache. No Nausea/vomiting. OBJECTIVE: Afebrile, Hemodynamically Stable. Last Vital Signs Temp Pulse Resp BP Pulse Ox 97.7 F 76 20 136/94 96 07/29/18 10:07/29/18 10:00 07/29/18 10:07/29/18 10:07/29/18 09:00 HEENT - Atraumatic. L partial facial droop (?chronic). No lymphadenopathy Heart - S1, S2, RRR Lungs - clear to auscultation Abdomen - Soft, non-tender. Bowel Sounds normal. Extremities - minimal edema, no calf tenderness. Laboratory Results - last 24 hr 07/28/18 07/28/18 07/29/18 17:50 22:26 05:35 WBC 4.6 RBC 4.13 Hgb 11.9 Hct 35.8 MCV 86.6 MCH 28.9 MCHC 33.4 RDW 14.2 Plt Count 219 MPV 8.7 Sodium Potassium Chloride Carbon Dioxide Anion Gap BUN Creatinine Creat Clearance w eGFR POC Glucometer 97 169 Random Glucose Calcium Phosphorus Magnesium Total Bilirubin AST ALT Alkaline Phosphatase Total Protein Albumin 07/29/18 07/29/18 07/29/18 05:35 05:54 12:05 WBC RBC Hgb Hct MCV MCH MCHC RDW Plt Count MPV Sodium 142 Potassium 3.5 Chloride 108 H Carbon Dioxide 28 Anion Gap 6 L BUN 15 Creatinine 0.7 Creat Clearance w eGFR 114.27 POC Glucometer 84 109 Random Glucose 80 Calcium 8.2 L Phosphorus 4.5 Magnesium 2.3 Total Bilirubin 0.8 AST 15 ALT 25 Alkaline Phosphatase 108 Total Protein 6.2 L Albumin 3.3 L Current Medications Generic Name Dose Route Start Last Admin Trade Name Freq PRN Reason Stop Dose Admin Amlodipine Besylate 10 mg 07/28/18 10:07/29/18 11:02 Norvasc - PO 10 mg DAILY JUWAN Administration Apixaban 5 mg 07/28/18 22:00 07/29/18 11:02 Eliquis - PO 5 mg BID JUWAN Administration Aspirin 81 mg 07/27/18 18:45 07/29/18 11:02 Asa - PO 81 mg DAILY JUWAN Administration Atorvastatin Calcium 80 mg 07/27/18 22:00 07/28/18 22:23 Lipitor - PO 80 mg HS JUWAN Administration Carvedilol 25 mg 07/27/18 22:00 07/29/18 11:02 Coreg - PO 25 mg BID JUWAN Administration Sodium Chloride 1,000 mls @ 42 mls/hr 07/27/18 13:15 07/27/18 13:39 Normal Saline - IV 42 mls/hr ASDIR JUWAN Administration Insulin Aspart 1 vial 07/27/18 22:00 07/29/18 12:31 Novolog Vial Sliding Scale - SQ Not Given ACHS [facility] Protocol Levetiracetam 500 mg 07/29/18 10:00 07/29/18 11:02 Keppra - PO 500 mg BID JUWAN Administration Tamsulosin HCl 0.4 mg 07/27/18 22:00 07/28/18 22:23 Flomax - PO 0.4 mg HS JUWAN Administration Discharge Medications Medication Instructions Recorded Amlodipine Besylate [Norvasc -] 10 mg PO DAILY 06/13/16 Carvedilol 25 mg PO BID 06/13/16 Atorvastatin Ca [Lipitor] 80 mg PO HS #30 tablet 07/26/16 Albuterol Sulfate Inhaler - 1 puff IH PRN 06/19/17 [Ventolin HFA Inhaler -] Gabapentin 800 mg PO TID 06/19/17 Multivitamins [Multivit ([facility] 1 tab PO DAILY 06/19/17 Formulary)] Escitalopram Oxalate [Lexapro -] 20 mg PO DAILY #30 tablet 06/21/17 Bupropion HCl 100 mg PO DAILY 11/21/17 Tamsulosin HCl 0.4 mg PO HS 11/21/17 Ergocalciferol (Vitamin D2) 50,000 unit PO WEEKLY 01/28/18 [Vitamin D2] Ferrous Sulfate 324 mg PO DAILY 01/28/18 Thiamine HCl [Vitamin B-1] 100 mg PO DAILY 01/28/18 Vitamin B12 - 1,000 mg PO DAILY 01/28/18 Vitamin E 400 units PO DAILY 01/28/18 Diphenhydramine [Benadryl Capsule 50 mg PO TID 07/27/18 -] Lidocaine 5% Top. Ointment 1 applic TP ASDIR 07/27/18 [Xylocaine 5% Top. Ointment -] Xalatan 0.005% Eye Drops - 1 drop OU HS 07/27/18 Apixaban [Eliquis -] 5 mg PO BID #60 tablet 07/29/18 levETIRAcetam [Keppra -] 500 mg PO BID #60 tablet 07/29/18 ASSESSMENT AND PLAN: 63 year old male with history of multiple CVAs, Paroxysmal Atrial Fibrillation, HTN, HLD, DM 2, BPH, presented with slurring of speech, UE weakness, confusion. 1. Recurrent TIAs in setting of paroxysmal Atrial Fibrillation CT Brain - no acute findings MRI/MRA Brain - Chronic lacunar infarct L putamen and R cerebellum; R posterior communicating artery. Echo - normal EF, moderate MR. Carotid Duplex - mild intimal thickening and small plaques at common carotid bifurcation - no hemodynamically significant stenosis. Evaluated by Cardiology and Neurology Started on Eliquis. (Patient previously recommended to take Eliquis but opted for DAPT instead). Importance of Eliquis in preventing future strokes impressed up the patient. Continue Coreg. Neuro recommends Keppra for possible complex partial seizures. Neuro and Cardio follow up on discharge. For out-patient Holter to assess Afib "load" as per Cardio. 2. HTN - continue Coreg, NorvascAdairvan. 3. DM 2 - A1C 5.9, Not on antihyperglycemic medication. Continue Diet Control. 4. HLD - Continue Atorvastatin. 5. BPH - Continue Tamsulosin. Medically/Neurologically [place] for discharge with Neuro and Cardio follow up.
[2018-07-29 15:12] VITALS: BP 135/91; PULSE 73; TEMP 98.2
== END 2018-07-29 15:20 | disposition home or self-care (01) | DRG 47 ==
LOC: JER 13:01 → JERBED 15:16 → J4W 07-28 14:34
PROVIDERS: ADMIT Internal Medicine
DX: G45.9 Transient cerebral ischemic attack, unspecified (principal); N40.0 Benign prostatic hyperplasia without lower urinary tract symptoms; G40.909 Epilepsy, unspecified, not intractable, without status epilepticus; E66.01 Morbid (severe) obesity due to excess calories; I48.0 Paroxysmal atrial fibrillation; I25.2 Old myocardial infarction; F32.9 Major depressive disorder, single episode, unspecified; I69.322 Dysarthria following cerebral infarction; R29.810 Facial weakness; I63.81 Other cerebral infarction due to occlusion or stenosis of small artery; J44.9 Chronic obstructive pulmonary disease, unspecified; R29.701 NIHSS score 1; Z68.38 Body mass index [BMI] 38.0-38.9, adult; G43.909 Migraine, unspecified, not intractable, without status migrainosus; G25.81 Restless legs syndrome; M48.02 Spinal stenosis, cervical region; E78.5 Hyperlipidemia, unspecified; E11.42 Type 2 diabetes mellitus with diabetic polyneuropathy; I25.10 Atherosclerotic heart disease of native coronary artery without angina pectoris; M54.5 Low back pain; I11.0 Hypertensive heart disease with heart failure; I50.9 Heart failure, unspecified; Z95.1 Presence of aortocoronary bypass graft; Z87.891 Personal history of nicotine dependence; Z93.1 Gastrostomy status
CPT/HCPCS: 36415; 70450-TC; 70544-TC; 70553-TC; 80048; 80053; 81003; 82465; 82550; 82607; 82962; 83036; 83718; 83721; 83735; 84100; 84443; 84478; 84484; 85025; 85027; 85610; 93005; 93010; 93306-TC; 93880-TC; 97116-GP; 97162-GP; 99285-25; J7030

== ENCOUNTER 2018-10-06 10:17 | Emergency (ER) | payer OTHER ==
[2018-10-06 11:06] VITALS: BMI 36.9
--- NOTE | 2018-10-06 12:26 | PDOC ---
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 Per the patient, he went to sleep at 3:30 pm yesterday after 4 days of atypical insomnia and awoke at 8am this morning. He normally ambulated with the walker and stated he was very weak and felt he was going to fall (Denies falling event). Per the aide, she states his speech was slightly more slurred, but the patient denies subjective speech changes, chest pain, palpitations, visual disturbances, nausea/vomiting, dysuria , incontinence, and dizziness. Endorses a headache that was present when he woke up that is sharp pain consistent with his last headache when he was present 07/2018. States he is compliant with medication and had EEG but does not know the results (currently with his PMD Dr. Bower in [place]). Denies the following: fevers, FND, SOB, abdominal pain. Denies shaking syndrome prior to symptom onset. Denies LOC. Allergies: NKDA Surgery hx: appendectomy and gastric bypass Social: Denies current drug, alcohol, and tobacco use. 10/06/18 12:27 Past History - Past Medical History Allergies/Adverse Reactions: Allergies Allergy/AdvReac Type Severity Reaction Status Date / Time citric acid Allergy Hives Verified 10/06/18 10:57 Home Medications: Ambulatory Orders Amlodipine Besylate [Norvasc -] 10 mg PO DAILY 06/13/16 Carvedilol 25 mg PO BID 06/13/16 Atorvastatin Ca [Lipitor] 80 mg PO HS #30 tablet 07/26/16 Albuterol Sulfate Inhaler - [Ventolin HFA Inhaler -] 1 puff IH PRN 06/19/17 Gabapentin 800 mg PO TID 06/19/17 Multivitamins [Multivit ([facility] Formulary)] 1 tab PO DAILY 06/19/17 Escitalopram Oxalate [Lexapro -] 20 mg PO DAILY #30 tablet 06/21/17 Bupropion HCl 100 mg PO DAILY 11/21/17 Tamsulosin HCl 0.4 mg PO HS 11/21/17 Ergocalciferol (Vitamin D2) [Vitamin D2] 50,000 unit PO WEEKLY 01/28/18 Ferrous Sulfate 324 mg PO DAILY 01/28/18 Thiamine HCl [Vitamin B-1] 100 mg PO DAILY 01/28/18 Vitamin B12 - 1,000 mg PO DAILY 01/28/18 Vitamin E 400 units PO DAILY 01/28/18 Diphenhydramine [Benadryl Capsule -] 50 mg PO TID 07/27/18 Lidocaine 5% Top. Ointment [Xylocaine 5% Top. Ointment -] 1 applic TP ASDIR 08/10 Xalatan 0.005% Eye Drops - 1 drop OU HS 07/27/18 Apixaban [Eliquis -] 5 mg PO BID #60 tablet 07/29/18 levETIRAcetam [Keppra -] 500 mg PO BID #60 tablet 07/29/18 Anemia: No Asthma: Yes Cancer: No Cardiac Disorders: Yes ([place]) CVA: Yes (nick lower/upper weakness uses a cane) COPD: No CHF: Yes DVT: Yes Dementia: No Diabetes: Yes GI Disorders: Yes (dumping syndrome) Disorders: No HTN: Yes Hypercholesterolemia: No Liver Disease: No Seizures: No Thyroid Disease: No - Surgical History Abdominal Surgery: Yes (gastric bypass 07/2015) Appendectomy: Yes Cardiac Surgery: No Cholecystectomy: No GI Surgery: Yes ([facility]PASS) Lung Surgery: No Neurologic Surgery: No Orthopedic Surgery: No - Immunization History Immunization Up to Date: Yes - Suicide/Smoking/Psychosocial Hx Smoking History: Never smoked Have you smoked in the past 12 months: No Number of Cigarettes Smoked Daily: 0 If you are a former smoker, when did you quit?: 37 YRS AGO Information on smoking cessation initiated: No 'Breaking Loose' booklet given: 06/20/17 Hx Alcohol Use: No Drug/Substance Use Hx: No Substance Use Type: None Hx Substance Use Treatment: No Review of Systems - Review of Systems Able to Perform ROS?: Yes Is the patient limited Bengali proficient: No Constitutional: Yes: Weakness. No: Chills, Diaphoresis, Fever HEENTM: No: Eye Pain, Double Vision, Ear Pain, Nose Pain, Throat Pain, Throat Swelling Respiratory: No: Cough, Shortness of Breath, Hemoptysis Cardiac (ROS): No: Chest Pain, Lightheadedness, Palpitations, Syncope, Chest Tightness ABD/GI: No: Constipated, Diarrhea, Nausea, Rectal Bleeding, Vomiting, Tarry Stools : No: Burning, Dysuria, Hematuria, Incontinence Musculoskeletal: No: Back Pain, Joint Pain, Neck Pain Integumentary: No: Bruising, Erythema, Rash Neurological: Yes: Headache, Unsteady Gait. No: Numbness, Tingling, Tremors Psychiatric: No: Stressors, Change in Appetite Endocrine: No: Unexplained Weight Gain Hematologic/Lymphatic: No: Anemia *Physical Exam - Vital Signs Last Vital Signs Temp Pulse Resp BP Pulse Ox 97.5 F L 75 16 104/65 98 10/06/18 10:20 10/06/18 10:20 10/06/18 10:20 10/06/18 10:20 10/06/18 10:20 - Physical Exam General Appearance: Yes: Nourished, Appropriately Dressed, Obese. No: Apparent Distress, Intoxicated HEENT: positive: EOMI, RADHA, Normal Voice, Symmetrical, Pharynx Normal, Hearing Grossly Normal. negative: Pale Conjunctivae, Scleral Icterus (R), Scleral Icterus (L), Muffled/Hoarse voice, Pharyngeal Erythema, Tonsillar Exudate, Tonsillar Erythema, Excessive drooling Neck: positive: Trachea midline, Supple. negative: Tender, Lymphadenopathy (R) , Lymphadenopathy (L), Tender lateral, Tender midline Respiratory/Chest: positive: Lungs Clear, Normal Breath Sounds. negative: Chest Tender, Respiratory Distress, Accessory Muscle Use, Crackles, Rales, Rhonchi, Stridor, Wheezing Cardiovascular: positive: Regular Rhythm, Regular Rate, S1, S2. negative: Systolic Murmur Gastrointestinal/Abdominal: positive: Normal Bowel Sounds, Flat, Soft. negative : Tender Lymphatic: negative: Adenopathy Musculoskeletal: positive: Normal Inspection. negative: CVA Tenderness, Vertebral Tenderness Extremity: positive: Normal Capillary Refill, Normal Inspection, Normal Range of Motion. negative: Tender, Swelling, Calf Tenderness Integumentary: positive: Normal Color, Dry, Warm Neurologic: positive: network operations lead II-XII NML intact, Fully Oriented, Alert, Normal Mood/ Affect, Normal Response, Motor Strength 5/5. 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 Initial vitals: Initial Vital Signs Temp Pulse Resp BP Pulse Ox 97.5 F L 75 16 104/65 98 10/06/18 10:20 10/06/18 10:20 10/06/18 10:20 10/06/18 10:20 10/06/18 10:20 EKG: NSR without ST elevation or depressions. No PVCs. Work up: patient presented in the past on 07/2018 for generalized weakness. He states the symptoms were worse then but similar in quality (same quality headache and generalized weakness). He was unable to ambulate effectively today per the patient. Ddx is broad for generalized weakness given his medical history. Previous MRA of brain shows hypoplastic [employer]. Per neurology, complex migraine diagnosed and patient was started on keppra and elquis due to paroxsymal afib. In addition, patient had EEG that was within normal limits. ddx includes metabolic disturbance (electrolyte vs hyperthyroid) vs infectious etiology (PNA vs UTI) vs neurological process (TIA vs CVA vs migraine with complex features vs epilepsy post ictal period (unlikely given persistence of symptoms) vs msk process (admits 1 years ago had "concerning neoplastic disease that was removed ". CN2-12 grossly intact and slightly altered Finger to nose on left side. cbc, cmp, ua, tsh, trops, ekg cxr, and head ct. Tx: tylenol and fluids Laboratory Tests 10/06/18 10/06/18 10/06/18 12:07 12:07 12:07 WBC RBC Hgb Hct MCV MCH MCHC RDW Plt Count MPV Absolute Neuts (auto) Neutrophils % Lymphocytes % Monocytes % Eosinophils % Basophils % Nucleated RBC % Sodium 141 Potassium 4.1 Chloride 108 H Carbon Dioxide 29 Anion Gap 4 L BUN 20.2 H Creatinine 1.2 Est GFR (CKD-EPI)AfAm 74.66 Est GFR (CKD-EPI)NonAf 64.42 Random Glucose 101 Calcium 9.1 Total Bilirubin 0.6 AST 21 ALT 25 Alkaline Phosphatase 130 H Creatine Kinase 198 Creatine Kinase Index 0.8 CK-MB (CK-2) 1.7 Troponin I < 0.02 Total Protein 7.2 Albumin 3.9 TSH 0.64 D Urine Color Urine Appearance Urine pH Ur Specific [place] Urine Protein Urine Glucose (UA) Urine Ketones Urine Blood Urine Nitrite Urine Bilirubin Urine Urobilinogen Ur Leukocyte Esterase Levetiracetam 8.2 L 10/06/18 10/06/18 13:08 13:25 WBC 4.7 RBC 4.84 Hgb 14.0 Hct 41.9 D MCV 86.6 MCH 29.0 MCHC 33.5 RDW 14.0 Plt Count 207 MPV 8.9 Absolute Neuts (auto) 1.8 Neutrophils % 37.7 L Lymphocytes % 37.4 Monocytes % 14.7 H Eosinophils % 9.1 H Basophils % 1.1 Nucleated RBC % 0 Sodium Potassium Chloride Carbon Dioxide Anion Gap BUN Creatinine Est GFR (CKD-EPI)AfAm Est GFR (CKD-EPI)NonAf Random Glucose Calcium Total Bilirubin AST ALT Alkaline Phosphatase Creatine Kinase Creatine Kinase Index CK-MB (CK-2) Troponin I Total Protein Albumin TSH Urine Color Dk yellow Urine Appearance Clear Urine pH 5.5 Ur Specific [place] 1.025 Urine Protein Negative Urine Glucose (UA) Negative Urine Ketones Trace H Urine Blood Negative Urine Nitrite Negative Urine Bilirubin Negative Urine Urobilinogen 1.0 Ur Leukocyte Esterase Negative Levetiracetam CT head negative. chest xray negative. no EKG changes noted from previous. no ST elevations or depressions. patient was re-evaluated. the patient had no deficits of gait and stated he felt like back to baseline. the patient was discharged with close follow up instructions with his PMD. Dispo: Discharge *DC/Admit/Observation/Transfer Diagnosis at time of Disposition: Weakness - Discharge Dispostion Disposition: HOME Decision to Admit order: No - Referrals Referrals: ON STAFF,NOT [Primary Care Provider] - [facility] – [place] [facility] [place] [Provider Group] - Patient Instructions Printed Discharge Instructions: DI for Muscle Weakness Additional Instructions: You were seen for your weakness, Your labs were within normal limits and your CT was negative for acute process. Please follow up with your medical doctor within 3 days after discharge for follow up care and management. please return to the emergency department if you have worsening pain or new concerning symptoms such as slurring speech, focal muscle weakness, and confusion. thank you - Post Discharge Activity
[2018-10-06] MEDS ORDERED: SODIUM CHLORIDE 0.9% 500 ML INFUS.BAG IV ONE (13:29)
[2018-10-06] MEDS ORDERED: ACETAMINOPHEN 1000 MG/100 ML VIAL (NON FORMULARY) IVPB ONE (13:32)
[2018-10-06 13:54] LABS: BASO % 1.1 % (0-2.0); EOS % 9.1 % (0-4.5); HEMATOCRIT 41.9 % (35.4-49); LYMPH % 37.4 % (8-40); MCHC 33.5 g/dl (32.0-35.9); MEAN CELL VOLUME 86.6 fl (80-96); MEAN PLT VOLUME 8.9 fl (7.5-11.1); MONO % 14.7 % (3.8-10.2); NEUT % 37.7 % (42.8-82.8); PLATELET COUNT 207 K/MM3 (134-434); RBC 4.84 M/mm3 (4.00-5.60); WHITE BLOOD COUNT 4.7 K/mm3 (4.0-10.0)
[2018-10-06 14:18] LABS: ALBUMIN 3.9 g/dl (3.4-5.0); ALK PHOS 130 U/L (45-117); ANION GAP 4 MMOL/L (8-16); BILIRUBIN,TOTAL 0.6 mg/dL (0.2-1); BLOOD UREA NITROGEN 20.2 mg/dL (7-18); CALCIUM 9.1 mg/dL (8.5-10.1); CHLORIDE 108 mmol/L (98-107); CO2 29 mmol/L (21-32); CREATININE 1.2 mg/dL (0.55-1.3); GLUCOSE,RANDOM 101 mg/dL (74-106); POTASSIUM 4.1 mmol/L (3.5-5.1); SGOT/AST 21 U/L (15-37); SGPT/ALT 25 U/L (13-61); SODIUM 141 mmol/L (136-145); TOT PROT 7.2 g/dl (6.4-8.2)
[2018-10-06] MEDS ORDERED: ACETAMINOPHEN 325 MG TABLET (FP) PO ONE (14:22)
--- NOTE | 2018-10-06 14:27 | PDOC ---
Documentation entered by Cynthia Garcia SCRIBE, acting as scribe for Scott Fuller MD. Scott Fuller MD: This documentation has been prepared by the scribe, Cynthia Garcia SCRIBE, under my direction and personally reviewed by me in its entirety. I confirm that the documentation accurately reflects all work, treatment, procedures, and medical decision making performed by me. Attending Attestation - Resident Resident Name: JohnieValerio - ED Attending Attestation I have performed the following: I have examined & evaluated the patient, The case was reviewed & discussed with the resident, I agree w/resident's findings & plan - HPI HPI: 10/06/18 14:22 63-year-old gentleman with extensive medical history including diabetes, multiple CVAs, paroxysmal A. fib who ambulates with walker at baseline presents today brought in by home health aide with episode of increased generalized weakness and difficulty standing this morning. Normally, patient can ambulate to the restroom with his walker, but this morning was unable to stand on his own so home health aide activated EMS. Patient does have episodes like this in the past, almost daily, but not to this degree. Denies any recent falls or infectious process or dehydration, has no cardiopulmonary complaints, has no focal neurological complaints. Patient attributes his symptoms to another exacerbation of his almost daily generalized weakness, he himself feels that he would not have activated EMS. - Physicial Exam PE: 10/06/18 14:24 Vitals are within normal limits Patient is known to me, he appears to be at his baseline, coherent and alert in stretcher Exam is atraumatic Heart is regular to auscultation, lungs are clear Symmetric strength 4 extremities, gait deferred - Medical Decision Making 10/06/18 14:24 63-year-old male with extensive medical history including CVA ambulate with walker at baseline presents now with acute on chronic episode of generalized weakness and inability to stand, no focal complaints on history and no focal findings on exam. Not consistent with CVA/TIA given nonfocality of complaints. Check labs CT head, chest x-ray EKG Reassess. If above workup is within normal limits and patient is able to ambulate with walker at baseline, consider discharge. Will disposition with PCP. Heart Score/ECG Review #1 ECG reviewed & interpreted by me at: 10:35 General ECG Interpretation: Sinus Rhythm, Normal Rate (66), Normal Intervals ( qtc 436), No acute ischemic changes (isolated TWI AVL) Compared to previous ECG there are: No significant change (c/w 07/27/18)
--- NOTE | 2018-10-06 14:36 | EKG ---
Test Reason : Blood Pressure : / mmHG Vent. Rate : 066 BPM Atrial Rate : 066 BPM P-R Int : 176 ms QRS Dur : 104 ms QT Int : 416 ms P-R-T Axes : 063 060 067 degrees QTc Int : 436 ms NORMAL SINUS RHYTHM NORMAL ECG WHEN COMPARED WITH ECG OF 27-JUL-2018 13:19, T WAVE VARIATION Confirmed by JOANNA CANCHOLA MD ([id number]) on 10/06/2018 2:36:27 PM Referred By: Confirmed By:JOANNA CANCHOLA MD
[2018-10-06] MEDS ORDERED: ACETAMINOPHEN 325 MG TABLET (FP) ONE (15:22)
[2018-10-06 15:29] VITALS: BP 124/64; PULSE 81; TEMP 97.2
[2018-10-06 15:39] LABS: PH,URINE 5.5 (5.0-8.0); URINE APPEARANCE CLEAR; URINE BILIRUBIN NEGATIVE (NEGATIVE); URINE COLOR DK YELLOW; URINE GLUCOSE (UA) NEGATIVE (NEGATIVE); URINE KETONE TRACE (NEGATIVE); URINE LEUK ESTERASE NEGATIVE (NEGATIVE); URINE NITRITE NEGATIVE (NEGATIVE); URINE PROTEIN NEGATIVE (NEGATIVE)
== END 2018-10-06 16:09 | disposition home or self-care (01) ==
LOC: JER 10:17
DX: R53.1 Weakness (principal); I25.10 Atherosclerotic heart disease of native coronary artery without angina pectoris; I11.0 Hypertensive heart disease with heart failure; I50.9 Heart failure, unspecified; I25.2 Old myocardial infarction; E78.5 Hyperlipidemia, unspecified; E11.9 Type 2 diabetes mellitus without complications; G40.209 Localization-related (focal) (partial) symptomatic epilepsy and epileptic syndromes with complex partial seizures, not intractable, without status epilepticus; Z79.01 Long term (current) use of anticoagulants; Z99.89 Dependence on other enabling machines and devices; I48.0 Paroxysmal atrial fibrillation; J44.9 Chronic obstructive pulmonary disease, unspecified; I69.854 Hemiplegia and hemiparesis following other cerebrovascular disease affecting left non-dominant side; I69.853 Hemiplegia and hemiparesis following other cerebrovascular disease affecting right non-dominant side
CPT/HCPCS: 36415; 70450-TC; 71045-TC-FY; 80053; 80177; 81003; 82550; 82553; 84443; 84484; 85025; 93005; 93010; 99282-25

== ENCOUNTER 2019-05-19 20:24 | Emergency (ER) | payer OTHER ==
--- NOTE | 2019-05-19 20:38 | PDOC ---
History of Present Illness - General Chief Complaint: Chest Pain Stated Complaint: CHEST PAIN Time Seen by Provider: 05/19/19 20:35 History Source: Patient - History of Present Illness Initial Comments: 05/19/19 21:17 64-year-old male complaining of midsternal chest pain prior to arrival. Patient reports some symptom relief after receiving nitroglycerin and aspirin by EMS. Denies nausea, vomiting, dizziness, diaphoresis. Headache, abdominal pain. Patient reports that when the EMS arrived his blood pressure was 200/100. Patient has a past medical history of hypertension, hyperlipidemia, ME and CVA. Patient has a is currently on Eliquis PCP: Dr. Pavel conway ( [place] [facility] : Dr. Mundo Mccurdy Presenting Symptoms: Chest Pain Timing/Duration: reports: resolved prior to arrival Nitro Today/Relief: Yes: 0.4 mg x 4, provided by EMS, complete relief Aspirin Received prior to arrival (Core Measure): Yes: 81 mg x 2 Beta Osmin given by EMS (Core Measure): No Beta Osmin taken at Home (Core Measure): No Beta Osmin indicated at this time? (Core Measure): No Associated Symptoms: Yes: Denies symptoms Past History - Past Medical History Allergies/Adverse Reactions: Allergies Allergy/AdvReac Type Severity Reaction Status Date / Time citric acid Allergy Hives Verified 05/19/19 20:26 Home Medications: Ambulatory Orders Amlodipine Besylate [Norvasc -] 10 mg PO DAILY 06/13/16 Carvedilol 25 mg PO BID 06/13/16 Atorvastatin Ca [Lipitor] 80 mg PO HS #30 tablet 07/26/16 Albuterol Sulfate Inhaler - [Ventolin HFA Inhaler -] 1 puff IH PRN 06/19/17 Gabapentin 800 mg PO TID 06/19/17 Multivitamins [Multivit ([facility] Formulary)] 1 tab PO DAILY 06/19/17 Escitalopram Oxalate [Lexapro -] 20 mg PO DAILY #30 tablet 06/21/17 Bupropion HCl 100 mg PO DAILY 11/21/17 Tamsulosin HCl 0.4 mg PO HS 11/21/17 Ergocalciferol (Vitamin D2) [Vitamin D2] 50,000 unit PO WEEKLY 01/28/18 Ferrous Sulfate 324 mg PO DAILY 01/28/18 Thiamine HCl [Vitamin B-1] 100 mg PO DAILY 01/28/18 Vitamin B12 - 1,000 mg PO DAILY 01/28/18 Vitamin E 400 units PO DAILY 01/28/18 Diphenhydramine [Benadryl Capsule -] 50 mg PO TID 07/27/18 Lidocaine 5% Top. Ointment [Xylocaine 5% Top. Ointment -] 1 applic TP ASDIR 08/10 Xalatan 0.005% Eye Drops - 1 drop OU HS 07/27/18 Apixaban [Eliquis -] 5 mg PO BID #60 tablet 07/29/18 levETIRAcetam [Keppra -] 500 mg PO BID #60 tablet 07/29/18 Anemia: No Asthma: Yes Cancer: No Cardiac Disorders: Yes ([place]) CVA: Yes (nick lower/upper weakness uses a cane) COPD: No CHF: Yes DVT: Yes Dementia: No Diabetes: Yes GI Disorders: Yes (dumping syndrome) Disorders: No HTN: Yes Hypercholesterolemia: No Liver Disease: No Seizures: No Thyroid Disease: No - Surgical History Abdominal Surgery: Yes (gastric bypass 07/2015) Appendectomy: Yes Cardiac Surgery: No Cholecystectomy: No GI Surgery: Yes (BYPASS) Lung Surgery: No Neurologic Surgery: No Orthopedic Surgery: No - Immunization History Immunization Up to Date: Yes - Psycho Social/Smoking Cessation Hx Smoking History: Former smoker Have you smoked in the past 12 months: No Number of Cigarettes Smoked Daily: 0 If you are a former smoker, when did you quit?: 37 YRS AGO 'Breaking Loose' booklet given: 06/20/17 Hx Alcohol Use: No Drug/Substance Use Hx: No Substance Use Type: None Hx Substance Use Treatment: No Cardiac Specific PMH - Complaint Specific PMHX Pacemaker: No Review of Systems - Review of Systems Able to Perform ROS?: Yes Is the patient limited Cuban proficient: No Cardiac (ROS): Yes: Chest Pain. No: Symptoms Reported, See HPI, Edema, Irregular Heart Rate, Lightheadedness, Palpitations, Syncope, Chest Tightness, Other ABD/GI: No: Symptoms Reported, See HPI, Abdominal Distended, Abd. Pain w/ defecation, Blood Streaked Bowels, Constipated, Diarrhea, Difficulty Swallowing , Nausea, Poor Appetite, Poor Fluid Intake, Rectal Bleeding, Vomiting, Indigestion, Abdominal cramping, Tarry Stools, Other *Physical Exam - Vital Signs Last Vital Signs Temp Pulse Resp BP Pulse Ox 97.9 F 79 18 148/98 98 05/19/19 20:39 05/20/19 00:21 05/20/19 00:21 05/20/19 00:21 05/20/19 00:21 - Physical Exam General Appearance: Yes: Appropriately Dressed Respiratory/Chest: positive: Lungs Clear, Normal Breath Sounds. negative: Chest Tender Cardiovascular: positive: Regular Rhythm, Regular Rate Gastrointestinal/Abdominal: positive: Normal Bowel Sounds, Soft. negative: Tender Musculoskeletal: positive: Normal Inspection Extremity: positive: Normal Capillary Refill, Normal Inspection, Normal Range of Motion Integumentary: positive: Normal Color, Dry, Warm Neurologic: positive: Fully Oriented, Alert, Normal Mood/Affect Heart Score/ECG Review - History History: Slightly suspicious - Electrocardiogram EKG: Normal - Age Age: 45-65 - Risk Factors Risk Factors Heart Score: Yes Hx Hypercholesterolemia, Yes Hx Hypertension Based on the list above the patient has:: 1-2 risk factors - Troponin Troponin: </= normal limit - Score Heart Score - Total: 2 - ECG Intrepretation Rhythm: Regular Rhythm Comment:: 05/19/19 23:21 NSR: 81 bpm ED Treatment Course - LABORATORY CBC & Chemistry Diagram: 05/19/19 22:15 05/19/19 22:15 - ADDITIONAL ORDERS Additional order review: Laboratory Results 05/19/19 05/19/19 22:15 22:15 PT with INR 12.20 INR 1.03 PTT (Actin FS) 31.7 Sodium 142 Potassium 3.6 Chloride 106 Carbon Dioxide 27 Anion Gap 9 BUN 16.1 Creatinine 1.1 Est GFR (CKD-EPI)AfAm 82.37 Est GFR (CKD-EPI)NonAf 71.07 Random Glucose 105 Calcium 9.1 Magnesium 1.9 Total Bilirubin 0.6 AST 27 ALT 25 Alkaline Phosphatase 128 H Creatine Kinase 210 Creatine Kinase Index 1.0 CK-MB (CK-2) 2.2 Troponin I 0.02 Total Protein 7.6 Albumin 3.8 05/19/19 22:15 RBC 4.77 MCV 89.2 MCHC 33.3 RDW 14.9 MPV 9.3 Neutrophils % 43.5 Lymphocytes % 37.0 Monocytes % 14.0 H Eosinophils % 5.1 H Basophils % 0.4 - RADIOLOGY Radiology Studies Ordered: Category Date Time Status CHEST PA & LAT [RAD] Stat Radiology 05/19/19 20:36 Taken Medical Decision Making - Medical Decision Making 05/19/19 21:26 Echo done in 2019 showed ejection fraction of 55 to 60%. Mild to moderate mitral regurg. 05/19/19 23:56 Note: The patient insists on leaving the emergency dept and is signing out against medical advice. The patient understands the risks and complications that may result from the refusal of medical care and admission which includes and permanent disability. The patient has the mental capacity of understanding the risks of refusing care and is capable of making an informed decision. The patient was instructed to return to the emergency department should change mind regarding medical care or should condition worsen. The patient signed the Against Medical Advice form. 05/20/19 02:18 Discharge - Discharge Information Problems reviewed: Yes Clinical Impression/Diagnosis: Chest pain in adult Condition: Fair Disposition: AGAINST MEDICAL ADVICE - Follow up/Referral - Patient Discharge Instructions - Post Discharge Activity
--- NOTE | 2019-05-19 20:41 | PDOC ---
*Physical Exam - Vital Signs Last Vital Signs Temp Pulse Resp BP Pulse Ox 97.9 F 85 18 115/80 99 05/19/19 20:39 05/19/19 20:39 05/19/19 20:39 05/19/19 20:39 05/19/19 20:39 ED Treatment Course - LABORATORY CBC & Chemistry Diagram: 05/19/19 22:15 05/19/19 22:15 Medical Decision Making - Medical Decision Making 05/19/19 20:41 Patient seen by the advanced practice provider under my supervision. Ancillary testing reviewed as necessary. I agree with plan as outlined by the advanced practice provider. Discharge - Discharge Information Problems reviewed: Yes Clinical Impression/Diagnosis: Chest pain in adult Disposition: AGAINST MEDICAL ADVICE - Follow up/Referral - Patient Discharge Instructions - Post Discharge Activity
[2019-05-19 20:43] VITALS: TEMP 97.9; BMI 34.2
[2019-05-19 22:52] LABS: BASO % 0.4 % (0-2.0); EOS % 5.1 % (0-4.5); HEMATOCRIT 42.5 % (35.4-49); HEMOGLOBIN 14.2 GM/dL (11.7-16.9); MCH 29.7 pg (25.7-33.7); MCHC 33.3 g/dl (32.0-35.9); MEAN CELL VOLUME 89.2 fl (80-96); MEAN PLT VOLUME 9.3 fl (7.5-11.1); NEUT % 43.5 % (42.8-82.8); PLATELET COUNT 262 K/MM3 (134-434); RBC 4.77 M/mm3 (4.00-5.60); RDW 14.9 % (11.9-15.9); WHITE BLOOD COUNT 6.2 K/mm3 (4.0-10.0)
[2019-05-19 23:02] LABS: INR 1.03 (0.83-1.09); PROTHROMBIN TIME (PATIENT) 12.2 SEC (9.7-13.0)
[2019-05-19 23:05] LABS: ACTIVATED PTT 31.7 SECONDS (25.2-36.5)
[2019-05-19 23:09] LABS: ALBUMIN 3.8 g/dl (3.4-5.0); BILIRUBIN,TOTAL 0.6 mg/dL (0.2-1); BLOOD UREA NITROGEN 16.1 mg/dL (7-18); CALCIUM 9.1 mg/dL (8.5-10.1); CREATININE 1.1 mg/dL (0.55-1.3); MAGNESIUM 1.9 mg/dL (1.8-2.4); POTASSIUM 3.6 mmol/L (3.5-5.1); TOT PROT 7.6 g/dl (6.4-8.2)
[2019-05-20 00:22] VITALS: BP 148/98; PULSE 79
--- NOTE | 2019-05-20 16:41 | EKG ---
Test Reason : Blood Pressure : / mmHG Vent. Rate : 081 BPM Atrial Rate : 081 BPM P-R Int : 156 ms QRS Dur : 086 ms QT Int : 396 ms P-R-T Axes : 069 069 064 degrees QTc Int : 460 ms NORMAL SINUS RHYTHM MINIMAL VOLTAGE CRITERIA FOR LVH, MAY BE NORMAL VARIANT BORDERLINE ECG Confirmed by MD ELIZABETH, SABAS ([id number]) on 05/20/2019 4:40:54 PM Referred By: Confirmed By:SABAS JOHNSON MD
== END 2019-05-20 00:20 | disposition left against medical advice (07) ==
LOC: JER 20:24
DX: R07.9 Chest pain, unspecified (principal); I25.10 Atherosclerotic heart disease of native coronary artery without angina pectoris; I11.0 Hypertensive heart disease with heart failure; I50.89 Other heart failure; I25.2 Old myocardial infarction; E11.9 Type 2 diabetes mellitus without complications; I69.854 Hemiplegia and hemiparesis following other cerebrovascular disease affecting left non-dominant side; I69.853 Hemiplegia and hemiparesis following other cerebrovascular disease affecting right non-dominant side; Z86.718 Personal history of other venous thrombosis and embolism; Z79.01 Long term (current) use of anticoagulants; Z98.84 Bariatric surgery status; K91.1 Postgastric surgery syndromes; E78.5 Hyperlipidemia, unspecified; Z87.891 Personal history of nicotine dependence
CPT/HCPCS: 36415; 71046-TC-FY; 80053; 82550; 82553; 83735; 84484; 85025; 85610; 85730; 93005; 93010; 99285-25

== ENCOUNTER 2021-06-16 10:25 | Inpatient (IN) | payer OTHER ==
[2021-06-16] MEDS ORDERED: LACTATED RINGERS SOLUTION 1000 ML INFUS.BAG IV ONE ×2 (11:04→12:47)
[2021-06-16] MEDS ORDERED: FAMOTIDINE 20 MG/50 ML IVPB 20 MG/50 ML MG IVPB ONE ×2 (11:04→11:27)
[2021-06-16] MEDS ORDERED: ACETAMINOPHEN 1000 MG/100 ML BAG IVPB ONE (11:04)
[2021-06-16] MEDS ORDERED: ONDANSETRON 4 MG/2 ML VIAL IVPUSH ONE (11:05)
[2021-06-16 11:24] VITALS: BMI 25.8
[2021-06-16] MEDS ORDERED: ACETAMINOPHEN INJECTION 100 ML IVPB ONE (11:25)
[2021-06-16] MEDS ORDERED: ONDANSETRON 4 MG/2 ML VIAL ONE (11:26)
[2021-06-16 12:19] LABS: BASO % 0.2 % (0-2.0); HEMATOCRIT 35.4 % (35.4-49); HEMOGLOBIN 12.3 GM/dL (11.7-16.9); LYMPH % 9.7 % (8-40); MCH 36.6 pg (25.7-33.7); MCHC 34.6 g/dl (32.0-35.9); MEAN CELL VOLUME 105.8 fl (80-96); MEAN PLT VOLUME 9.1 fl (7.5-11.1); MONO % 9.4 % (3.8-10.2); NEUT % 80.7 % (42.8-82.8); PLATELET COUNT 146 10^3/uL (134-434); RBC 3.35 M/mm3 (4.00-5.60); WHITE BLOOD COUNT 5.8 K/mm3 (4.0-10.0)
[2021-06-16 12:24] LABS: INR 1.04 (0.83-1.09)
[2021-06-16 12:27] LABS: ACTIVATED PTT 31.9 SECONDS (25.2-36.5)
[2021-06-16 12:36] LABS: CALCIUM 8.5 mg/dL (8.5-10.1)
[2021-06-16 12:37] LABS: ALBUMIN 3.5 g/dl (3.4-5.0); BLOOD UREA NITROGEN 10.8 mg/dL (7-18); MAGNESIUM 1.8 mg/dL (1.8-2.4)
[2021-06-16 12:37] LABS: PH,URINE 5.5 (5.0-8.0); URINE APPEARANCE CLEAR; URINE BILIRUBIN NEGATIVE (NEGATIVE); URINE COLOR YELLOW; URINE GLUCOSE (UA) NEGATIVE (NEGATIVE); URINE KETONE 3+ (NEGATIVE); URINE LEUK ESTERASE TRACE (NEGATIVE); URINE NITRITE NEGATIVE (NEGATIVE); URINE PROTEIN 1+ (NEGATIVE)
[2021-06-16 12:40] LABS: CREATININE 0.9 mg/dL (0.55-1.3); PHOSPHOROUS 4.2 mg/dL (2.5-4.9)
[2021-06-16 12:41] LABS: TOT PROT 6.7 g/dl (6.4-8.2)
[2021-06-16 12:42] LABS: BILIRUBIN,TOTAL 1.5 mg/dL (0.2-1)
[2021-06-16 12:43] LABS: LACTIC ACID 7.2 mmol/L (0.4-2.0)
[2021-06-16] MEDS ORDERED: POTASSIUM CHLORIDE TABS 20 MEQ TABLET.ER (FP) PO ONE ×2 (12:43→13:05)
[2021-06-16] MEDS ORDERED: DEXTROSE 50%-WATER 25 GM/50 ML DISP.SYRIN IVPUSH ONE (13:00)
[2021-06-16] MEDS ORDERED: THIAMINE HCL 200 MG/2 ML VIAL IVPB ONE (13:00)
[2021-06-16] MEDS ORDERED: FOLIC ACID 1 MG TABLET (FP) PO ONE (13:00)
[2021-06-16] MEDS ORDERED: THIAMINE HCL 200 MG/2 ML VIAL ONE (13:04)
[2021-06-16] MEDS ORDERED: FOLIC ACID 1 MG TABLET (FP) ONE (13:05)
[2021-06-16] MEDS ORDERED: DEXTROSE 50%-WATER 25 GM/50 ML DISP.SYRIN ONE (13:06)
[2021-06-16 14:29] LABS: ANISOCYTOSIS 2+; MACROCYTOSIS 2+; TARGET CELLS 1+; TEAR DROP CELLS 2+
[2021-06-16] MEDS ORDERED: chlordiazePOXIDE HCL 25 MG CAPSULE PO ONE (16:05)
[2021-06-16 16:10] LABS: VENOUS BASE EXCESS -6.6 mmol/L (-2-2); VENOUS PCO2 27.9 mmHg (38-52); VENOUS PH 7.4 (7.310-7.410)
[2021-06-16] MEDS ORDERED: chlordiazePOXIDE HCL 25 MG CAPSULE ONE (16:23)
[2021-06-16 16:33] LABS: BLOOD UREA NITROGEN 10.2 mg/dL (7-18); CALCIUM 8.1 mg/dL (8.5-10.1)
[2021-06-16] MEDS ORDERED: CALCIUM GLUCONATE 10% - 1,000 MG/10 ML VIAL IVPB ONE (16:42)
[2021-06-16] MEDS ORDERED: KCL 10 MEQ IVPB 10 MEQ/100 ML INFUS.BAG IVPB SCH (16:45)
[2021-06-16 17:02] LABS: LACTIC ACID 5.1 mmol/L (0.4-2.0)
[2021-06-16] MEDS ORDERED: SODIUM CHLORIDE 0.9% 500 ML INFUS.BAG IV ONE (17:37)
[2021-06-16] MEDS ORDERED: CALCIUM CHLORIDE 1 GM/10 ML *DISP.SYRIN ONE (17:39)
[2021-06-16] MEDS ORDERED: KCL 10 MEQ IVPB 10 MEQ/100 ML INFUS.BAG IVPB ONE (17:40)
[2021-06-16] MEDS ORDERED: CALCIUM GLUCONATE 10% - 1,000 MG/10 ML VIAL ONE (17:43)
[2021-06-16 20:43] LABS: VENOUS BASE EXCESS 0.9 mmol/L (-2-2); VENOUS PH 7.436 (7.310-7.410)
[2021-06-16] MEDS ORDERED: LORazepam 1 MG TABLET PO PRN (22:56)
[2021-06-16] MEDS ORDERED: LORazepam 2 MG TABLET PO SCH (23:00)
[2021-06-16] MEDS ORDERED: ALBUTEROL SO4 HFA INHALER IH PRN (23:00)
[2021-06-16] MEDS: APIXABAN 5 MG TABLET PO SCH (23:28)
[2021-06-16] MEDS: levETIRAcetam 500 MG TABLET (FP) PO SCH (23:36)
[2021-06-16] MEDS ORDERED: amLODIPine BESYLATE 10 MG TABLET (FP) ONE (23:37)
[2021-06-16] MEDS: amLODIPine BESYLATE 10 MG TABLET (FP) PO SCH (23:42)
[2021-06-16] MEDS: LACTATED RINGERS SOLUTION 1,000 ML/1,000 ML INFUS.BAG IV SCH (23:42)
[2021-06-17] MEDS: GABAPENTIN 400 MG CAPSULE PO SCH ×3 (05:17→21:35)
[2021-06-17] MEDS: LACTATED RINGERS SOLUTION 1,000 ML/1,000 ML INFUS.BAG IV SCH ×2 (06:00→22:00)
[2021-06-17] MEDS: LORazepam 1 MG TABLET PO SCH ×4 (06:03→23:00)
[2021-06-17] MEDS: INSULIN SLIDING SCALE (NOVOLOG) 1 VIAL SQ SCH ×3 (06:06→16:46)
[2021-06-17 07:04] LABS: BASO % 0.3 % (0-2.0); EOS % 1.1 % (0-4.5); HEMATOCRIT 33.4 % (35.4-49); HEMOGLOBIN 11.7 GM/dL (11.7-16.9); LYMPH % 16.9 % (8-40); MCH 36.3 pg (25.7-33.7); MCHC 34.9 g/dl (32.0-35.9); MEAN CELL VOLUME 104.1 fl (80-96); MEAN PLT VOLUME 9.2 fl (7.5-11.1); MONO % 9.9 % (3.8-10.2); NEUT % 71.8 % (42.8-82.8); PLATELET COUNT 107 10^3/uL (134-434); RBC 3.21 M/mm3 (4.00-5.60); RDW 14.3 % (11.9-15.9); WHITE BLOOD COUNT 5.5 K/mm3 (4.0-10.0)
[2021-06-17 07:13] LABS: CHLORIDE 95 mmol/L (98-107); SODIUM 137 mmol/L (136-145)
[2021-06-17 07:19] LABS: BLOOD UREA NITROGEN 7.5 mg/dL (7-18); CO2 31 mmol/L (21-32); GLUCOSE,RANDOM 112 mg/dL (74-106); MAGNESIUM 1.4 mg/dL (1.8-2.4)
[2021-06-17 07:21] LABS: CALCIUM 8.1 mg/dL (8.5-10.1); CHOLESTEROL 178 mg/dL (50-200)
[2021-06-17 07:22] LABS: CREATININE 0.9 mg/dL (0.55-1.3); PHOSPHOROUS 1.2 mg/dL (2.5-4.9); SGOT/AST 132 U/L (15-37); SGPT/ALT 52 U/L (13-61); TRIGLYCERIDES 368 mg/dL (0-150)
[2021-06-17 07:23] LABS: BILIRUBIN,TOTAL 2.5 mg/dL (0.2-1); LDL CHOLESTEROL (ONLY SJRH) 76 mg/dL (5-100); TOT PROT 5.8 g/dl (6.4-8.2)
[2021-06-17 07:24] LABS: ALK PHOS 103 U/L (45-117); HDL CHOLESTEROL 49 mg/dL (40-60)
[2021-06-17 07:35] LABS: ANION GAP 12 MMOL/L (8-16)
[2021-06-17] MEDS ORDERED: FLU VACC QS2021-22(6MOS UP)/PF 60 MCG/0.5 ML SYRINGE IM ONE (08:00)
[2021-06-17] MEDS ORDERED: MAGNESIUM SULFATE 4GM/100CC IN STERILE WATER IVPB ONE (09:00)
[2021-06-17] MEDS: ESCITALOPRAM OXALATE 10 MG TABLET PO SCH (10:33)
[2021-06-17] MEDS: amLODIPine BESYLATE 10 MG TABLET (FP) PO SCH (10:34)
[2021-06-17] MEDS: POTASSIUM CHLORIDE TABS 20 MEQ TABLET.ER (FP) PO SCH (10:34)
[2021-06-17] MEDS: CHOLECALCIFEROL (VIT D3) 1,000 UNIT (25 MCG) TABLET PO SCH (10:34)
[2021-06-17] MEDS: THIAMINE HCL 100 MG TABLET (FP) PO SCH (10:34)
[2021-06-17] MEDS: APIXABAN 5 MG TABLET PO SCH ×2 (10:34→21:35)
[2021-06-17] MEDS: CARVEDILOL 25 MG TABLET (FP) PO SCH ×2 (10:35→21:35)
[2021-06-17] MEDS: levETIRAcetam 500 MG TABLET (FP) PO SCH ×2 (10:35→21:35)
[2021-06-17] MEDS: FOLIC ACID 1 MG TABLET (FP) PO SCH (10:35)
[2021-06-17] MEDS: PANTOPRAZOLE SODIUM 40 MG VIAL IVPUSH SCH (10:35)
[2021-06-17] MEDS ORDERED: POTASSIUM PHOSPHATE 45 MM in SODIUM CHLORIDE 500 ML IVPB ONE (11:00)
[2021-06-17] MEDS: ATORVASTATIN CA 80 MG TABLET (FP) PO SCH (21:37)
[2021-06-18] MEDS: LORazepam 1 MG TABLET PO SCH ×5 (05:12→22:35)
[2021-06-18] MEDS: INSULIN SLIDING SCALE (NOVOLOG) 1 VIAL SQ SCH ×3 (06:29→16:36)
[2021-06-18] MEDS: GABAPENTIN 400 MG CAPSULE PO SCH ×3 (06:31→22:36)
[2021-06-18 07:28] LABS: BASO % 0.3 % (0-2.0); EOS % 2.3 % (0-4.5); HEMATOCRIT 34.3 % (35.4-49); HEMOGLOBIN 11.6 GM/dL (11.7-16.9); LYMPH % 16.1 % (8-40); MCH 35.6 pg (25.7-33.7); MCHC 33.7 g/dl (32.0-35.9); MEAN CELL VOLUME 105.6 fl (80-96); MEAN PLT VOLUME 10.3 fl (7.5-11.1); MONO % 6.8 % (3.8-10.2); NEUT % 74.5 % (42.8-82.8); PLATELET COUNT 87 10^3/uL (134-434); RBC 3.25 M/mm3 (4.00-5.60); WHITE BLOOD COUNT 5.4 K/mm3 (4.0-10.0)
[2021-06-18 07:45] LABS: CALCIUM 8.3 mg/dL (8.5-10.1)
[2021-06-18 07:46] LABS: ALBUMIN 2.8 g/dl (3.4-5.0); MAGNESIUM 2.3 mg/dL (1.8-2.4)
[2021-06-18 07:49] LABS: CREATININE 0.6 mg/dL (0.55-1.3); PHOSPHOROUS 2.8 mg/dL (2.5-4.9)
[2021-06-18 07:51] LABS: BILIRUBIN,TOTAL 2.4 mg/dL (0.2-1); TOT PROT 5.5 g/dl (6.4-8.2)
[2021-06-18] MEDS: CARVEDILOL 25 MG TABLET (FP) PO SCH ×2 (11:42→22:36)
[2021-06-18] MEDS: ESCITALOPRAM OXALATE 10 MG TABLET PO SCH (11:43)
[2021-06-18] MEDS: CHOLECALCIFEROL (VIT D3) 1,000 UNIT (25 MCG) TABLET PO SCH (11:44)
[2021-06-18] MEDS: FOLIC ACID 1 MG TABLET (FP) PO SCH (11:45)
[2021-06-18] MEDS: THIAMINE HCL 100 MG TABLET (FP) PO SCH (11:45)
[2021-06-18] MEDS: levETIRAcetam 500 MG TABLET (FP) PO SCH ×2 (11:45→22:36)
[2021-06-18] MEDS: POTASSIUM CHLORIDE TABS 20 MEQ TABLET.ER (FP) PO SCH (11:46)
[2021-06-18] MEDS: amLODIPine BESYLATE 10 MG TABLET (FP) PO SCH (11:46)
[2021-06-18] MEDS: APIXABAN 5 MG TABLET PO SCH ×2 (11:46→22:36)
[2021-06-18] MEDS: PANTOPRAZOLE SODIUM 40 MG VIAL IVPUSH SCH (11:47)
[2021-06-18] MEDS: ATORVASTATIN CA 80 MG TABLET (FP) PO SCH (22:36)
[2021-06-18] MEDS: LACTATED RINGERS SOLUTION 1,000 ML/1,000 ML INFUS.BAG IV SCH (22:36)
[2021-06-19] MEDS ORDERED: LORazepam 0.5 MG TABLET PO PRN
[2021-06-19] MEDS: GABAPENTIN 400 MG CAPSULE PO SCH ×3 (05:50→22:41)
[2021-06-19] MEDS: LORazepam 0.5 MG TABLET PO SCH ×4 (05:50→22:39)
[2021-06-19] MEDS: INSULIN SLIDING SCALE (NOVOLOG) 1 VIAL SQ SCH ×3 (06:12→16:19)
[2021-06-19] MEDS: POTASSIUM CHLORIDE TABS 20 MEQ TABLET.ER (FP) PO SCH (10:02)
[2021-06-19] MEDS: CARVEDILOL 25 MG TABLET (FP) PO SCH ×2 (10:03→22:38)
[2021-06-19] MEDS: THIAMINE HCL 100 MG TABLET (FP) PO SCH (10:03)
[2021-06-19] MEDS: amLODIPine BESYLATE 10 MG TABLET (FP) PO SCH (10:03)
[2021-06-19] MEDS: APIXABAN 5 MG TABLET PO SCH (10:03)
[2021-06-19] MEDS: levETIRAcetam 500 MG TABLET (FP) PO SCH ×2 (10:03→22:38)
[2021-06-19] MEDS: FOLIC ACID 1 MG TABLET (FP) PO SCH (10:03)
[2021-06-19] MEDS: CHOLECALCIFEROL (VIT D3) 1,000 UNIT (25 MCG) TABLET PO SCH (10:03)
[2021-06-19] MEDS: ESCITALOPRAM OXALATE 10 MG TABLET PO SCH (10:04)
[2021-06-19] MEDS: PANTOPRAZOLE SODIUM 40 MG VIAL IVPUSH SCH (10:04)
[2021-06-19] MEDS: LACTATED RINGERS SOLUTION 1,000 ML/1,000 ML INFUS.BAG IV SCH (10:24)
[2021-06-19 11:16] LABS: INR 1.72 (0.83-1.09); PROTHROMBIN TIME (PATIENT) 19.9 SEC (9.7-13.0)
[2021-06-19 11:18] LABS: ACTIVATED PTT 36.5 SECONDS (25.2-36.5)
[2021-06-19 18:04] LABS: HEMATOCRIT 33.2 % (35.4-49); HEMOGLOBIN 11.3 GM/dL (11.7-16.9); MCH 36.2 pg (25.7-33.7); MCHC 33.9 g/dl (32.0-35.9); MEAN CELL VOLUME 106.9 fl (80-96); MEAN PLT VOLUME 10.5 fl (7.5-11.1); PLATELET COUNT 76 10^3/uL (134-434); RBC 3.11 M/mm3 (4.00-5.60); RDW 14.8 % (11.9-15.9); WHITE BLOOD COUNT 10.8 K/mm3 (4.0-10.0)
[2021-06-19 18:29] LABS: ALBUMIN 2.8 g/dl (3.4-5.0); BLOOD UREA NITROGEN 9.4 mg/dL (7-18); CALCIUM 8.2 mg/dL (8.5-10.1); MAGNESIUM 2.1 mg/dL (1.8-2.4)
[2021-06-19 18:32] LABS: BILIRUBIN,DIRECT 1.3 mg/dL (0.0-0.2); CREATININE 0.6 mg/dL (0.55-1.3); PHOSPHOROUS 2.6 mg/dL (2.5-4.9)
[2021-06-19 18:33] LABS: TOT PROT 5.6 g/dl (6.4-8.2)
[2021-06-19 18:34] LABS: BILIRUBIN,TOTAL 2.2 mg/dL (0.2-1)
[2021-06-19] MEDS: ATORVASTATIN CA 80 MG TABLET (FP) PO SCH (22:38)
[2021-06-20] MEDS ORDERED: LORazepam 0.5 MG TABLET PO ONE (05:00)
[2021-06-20] MEDS: GABAPENTIN 400 MG CAPSULE PO SCH ×2 (06:40→13:45)
[2021-06-20] MEDS: LACTATED RINGERS SOLUTION 1,000 ML/1,000 ML INFUS.BAG IV SCH (06:40)
[2021-06-20] MEDS: INSULIN SLIDING SCALE (NOVOLOG) 1 VIAL SQ SCH ×2 (06:59→11:30)
[2021-06-20 07:31] LABS: ALBUMIN 2.6 g/dl (3.4-5.0); BLOOD UREA NITROGEN 9.6 mg/dL (7-18); CALCIUM 8.2 mg/dL (8.5-10.1)
[2021-06-20 07:33] LABS: CREATININE 0.5 mg/dL (0.55-1.3)
[2021-06-20 07:35] LABS: BILIRUBIN,DIRECT 1.2 mg/dL (0.0-0.2); TOT PROT 5.2 g/dl (6.4-8.2)
[2021-06-20 07:36] LABS: BASO % 0.4 % (0-2.0); EOS % 1.6 % (0-4.5); HEMATOCRIT 30.8 % (35.4-49); HEMOGLOBIN 10.4 GM/dL (11.7-16.9); MCH 36.6 pg (25.7-33.7); MCHC 33.8 g/dl (32.0-35.9); MEAN CELL VOLUME 108.2 fl (80-96); MEAN PLT VOLUME 10.5 fl (7.5-11.1); PLATELET COUNT 81 10^3/uL (134-434); RBC 2.84 M/mm3 (4.00-5.60); WHITE BLOOD COUNT 9.5 K/mm3 (4.0-10.0)
[2021-06-20] MEDS: levETIRAcetam 500 MG TABLET (FP) PO SCH (09:27)
[2021-06-20] MEDS: PANTOPRAZOLE SODIUM 40 MG VIAL IVPUSH SCH (09:27)
[2021-06-20] MEDS: ESCITALOPRAM OXALATE 10 MG TABLET PO SCH (09:28)
[2021-06-20] MEDS: CARVEDILOL 25 MG TABLET (FP) PO SCH (09:29)
[2021-06-20] MEDS: FOLIC ACID 1 MG TABLET (FP) PO SCH (09:29)
[2021-06-20] MEDS: CHOLECALCIFEROL (VIT D3) 1,000 UNIT (25 MCG) TABLET PO SCH (09:29)
[2021-06-20] MEDS: THIAMINE HCL 100 MG TABLET (FP) PO SCH (09:29)
[2021-06-20] MEDS: amLODIPine BESYLATE 10 MG TABLET (FP) PO SCH (09:29)
[2021-06-20 09:45] LABS: ANISOCYTOSIS 2+; MACROCYTOSIS 2+
[2021-06-20 11:27] LABS: ACTIVATED PTT 30.6 SECONDS (25.2-36.5); INR 1.27 (0.83-1.09); PROTHROMBIN TIME (PATIENT) 14.6 SEC (9.7-13.0)
[2021-06-20 14:48] VITALS: BP 126/68; PULSE 95; TEMP 98.5
== END 2021-06-20 17:05 | disposition home or self-care (01) | DRG 775 ==
LOC: JER 10:25 → JERBED 19:31 → J4W 06-17 02:51 → OBSVTOIN 06-17 08:53
PROVIDERS: ADMIT Internal Medicine; ATTEND Internal Medicine
PROC: HZ2ZZZZ Detoxification Services for Substance Abuse Treatment (ICD-10-PCS; principal; 2021-06-17)
DX: F10.239 Alcohol dependence with withdrawal, unspecified (principal); E87.2 Acidosis; I24.8 Other forms of acute ischemic heart disease; D53.9 Nutritional anemia, unspecified; E11.9 Type 2 diabetes mellitus without complications; I10 Essential (primary) hypertension; I48.0 Paroxysmal atrial fibrillation; E78.5 Hyperlipidemia, unspecified; I25.10 Atherosclerotic heart disease of native coronary artery without angina pectoris; J44.9 Chronic obstructive pulmonary disease, unspecified; J45.909 Unspecified asthma, uncomplicated; K76.0 Fatty (change of) liver, not elsewhere classified; R74.01 Elevation of levels of liver transaminase levels; R10.9 Unspecified abdominal pain; R07.9 Chest pain, unspecified
CPT/HCPCS: 36415; 71045-TC-FY; 71275-TC; 74174-TC; 76700-TC; 80048; 80053; 80061; 81003; 82248; 82803; 82962; 83036; 83605; 83690; 83735; 84100; 84439; 84443; 84484; 85025; 85027; 85379; 85610; 85730; 86850; 86900; 86901; 87086; 90686; 93005; 93010; 97116-GP; 97161-GP; 99291; C9803-CS; G0008; G0378; Q9967; U0003; U0005

== ENCOUNTER 2021-07-12 10:36 | Inpatient (IN) | payer OTHER ==
[2021-07-12 10:59] VITALS: BMI 29.0
[2021-07-12] MEDS ORDERED: ALBUTEROL SO4 2.5/IPRATROPIUM 0.5 INH SOL 3 ML VIAL.NEB. NEB ONE ×2 (11:18→11:23)
[2021-07-12] MEDS ORDERED: ACETAMINOPHEN 1000 MG/100 ML BAG IVPB ONE (11:18)
[2021-07-12] MEDS ORDERED: ACETAMINOPHEN INJECTION 100 ML IVPB ONE (11:23)
[2021-07-12 12:09] LABS: BASO % 1.3 % (0-2.0); EOS % 2.1 % (0-4.5); HEMATOCRIT 32.7 % (35.4-49); HEMOGLOBIN 10.9 GM/dL (11.7-16.9); LYMPH % 28.3 % (8-40); MCH 35.3 pg (25.7-33.7); MCHC 33.2 g/dl (32.0-35.9); MEAN CELL VOLUME 106.2 fl (80-96); MEAN PLT VOLUME 9.7 fl (7.5-11.1); MONO % 10.6 % (3.8-10.2); NEUT % 57.7 % (42.8-82.8); PLATELET COUNT 133 10^3/uL (134-434); RBC 3.08 M/mm3 (4.00-5.60); RDW 14.2 % (11.9-15.9); WHITE BLOOD COUNT 4.8 K/mm3 (4.0-10.0)
[2021-07-12 12:30] LABS: CALCIUM 7.9 mg/dL (8.5-10.1)
[2021-07-12 12:31] LABS: ALBUMIN 2.6 g/dl (3.4-5.0); BLOOD UREA NITROGEN 8.3 mg/dL (7-18); MAGNESIUM 1.7 mg/dL (1.8-2.4)
[2021-07-12 12:34] LABS: CREATININE 0.5 mg/dL (0.55-1.3)
[2021-07-12 12:36] LABS: BILIRUBIN,TOTAL 0.9 mg/dL (0.2-1); TOT PROT 5.8 g/dl (6.4-8.2)
[2021-07-12 12:38] LABS: ANISOCYTOSIS 3+; MACROCYTOSIS 3+; PLATELET ESTIMATE DECREASED
[2021-07-12] MEDS ORDERED: MAGNESIUM SULF 50% (8.12 MEQ/2 ML-1 GM VIAL) IVPB ONE (13:08)
[2021-07-12] MEDS ORDERED: POTASSIUM CHLORIDE TABS 20 MEQ TABLET.ER (FP) PO ONE ×4 (13:08→18:56)
[2021-07-12] MEDS ORDERED: MAGNESIUM SULF 50% (8.12 MEQ/2 ML-1 GM VIAL) ONE (13:12)
[2021-07-12] MEDS ORDERED: morphine CARPU-JECT 2 MG/1 ML DISP.SYRIN IVPUSH ONE (13:36)
[2021-07-12 14:00] LABS: EPI CELLS 21 /uL (0-25.1); HYALINE CASTS 4 /uL (0-3.1); PH,URINE 5.5 (5.0-8.0); URINE APPEARANCE CLOUDY; URINE BACTERIA >9,000 /uL (0-1359); URINE BILIRUBIN 1+ (NEGATIVE); URINE COLOR DK YELLOW; URINE GLUCOSE (UA) NEGATIVE (NEGATIVE); URINE KETONE TRACE (NEGATIVE); URINE LEUK ESTERASE 1+ (NEGATIVE); URINE NITRITE NEGATIVE (NEGATIVE); URINE PROTEIN 1+ (NEGATIVE); URINE UROBILINOGEN 4.0 E.U/dl mg/dL (0.2-1.0); URINE WBC 46 /uL (0-25.8)
[2021-07-12 14:00] LABS: INR 1.09 (0.83-1.09); PROTHROMBIN TIME (PATIENT) 12.6 SEC (9.7-13.0)
[2021-07-12 14:02] LABS: URINE RBC 27.5 /uL (0-23.9)
[2021-07-12] MEDS ORDERED: CEFTRIAXONE 1 GM in DEXTROSE 5%-WATER - 100 ML IVPB ONE (15:55)
[2021-07-12] MEDS ORDERED: CEFTRIAXONE 1 GM/50 ML BAG ONE (15:57)
[2021-07-12] MEDS ORDERED: ASPIRIN 325 MG TABLET PO ONE (16:24)
[2021-07-12] MEDS ORDERED: ASPIRIN 81 MG CHEWABLE TABLETS ONE (16:38)
[2021-07-12] MEDS ORDERED: ASPIRIN 325 MG TABLET ONE (16:38)
[2021-07-12] MEDS ORDERED: FOLIC ACID INJECTION - 1 MG, THIAMINE HCL 100 MG, MULTIVIT INJECTION ADULT 10 ML in SOD... IVPB ONE (17:02)
[2021-07-12] MEDS ORDERED: ALBUTEROL SO4 HFA INHALER IH PRN (17:50)
[2021-07-12] MEDS ORDERED: diazePAM 5 MG TABLET PO PRN (17:54)
[2021-07-12] MEDS ORDERED: diazePAM 5 MG TABLET PO ONE (17:54)
[2021-07-12 18:27] LABS: COCAINE, UR NEGATIVE (NEGATIVE); OPIATES, URI NEGATIVE (NEGATIVE); URINE BARBITURATES NEGATIVE (NEGATIVE)
[2021-07-12] MEDS ORDERED: diazePAM 5 MG TABLET ONE (18:27)
[2021-07-12 18:28] LABS: METHADONE, UR NEGATIVE (NEGATIVE); PHENCYCLIDINE,URINE NEGATIVE (NEGATIVE); URINE AMPHETAMINES NEGATIVE (NEGATIVE)
[2021-07-12 18:32] LABS: URINE BENZODIAZEPINES POSITIVE (NEGATIVE)
[2021-07-12] MEDS ORDERED: MAGNESIUM HYDROX 2400MG/30ML ORAL SUSPENSION 30 ML CUP PO ONE (18:45)
[2021-07-12] MEDS ORDERED: FAMOTIDINE 20 MG TABLET PO PRN (18:46)
[2021-07-12] MEDS ORDERED: MAG HYDROX/AL HYDROX/SIMETH 30 ML UNIT-DOSE CUP PO ONE (18:47)
[2021-07-12] MEDS ORDERED: MAG HYDROX/AL HYDROX/SIMETH 30 ML UNIT-DOSE CUP ONE (18:56)
[2021-07-12] MEDS ORDERED: APIXABAN 5 MG TABLET PO SCH (22:00)
[2021-07-12] MEDS ORDERED: PATIENT'S OWN MEDICATION (NON-FORMULARY) (Gabapentin [Gabapentin] 800 MG Tablet) PO SCH (22:00)
[2021-07-12] MEDS ORDERED: MIRTAZAPINE 15 MG TABLET (FP) PO SCH (22:00)
[2021-07-12] MEDS: levETIRAcetam 500 MG TABLET (FP) PO SCH (23:17)
[2021-07-12] MEDS: CARVEDILOL 25 MG TABLET (FP) PO SCH (23:17)
[2021-07-12] MEDS: diazePAM 5 MG TABLET PO SCH (23:22)
[2021-07-13] MEDS: diazePAM 5 MG TABLET PO SCH ×2 (05:35→10:57)
[2021-07-13] MEDS ORDERED: cefTRIAXone SODIUM 1 GM VIAL ONE (09:23)
[2021-07-13] MEDS ORDERED: DEXTROSE 5%-WATER - 50 ML IVPB ONE (09:23)
[2021-07-13] MEDS: CARVEDILOL 25 MG TABLET (FP) PO SCH (09:26)
[2021-07-13] MEDS: levETIRAcetam 500 MG TABLET (FP) PO SCH (09:27)
[2021-07-13] MEDS ORDERED: ESCITALOPRAM OXALATE 10 MG TABLET PO SCH (10:00)
[2021-07-13] MEDS ORDERED: MULTIVITAMINS (DAILY MVI) TABLET (FP) PO SCH (10:00)
[2021-07-13] MEDS ORDERED: FOLIC ACID 1 MG TABLET (FP) PO SCH (10:00)
[2021-07-13] MEDS ORDERED: CEFTRIAXONE 1 GM in DEXTROSE 5%-WATER - 50 ML IVPB SCH (10:00)
[2021-07-13] MEDS ORDERED: amLODIPine BESYLATE 10 MG TABLET (FP) PO SCH (10:00)
[2021-07-13] MEDS ORDERED: CYANOCOBALAMIN 1,000 MCG TABLET (FP) PO SCH (10:00)
[2021-07-13 10:43] LABS: BASO % 0.8 % (0-2.0); EOS % 2.8 % (0-4.5); HEMOGLOBIN 10.5 GM/dL (11.7-16.9); LYMPH % 26.9 % (8-40); MCH 35.3 pg (25.7-33.7); MCHC 32.9 g/dl (32.0-35.9); MEAN CELL VOLUME 107.3 fl (80-96); MEAN PLT VOLUME 10.3 fl (7.5-11.1); MONO % 12.4 % (3.8-10.2); NEUT % 57.1 % (42.8-82.8); PLATELET COUNT 115 10^3/uL (134-434); RBC 2.99 M/mm3 (4.00-5.60); RDW 14.4 % (11.9-15.9); WHITE BLOOD COUNT 4.8 K/mm3 (4.0-10.0)
[2021-07-13 10:48] VITALS: BP 144/99; PULSE 96; TEMP 97.9
[2021-07-13 11:10] LABS: CALCIUM 8.5 mg/dL (8.5-10.1)
[2021-07-13 11:11] LABS: ALBUMIN 2.6 g/dl (3.4-5.0)
[2021-07-13 11:14] LABS: CREATININE 0.6 mg/dL (0.55-1.3)
[2021-07-13 11:15] LABS: BILIRUBIN,TOTAL 1.7 mg/dL (0.2-1); TOT PROT 5.8 g/dl (6.4-8.2)
[2021-07-13] MEDS ORDERED: GABAPENTIN 400 MG CAPSULE PO SCH (14:00)
[2021-07-13] MEDS ORDERED: APIXABAN 5 MG TABLET PO SCH (22:00)
[2021-07-14] MEDS ORDERED: diazePAM 5 MG TABLET PO SCH (06:00)
[2021-07-15] MEDS ORDERED: diazePAM 5 MG TABLET PO SCH (06:00)
[2021-07-16] MEDS ORDERED: diazePAM 5 MG TABLET PO ONE (06:00)
== END 2021-07-13 13:57 | disposition home health service (06) | DRG 897 ==
LOC: JER 10:36 → JERBED 15:57 → J8W 22:55
PROVIDERS: ADMIT Internal Medicine; ATTEND Internal Medicine
DX: F10.239 Alcohol dependence with withdrawal, unspecified (principal); N39.0 Urinary tract infection, site not specified; J44.9 Chronic obstructive pulmonary disease, unspecified; J45.909 Unspecified asthma, uncomplicated; I10 Essential (primary) hypertension; E11.9 Type 2 diabetes mellitus without complications; K70.10 Alcoholic hepatitis without ascites; E78.5 Hyperlipidemia, unspecified; I25.10 Atherosclerotic heart disease of native coronary artery without angina pectoris; E87.8 Other disorders of electrolyte and fluid balance, not elsewhere classified; K52.9 Noninfective gastroenteritis and colitis, unspecified; E87.6 Hypokalemia; E83.42 Hypomagnesemia; R16.0 Hepatomegaly, not elsewhere classified; F12.90 Cannabis use, unspecified, uncomplicated; K59.09 Other constipation; R07.81 Pleurodynia; R07.89 Other chest pain
CPT/HCPCS: 36415; 71045-TC-FY; 74176-TC; 80053; 80307; 81003; 82607; 82746; 83690; 83735; 84100; 84484; 85025; 85610; 87086; 93005; 93010; 99285-25; C9803-CS; U0003; U0005

== ENCOUNTER 2021-07-17 12:08 | Observation (INO) | payer OTHER ==
[2021-07-17 12:19] VITALS: BMI 23.6
[2021-07-17] MEDS ORDERED: ASPIRIN 81 MG CHEWABLE TABLETS PO ONE (13:25)
[2021-07-17] MEDS ORDERED: FAMOTIDINE 20 MG/50 ML IVPB 20 MG/50 ML MG IVPB ONE (13:25)
[2021-07-17] MEDS ORDERED: ACETAMINOPHEN 1000 MG/100 ML BAG IVPB ONE (13:25)
[2021-07-17] MEDS ORDERED: SODIUM CHLORIDE 0.9% 500 ML INFUS.BAG IV ONE (13:25)
[2021-07-17] MEDS ORDERED: MAG HYDROX/AL HYDROX/SIMETH 30 ML UNIT-DOSE CUP PO ONE (13:25)
[2021-07-17] MEDS ORDERED: LIDOCAINE 5% TOPICAL PATCH TP ONE (13:26)
[2021-07-17] MEDS ORDERED: ACETAMINOPHEN INJECTION 100 ML IVPB ONE (13:35)
[2021-07-17] MEDS ORDERED: MAG HYDROX/AL HYDROX/SIMETH 30 ML UNIT-DOSE CUP ONE (13:35)
[2021-07-17] MEDS ORDERED: ASPIRIN 81 MG CHEWABLE TABLETS ONE (13:35)
[2021-07-17] MEDS ORDERED: FAMOTIDINE 10 MG/ML VIAL IVPB ONE (13:36)
[2021-07-17] MEDS ORDERED: LIDOCAINE 5% TOPICAL PATCH ONE (13:36)
[2021-07-17 15:19] LABS: BASO % 1.3 % (0-2.0); EOS % 2.4 % (0-4.5); HEMATOCRIT 30.8 % (35.4-49); HEMOGLOBIN 10.2 GM/dL (11.7-16.9); LYMPH % 29.9 % (8-40); MCH 35.6 pg (25.7-33.7); MCHC 33.1 g/dl (32.0-35.9); MEAN CELL VOLUME 107.6 fl (80-96); MEAN PLT VOLUME 9.5 fl (7.5-11.1); MONO % 12.8 % (3.8-10.2); NEUT % 53.6 % (42.8-82.8); PLATELET COUNT 133 10^3/uL (134-434); RBC 2.86 M/mm3 (4.00-5.60); RDW 14.7 % (11.9-15.9); WHITE BLOOD COUNT 4.7 K/mm3 (4.0-10.0)
[2021-07-17 15:28] LABS: INR 1.16 (0.83-1.09); PROTHROMBIN TIME (PATIENT) 13.4 SEC (9.7-13.0)
[2021-07-17 15:31] LABS: ACTIVATED PTT 32.4 SECONDS (25.2-36.5)
[2021-07-17 15:38] LABS: ALBUMIN 2.6 g/dl (3.4-5.0)
[2021-07-17 15:39] LABS: BLOOD UREA NITROGEN 10.1 mg/dL (7-18)
[2021-07-17 15:43] LABS: BILIRUBIN,TOTAL 0.6 mg/dL (0.2-1); CREATININE 0.5 mg/dL (0.55-1.3); MAGNESIUM 1.8 mg/dL (1.8-2.4); PHOSPHOROUS 2.9 mg/dL (2.5-4.9); TOT PROT 5.6 g/dl (6.4-8.2)
[2021-07-17 15:45] LABS: ANISOCYTOSIS 2+; MACROCYTOSIS 2+
[2021-07-17 17:03] LABS: LACTIC ACID 2.8 mmol/L (0.4-2.0)
[2021-07-17 17:17] LABS: URINE APPEARANCE CLEAR; URINE BILIRUBIN NEGATIVE (NEGATIVE); URINE COLOR YELLOW; URINE GLUCOSE (UA) NEGATIVE (NEGATIVE); URINE KETONE NEGATIVE (NEGATIVE); URINE LEUK ESTERASE NEGATIVE (NEGATIVE); URINE NITRITE NEGATIVE (NEGATIVE); URINE PROTEIN NEGATIVE (NEGATIVE)
[2021-07-17] MEDS ORDERED: APIXABAN 5 MG TABLET PO SCH (22:00)
[2021-07-17] MEDS ORDERED: LIDOCAINE PATCH REMOVAL MC ONE (22:00)
[2021-07-17] MEDS ORDERED: ATORVASTATIN CA 80 MG TABLET (FP) PO SCH (22:00)
[2021-07-17] MEDS ORDERED: ALBUTEROL SO4 HFA INHALER IH ONE (22:04)
[2021-07-17] MEDS ORDERED: APIXABAN 5 MG TABLET ONE (22:04)
[2021-07-17] MEDS ORDERED: ATORVASTATIN CA 80 MG TABLET (FP) ONE (22:04)
[2021-07-17] MEDS ORDERED: GABAPENTIN 300 MG CAPSULE ONE (22:04)
[2021-07-17] MEDS ORDERED: levETIRAcetam 500 MG TABLET (FP) PO ONE (22:04)
[2021-07-17] MEDS ORDERED: CARVEDILOL 25 MG TABLET (FP) ONE (22:05)
[2021-07-17] MEDS ORDERED: GABAPENTIN 100 MG CAPSULE ONE (22:05)
[2021-07-17] MEDS: SODIUM CHLORIDE 1,000 ML IV SCH (22:21)
[2021-07-17] MEDS: ALBUTEROL SO4 HFA INHALER IH SCH (22:21)
[2021-07-17] MEDS: INSULIN SLIDING SCALE (NOVOLOG) 1 VIAL SQ SCH (22:21)
[2021-07-17] MEDS: CARVEDILOL 25 MG TABLET (FP) PO SCH (22:21)
[2021-07-17] MEDS: levETIRAcetam 500 MG TABLET (FP) PO SCH (22:21)
[2021-07-17] MEDS: GABAPENTIN 400 MG CAPSULE PO SCH (22:21)
[2021-07-17] MEDS: APIXABAN 5 MG TABLET PO SCH (22:21)
[2021-07-17 22:48] LABS: CALCIUM 7.9 mg/dL (8.5-10.1)
[2021-07-17 22:49] LABS: ALBUMIN 2.3 g/dl (3.4-5.0)
[2021-07-17 22:52] LABS: CREATININE 0.7 mg/dL (0.55-1.3)
[2021-07-17 22:54] LABS: BILIRUBIN,TOTAL 0.7 mg/dL (0.2-1); TOT PROT 5.2 g/dl (6.4-8.2)
[2021-07-17] MEDS ORDERED: POTASSIUM CHLORIDE TABS 20 MEQ TABLET.ER (FP) PO ONE (23:26)
[2021-07-18] MEDS ORDERED: POTASSIUM CHLORIDE TABS 20 MEQ TABLET.ER (FP) PO ONE ×2 (02:00→15:20)
[2021-07-18] MEDS ORDERED: ENOXAPARIN NA (PORCINE) 40 MG/0.4 ML DISP.SYRIN SQ SCH (10:00)
[2021-07-18] MEDS ORDERED: amLODIPine BESYLATE 10 MG TABLET (FP) PO SCH (10:00)
[2021-07-18] MEDS ORDERED: ESCITALOPRAM OXALATE 20 MG TABLET PO SCH (10:00)
[2021-07-18] MEDS ORDERED: THIAMINE HCL 200 MG/2 ML VIAL IVPB SCH (10:00)
[2021-07-18] MEDS ORDERED: FOLIC ACID 1 MG TABLET (FP) PO SCH (10:00)
[2021-07-18] MEDS ORDERED: ESCITALOPRAM OXALATE 10 MG TABLET ONE (10:10)
[2021-07-18] MEDS: CARVEDILOL 25 MG TABLET (FP) PO SCH (10:17)
[2021-07-18] MEDS: APIXABAN 5 MG TABLET PO SCH (10:17)
[2021-07-18] MEDS: levETIRAcetam 500 MG TABLET (FP) PO SCH (10:18)
[2021-07-18] MEDS: ALBUTEROL SO4 HFA INHALER IH SCH ×2 (10:23→15:37)
[2021-07-18] MEDS: SODIUM CHLORIDE 1,000 ML IV SCH (10:24)
[2021-07-18] MEDS: INSULIN SLIDING SCALE (NOVOLOG) 1 VIAL SQ SCH ×3 (11:25→16:40)
[2021-07-18 12:11] LABS: SARS-CoV-2 NAA Not Detected (Not Detected)
[2021-07-18 12:11] LABS: SARS-CoV-2 NAA Not Detected (Not Detected)
[2021-07-18] MEDS: GABAPENTIN 400 MG CAPSULE PO SCH (14:09)
[2021-07-18 15:19] VITALS: BP 120/72; PULSE 98; TEMP 98.2
[2021-07-18] MEDS ORDERED: MAGNESIUM OXIDE 400 MG TABLET (FP) PO ONE (15:20)
[2021-07-18 17:17] LABS: ALBUMIN 2.6 g/dl (3.4-5.0); BLOOD UREA NITROGEN 7.3 mg/dL (7-18); CALCIUM 8.5 mg/dL (8.5-10.1); MAGNESIUM 1.8 mg/dL (1.8-2.4)
[2021-07-18 17:20] LABS: CREATININE 0.6 mg/dL (0.55-1.3); PHOSPHOROUS 2.4 mg/dL (2.5-4.9)
[2021-07-18 17:22] LABS: BILIRUBIN,TOTAL 0.9 mg/dL (0.2-1); TOT PROT 5.6 g/dl (6.4-8.2)
== END 2021-07-18 17:50 | disposition home health service (06) ==
LOC: JER 12:08 → JERBED 18:34 → OBSVTOIN 19:38 → INTOOBSV 19:38 → J8W 07-18 05:56
PROVIDERS: ADMIT Internal Medicine; ATTEND Internal Medicine
PROC: 3E033NZ Introduction of Analgesics, Hypnotics, Sedatives into Peripheral Vein, Percutaneous Approach (ICD-10-PCS; principal; 2021-07-17)
PROC: 3E0337Z Introduction of Electrolytic and Water Balance Substance into Peripheral Vein, Percutaneous Approach (ICD-10-PCS; 2021-07-17)
PROC: 3E033GC Introduction of Other Therapeutic Substance into Peripheral Vein, Percutaneous Approach (ICD-10-PCS; 2021-07-17)
PROC: 3E03329 Introduction of Other Anti-infective into Peripheral Vein, Percutaneous Approach (ICD-10-PCS; 2021-07-17)
DX: Z98.84 Bariatric surgery status (principal); K52.9 Noninfective gastroenteritis and colitis, unspecified; I11.0 Hypertensive heart disease with heart failure; F10.20 Alcohol dependence, uncomplicated; K85.90 Acute pancreatitis without necrosis or infection, unspecified; I25.10 Atherosclerotic heart disease of native coronary artery without angina pectoris; I50.9 Heart failure, unspecified; I25.2 Old myocardial infarction; J45.909 Unspecified asthma, uncomplicated; G89.4 Chronic pain syndrome; E55.9 Vitamin D deficiency, unspecified; M17.9 Osteoarthritis of knee, unspecified; E87.6 Hypokalemia; I48.0 Paroxysmal atrial fibrillation; K70.10 Alcoholic hepatitis without ascites; I11.9 Hypertensive heart disease without heart failure; H40.9 Unspecified glaucoma; Z86.718 Personal history of other venous thrombosis and embolism; R56.9 Unspecified convulsions; Z91.018 Allergy to other foods; Z87.898 Personal history of other specified conditions; Z87.891 Personal history of nicotine dependence
CPT/HCPCS: 36415; 71045-TC-FY; 74177-TC; 80053; 80307; 81003; 82962; 83605; 83690; 83735; 84100; 84484; 85025; 85610; 85730; 87086; 93005; 93010; 96361; 96365; 96366; 96367; 96375; 99285-25; C9803-CS; G0378; Q9967; U0003; U0005

== ENCOUNTER 2021-07-22 16:41 | Emergency (ER) | payer OTHER ==
[2021-07-22 16:46] VITALS: PULSE 91; BMI 23.7
[2021-07-22 18:08] VITALS: BP 172/89; TEMP 98.2
== END 2021-07-22 18:34 | disposition home or self-care (01) ==
LOC: JER 16:41
DX: R04.0 Epistaxis (principal)
CPT/HCPCS: 99281-25

== ENCOUNTER 2021-08-07 12:43 | Inpatient (IN) | payer OTHER ==
[2021-08-07] MEDS ORDERED: predniSONE 20 MG TABLET (UD) PO ONE (14:31)
[2021-08-07] MEDS: ALBUTEROL SO4 2.5/IPRATROPIUM 0.5 INH SOL 3 ML VIAL.NEB. NEB SCH ×3 (14:57→16:03)
[2021-08-07] MEDS ORDERED: predniSONE 20 MG TABLET (UD) ONE (15:00)
[2021-08-07 16:29] LABS: BASO % 1.1 % (0-2.0); EOS % 0.9 % (0-4.5); HEMATOCRIT 42.8 % (35.4-49); HEMOGLOBIN 14.4 GM/dL (11.7-16.9); LYMPH % 23.9 % (8-40); MCH 34.1 pg (25.7-33.7); MCHC 33.6 g/dl (32.0-35.9); MEAN CELL VOLUME 101.7 fl (80-96); MEAN PLT VOLUME 9.2 fl (7.5-11.1); MONO % 6.3 % (3.8-10.2); NEUT % 67.8 % (42.8-82.8); PLATELET COUNT 360 10^3/uL (134-434); RBC 4.21 M/mm3 (4.00-5.60); RDW 14.3 % (11.9-15.9); VENOUS BASE EXCESS -3.6 mmol/L (-2-2); VENOUS O2 SATURATION 55.3 % (70-80); VENOUS PCO2 50.1 mmHg (38-52); VENOUS PH 7.29 (7.310-7.410); WHITE BLOOD COUNT 6.6 K/mm3 (4.0-10.0)
[2021-08-07] MEDS ORDERED: ASPIRIN 81 MG CHEWABLE TABLETS PO ONE (16:29)
[2021-08-07] MEDS ORDERED: ACETAMINOPHEN 1000 MG/100 ML BAG IVPB ONE (16:29)
[2021-08-07 16:35] LABS: CHLORIDE 102 mmol/L (98-107); SODIUM 144 mmol/L (136-145)
[2021-08-07 16:38] LABS: BLOOD UREA NITROGEN 7.3 mg/dL (7-18); CALCIUM 9.2 mg/dL (8.5-10.1); CO2 25 mmol/L (21-32); GLUCOSE,RANDOM 77 mg/dL (74-106)
[2021-08-07 16:41] LABS: CREATININE 0.6 mg/dL (0.55-1.3); SGOT/AST 250 U/L (15-37); SGPT/ALT 91 U/L (13-61)
[2021-08-07] MEDS ORDERED: ASPIRIN 325 MG TABLET ONE (16:41)
[2021-08-07] MEDS ORDERED: ACETAMINOPHEN INJECTION 100 ML IVPB ONE (16:41)
[2021-08-07 16:42] LABS: BILIRUBIN,TOTAL 0.7 mg/dL (0.2-1)
[2021-08-07 16:44] LABS: ALK PHOS 119 U/L (45-117); TOT PROT 7.7 g/dl (6.4-8.2)
[2021-08-07 16:54] LABS: MAGNESIUM 2.2 mg/dL (1.8-2.4)
[2021-08-07 17:02] LABS: N-TERMINAL BNP 99.6 pg/ml (5-125)
[2021-08-07 17:30] LABS: INR 1.14 (0.83-1.09); PROTHROMBIN TIME (PATIENT) 13.1 SEC (9.7-13.0)
[2021-08-07 17:33] LABS: ACTIVATED PTT 34.2 SECONDS (25.2-36.5)
[2021-08-07 17:40] LABS: ANION GAP 16 MMOL/L (8-16)
[2021-08-07 18:05] LABS: EPI CELLS 18 /uL (0-25.1); HYALINE CASTS 6 /uL (0-3.1); PH,URINE 6.5 (5.0-8.0); URINE APPEARANCE CLOUDY; URINE BACTERIA 5799 /uL (0-1359); URINE BILIRUBIN NEGATIVE (NEGATIVE); URINE COLOR YELLOW; URINE GLUCOSE (UA) NEGATIVE (NEGATIVE); URINE KETONE TRACE (NEGATIVE); URINE LEUK ESTERASE TRACE (NEGATIVE); URINE NITRITE POSITIVE (NEGATIVE); URINE PROTEIN 1+ (NEGATIVE); URINE RBC 1 /uL (0-23.9); URINE WBC 19 /uL (0-25.8)
[2021-08-07] MEDS ORDERED: POTASSIUM CHLORIDE ORAL LIQUID 20 MEQ/15 ML PO ONE (18:22)
[2021-08-07] MEDS ORDERED: POTASSIUM CHLORIDE TABS 20 MEQ TABLET.ER (FP) PO ONE ×2 (18:22→18:36)
[2021-08-07] MEDS ORDERED: POTASSIUM CHLORIDE ORAL LIQUID 20 MEQ/15 ML ONE (18:36)
[2021-08-07] MEDS ORDERED: ALBUTEROL SO4 0.083% IH SOL 2.5 MG/3 ML VIAL.NEB. NEB PRN (21:29)
[2021-08-07] MEDS ORDERED: ALBUTEROL SO4 HFA INHALER IH PRN (21:29)
[2021-08-07] MEDS: INSULIN SLIDING SCALE (NOVOLOG) 1 VIAL SQ SCH (23:15)
[2021-08-07] MEDS ORDERED: guaiFENesin/D-METHORPHAN HB 10 ML UNIT-DOSE CUPS PO ONE (23:17)
[2021-08-08] MEDS ORDERED: MAG HYDROX/AL HYDROX/SIMETH 30 ML UNIT-DOSE CUP PO ONE (00:39)
[2021-08-08] MEDS ORDERED: cefTRIAXone SODIUM 1 GM VIAL ONE ×2 (00:41→10:18)
[2021-08-08] MEDS ORDERED: DEXTROSE 5%-WATER - 50 ML IVPB ONE ×2 (00:41→10:18)
[2021-08-08] MEDS: CARVEDILOL 25 MG TABLET (FP) PO SCH ×3 (00:43→21:46)
[2021-08-08] MEDS: levETIRAcetam 500 MG TABLET (FP) PO SCH ×3 (00:43→21:46)
[2021-08-08] MEDS: ATORVASTATIN CA 80 MG TABLET (FP) PO SCH ×2 (00:43→21:46)
[2021-08-08] MEDS: APIXABAN 5 MG TABLET PO SCH ×3 (00:43→21:46)
[2021-08-08] MEDS: GABAPENTIN 400 MG CAPSULE PO SCH ×4 (00:43→21:46)
[2021-08-08] MEDS: CEFTRIAXONE 1 GM in DEXTROSE 5%-WATER - 50 ML IVPB SCH ×2 (00:44→10:53)
[2021-08-08 00:57] LABS: CALCIUM 8.5 mg/dL (8.5-10.1)
[2021-08-08 00:58] LABS: ALBUMIN 2.7 g/dl (3.4-5.0); BLOOD UREA NITROGEN 9.1 mg/dL (7-18)
[2021-08-08 01:01] LABS: CREATININE 0.6 mg/dL (0.55-1.3)
[2021-08-08 01:03] LABS: BILIRUBIN,TOTAL 0.8 mg/dL (0.2-1)
[2021-08-08] MEDS: methylPREDNISolone NA SUCC 40 MG/1 ML VIAL IVPUSH SCH ×3 (01:28→17:22)
[2021-08-08 06:53] LABS: BASO % 0.4 % (0-2.0); EOS % 0.1 % (0-4.5); HEMATOCRIT 35.8 % (35.4-49); HEMOGLOBIN 11.8 GM/dL (11.7-16.9); LYMPH % 9.3 % (8-40); MCH 33.7 pg (25.7-33.7); MEAN PLT VOLUME 9.5 fl (7.5-11.1); MONO % 4.1 % (3.8-10.2); NEUT % 86.1 % (42.8-82.8); PLATELET COUNT 257 10^3/uL (134-434); RBC 3.51 M/mm3 (4.00-5.60); WHITE BLOOD COUNT 4.2 K/mm3 (4.0-10.0)
[2021-08-08 07:11] LABS: CALCIUM 8.6 mg/dL (8.5-10.1)
[2021-08-08 07:12] LABS: MAGNESIUM 2.1 mg/dL (1.8-2.4)
[2021-08-08 07:13] LABS: ALBUMIN 2.5 g/dl (3.4-5.0); BLOOD UREA NITROGEN 8.1 mg/dL (7-18)
[2021-08-08 07:15] LABS: CREATININE 0.5 mg/dL (0.55-1.3)
[2021-08-08 07:16] LABS: TOT PROT 6.4 g/dl (6.4-8.2)
[2021-08-08] MEDS: INSULIN SLIDING SCALE (NOVOLOG) 1 VIAL SQ SCH (07:44)
[2021-08-08] MEDS: ALBUTEROL SO4 2.5/IPRATROPIUM 0.5 INH SOL 3 ML VIAL.NEB. NEB SCH ×4 (08:10→20:06)
[2021-08-08] MEDS ORDERED: MIRTAZAPINE 15 MG TABLET (FP) ONE (10:16)
[2021-08-08] MEDS: ESCITALOPRAM OXALATE 10 MG TABLET PO SCH (10:50)
[2021-08-08] MEDS: amLODIPine BESYLATE 10 MG TABLET (FP) PO SCH (10:52)
[2021-08-08] MEDS: MIRTAZAPINE 30 MG TABLET PO SCH (10:54)
[2021-08-08] MEDS ORDERED: PNEUMOC 20-VAL CONJ-DIP CRM/PF 0.5 ML SYRINGE IM ONE (15:00)
[2021-08-09] MEDS: methylPREDNISolone NA SUCC 40 MG/1 ML VIAL IVPUSH SCH ×3 (02:55→18:19)
[2021-08-09] MEDS: GABAPENTIN 400 MG CAPSULE PO SCH ×3 (05:50→23:25)
[2021-08-09] MEDS: ALBUTEROL SO4 2.5/IPRATROPIUM 0.5 INH SOL 3 ML VIAL.NEB. NEB SCH ×4 (07:33→20:45)
[2021-08-09 07:52] LABS: BASO % 1.5 % (0-2.0); HEMATOCRIT 38.1 % (35.4-49); HEMOGLOBIN 12.8 GM/dL (11.7-16.9); LYMPH % 7.3 % (8-40); MCH 34.3 pg (25.7-33.7); MCHC 33.6 g/dl (32.0-35.9); MEAN CELL VOLUME 102.1 fl (80-96); MEAN PLT VOLUME 9.5 fl (7.5-11.1); MONO % 4.8 % (3.8-10.2); NEUT % 86.4 % (42.8-82.8); PLATELET COUNT 259 10^3/uL (134-434); RBC 3.73 M/mm3 (4.00-5.60); RDW 14.2 % (11.9-15.9); WHITE BLOOD COUNT 5.2 K/mm3 (4.0-10.0)
[2021-08-09 08:26] LABS: ALBUMIN 2.7 g/dl (3.4-5.0); BLOOD UREA NITROGEN 10.8 mg/dL (7-18); CALCIUM 8.9 mg/dL (8.5-10.1)
[2021-08-09 08:28] LABS: CREATININE 0.6 mg/dL (0.55-1.3); MAGNESIUM 2.3 mg/dL (1.8-2.4)
[2021-08-09 08:30] LABS: BILIRUBIN,TOTAL 0.7 mg/dL (0.2-1); TOT PROT 6.6 g/dl (6.4-8.2)
[2021-08-09] MEDS ORDERED: MIRTAZAPINE 15 MG TABLET (FP) ONE (09:15)
[2021-08-09] MEDS ORDERED: cefTRIAXone SODIUM 1 GM VIAL ONE (09:18)
[2021-08-09] MEDS ORDERED: DEXTROSE 5%-WATER - 50 ML IVPB ONE (09:18)
[2021-08-09] MEDS: CEFTRIAXONE 1 GM in DEXTROSE 5%-WATER - 50 ML IVPB SCH (10:10)
[2021-08-09] MEDS: APIXABAN 5 MG TABLET PO SCH ×2 (10:11→23:35)
[2021-08-09] MEDS: MULTIVIT-MINERALS ORAL LIQUID PO SCH (10:11)
[2021-08-09] MEDS: amLODIPine BESYLATE 10 MG TABLET (FP) PO SCH (10:11)
[2021-08-09] MEDS: levETIRAcetam 500 MG TABLET (FP) PO SCH ×2 (10:11→23:20)
[2021-08-09] MEDS: ESCITALOPRAM OXALATE 10 MG TABLET PO SCH (10:12)
[2021-08-09] MEDS: CARVEDILOL 25 MG TABLET (FP) PO SCH ×2 (10:12→23:30)
[2021-08-09] MEDS: MIRTAZAPINE 30 MG TABLET PO SCH (10:13)
[2021-08-09] MEDS: NAPH,MB-DB/K PH,MBDB POWDER PACKET PO SCH ×2 (13:26→23:30)
[2021-08-09] MEDS ORDERED: KETOROLAC TROMETHAMINE 15 MG/ML VIAL IVPUSH ONE (20:08)
[2021-08-09] MEDS ORDERED: ONDANSETRON 4 MG/2 ML VIAL IVPUSH ONE (20:09)
[2021-08-09] MEDS: ATORVASTATIN CA 80 MG TABLET (FP) PO SCH (23:40)
[2021-08-10] MEDS: methylPREDNISolone NA SUCC 40 MG/1 ML VIAL IVPUSH SCH ×3 (01:18→17:34)
[2021-08-10] MEDS: NAPH,MB-DB/K PH,MBDB POWDER PACKET PO SCH (06:36)
[2021-08-10] MEDS: GABAPENTIN 400 MG CAPSULE PO SCH ×3 (06:36→21:06)
[2021-08-10 07:40] LABS: BASO % 0.1 % (0-2.0); HEMATOCRIT 34.9 % (35.4-49); HEMOGLOBIN 11.8 GM/dL (11.7-16.9); LYMPH % 5.8 % (8-40); MCH 34.7 pg (25.7-33.7); MCHC 33.7 g/dl (32.0-35.9); MEAN PLT VOLUME 9.7 fl (7.5-11.1); MONO % 4.3 % (3.8-10.2); NEUT % 89.8 % (42.8-82.8); PLATELET COUNT 221 10^3/uL (134-434); RBC 3.39 M/mm3 (4.00-5.60); RDW 14.2 % (11.9-15.9); WHITE BLOOD COUNT 7.6 K/mm3 (4.0-10.0)
[2021-08-10] MEDS: ALBUTEROL SO4 2.5/IPRATROPIUM 0.5 INH SOL 3 ML VIAL.NEB. NEB SCH ×4 (07:55→20:26)
[2021-08-10 08:16] LABS: CALCIUM 8.6 mg/dL (8.5-10.1)
[2021-08-10 08:17] LABS: ALBUMIN 2.3 g/dl (3.4-5.0); BLOOD UREA NITROGEN 18.3 mg/dL (7-18); MAGNESIUM 2.1 mg/dL (1.8-2.4)
[2021-08-10 08:20] LABS: BILIRUBIN,TOTAL 0.5 mg/dL (0.2-1); CREATININE 0.7 mg/dL (0.55-1.3); PHOSPHOROUS 2.2 mg/dL (2.5-4.9)
[2021-08-10 08:21] LABS: TOT PROT 5.7 g/dl (6.4-8.2)
[2021-08-10] MEDS ORDERED: MIRTAZAPINE 15 MG TABLET (FP) ONE (09:07)
[2021-08-10] MEDS ORDERED: DEXTROSE 5%-WATER - 50 ML IVPB ONE (09:09)
[2021-08-10] MEDS ORDERED: cefTRIAXone SODIUM 1 GM VIAL ONE (09:09)
[2021-08-10] MEDS: CEFTRIAXONE 1 GM in DEXTROSE 5%-WATER - 50 ML IVPB SCH (10:38)
[2021-08-10] MEDS: levETIRAcetam 500 MG TABLET (FP) PO SCH ×2 (10:39→21:06)
[2021-08-10] MEDS: MULTIVIT-MINERALS ORAL LIQUID PO SCH (10:39)
[2021-08-10] MEDS: FOLIC ACID 1 MG TABLET (FP) PO SCH (10:40)
[2021-08-10] MEDS: APIXABAN 5 MG TABLET PO SCH ×2 (10:40→21:06)
[2021-08-10] MEDS: ESCITALOPRAM OXALATE 10 MG TABLET PO SCH (10:40)
[2021-08-10] MEDS: amLODIPine BESYLATE 10 MG TABLET (FP) PO SCH (10:41)
[2021-08-10] MEDS: MIRTAZAPINE 30 MG TABLET PO SCH (10:41)
[2021-08-10] MEDS: CARVEDILOL 25 MG TABLET (FP) PO SCH ×2 (10:41→21:06)
[2021-08-10] MEDS: ATORVASTATIN CA 80 MG TABLET (FP) PO SCH (21:06)
[2021-08-11] MEDS: methylPREDNISolone NA SUCC 40 MG/1 ML VIAL IVPUSH SCH (02:14)
[2021-08-11] MEDS: GABAPENTIN 400 MG CAPSULE PO SCH ×3 (06:21→21:12)
[2021-08-11] MEDS: ALBUTEROL SO4 2.5/IPRATROPIUM 0.5 INH SOL 3 ML VIAL.NEB. NEB SCH ×4 (07:40→20:14)
[2021-08-11 07:55] LABS: HEMATOCRIT 37.1 % (35.4-49); HEMOGLOBIN 12.3 GM/dL (11.7-16.9); MCHC 33.1 g/dl (32.0-35.9); MEAN CELL VOLUME 102.9 fl (80-96); MEAN PLT VOLUME 9.6 fl (7.5-11.1); PLATELET COUNT 212 10^3/uL (134-434); RBC 3.61 M/mm3 (4.00-5.60); RDW 14.1 % (11.9-15.9); WHITE BLOOD COUNT 11.1 K/mm3 (4.0-10.0)
[2021-08-11 07:59] LABS: CALCIUM 8.6 mg/dL (8.5-10.1)
[2021-08-11 08:00] LABS: ALBUMIN 2.4 g/dl (3.4-5.0); BLOOD UREA NITROGEN 21.3 mg/dL (7-18); MAGNESIUM 2.2 mg/dL (1.8-2.4)
[2021-08-11 08:02] LABS: CREATININE 0.6 mg/dL (0.55-1.3)
[2021-08-11 08:03] LABS: BILIRUBIN,TOTAL 0.4 mg/dL (0.2-1)
[2021-08-11 08:04] LABS: PHOSPHOROUS 2.1 mg/dL (2.5-4.9); TOT PROT 5.6 g/dl (6.4-8.2)
[2021-08-11] MEDS ORDERED: MIRTAZAPINE 15 MG TABLET (FP) ONE (09:07)
[2021-08-11] MEDS ORDERED: cefTRIAXone SODIUM 1 GM VIAL ONE (09:08)
[2021-08-11] MEDS ORDERED: DEXTROSE 5%-WATER - 50 ML IVPB ONE (09:08)
[2021-08-11] MEDS: CEFTRIAXONE 1 GM in DEXTROSE 5%-WATER - 50 ML IVPB SCH (09:14)
[2021-08-11] MEDS: APIXABAN 5 MG TABLET PO SCH ×2 (09:15→21:12)
[2021-08-11] MEDS: predniSONE 20 MG TABLET (UD) PO SCH (09:15)
[2021-08-11] MEDS: amLODIPine BESYLATE 10 MG TABLET (FP) PO SCH (09:15)
[2021-08-11] MEDS: FOLIC ACID 1 MG TABLET (FP) PO SCH (09:15)
[2021-08-11] MEDS: MULTIVIT-MINERALS ORAL LIQUID PO SCH (09:16)
[2021-08-11] MEDS: ESCITALOPRAM OXALATE 10 MG TABLET PO SCH (09:16)
[2021-08-11] MEDS: MIRTAZAPINE 30 MG TABLET PO SCH (09:16)
[2021-08-11] MEDS: levETIRAcetam 500 MG TABLET (FP) PO SCH ×2 (09:16→21:12)
[2021-08-11] MEDS: CARVEDILOL 25 MG TABLET (FP) PO SCH ×2 (09:28→21:13)
[2021-08-11 10:20] LABS: ANISOCYTOSIS 0; MACROCYTOSIS 0; PLATELET ESTIMATE NORMAL
[2021-08-11] MEDS: NAPH,MB-DB/K PH,MBDB POWDER PACKET PO SCH ×2 (14:52→21:12)
[2021-08-11] MEDS: ATORVASTATIN CA 80 MG TABLET (FP) PO SCH (21:12)
[2021-08-12] MEDS: GABAPENTIN 400 MG CAPSULE PO SCH ×3 (05:31→21:28)
[2021-08-12] MEDS: NAPH,MB-DB/K PH,MBDB POWDER PACKET PO SCH ×3 (05:31→21:28)
[2021-08-12 07:39] LABS: BASO % 0.3 % (0-2.0); EOS % 0.3 % (0-4.5); HEMATOCRIT 39.3 % (35.4-49); HEMOGLOBIN 12.9 GM/dL (11.7-16.9); LYMPH % 18.7 % (8-40); MCH 33.8 pg (25.7-33.7); MCHC 32.8 g/dl (32.0-35.9); MEAN CELL VOLUME 103.2 fl (80-96); MONO % 4.4 % (3.8-10.2); NEUT % 76.3 % (42.8-82.8); PLATELET COUNT 232 10^3/uL (134-434); RDW 14.4 % (11.9-15.9); WHITE BLOOD COUNT 9.7 K/mm3 (4.0-10.0)
[2021-08-12] MEDS: ALBUTEROL SO4 2.5/IPRATROPIUM 0.5 INH SOL 3 ML VIAL.NEB. NEB SCH ×4 (08:01→20:15)
[2021-08-12 08:07] LABS: ALBUMIN 2.4 g/dl (3.4-5.0); CALCIUM 8.8 mg/dL (8.5-10.1)
[2021-08-12 08:09] LABS: MAGNESIUM 2.1 mg/dL (1.8-2.4)
[2021-08-12 08:10] LABS: CREATININE 0.6 mg/dL (0.55-1.3); PHOSPHOROUS 2.7 mg/dL (2.5-4.9)
[2021-08-12 08:11] LABS: BILIRUBIN,TOTAL 0.6 mg/dL (0.2-1)
[2021-08-12 08:12] LABS: TOT PROT 5.7 g/dl (6.4-8.2)
[2021-08-12] MEDS ORDERED: MIRTAZAPINE 15 MG TABLET (FP) ONE (08:24)
[2021-08-12] MEDS ORDERED: DEXTROSE 5%-WATER - 50 ML IVPB ONE (08:25)
[2021-08-12] MEDS ORDERED: cefTRIAXone SODIUM 1 GM VIAL ONE (08:25)
[2021-08-12] MEDS: CEFTRIAXONE 1 GM in DEXTROSE 5%-WATER - 50 ML IVPB SCH (09:14)
[2021-08-12] MEDS: CARVEDILOL 25 MG TABLET (FP) PO SCH ×2 (09:15→21:28)
[2021-08-12] MEDS: APIXABAN 5 MG TABLET PO SCH ×2 (09:15→21:29)
[2021-08-12] MEDS: amLODIPine BESYLATE 10 MG TABLET (FP) PO SCH (09:15)
[2021-08-12] MEDS: predniSONE 20 MG TABLET (UD) PO SCH (09:15)
[2021-08-12] MEDS: ESCITALOPRAM OXALATE 10 MG TABLET PO SCH (09:15)
[2021-08-12] MEDS: FOLIC ACID 1 MG TABLET (FP) PO SCH (09:15)
[2021-08-12] MEDS: levETIRAcetam 500 MG TABLET (FP) PO SCH ×2 (09:17→21:28)
[2021-08-12] MEDS: MIRTAZAPINE 30 MG TABLET PO SCH (11:46)
[2021-08-12 12:29] VITALS: BMI 22.0
[2021-08-12] MEDS: MULTIVIT-MINERALS ORAL LIQUID PO SCH (16:51)
[2021-08-12] MEDS: ATORVASTATIN CA 80 MG TABLET (FP) PO SCH (21:29)
[2021-08-13] MEDS ORDERED: VANCOMYCIN 1 GM in D5W (PRE-DOCKED) 1,000 MG/250 ML IVPB SCH (01:30)
[2021-08-13] MEDS: VANCOMYCIN/WATER FOR INJ (PEG) 1,000 MG/200 ML BAG IVPB SCH ×2 (02:03→13:46)
[2021-08-13] MEDS: GABAPENTIN 400 MG CAPSULE PO SCH ×3 (05:48→21:59)
[2021-08-13] MEDS: NAPH,MB-DB/K PH,MBDB POWDER PACKET PO SCH ×3 (05:48→21:58)
[2021-08-13] MEDS: ALBUTEROL SO4 2.5/IPRATROPIUM 0.5 INH SOL 3 ML VIAL.NEB. NEB SCH ×4 (07:48→19:43)
[2021-08-13 08:27] LABS: BASO % 0.3 % (0-2.0); EOS % 0.8 % (0-4.5); HEMATOCRIT 34.6 % (35.4-49); HEMOGLOBIN 11.6 GM/dL (11.7-16.9); LYMPH % 19.1 % (8-40); MCH 34.3 pg (25.7-33.7); MCHC 33.6 g/dl (32.0-35.9); MEAN PLT VOLUME 9.6 fl (7.5-11.1); MONO % 5.2 % (3.8-10.2); NEUT % 74.6 % (42.8-82.8); PLATELET COUNT 209 10^3/uL (134-434); RBC 3.39 M/mm3 (4.00-5.60); RDW 13.9 % (11.9-15.9); WHITE BLOOD COUNT 8.3 K/mm3 (4.0-10.0)
[2021-08-13 08:44] LABS: CALCIUM 8.4 mg/dL (8.5-10.1)
[2021-08-13 08:45] LABS: ALBUMIN 2.3 g/dl (3.4-5.0); BLOOD UREA NITROGEN 19.7 mg/dL (7-18); MAGNESIUM 2.1 mg/dL (1.8-2.4)
[2021-08-13 08:48] LABS: CREATININE 0.8 mg/dL (0.55-1.3); PHOSPHOROUS 3.6 mg/dL (2.5-4.9)
[2021-08-13 08:49] LABS: TOT PROT 5.2 g/dl (6.4-8.2)
[2021-08-13 08:50] LABS: BILIRUBIN,TOTAL 0.4 mg/dL (0.2-1)
[2021-08-13] MEDS ORDERED: MIRTAZAPINE 15 MG TABLET (FP) ONE (08:55)
[2021-08-13] MEDS: ESCITALOPRAM OXALATE 10 MG TABLET PO SCH (09:10)
[2021-08-13] MEDS: CARVEDILOL 25 MG TABLET (FP) PO SCH ×2 (09:10→21:58)
[2021-08-13] MEDS: levETIRAcetam 500 MG TABLET (FP) PO SCH ×2 (09:15→21:58)
[2021-08-13] MEDS: predniSONE 20 MG TABLET (UD) PO SCH (09:15)
[2021-08-13] MEDS: APIXABAN 5 MG TABLET PO SCH ×2 (09:15→21:58)
[2021-08-13] MEDS: amLODIPine BESYLATE 10 MG TABLET (FP) PO SCH (09:15)
[2021-08-13] MEDS: FOLIC ACID 1 MG TABLET (FP) PO SCH (09:16)
[2021-08-13] MEDS: MIRTAZAPINE 30 MG TABLET PO SCH (09:17)
[2021-08-13] MEDS: MULTIVIT-MINERALS ORAL LIQUID PO SCH (09:19)
[2021-08-13] MEDS: ATORVASTATIN CA 80 MG TABLET (FP) PO SCH (21:58)
[2021-08-14] MEDS: NAPH,MB-DB/K PH,MBDB POWDER PACKET PO SCH (05:54)
[2021-08-14] MEDS: GABAPENTIN 400 MG CAPSULE PO SCH (05:54)
[2021-08-14] MEDS: ALBUTEROL SO4 2.5/IPRATROPIUM 0.5 INH SOL 3 ML VIAL.NEB. NEB SCH (07:40)
[2021-08-14 09:36] VITALS: BP 126/82; PULSE 67; TEMP 98
[2021-08-14] MEDS ORDERED: MIRTAZAPINE 15 MG TABLET (FP) ONE (11:18)
[2021-08-14] MEDS: MULTIVIT-MINERALS ORAL LIQUID PO SCH (11:19)
[2021-08-14] MEDS: amLODIPine BESYLATE 10 MG TABLET (FP) PO SCH (11:19)
[2021-08-14] MEDS: FOLIC ACID 1 MG TABLET (FP) PO SCH (11:19)
[2021-08-14] MEDS: predniSONE 20 MG TABLET (UD) PO SCH (11:19)
[2021-08-14] MEDS: APIXABAN 5 MG TABLET PO SCH (11:19)
[2021-08-14] MEDS: CARVEDILOL 25 MG TABLET (FP) PO SCH (11:19)
[2021-08-14] MEDS: ESCITALOPRAM OXALATE 10 MG TABLET PO SCH (11:20)
[2021-08-14] MEDS: MIRTAZAPINE 30 MG TABLET PO SCH (11:20)
[2021-08-14] MEDS: levETIRAcetam 500 MG TABLET (FP) PO SCH (11:20)
[2021-08-14] MEDS ORDERED: NITROFURANTOIN MACROCRYSTAL 50 MG CAPSULE (FP) PO SCH (12:00)
[2021-08-14] MEDS ORDERED: NITROFURANTOIN MACROCRYSTAL 50 MG CAPSULE (FP) PO ONE (12:00)
== END 2021-08-14 13:12 | disposition home or self-care (01) | DRG 191 ==
LOC: JER 12:43 → JERBED 18:23 → J2W 21:44 → J4S 08-12 05:53
PROVIDERS: ADMIT Hospitalist; ATTEND Internal Medicine
DX: J44.1 Chronic obstructive pulmonary disease with (acute) exacerbation (principal); Q32.1 Other congenital malformations of trachea; N39.0 Urinary tract infection, site not specified; G40.209 Localization-related (focal) (partial) symptomatic epilepsy and epileptic syndromes with complex partial seizures, not intractable, without status epilepticus; Z79.01 Long term (current) use of anticoagulants; I25.10 Atherosclerotic heart disease of native coronary artery without angina pectoris; F10.20 Alcohol dependence, uncomplicated; E11.9 Type 2 diabetes mellitus without complications; I25.2 Old myocardial infarction; J44.9 Chronic obstructive pulmonary disease, unspecified; Z86.718 Personal history of other venous thrombosis and embolism; Z86.711 Personal history of pulmonary embolism; H40.9 Unspecified glaucoma; I48.0 Paroxysmal atrial fibrillation; Z86.73 Personal history of transient ischemic attack (TIA), and cerebral infarction without residual deficits; I10 Essential (primary) hypertension; K70.10 Alcoholic hepatitis without ascites; E87.6 Hypokalemia; G47.33 Obstructive sleep apnea (adult) (pediatric); R91.1 Solitary pulmonary nodule
CPT/HCPCS: 0241U-QW; 36415; 71045-TC-FY; 80053; 80061; 81003; 82607; 82746; 82803; 82962; 83036; 83735; 83880; 84100; 84484; 85025; 85610; 85730; 87086; 87186; 90677; 93005; 93010; 93306-TC; 94640; 94761; 97116-GP; 97162-GP; 99285-25

== ENCOUNTER 2021-08-29 09:24 | Inpatient (IN) | payer OTHER ==
[2021-08-29 09:32] VITALS: BMI 23.1
[2021-08-29] MEDS ORDERED: ONDANSETRON 4 MG/2 ML VIAL IVPUSH ONE (10:08)
[2021-08-29] MEDS ORDERED: ACETAMINOPHEN 1000 MG/100 ML BAG IVPB ONE (10:08)
[2021-08-29] MEDS ORDERED: SODIUM CHLORIDE 0.9% 500 ML INFUS.BAG IV ONE ×2 (10:08→17:11)
[2021-08-29] MEDS ORDERED: methylPREDNISolone NA SUCC 125 MG/2 ML VIAL IVPUSH ONE (10:08)
[2021-08-29] MEDS ORDERED: ACETAMINOPHEN INJECTION 100 ML IVPB ONE (10:24)
[2021-08-29] MEDS ORDERED: ALBUTEROL SO4 2.5/IPRATROPIUM 0.5 INH SOL 3 ML VIAL.NEB. NEB ONE (10:24)
[2021-08-29] MEDS ORDERED: ONDANSETRON 4 MG/2 ML VIAL ONE (10:25)
[2021-08-29] MEDS ORDERED: methylPREDNISolone NA SUCC 125 MG/2 ML VIAL ONE (10:25)
[2021-08-29] MEDS: ALBUTEROL SO4 2.5/IPRATROPIUM 0.5 INH SOL 3 ML VIAL.NEB. NEB SCH ×4 (11:00→11:45)
[2021-08-29 12:18] LABS: BASO % 0.5 % (0-2.0); EOS % 1.9 % (0-4.5); HEMATOCRIT 36.1 % (35.4-49); HEMOGLOBIN 12.1 GM/dL (11.7-16.9); LYMPH % 14.2 % (8-40); MCHC 33.6 g/dl (32.0-35.9); MEAN CELL VOLUME 98.1 fl (80-96); MEAN PLT VOLUME 8.9 fl (7.5-11.1); MONO % 6.2 % (3.8-10.2); NEUT % 77.2 % (42.8-82.8); PLATELET COUNT 218 10^3/uL (134-434); RBC 3.68 M/mm3 (4.00-5.60); RDW 14.4 % (11.9-15.9)
[2021-08-29 12:38] LABS: BLOOD UREA NITROGEN 8.3 mg/dL (7-18); CALCIUM 8.9 mg/dL (8.5-10.1); MAGNESIUM 1.8 mg/dL (1.8-2.4)
[2021-08-29 12:39] LABS: ALBUMIN 2.8 g/dl (3.4-5.0)
[2021-08-29 12:41] LABS: PHOSPHOROUS 2.4 mg/dL (2.5-4.9)
[2021-08-29 12:42] LABS: CREATININE 0.5 mg/dL (0.55-1.3)
[2021-08-29 12:43] LABS: TOT PROT 6.6 g/dl (6.4-8.2)
[2021-08-29 13:21] LABS: EPI CELLS 28 /uL (0-25.1); HYALINE CASTS 16 /uL (0-3.1); URINE APPEARANCE CLOUDY; URINE BACTERIA 3 /uL (0-1359); URINE BILIRUBIN 1+ (NEGATIVE); URINE COLOR ORANGE; URINE GLUCOSE (UA) NEGATIVE (NEGATIVE); URINE KETONE TRACE (NEGATIVE); URINE LEUK ESTERASE NEGATIVE (NEGATIVE); URINE NITRITE NEGATIVE (NEGATIVE); URINE PROTEIN 1+ (NEGATIVE); URINE RBC 9 /uL (0-23.9); URINE WBC 18 /uL (0-25.8)
[2021-08-29 13:36] LABS: LACTIC ACID 3.2 mmol/L (0.4-2.0)
[2021-08-29] MEDS ORDERED: morphine CARPU-JECT 2 MG/1 ML DISP.SYRIN IVPUSH ONE (14:15)
[2021-08-29] MEDS ORDERED: morphine SULFATE 4 MG/ML VIAL ONE (14:19)
[2021-08-29] MEDS ORDERED: POTASSIUM CHLORIDE TABS 20 MEQ TABLET.ER (FP) PO ONE ×2 (15:41→16:11)
[2021-08-29 16:45] LABS: LACTIC ACID 3.2 mmol/L (0.4-2.0)
[2021-08-29 16:49] VITALS: BP 147/81; PULSE 72; TEMP 97.1
== END 2021-08-29 20:30 | disposition left against medical advice (07) | DRG 392 ==
LOC: JER 09:24 → JERBED 17:06
PROVIDERS: ADMIT Internal Medicine; ATTEND Internal Medicine
DX: R10.30 Lower abdominal pain, unspecified (principal); G40.209 Localization-related (focal) (partial) symptomatic epilepsy and epileptic syndromes with complex partial seizures, not intractable, without status epilepticus; I48.0 Paroxysmal atrial fibrillation; J44.9 Chronic obstructive pulmonary disease, unspecified; G47.33 Obstructive sleep apnea (adult) (pediatric); E55.9 Vitamin D deficiency, unspecified; I25.10 Atherosclerotic heart disease of native coronary artery without angina pectoris; E78.5 Hyperlipidemia, unspecified; K91.1 Postgastric surgery syndromes; Y84.8 Other medical procedures as the cause of abnormal reaction of the patient, or of later complication, without mention of misadventure at the time of the procedure; H40.9 Unspecified glaucoma; E11.9 Type 2 diabetes mellitus without complications; I11.0 Hypertensive heart disease with heart failure; I50.9 Heart failure, unspecified; F10.20 Alcohol dependence, uncomplicated; Z98.84 Bariatric surgery status; Z95.5 Presence of coronary angioplasty implant and graft; Z86.711 Personal history of pulmonary embolism; Z86.718 Personal history of other venous thrombosis and embolism
CPT/HCPCS: 0241U-QW; 36415; 71045-TC-FY; 74177-TC; 80053; 81003; 83605; 83735; 84100; 84484; 85025; 87086; 93005; 93010; 99285-25; Q9967

== ENCOUNTER 2021-08-31 01:31 | Inpatient (IN) | payer OTHER ==
[2021-08-31] MEDS ORDERED: methylPREDNISolone NA SUCC 125 MG/2 ML VIAL IVPUSH ONE (01:34)
[2021-08-31] MEDS ORDERED: LEVALBUTEROL HCL 0.63 MG/3 ML VIAL.NEB. IH PRN (01:35)
[2021-08-31] MEDS ORDERED: methylPREDNISolone NA SUCC 125 MG/2 ML VIAL ONE (01:40)
[2021-08-31] MEDS ORDERED: ACETAMINOPHEN 1000 MG/100 ML BAG IVPB ONE (01:49)
[2021-08-31 01:52] LABS: VENOUS O2 SATURATION 99.3 % (70-80); VENOUS PCO2 36.9 mmHg (38-52); VENOUS PH 7.474 (7.310-7.410)
[2021-08-31 02:04] LABS: BASO % 0.2 % (0-2.0); HEMATOCRIT 34.8 % (35.4-49); HEMOGLOBIN 11.6 GM/dL (11.7-16.9); LYMPH % 5.5 % (8-40); MCH 32.7 pg (25.7-33.7); MCHC 33.2 g/dl (32.0-35.9); MEAN CELL VOLUME 98.3 fl (80-96); MEAN PLT VOLUME 8.3 fl (7.5-11.1); NEUT % 88.3 % (42.8-82.8); PLATELET COUNT 222 10^3/uL (134-434); RBC 3.54 M/mm3 (4.00-5.60); RDW 14.6 % (11.9-15.9); WHITE BLOOD COUNT 19.3 K/mm3 (4.0-10.0)
[2021-08-31 02:07] LABS: INR 1.29 (0.83-1.09); PROTHROMBIN TIME (PATIENT) 14.9 SEC (9.7-13.0)
[2021-08-31 02:09] LABS: ACTIVATED PTT 33.7 SECONDS (25.2-36.5)
[2021-08-31 02:22] LABS: ALBUMIN 2.6 g/dl (3.4-5.0); BLOOD UREA NITROGEN 4.7 mg/dL (7-18)
[2021-08-31 02:25] LABS: CREATININE 0.5 mg/dL (0.55-1.3)
[2021-08-31 02:27] LABS: BILIRUBIN,TOTAL 0.8 mg/dL (0.2-1); TOT PROT 6.6 g/dl (6.4-8.2)
[2021-08-31 02:30] LABS: N-TERMINAL BNP 763.3 pg/ml (5-125)
[2021-08-31] MEDS ORDERED: ACETAMINOPHEN INJECTION 100 ML IVPB ONE (02:41)
[2021-08-31 04:32] LABS: CALCIUM 8.2 mg/dL (8.5-10.1)
[2021-08-31] MEDS ORDERED: POTASSIUM CHLORIDE TABS 20 MEQ TABLET.ER (FP) PO ONE ×2 (04:32→05:42)
[2021-08-31 04:33] LABS: BLOOD UREA NITROGEN 6.1 mg/dL (7-18)
[2021-08-31 04:36] LABS: CREATININE 0.5 mg/dL (0.55-1.3)
[2021-08-31] MEDS ORDERED: PIPERACILLIN/TAZOB 2.25 GM 2.25 GM in DEXTROSE 5%-WATER - 50 ML IVPB ONE (05:18)
[2021-08-31] MEDS ORDERED: VANCOMYCIN 1 GM in D5W (PRE-DOCKED) 1,000 MG/250 ML IVPB ONE (05:18)
[2021-08-31] MEDS ORDERED: PIPERACILLIN/TAZOB 4.5 GM 4.5 GM in DEXTROSE 5%-WATER 100 ML IVPB ONE (05:30)
[2021-08-31] MEDS ORDERED: PIPERACILLIN/TAZOB 4.5 GM 4.5 GM/100 ML BAG IVPB ONE (05:43)
[2021-08-31] MEDS ORDERED: VANCOMYCIN 1 GRAM (PRE-DOCKED) 1,000 MG/250 ML BAG IVPB ONE (05:43)
[2021-08-31] MEDS ORDERED: SODIUM CHLORIDE 0.9% 1000 ML INFUS.BAG IV ONE (08:58)
[2021-08-31] MEDS ORDERED: ACETAMINOPHEN 325 MG TABLET (FP) PO PRN (08:58)
[2021-08-31] MEDS ORDERED: ONDANSETRON 4 MG/2 ML VIAL IVPUSH PRN (09:03)
[2021-08-31 09:30] LABS: EPI CELLS 10 /uL (0-25.1); HYALINE CASTS 2 /uL (0-3.1); PH,URINE 5.5 (5.0-8.0); URINE APPEARANCE CLEAR; URINE BACTERIA 6 /uL (0-1359); URINE BILIRUBIN NEGATIVE (NEGATIVE); URINE COLOR ORANGE; URINE GLUCOSE (UA) NEGATIVE (NEGATIVE); URINE KETONE TRACE (NEGATIVE); URINE LEUK ESTERASE NEGATIVE (NEGATIVE); URINE NITRITE NEGATIVE (NEGATIVE); URINE PROTEIN 1+ (NEGATIVE); URINE RBC 3 /uL (0-23.9); URINE WBC 4 /uL (0-25.8)
[2021-08-31] MEDS ORDERED: MELATONIN 5 MG TABLETS PO PRN (09:36)
[2021-08-31] MEDS ORDERED: dilTIAZem HCL 30 MG TABLET PO ONE (09:45)
[2021-08-31] MEDS ORDERED: methylPREDNISolone NA SUCC 40 MG/1 ML VIAL IVPUSH SCH (10:00)
[2021-08-31] MEDS ORDERED: ENOXAPARIN NA (PORCINE) 40 MG/0.4 ML DISP.SYRIN SQ SCH (10:00)
[2021-08-31] MEDS ORDERED: AZITHROMYCIN IVPB 500 MG/250 ML BAG IVPB SCH (10:00)
[2021-08-31] MEDS ORDERED: SODIUM CHLORIDE 1,000 ML IV STA ×2 (10:40→10:41)
[2021-08-31] MEDS ORDERED: CARVEDILOL 25 MG TABLET (FP) ONE (11:09)
[2021-08-31] MEDS ORDERED: ALBUTEROL SO4 2.5/IPRATROPIUM 0.5 INH SOL 3 ML VIAL.NEB. NEB ONE (11:09)
[2021-08-31] MEDS ORDERED: APIXABAN 5 MG TABLET ONE (11:09)
[2021-08-31] MEDS ORDERED: dilTIAZem HCL 30 MG TABLET ONE (11:09)
[2021-08-31] MEDS ORDERED: THIAMINE HCL 200 MG/2 ML VIAL ONE (11:11)
[2021-08-31] MEDS ORDERED: amLODIPine BESYLATE 10 MG TABLET (FP) ONE (11:11)
[2021-08-31] MEDS ORDERED: ESCITALOPRAM OXALATE 10 MG TABLET ONE (11:12)
[2021-08-31] MEDS ORDERED: AZITHROMYCIN IVPB 500 MG/250 ML BAG IVPB ONE (11:12)
[2021-08-31] MEDS ORDERED: methylPREDNISolone NA SUCC 40 MG/1 ML VIAL ONE (11:12)
[2021-08-31] MEDS ORDERED: MIRTAZAPINE 15 MG TABLET (FP) ONE (11:12)
[2021-08-31] MEDS: PANTOPRAZOLE 40 MG TABLET PO SCH (11:34)
[2021-08-31] MEDS: amLODIPine BESYLATE 10 MG TABLET (FP) PO SCH (11:34)
[2021-08-31] MEDS: levETIRAcetam 500 MG TABLET (FP) PO SCH ×2 (11:34→21:23)
[2021-08-31] MEDS: APIXABAN 5 MG TABLET PO SCH ×2 (11:34→21:23)
[2021-08-31] MEDS: ESCITALOPRAM OXALATE 20 MG TABLET PO SCH (11:34)
[2021-08-31] MEDS: CARVEDILOL 25 MG TABLET (FP) PO SCH ×2 (11:34→21:23)
[2021-08-31] MEDS: MIRTAZAPINE 15 MG TABLET (FP) PO SCH (11:34)
[2021-08-31] MEDS: THIAMINE HCL 200 MG/2 ML VIAL IVPB SCH (11:35)
[2021-08-31] MEDS: ALBUTEROL SO4 2.5/IPRATROPIUM 0.5 INH SOL 3 ML VIAL.NEB. NEB SCH ×3 (12:51→20:00)
[2021-08-31] MEDS ORDERED: ACETAMINOPHEN 325 MG TABLET (FP) ONE (13:13)
[2021-08-31] MEDS: GABAPENTIN 400 MG CAPSULE PO SCH ×2 (15:30→21:23)
[2021-08-31] MEDS: VANCOMYCIN/WATER FOR INJ (PEG) 1,000 MG/200 ML BAG IVPB SCH (16:57)
[2021-08-31] MEDS ORDERED: PIPERACILLIN/TAZOBACTAM 3.375 GM VIAL IVPB ONE (17:12)
[2021-08-31] MEDS ORDERED: DEXTROSE 5%-WATER 100 ML IVPB ONE (17:12)
[2021-08-31] MEDS ORDERED: ALBUTEROL SO4 2.5/IPRATROPIUM 0.5 INH SOL 3 ML VIAL.NEB. NEB SCH (17:15)
[2021-08-31] MEDS ORDERED: PIPERACILLIN/TAZOB 3.375 GM 3.375 GM in DEXTROSE 5%-WATER 100 ML IVPB SCH (18:00)
[2021-08-31] MEDS: ATORVASTATIN CA 80 MG TABLET (FP) PO SCH (21:23)
[2021-08-31] MEDS ORDERED: SENNOSIDES 8.6MG TABLET (FP) PO PRN (22:00)
[2021-08-31] MEDS ORDERED: VANCOMYCIN 1 GM in D5W (PRE-DOCKED) 1,000 MG/250 ML IVPB SCH (22:00)
[2021-09-01] MEDS ORDERED: DEXTROSE 5%-WATER - 50 ML IVPB ONE ×3 (01:14→16:46)
[2021-09-01] MEDS ORDERED: PIPERACILLIN/TAZOBACTAM 3.375 GM VIAL IVPB ONE ×3 (01:14→16:46)
[2021-09-01] MEDS: PIPERACILLIN/TAZOB 3.375 GM 3.375 GM in DEXTROSE 5%-WATER - 50 ML IVPB SCH ×3 (01:35→17:05)
[2021-09-01] MEDS: VANCOMYCIN/WATER FOR INJ (PEG) 1,000 MG/200 ML BAG IVPB SCH (05:30)
[2021-09-01] MEDS: GABAPENTIN 400 MG CAPSULE PO SCH ×3 (06:03→22:25)
[2021-09-01] MEDS: ALBUTEROL SO4 2.5/IPRATROPIUM 0.5 INH SOL 3 ML VIAL.NEB. NEB SCH ×4 (08:07→20:55)
[2021-09-01] MEDS: PANTOPRAZOLE 40 MG TABLET PO SCH (10:26)
[2021-09-01] MEDS: levETIRAcetam 500 MG TABLET (FP) PO SCH ×2 (10:26→22:24)
[2021-09-01] MEDS: ESCITALOPRAM OXALATE 20 MG TABLET PO SCH (10:26)
[2021-09-01] MEDS: MULTIVITAMINS (DAILY MVI) TABLET (FP) PO SCH (10:26)
[2021-09-01] MEDS: APIXABAN 5 MG TABLET PO SCH ×2 (10:26→22:24)
[2021-09-01] MEDS: CARVEDILOL 25 MG TABLET (FP) PO SCH ×2 (10:26→22:24)
[2021-09-01] MEDS: MIRTAZAPINE 15 MG TABLET (FP) PO SCH (10:26)
[2021-09-01] MEDS: amLODIPine BESYLATE 10 MG TABLET (FP) PO SCH (10:26)
[2021-09-01] MEDS: THIAMINE HCL 200 MG/2 ML VIAL IVPB SCH (11:19)
[2021-09-01 15:26] LABS: BASO % 0.3 % (0-2.0); EOS % 0.6 % (0-4.5); HEMOGLOBIN 11.2 GM/dL (11.7-16.9); LYMPH % 10.7 % (8-40); MEAN PLT VOLUME 9.4 fl (7.5-11.1); MONO % 5.7 % (3.8-10.2); NEUT % 82.7 % (42.8-82.8); PLATELET COUNT 154 10^3/uL (134-434); RDW 14.7 % (11.9-15.9); WHITE BLOOD COUNT 11.7 K/mm3 (4.0-10.0)
[2021-09-01 15:30] LABS: INR 1.47 (0.83-1.09)
[2021-09-01 16:41] LABS: ALBUMIN 2.3 g/dl (3.4-5.0); BILIRUBIN,TOTAL 0.7 mg/dL (0.2-1); BLOOD UREA NITROGEN 9.6 mg/dL (7-18); CALCIUM 8.4 mg/dL (8.5-10.1); CREATININE 0.7 mg/dL (0.55-1.3); MAGNESIUM 1.6 mg/dL (1.8-2.4); PHOSPHOROUS 2.4 mg/dL (2.5-4.9); TOT PROT 5.7 g/dl (6.4-8.2)
[2021-09-01] MEDS: ATORVASTATIN CA 80 MG TABLET (FP) PO SCH (22:25)
[2021-09-02] MEDS ORDERED: PIPERACILLIN/TAZOBACTAM 3.375 GM VIAL IVPB ONE ×3 (02:18→16:26)
[2021-09-02] MEDS ORDERED: DEXTROSE 5%-WATER - 50 ML IVPB ONE ×3 (02:18→16:26)
[2021-09-02] MEDS: PIPERACILLIN/TAZOB 3.375 GM 3.375 GM in DEXTROSE 5%-WATER - 50 ML IVPB SCH ×3 (02:43→17:02)
[2021-09-02] MEDS: GABAPENTIN 400 MG CAPSULE PO SCH ×3 (06:12→22:22)
[2021-09-02] MEDS: ALBUTEROL SO4 2.5/IPRATROPIUM 0.5 INH SOL 3 ML VIAL.NEB. NEB SCH ×4 (08:30→20:13)
[2021-09-02] MEDS: amLODIPine BESYLATE 10 MG TABLET (FP) PO SCH (10:03)
[2021-09-02] MEDS: MULTIVITAMINS (DAILY MVI) TABLET (FP) PO SCH (10:03)
[2021-09-02] MEDS: PANTOPRAZOLE 40 MG TABLET PO SCH (10:03)
[2021-09-02] MEDS: MIRTAZAPINE 15 MG TABLET (FP) PO SCH (10:03)
[2021-09-02] MEDS: APIXABAN 5 MG TABLET PO SCH ×2 (10:03→22:22)
[2021-09-02] MEDS: levETIRAcetam 500 MG TABLET (FP) PO SCH ×2 (10:03→22:22)
[2021-09-02] MEDS: ESCITALOPRAM OXALATE 20 MG TABLET PO SCH (10:03)
[2021-09-02] MEDS: CARVEDILOL 25 MG TABLET (FP) PO SCH ×2 (10:03→22:22)
[2021-09-02] MEDS: THIAMINE HCL 200 MG/2 ML VIAL IVPB SCH (11:03)
[2021-09-02] MEDS: ATORVASTATIN CA 80 MG TABLET (FP) PO SCH (22:22)
[2021-09-03] MEDS ORDERED: DEXTROSE 5%-WATER - 50 ML IVPB ONE ×3 (00:44→17:21)
[2021-09-03] MEDS ORDERED: PIPERACILLIN/TAZOBACTAM 3.375 GM VIAL IVPB ONE ×3 (00:44→17:20)
[2021-09-03] MEDS: PIPERACILLIN/TAZOB 3.375 GM 3.375 GM in DEXTROSE 5%-WATER - 50 ML IVPB SCH ×3 (01:02→17:22)
[2021-09-03] MEDS ORDERED: oxyCODONE HCL 5 MG TABLET PO ONE (02:46)
[2021-09-03] MEDS: GABAPENTIN 400 MG CAPSULE PO SCH ×3 (06:02→21:36)
[2021-09-03] MEDS: ALBUTEROL SO4 2.5/IPRATROPIUM 0.5 INH SOL 3 ML VIAL.NEB. NEB SCH ×4 (08:13→20:05)
[2021-09-03] MEDS: MIRTAZAPINE 15 MG TABLET (FP) PO SCH (10:18)
[2021-09-03] MEDS: MULTIVITAMINS (DAILY MVI) TABLET (FP) PO SCH (10:19)
[2021-09-03] MEDS: PANTOPRAZOLE 40 MG TABLET PO SCH (10:19)
[2021-09-03] MEDS: THIAMINE HCL 200 MG/2 ML VIAL IVPB SCH (10:19)
[2021-09-03] MEDS: levETIRAcetam 500 MG TABLET (FP) PO SCH ×2 (10:19→21:36)
[2021-09-03] MEDS: amLODIPine BESYLATE 10 MG TABLET (FP) PO SCH (10:19)
[2021-09-03] MEDS: ESCITALOPRAM OXALATE 20 MG TABLET PO SCH (10:19)
[2021-09-03] MEDS: CARVEDILOL 25 MG TABLET (FP) PO SCH ×2 (10:19→21:36)
[2021-09-03] MEDS: APIXABAN 5 MG TABLET PO SCH ×2 (10:19→21:36)
[2021-09-03 13:35] VITALS: BMI 22.3
[2021-09-03] MEDS ORDERED: oxyCODONE HCL 5 MG TABLET PO PRN (15:41)
[2021-09-03 17:36] LABS: BASO % 0.3 % (0-2.0); EOS % 1.9 % (0-4.5); HEMATOCRIT 32.3 % (35.4-49); HEMOGLOBIN 10.8 GM/dL (11.7-16.9); LYMPH % 21.8 % (8-40); MCH 33.2 pg (25.7-33.7); MCHC 33.4 g/dl (32.0-35.9); MEAN CELL VOLUME 99.4 fl (80-96); MEAN PLT VOLUME 8.6 fl (7.5-11.1); MONO % 16.7 % (3.8-10.2); NEUT % 59.3 % (42.8-82.8); PLATELET COUNT 167 10^3/uL (134-434); RBC 3.25 M/mm3 (4.00-5.60); RDW 14.7 % (11.9-15.9); WHITE BLOOD COUNT 7.5 K/mm3 (4.0-10.0)
[2021-09-03 17:54] LABS: CALCIUM 8.2 mg/dL (8.5-10.1)
[2021-09-03 17:55] LABS: ALBUMIN 2.2 g/dl (3.4-5.0); BLOOD UREA NITROGEN 9.7 mg/dL (7-18); MAGNESIUM 1.6 mg/dL (1.8-2.4)
[2021-09-03 17:58] LABS: CREATININE 0.5 mg/dL (0.55-1.3); PHOSPHOROUS 3.3 mg/dL (2.5-4.9)
[2021-09-03 18:00] LABS: BILIRUBIN,TOTAL 0.7 mg/dL (0.2-1); TOT PROT 5.8 g/dl (6.4-8.2)
[2021-09-03] MEDS ORDERED: POTASSIUM CHLORIDE TABS 20 MEQ TABLET.ER (FP) PO ONE (18:28)
[2021-09-03] MEDS ORDERED: MAGNESIUM OXIDE 400 MG TABLET (FP) PO ONE (18:29)
[2021-09-03] MEDS: ATORVASTATIN CA 80 MG TABLET (FP) PO SCH (21:36)
[2021-09-03] MEDS: THIAMINE HCL 100 MG TABLET (FP) PO SCH (21:37)
[2021-09-04] MEDS ORDERED: DEXTROSE 5%-WATER - 50 ML IVPB ONE ×2 (03:05→10:02)
[2021-09-04] MEDS ORDERED: PIPERACILLIN/TAZOBACTAM 3.375 GM VIAL IVPB ONE ×2 (03:05→10:02)
[2021-09-04] MEDS: PIPERACILLIN/TAZOB 3.375 GM 3.375 GM in DEXTROSE 5%-WATER - 50 ML IVPB SCH ×2 (03:15→10:10)
[2021-09-04] MEDS: GABAPENTIN 400 MG CAPSULE PO SCH ×2 (06:06→14:02)
[2021-09-04 07:44] LABS: BASO % 0.6 % (0-2.0); HEMATOCRIT 31.5 % (35.4-49); HEMOGLOBIN 10.5 GM/dL (11.7-16.9); LYMPH % 23.7 % (8-40); MCH 33.4 pg (25.7-33.7); MCHC 33.3 g/dl (32.0-35.9); MEAN CELL VOLUME 100.4 fl (80-96); MEAN PLT VOLUME 9.5 fl (7.5-11.1); MONO % 13.5 % (3.8-10.2); NEUT % 60.2 % (42.8-82.8); PLATELET COUNT 172 10^3/uL (134-434); RBC 3.13 M/mm3 (4.00-5.60); RDW 14.6 % (11.9-15.9); WHITE BLOOD COUNT 8.3 K/mm3 (4.0-10.0)
[2021-09-04 08:07] LABS: CALCIUM 8.3 mg/dL (8.5-10.1)
[2021-09-04] MEDS: ALBUTEROL SO4 2.5/IPRATROPIUM 0.5 INH SOL 3 ML VIAL.NEB. NEB SCH ×3 (08:07→15:28)
[2021-09-04 08:08] LABS: ALBUMIN 2.2 g/dl (3.4-5.0); BLOOD UREA NITROGEN 8.3 mg/dL (7-18); MAGNESIUM 1.8 mg/dL (1.8-2.4)
[2021-09-04 08:11] LABS: CREATININE 0.6 mg/dL (0.55-1.3)
[2021-09-04 08:12] LABS: BILIRUBIN,TOTAL 0.8 mg/dL (0.2-1); TOT PROT 5.7 g/dl (6.4-8.2)
[2021-09-04] MEDS: CARVEDILOL 25 MG TABLET (FP) PO SCH (10:09)
[2021-09-04] MEDS: levETIRAcetam 500 MG TABLET (FP) PO SCH (10:09)
[2021-09-04] MEDS: amLODIPine BESYLATE 10 MG TABLET (FP) PO SCH (10:09)
[2021-09-04] MEDS: MULTIVITAMINS (DAILY MVI) TABLET (FP) PO SCH (10:09)
[2021-09-04] MEDS: THIAMINE HCL 100 MG TABLET (FP) PO SCH (10:09)
[2021-09-04] MEDS: ESCITALOPRAM OXALATE 20 MG TABLET PO SCH (10:09)
[2021-09-04] MEDS: PANTOPRAZOLE 40 MG TABLET PO SCH (10:10)
[2021-09-04] MEDS: MIRTAZAPINE 15 MG TABLET (FP) PO SCH (10:10)
[2021-09-04] MEDS: APIXABAN 5 MG TABLET PO SCH (10:10)
[2021-09-04 14:54] VITALS: BP 125/73; PULSE 84; TEMP 99.7
== END 2021-09-04 18:21 | disposition home or self-care (01) | DRG 871 ==
LOC: JER 01:31 → JERBED 03:22 → J4W 14:39
PROVIDERS: ADMIT Internal Medicine; ATTEND Internal Medicine
DX: A41.9 Sepsis, unspecified organism (principal); J96.01 Acute respiratory failure with hypoxia; J44.1 Chronic obstructive pulmonary disease with (acute) exacerbation; Z99.81 Dependence on supplemental oxygen; Z79.01 Long term (current) use of anticoagulants; E87.6 Hypokalemia; I25.10 Atherosclerotic heart disease of native coronary artery without angina pectoris; I25.2 Old myocardial infarction; Z86.718 Personal history of other venous thrombosis and embolism; Z86.711 Personal history of pulmonary embolism; G47.33 Obstructive sleep apnea (adult) (pediatric); H40.9 Unspecified glaucoma; I48.0 Paroxysmal atrial fibrillation; G40.909 Epilepsy, unspecified, not intractable, without status epilepticus; R22.1 Localized swelling, mass and lump, neck; R13.14 Dysphagia, pharyngoesophageal phase; R49.0 Dysphonia; M54.2 Cervicalgia; F32.A Depression, unspecified; E11.42 Type 2 diabetes mellitus with diabetic polyneuropathy
CPT/HCPCS: 0241U-QW; 36415; 70490-TC; 71045-TC-FY; 74230-TC-FY; 80048; 80053; 80061; 81003; 82607; 82746; 82803; 83036; 83605; 83735; 83880; 84100; 84436; 84443; 84445; 84484; 85025; 85610; 85730; 87040; 87081; 87086; 92611-GN; 93005; 93010; 94640; 94660; 99285-25

== ENCOUNTER 2021-09-20 13:56 | Inpatient (IN) | payer OTHER ==
[2021-09-20] MEDS ORDERED: ASPIRIN 81 MG CHEWABLE TABLETS PO ONE (14:49)
[2021-09-20] MEDS ORDERED: ALBUTEROL SO4 2.5/IPRATROPIUM 0.5 INH SOL 3 ML VIAL.NEB. NEB ONE ×2 (14:49→16:19)
[2021-09-20] MEDS ORDERED: ACETAMINOPHEN 1000 MG/100 ML BAG IVPB ONE (14:53)
[2021-09-20] MEDS ORDERED: ASPIRIN 81 MG CHEWABLE TABLETS ONE (16:13)
[2021-09-20 16:37] LABS: CHLORIDE 106 mmol/L (98-107); SODIUM 143 mmol/L (136-145)
[2021-09-20] MEDS ORDERED: ACETAMINOPHEN INJECTION 100 ML IVPB ONE ×3 (16:39→17:29)
[2021-09-20 16:40] LABS: ALBUMIN 2.9 g/dl (3.4-5.0); BLOOD UREA NITROGEN 9.6 mg/dL (7-18); CALCIUM 8.1 mg/dL (8.5-10.1); CO2 28 mmol/L (21-32); LIPASE < 10 U/L (73-393); MAGNESIUM 2.1 mg/dL (1.8-2.4)
[2021-09-20 16:41] LABS: GLUCOSE,RANDOM 74 mg/dL (74-106)
[2021-09-20 16:43] LABS: CREATININE 0.6 mg/dL (0.55-1.3); PHOSPHOROUS 4.1 mg/dL (2.5-4.9); SGOT/AST 91 U/L (15-37)
[2021-09-20 16:44] LABS: TOT PROT 7.6 g/dl (6.4-8.2)
[2021-09-20 16:46] LABS: ALK PHOS 98 U/L (45-117); VENOUS BASE EXCESS 1.7 mmol/L (-2-2); VENOUS O2 SATURATION 49.5 % (70-80); VENOUS PCO2 55.6 mmHg (38-52); VENOUS PH 7.33 (7.310-7.410)
[2021-09-20 16:59] LABS: LACTIC ACID 6.1 mmol/L (0.4-2.0)
[2021-09-20 17:00] LABS: ANION GAP 8 MMOL/L (8-16); SGPT/ALT 38 U/L (13-61)
[2021-09-20 17:02] LABS: URINE APPEARANCE CLEAR; URINE BILIRUBIN NEGATIVE (NEGATIVE); URINE COLOR YELLOW; URINE GLUCOSE (UA) NEGATIVE (NEGATIVE); URINE KETONE NEGATIVE (NEGATIVE); URINE LEUK ESTERASE NEGATIVE (NEGATIVE); URINE NITRITE NEGATIVE (NEGATIVE); URINE PROTEIN NEGATIVE (NEGATIVE)
[2021-09-20] MEDS ORDERED: LACTATED RINGERS SOLUTION 1000 ML INFUS.BAG IV ONE ×2 (17:02→17:27)
[2021-09-20 17:10] LABS: BASO % 1.4 % (0-2.0); EOS % 1.3 % (0-4.5); HEMATOCRIT 33.5 % (35.4-49); HEMOGLOBIN 11.4 GM/dL (11.7-16.9); LYMPH % 56.3 % (8-40); MCH 33.3 pg (25.7-33.7); MCHC 33.9 g/dl (32.0-35.9); MEAN CELL VOLUME 98.3 fl (80-96); MEAN PLT VOLUME 8.3 fl (7.5-11.1); MONO % 9.5 % (3.8-10.2); NEUT % 31.5 % (42.8-82.8); PLATELET COUNT 229 10^3/uL (134-434); RBC 3.41 M/mm3 (4.00-5.60); RDW 15.3 % (11.9-15.9)
[2021-09-20] MEDS ORDERED: THIAMINE HCL 100 MG TABLET (FP) PO ONE (17:22)
[2021-09-20] MEDS ORDERED: THIAMINE HCL 100 MG TABLET (FP) ONE (17:43)
[2021-09-20] MEDS ORDERED: HYDROmorphone HCl 2 MG/ML VIAL ONE (19:57)
[2021-09-20] MEDS ORDERED: HYDROmorphone HCL CARPU-JECT 2 MG/1 ML DISP.SYRIN IVPUSH ONE (19:58)
[2021-09-20] MEDS ORDERED: CEFTRIAXONE 1 GM in DEXTROSE 5%-WATER - 50 ML IVPB ONE (20:13)
[2021-09-20] MEDS ORDERED: SODIUM CHLORIDE 0.9% 500 ML INFUS.BAG IV ONE (20:21)
[2021-09-20] MEDS ORDERED: KCL 10 MEQ IVPB 20 MEQ/200 ML INFUS.BAG IVPB ONE (20:25)
[2021-09-20] MEDS ORDERED: CEFTRIAXONE 1 GM/50 ML BAG ONE (20:25)
[2021-09-20] MEDS ORDERED: ONDANSETRON 4 MG/2 ML VIAL IVPUSH ONE (20:28)
[2021-09-20] MEDS ORDERED: ONDANSETRON 4 MG/2 ML VIAL ONE (20:30)
[2021-09-20] MEDS ORDERED: POTASSIUM CHLORIDE 10 MEQ in SODIUM CHLORIDE 1,000 ML IVPB SCH (20:30)
[2021-09-20] MEDS: KCL 10 MEQ IVPB 10 MEQ/100 ML INFUS.BAG IVPB SCH ×2 (20:49→23:14)
[2021-09-21] MEDS ORDERED: POTASSIUM CHLORIDE TABS 20 MEQ TABLET.ER (FP) PO ONE ×4 (01:58→07:32)
[2021-09-21 02:31] LABS: LACTIC ACID 3.2 mmol/L (0.4-2.0)
[2021-09-21] MEDS ORDERED: ONDANSETRON 4 MG/2 ML VIAL IVPUSH PRN (02:37)
[2021-09-21] MEDS ORDERED: ALBUTEROL SO4 HFA INHALER IH PRN (02:55)
[2021-09-21] MEDS ORDERED: GABAPENTIN 400 MG CAPSULE ONE (05:48)
[2021-09-21] MEDS: GABAPENTIN 400 MG CAPSULE PO SCH ×3 (05:55→22:44)
[2021-09-21 07:22] LABS: EOS % 0.5 % (0-4.5); HEMATOCRIT 33.5 % (35.4-49); HEMOGLOBIN 11.3 GM/dL (11.7-16.9); LYMPH % 25.2 % (8-40); MCH 33.5 pg (25.7-33.7); MCHC 33.8 g/dl (32.0-35.9); MEAN CELL VOLUME 99.2 fl (80-96); MEAN PLT VOLUME 8.8 fl (7.5-11.1); MONO % 11.2 % (3.8-10.2); NEUT % 62.1 % (42.8-82.8); PLATELET COUNT 176 10^3/uL (134-434); RBC 3.38 M/mm3 (4.00-5.60); RDW 15.6 % (11.9-15.9); WHITE BLOOD COUNT 5.5 K/mm3 (4.0-10.0)
[2021-09-21 07:30] LABS: ALBUMIN 2.9 g/dl (3.4-5.0); CALCIUM 7.8 mg/dL (8.5-10.1)
[2021-09-21 07:31] LABS: BLOOD UREA NITROGEN 5.6 mg/dL (7-18); MAGNESIUM 1.5 mg/dL (1.8-2.4)
[2021-09-21 07:33] LABS: CREATININE 0.5 mg/dL (0.55-1.3); PHOSPHOROUS 3.3 mg/dL (2.5-4.9)
[2021-09-21] MEDS: INSULIN (NOVOLOG) ASPART 100 UNITS/ML 10ML VIAL SQ SCH ×2 (07:33→11:45)
[2021-09-21 07:35] LABS: BILIRUBIN,TOTAL 1.5 mg/dL (0.2-1); TOT PROT 6.7 g/dl (6.4-8.2)
[2021-09-21] MEDS ORDERED: MAGNESIUM SULF 50% (8.12 MEQ/2 ML-1 GM VIAL) IVPB ONE (07:37)
[2021-09-21] MEDS ORDERED: MAGNESIUM SULFATE IN WATER 2 GM/50 ML IVPB IVPB ONE (07:58)
[2021-09-21 08:12] LABS: URINE BENZODIAZEPINES NEGATIVE (NEGATIVE)
[2021-09-21 08:13] LABS: COCAINE, UR NEGATIVE (NEGATIVE); METHADONE, UR NEGATIVE (NEGATIVE); OPIATES, URI NEGATIVE (NEGATIVE); URINE AMPHETAMINES NEGATIVE (NEGATIVE); URINE BARBITURATES NEGATIVE (NEGATIVE)
[2021-09-21 08:16] LABS: PHENCYCLIDINE,URINE NEGATIVE (NEGATIVE)
[2021-09-21] MEDS ORDERED: KCL 10 MEQ IVPB 10 MEQ/100 ML INFUS.BAG IVPB ONE ×3 (08:39→11:40)
[2021-09-21] MEDS: KCL 10 MEQ IVPB 10 MEQ/100 ML INFUS.BAG IVPB SCH ×3 (08:47→11:45)
[2021-09-21] MEDS ORDERED: APIXABAN 5 MG TABLET ONE (10:00)
[2021-09-21] MEDS ORDERED: PANTOPRAZOLE 40 MG TABLET PO ONE (10:00)
[2021-09-21] MEDS ORDERED: PANTOPRAZOLE 40 MG TABLET PO SCH (10:00)
[2021-09-21] MEDS ORDERED: levETIRAcetam 500 MG TABLET (FP) PO ONE (10:00)
[2021-09-21] MEDS ORDERED: amLODIPine BESYLATE 10 MG TABLET (FP) ONE (10:00)
[2021-09-21] MEDS ORDERED: ENOXAPARIN NA (PORCINE) 40 MG/0.4 ML DISP.SYRIN SQ SCH (10:00)
[2021-09-21] MEDS ORDERED: MULTIVITAMINS (DAILY MVI) TABLET (FP) ONE (10:01)
[2021-09-21] MEDS ORDERED: MIRTAZAPINE 15 MG TABLET (FP) ONE (10:01)
[2021-09-21] MEDS ORDERED: CARVEDILOL 25 MG TABLET (FP) ONE (10:01)
[2021-09-21] MEDS: MIRTAZAPINE 15 MG TABLET (FP) PO SCH (10:08)
[2021-09-21] MEDS: levETIRAcetam 500 MG TABLET (FP) PO SCH ×2 (10:08→22:44)
[2021-09-21] MEDS: CARVEDILOL 25 MG TABLET (FP) PO SCH ×2 (10:08→22:44)
[2021-09-21] MEDS: amLODIPine BESYLATE 10 MG TABLET (FP) PO SCH (10:08)
[2021-09-21] MEDS: APIXABAN 5 MG TABLET PO SCH ×2 (10:08→22:44)
[2021-09-21] MEDS: ESCITALOPRAM OXALATE 20 MG TABLET PO SCH (10:08)
[2021-09-21] MEDS: MULTIVITAMINS (DAILY MVI) TABLET (FP) PO SCH (10:09)
[2021-09-21] MEDS: LACTATED RINGERS SOLUTION 1,000 ML/1,000 ML INFUS.BAG IV SCH ×2 (11:45→19:09)
[2021-09-21] MEDS ORDERED: MAGNESIUM OXIDE 400 MG TABLET (FP) ONE (12:17)
[2021-09-21] MEDS ORDERED: MAGNESIUM OXIDE 400 MG TABLET (FP) PO ONE (12:30)
[2021-09-21 12:50] LABS: BILIRUBIN,DIRECT 0.5 mg/dL (0.0-0.2)
[2021-09-21] MEDS: PIPERACILLIN/TAZOB 3.375 GM 3.375 GM in DEXTROSE 5%-WATER - 50 ML IVPB SCH (17:25)
[2021-09-21] MEDS ORDERED: PIPERACILLIN/TAZOB 3.375 GM 3.375 GM/50 ML BAG IVPB ONE (17:26)
[2021-09-21 18:51] VITALS: BMI 20.8
[2021-09-21] MEDS: ATORVASTATIN CA 80 MG TABLET (FP) PO SCH (22:44)
[2021-09-22] MEDS ORDERED: DEXTROSE 5%-WATER - 50 ML IVPB ONE ×2 (01:59→06:05)
[2021-09-22] MEDS ORDERED: PIPERACILLIN/TAZOBACTAM 3.375 GM VIAL IVPB ONE ×2 (01:59→06:05)
[2021-09-22] MEDS: PIPERACILLIN/TAZOB 3.375 GM 3.375 GM in DEXTROSE 5%-WATER - 50 ML IVPB SCH ×4 (02:06→14:30)
[2021-09-22] MEDS: LACTATED RINGERS SOLUTION 1,000 ML/1,000 ML INFUS.BAG IV SCH ×2 (06:35→10:57)
[2021-09-22] MEDS: GABAPENTIN 400 MG CAPSULE PO SCH ×3 (06:35→21:53)
[2021-09-22 07:09] LABS: HEMATOCRIT 33.2 % (35.4-49); HEMOGLOBIN 11.1 GM/dL (11.7-16.9); MCH 33.1 pg (25.7-33.7); MCHC 33.5 g/dl (32.0-35.9); MEAN CELL VOLUME 98.9 fl (80-96); MEAN PLT VOLUME 9.1 fl (7.5-11.1); PLATELET COUNT 154 10^3/uL (134-434); RBC 3.36 M/mm3 (4.00-5.60); RDW 15.7 % (11.9-15.9); WHITE BLOOD COUNT 4.2 K/mm3 (4.0-10.0)
[2021-09-22 07:33] LABS: CALCIUM 8.6 mg/dL (8.5-10.1)
[2021-09-22 07:34] LABS: BLOOD UREA NITROGEN 6.7 mg/dL (7-18); MAGNESIUM 2.1 mg/dL (1.8-2.4)
[2021-09-22 07:35] LABS: ALBUMIN 2.5 g/dl (3.4-5.0)
[2021-09-22 07:37] LABS: CREATININE 0.6 mg/dL (0.55-1.3); PHOSPHOROUS 2.9 mg/dL (2.5-4.9)
[2021-09-22 07:38] LABS: BILIRUBIN,TOTAL 1.9 mg/dL (0.2-1)
[2021-09-22] MEDS: levETIRAcetam 500 MG TABLET (FP) PO SCH ×2 (10:56→21:53)
[2021-09-22] MEDS: CARVEDILOL 25 MG TABLET (FP) PO SCH ×2 (10:56→21:52)
[2021-09-22] MEDS: ESCITALOPRAM OXALATE 20 MG TABLET PO SCH (10:56)
[2021-09-22] MEDS: MIRTAZAPINE 15 MG TABLET (FP) PO SCH (10:56)
[2021-09-22] MEDS: amLODIPine BESYLATE 10 MG TABLET (FP) PO SCH (10:56)
[2021-09-22] MEDS: MULTIVITAMINS (DAILY MVI) TABLET (FP) PO SCH (10:56)
[2021-09-22 17:55] LABS: INR 1.11 (0.83-1.09); PROTHROMBIN TIME (PATIENT) 12.8 SEC (9.7-13.0)
[2021-09-22 17:57] LABS: ACTIVATED PTT 40.6 SECONDS (25.2-36.5)
[2021-09-22] MEDS ORDERED: ACETAMINOPHEN 325 MG TABLET (FP) PO ONE (20:07)
[2021-09-22] MEDS: ATORVASTATIN CA 80 MG TABLET (FP) PO SCH (21:52)
[2021-09-22] MEDS: APIXABAN 5 MG TABLET PO SCH (21:52)
[2021-09-22] MEDS ORDERED: ACETAMINOPHEN 1000 MG/100 ML BAG IVPB ONE (22:52)
[2021-09-23] MEDS: LACTATED RINGERS SOLUTION 1,000 ML/1,000 ML INFUS.BAG IV SCH ×3 (03:41→14:27)
[2021-09-23] MEDS: GABAPENTIN 400 MG CAPSULE PO SCH ×4 (06:57→21:25)
[2021-09-23 08:57] LABS: HEMATOCRIT 30.3 % (35.4-49); HEMOGLOBIN 10.2 GM/dL (11.7-16.9); MCH 33.7 pg (25.7-33.7); MCHC 33.7 g/dl (32.0-35.9); MEAN CELL VOLUME 100.1 fl (80-96); MEAN PLT VOLUME 9.4 fl (7.5-11.1); PLATELET COUNT 131 10^3/uL (134-434); RBC 3.03 M/mm3 (4.00-5.60); RDW 15.6 % (11.9-15.9); WHITE BLOOD COUNT 4.8 K/mm3 (4.0-10.0)
[2021-09-23 09:10] LABS: CALCIUM 8.6 mg/dL (8.5-10.1)
[2021-09-23 09:11] LABS: ALBUMIN 2.5 g/dl (3.4-5.0); BLOOD UREA NITROGEN 11.1 mg/dL (7-18)
[2021-09-23 09:14] LABS: CREATININE 0.7 mg/dL (0.55-1.3); PHOSPHOROUS 3.3 mg/dL (2.5-4.9)
[2021-09-23 09:15] LABS: TOT PROT 5.8 g/dl (6.4-8.2)
[2021-09-23 09:16] LABS: BILIRUBIN,TOTAL 1.1 mg/dL (0.2-1)
[2021-09-23] MEDS ORDERED: oxyCODONE HCL 5 MG TABLET PO ONE (09:16)
[2021-09-23] MEDS: MIRTAZAPINE 15 MG TABLET (FP) PO SCH (09:18)
[2021-09-23] MEDS: levETIRAcetam 500 MG TABLET (FP) PO SCH ×2 (09:18→21:25)
[2021-09-23] MEDS: APIXABAN 5 MG TABLET PO SCH ×2 (09:18→21:24)
[2021-09-23] MEDS: ESCITALOPRAM OXALATE 20 MG TABLET PO SCH (09:19)
[2021-09-23] MEDS: amLODIPine BESYLATE 10 MG TABLET (FP) PO SCH (09:19)
[2021-09-23] MEDS: MULTIVIT-MINERALS ORAL LIQUID PO SCH (09:19)
[2021-09-23] MEDS: CARVEDILOL 25 MG TABLET (FP) PO SCH ×2 (09:19→21:24)
[2021-09-23] MEDS ORDERED: ACETAMINOPHEN 1000 MG/100 ML BAG IVPB ONE (15:26)
[2021-09-23] MEDS: ATORVASTATIN CA 80 MG TABLET (FP) PO SCH (21:24)
[2021-09-24] MEDS: GABAPENTIN 400 MG CAPSULE PO SCH ×3 (05:24→21:02)
[2021-09-24] MEDS: LACTATED RINGERS SOLUTION 1,000 ML/1,000 ML INFUS.BAG IV SCH ×3 (05:26→16:45)
[2021-09-24] MEDS: MIRTAZAPINE 15 MG TABLET (FP) PO SCH (09:23)
[2021-09-24] MEDS: APIXABAN 5 MG TABLET PO SCH ×2 (09:23→21:02)
[2021-09-24] MEDS: amLODIPine BESYLATE 10 MG TABLET (FP) PO SCH (09:23)
[2021-09-24] MEDS: CARVEDILOL 25 MG TABLET (FP) PO SCH ×2 (09:23→21:02)
[2021-09-24] MEDS: ESCITALOPRAM OXALATE 20 MG TABLET PO SCH (09:24)
[2021-09-24] MEDS: levETIRAcetam 500 MG TABLET (FP) PO SCH ×2 (09:24→21:02)
[2021-09-24 10:04] LABS: HEMATOCRIT 28.4 % (35.4-49); HEMOGLOBIN 9.4 GM/dL (11.7-16.9); MCH 33.6 pg (25.7-33.7); MCHC 33.2 g/dl (32.0-35.9); MEAN CELL VOLUME 101.2 fl (80-96); MEAN PLT VOLUME 10.4 fl (7.5-11.1); PLATELET COUNT 119 10^3/uL (134-434); RDW 15.9 % (11.9-15.9)
[2021-09-24 10:35] LABS: ALBUMIN 2.3 g/dl (3.4-5.0); CALCIUM 8.3 mg/dL (8.5-10.1); MAGNESIUM 1.7 mg/dL (1.8-2.4)
[2021-09-24 10:36] LABS: BLOOD UREA NITROGEN 6.9 mg/dL (7-18)
[2021-09-24 10:38] LABS: CREATININE 0.5 mg/dL (0.55-1.3)
[2021-09-24 10:39] LABS: PHOSPHOROUS 2.8 mg/dL (2.5-4.9)
[2021-09-24 10:40] LABS: BILIRUBIN,TOTAL 0.8 mg/dL (0.2-1); TOT PROT 5.4 g/dl (6.4-8.2)
[2021-09-24] MEDS: MULTIVIT-MINERALS ORAL LIQUID PO SCH (13:07)
[2021-09-24] MEDS ORDERED: ACETAMINOPHEN 1000 MG/100 ML BAG IVPB ONE (14:01)
[2021-09-24] MEDS: oxyCODONE HCL 5 MG TABLET PO PRN ×2 (14:50→21:03)
[2021-09-24] MEDS ORDERED: POTASSIUM CHLORIDE TABS 20 MEQ TABLET.ER (FP) PO ONE (20:46)
[2021-09-24] MEDS ORDERED: MAGNESIUM OXIDE 400 MG TABLET (FP) PO ONE (20:46)
[2021-09-24] MEDS: ATORVASTATIN CA 80 MG TABLET (FP) PO SCH (21:02)
[2021-09-25] MEDS: LACTATED RINGERS SOLUTION 1,000 ML/1,000 ML INFUS.BAG IV SCH ×3 (03:16→22:04)
[2021-09-25] MEDS: GABAPENTIN 400 MG CAPSULE PO SCH ×3 (05:03→21:43)
[2021-09-25] MEDS: oxyCODONE HCL 5 MG TABLET PO PRN ×3 (05:03→18:18)
[2021-09-25] MEDS: MULTIVIT-MINERALS ORAL LIQUID PO SCH (09:05)
[2021-09-25] MEDS: amLODIPine BESYLATE 10 MG TABLET (FP) PO SCH (09:06)
[2021-09-25] MEDS: MIRTAZAPINE 15 MG TABLET (FP) PO SCH (09:06)
[2021-09-25] MEDS: levETIRAcetam 500 MG TABLET (FP) PO SCH ×2 (09:06→21:43)
[2021-09-25] MEDS: ESCITALOPRAM OXALATE 20 MG TABLET PO SCH (09:06)
[2021-09-25] MEDS: CARVEDILOL 25 MG TABLET (FP) PO SCH ×2 (09:06→21:44)
[2021-09-25 09:45] LABS: HEMATOCRIT 30.4 % (35.4-49); HEMOGLOBIN 10.1 GM/dL (11.7-16.9); MCH 33.5 pg (25.7-33.7); MEAN CELL VOLUME 101.4 fl (80-96); MEAN PLT VOLUME 9.3 fl (7.5-11.1); PLATELET COUNT 125 10^3/uL (134-434); RDW 16.2 % (11.9-15.9); WHITE BLOOD COUNT 6.6 K/mm3 (4.0-10.0)
[2021-09-25 10:17] LABS: CALCIUM 8.3 mg/dL (8.5-10.1)
[2021-09-25 10:18] LABS: ALBUMIN 2.5 g/dl (3.4-5.0); BLOOD UREA NITROGEN 5.7 mg/dL (7-18); MAGNESIUM 1.8 mg/dL (1.8-2.4)
[2021-09-25 10:21] LABS: CREATININE 0.6 mg/dL (0.55-1.3); PHOSPHOROUS 3.1 mg/dL (2.5-4.9)
[2021-09-25 10:23] LABS: BILIRUBIN,TOTAL 0.6 mg/dL (0.2-1)
[2021-09-25] MEDS: ACETAMINOPHEN 500 MG TABLET (FP) PO PRN ×2 (12:21→18:17)
[2021-09-25] MEDS ORDERED: BISACODYL 5 MG TABLET.DR (FP) PO ONE (16:00)
[2021-09-25] MEDS ORDERED: PEG 3350/NA SULF BICARB CL/KCL 4000 ML SOLN.RECON PO ONE (17:00)
[2021-09-25] MEDS: ATORVASTATIN CA 80 MG TABLET (FP) PO SCH (21:43)
[2021-09-26] MEDS: oxyCODONE HCL 5 MG TABLET PO PRN ×2 (00:18→15:08)
[2021-09-26] MEDS: ACETAMINOPHEN 500 MG TABLET (FP) PO PRN ×3 (01:16→22:42)
[2021-09-26] MEDS: GABAPENTIN 400 MG CAPSULE PO SCH ×3 (06:52→21:24)
[2021-09-26] MEDS: MULTIVIT-MINERALS ORAL LIQUID PO SCH (15:04)
[2021-09-26] MEDS: ESCITALOPRAM OXALATE 20 MG TABLET PO SCH (15:05)
[2021-09-26] MEDS: MIRTAZAPINE 15 MG TABLET (FP) PO SCH (15:05)
[2021-09-26] MEDS: amLODIPine BESYLATE 10 MG TABLET (FP) PO SCH (15:06)
[2021-09-26] MEDS: levETIRAcetam 500 MG TABLET (FP) PO SCH ×2 (15:06→21:26)
[2021-09-26] MEDS: CARVEDILOL 25 MG TABLET (FP) PO SCH ×2 (15:06→21:26)
[2021-09-26] MEDS: LACTATED RINGERS SOLUTION 1,000 ML/1,000 ML INFUS.BAG IV SCH ×2 (15:07→21:01)
[2021-09-26] MEDS: ATORVASTATIN CA 80 MG TABLET (FP) PO SCH (21:26)
[2021-09-27] MEDS: GABAPENTIN 400 MG CAPSULE PO SCH ×2 (06:32→14:05)
[2021-09-27] MEDS: ACETAMINOPHEN 500 MG TABLET (FP) PO PRN ×2 (06:32→14:06)
[2021-09-27] MEDS: LACTATED RINGERS SOLUTION 1,000 ML/1,000 ML INFUS.BAG IV SCH (06:33)
[2021-09-27] MEDS: amLODIPine BESYLATE 10 MG TABLET (FP) PO SCH (10:08)
[2021-09-27] MEDS: ESCITALOPRAM OXALATE 20 MG TABLET PO SCH (10:08)
[2021-09-27] MEDS: levETIRAcetam 500 MG TABLET (FP) PO SCH (10:08)
[2021-09-27] MEDS: MULTIVIT-MINERALS ORAL LIQUID PO SCH (10:08)
[2021-09-27] MEDS: MIRTAZAPINE 15 MG TABLET (FP) PO SCH (10:08)
[2021-09-27] MEDS: CARVEDILOL 25 MG TABLET (FP) PO SCH (10:08)
[2021-09-27 14:09] VITALS: BP 133/63; PULSE 73; TEMP 99.3
== END 2021-09-27 16:55 | disposition home or self-care (01) | DRG 433 ==
LOC: JER 13:56 → JERBED 22:18 → J7W 09-21 18:08
PROVIDERS: ADMIT Hospitalist; ATTEND Internal Medicine
PROC: 0DBL8ZX Excision of Transverse Colon, Via Natural or Artificial Opening Endoscopic, Diagnostic (ICD-10-PCS; 2021-09-26)
PROC: 0DB68ZX Excision of Stomach, Via Natural or Artificial Opening Endoscopic, Diagnostic (ICD-10-PCS; principal; 2021-09-26 12:45)
DX: K70.10 Alcoholic hepatitis without ascites (principal); E87.2 Acidosis; R10.9 Unspecified abdominal pain; T73.0XXA Starvation, initial encounter; F10.20 Alcohol dependence, uncomplicated; K83.8 Other specified diseases of biliary tract; K63.5 Polyp of colon; K91.1 Postgastric surgery syndromes; E78.5 Hyperlipidemia, unspecified; I25.10 Atherosclerotic heart disease of native coronary artery without angina pectoris; R74.01 Elevation of levels of liver transaminase levels; E11.9 Type 2 diabetes mellitus without complications; E87.6 Hypokalemia; E83.42 Hypomagnesemia; K44.9 Diaphragmatic hernia without obstruction or gangrene
CPT/HCPCS: 36415; 70450-TC; 71045-TC-FY; 74174-TC; 76705-TC; 78226-TC; 80053; 80061; 80307; 81003; 82010; 82248; 82803; 82962; 83036; 83605; 83690; 83735; 84100; 84132; 84443; 84484; 85025; 85027; 85610; 85651; 85730; 86140; 86704; 86709; 86803; 87086; 87340; 87517; 88305-TC; 93005; 93010; 97116-GP; 97161-GP; 99285-25; A9537; C9803-CS; Q9967; U0003; U0005

== ENCOUNTER 2021-10-09 09:19 | Observation (INO) | payer OTHER ==
[2021-10-09 10:10] VITALS: BMI 25.0
[2021-10-09] MEDS ORDERED: FOLIC ACID INJECTION - 1 MG, THIAMINE HCL 100 MG, MULTIVIT INJECTION ADULT 10 ML in SOD... IVPB ONE ×2 (10:15→17:07)
[2021-10-09] MEDS ORDERED: FOLIC ACID 1 MG TABLET (FP) PO ONE (10:25)
[2021-10-09] MEDS ORDERED: SODIUM CHLORIDE 0.9% 500 ML INFUS.BAG IV ONE (10:25)
[2021-10-09] MEDS ORDERED: MULTIVITAMINS (DAILY MVI) TABLET (FP) PO ONE (10:25)
[2021-10-09] MEDS ORDERED: THIAMINE HCL 200 MG/2 ML VIAL IVPB ONE (10:25)
[2021-10-09] MEDS ORDERED: DIPHTH,PERTUSS(ACELL),TET 0.5 ML DISP.SYRIN IM ONE (12:26)
[2021-10-09 13:01] LABS: BASO % 0.7 % (0-2.0); EOS % 0.5 % (0-4.5); HEMATOCRIT 33.3 % (35.4-49); HEMOGLOBIN 11.1 GM/dL (11.7-16.9); LYMPH % 30.7 % (8-40); MCH 33.1 pg (25.7-33.7); MCHC 33.4 g/dl (32.0-35.9); MEAN CELL VOLUME 99.2 fl (80-96); MEAN PLT VOLUME 8.1 fl (7.5-11.1); MONO % 5.5 % (3.8-10.2); NEUT % 62.6 % (42.8-82.8); PLATELET COUNT 175 10^3/uL (134-434); RBC 3.36 M/mm3 (4.00-5.60); RDW 15.9 % (11.9-15.9); WHITE BLOOD COUNT 6.9 K/mm3 (4.0-10.0)
[2021-10-09 13:15] LABS: INR 1.08 (0.83-1.09); PROTHROMBIN TIME (PATIENT) 12.4 SEC (9.7-13.0)
[2021-10-09 13:18] LABS: ACTIVATED PTT 34.6 SECONDS (25.2-36.5)
[2021-10-09 13:20] LABS: CHLORIDE 105 mmol/L (98-107); SODIUM 147 mmol/L (136-145)
[2021-10-09] MEDS ORDERED: POTASSIUM CHLORIDE TABS 20 MEQ TABLET.ER (FP) PO ONE ×3 (13:21→15:14)
[2021-10-09 13:22] LABS: BLOOD UREA NITROGEN 9.3 mg/dL (7-18); LIPASE 34 U/L (73-393); MAGNESIUM 1.6 mg/dL (1.8-2.4)
[2021-10-09 13:23] LABS: ALBUMIN 2.9 g/dl (3.4-5.0); ANION GAP 14 MMOL/L (8-16); CO2 28 mmol/L (21-32); GLUCOSE,RANDOM 74 mg/dL (74-106)
[2021-10-09 13:25] LABS: CREATININE 0.4 mg/dL (0.55-1.3); SGOT/AST 68 U/L (15-37); SGPT/ALT 31 U/L (13-61)
[2021-10-09 13:26] LABS: PHOSPHOROUS 4.1 mg/dL (2.5-4.9)
[2021-10-09 13:27] LABS: TOT PROT 6.6 g/dl (6.4-8.2)
[2021-10-09 13:28] LABS: BILIRUBIN,TOTAL 0.7 mg/dL (0.2-1)
[2021-10-09 13:29] LABS: ALK PHOS 92 U/L (45-117)
[2021-10-09 14:46] LABS: MAGNESIUM 1.7 mg/dL (1.8-2.4)
[2021-10-09] MEDS ORDERED: KCL 10 MEQ IVPB 10 MEQ/100 ML INFUS.BAG IVPB SCH (16:00)
[2021-10-09] MEDS ORDERED: ALBUTEROL SO4 HFA INHALER IH PRN (17:04)
[2021-10-09 17:47] LABS: EPI CELLS 6 /uL (0-25.1); HYALINE CASTS 0 /uL (0-3.1); PH,URINE 5.5 (5.0-8.0); URINE APPEARANCE CLEAR; URINE BACTERIA 3013 /uL (0-1359); URINE BILIRUBIN NEGATIVE (NEGATIVE); URINE COLOR YELLOW; URINE GLUCOSE (UA) NEGATIVE (NEGATIVE); URINE KETONE 1+ (NEGATIVE); URINE LEUK ESTERASE NEGATIVE (NEGATIVE); URINE NITRITE POSITIVE (NEGATIVE); URINE PROTEIN TRACE (NEGATIVE); URINE RBC 12 /uL (0-23.9); URINE WBC 20 /uL (0-25.8)
[2021-10-09 17:54] LABS: PHENCYCLIDINE,URINE NEGATIVE (NEGATIVE)
[2021-10-09 17:55] LABS: METHADONE, UR NEGATIVE (NEGATIVE)
[2021-10-09 17:58] LABS: COCAINE, UR NEGATIVE (NEGATIVE); OPIATES, URI NEGATIVE (NEGATIVE); URINE AMPHETAMINES NEGATIVE (NEGATIVE); URINE BARBITURATES NEGATIVE (NEGATIVE); URINE BENZODIAZEPINES NEGATIVE (NEGATIVE)
[2021-10-09] MEDS ORDERED: ATORVASTATIN CA 80 MG TABLET (FP) PO SCH (22:00)
[2021-10-09] MEDS ORDERED: THIAMINE HCL 100 MG TABLET (FP) PO SCH (22:00)
[2021-10-09] MEDS ORDERED: MIRTAZAPINE 15 MG TABLET (FP) PO SCH (22:00)
[2021-10-09] MEDS ORDERED: APIXABAN 5 MG TABLET ONE (22:41)
[2021-10-09] MEDS ORDERED: THIAMINE HCL 100 MG TABLET (FP) ONE (22:41)
[2021-10-09] MEDS ORDERED: CARVEDILOL 25 MG TABLET (FP) ONE (22:42)
[2021-10-09] MEDS ORDERED: MIRTAZAPINE 15 MG TABLET (FP) ONE (22:42)
[2021-10-09] MEDS ORDERED: ATORVASTATIN CA 80 MG TABLET (FP) ONE (22:42)
[2021-10-09] MEDS: CARVEDILOL 25 MG TABLET (FP) PO SCH (22:46)
[2021-10-09] MEDS: INSULIN SLIDING SCALE (NOVOLOG) 1 VIAL SQ SCH (22:46)
[2021-10-09] MEDS: APIXABAN 5 MG TABLET PO SCH (22:46)
[2021-10-10 08:14] LABS: HEMATOCRIT 31.1 % (35.4-49); HEMOGLOBIN 10.5 GM/dL (11.7-16.9); MCH 33.4 pg (25.7-33.7); MCHC 33.7 g/dl (32.0-35.9); MEAN CELL VOLUME 99.1 fl (80-96); MEAN PLT VOLUME 9.4 fl (7.5-11.1); PLATELET COUNT 115 10^3/uL (134-434); RBC 3.14 M/mm3 (4.00-5.60); RDW 15.4 % (11.9-15.9); WHITE BLOOD COUNT 4.7 K/mm3 (4.0-10.0)
[2021-10-10] MEDS ORDERED: PANTOPRAZOLE 40 MG TABLET PO ONE (09:05)
[2021-10-10] MEDS ORDERED: APIXABAN 5 MG TABLET ONE (09:05)
[2021-10-10] MEDS ORDERED: levETIRAcetam 500 MG TABLET (FP) PO ONE (09:05)
[2021-10-10] MEDS ORDERED: CARVEDILOL 25 MG TABLET (FP) ONE (09:06)
[2021-10-10] MEDS ORDERED: ESCITALOPRAM OXALATE 10 MG TABLET ONE (09:06)
[2021-10-10] MEDS ORDERED: amLODIPine BESYLATE 10 MG TABLET (FP) ONE (09:06)
[2021-10-10] MEDS ORDERED: FOLIC ACID 1 MG TABLET (FP) ONE (09:06)
[2021-10-10] MEDS: INSULIN SLIDING SCALE (NOVOLOG) 1 VIAL SQ SCH (09:21)
[2021-10-10] MEDS ORDERED: amLODIPine BESYLATE 10 MG TABLET (FP) PO SCH (10:00)
[2021-10-10] MEDS ORDERED: levETIRAcetam 500 MG TABLET (FP) PO SCH (10:00)
[2021-10-10] MEDS ORDERED: ESCITALOPRAM OXALATE 20 MG TABLET PO SCH (10:00)
[2021-10-10] MEDS ORDERED: PANTOPRAZOLE 40 MG TABLET PO SCH (10:00)
[2021-10-10] MEDS ORDERED: FOLIC ACID 1 MG TABLET (FP) PO SCH (10:00)
[2021-10-10] MEDS: APIXABAN 5 MG TABLET PO SCH (10:49)
[2021-10-10] MEDS: CARVEDILOL 25 MG TABLET (FP) PO SCH (10:49)
[2021-10-10 11:27] LABS: ALBUMIN 2.8 g/dl (3.4-5.0); BILIRUBIN,TOTAL 2.7 mg/dL (0.2-1); BLOOD UREA NITROGEN 6.2 mg/dL (7-18); CALCIUM 8.1 mg/dL (8.5-10.1); CREATININE 0.4 mg/dL (0.55-1.3); MAGNESIUM 1.5 mg/dL (1.8-2.4); PHOSPHOROUS 2.7 mg/dL (2.5-4.9); TOT PROT 6.1 g/dl (6.4-8.2)
[2021-10-10 15:00] VITALS: BP 145/81; PULSE 78; TEMP 98.1
== END 2021-10-10 14:30 | disposition home or self-care (01) ==
LOC: JER 09:19 → JERBED 14:57
PROVIDERS: ADMIT Internal Medicine; ATTEND Internal Medicine
DX: N39.0 Urinary tract infection, site not specified (principal); B96.89 Other specified bacterial agents as the cause of diseases classified elsewhere; I25.10 Atherosclerotic heart disease of native coronary artery without angina pectoris; I48.0 Paroxysmal atrial fibrillation; J44.9 Chronic obstructive pulmonary disease, unspecified; G47.33 Obstructive sleep apnea (adult) (pediatric); E11.9 Type 2 diabetes mellitus without complications; E78.5 Hyperlipidemia, unspecified; I11.9 Hypertensive heart disease without heart failure; Z86.718 Personal history of other venous thrombosis and embolism; Z98.84 Bariatric surgery status; R56.9 Unspecified convulsions; Z79.01 Long term (current) use of anticoagulants; F10.99 Alcohol use, unspecified with unspecified alcohol-induced disorder; W18.39XA Other fall on same level, initial encounter; Y93.89 Activity, other specified; Y92.89 Other specified places as the place of occurrence of the external cause
CPT/HCPCS: 36415; 70450-TC; 71045-TC-FY; 72125-TC; 72170-TC-FY; 73502-TC-LT-FY; 73502-TC-RT-FY; 80053; 80307; 81003; 82550; 82962; 83690; 83735; 84100; 84132; 84443; 84484; 85025; 85027; 85610; 85730; 93005; 93010; 97116-GP; 97162-GP; 99285-25; C9803-CS; G0378; U0003; U0005

== ENCOUNTER 2021-10-23 22:31 | Observation (INO) | payer OTHER ==
[2021-10-23 22:45] VITALS: BMI 22.4
[2021-10-23 23:15] LABS: BASO % 0.7 % (0-2.0); EOS % 1.6 % (0-4.5); HEMATOCRIT 33.3 % (35.4-49); HEMOGLOBIN 11.2 GM/dL (11.7-16.9); LYMPH % 33.3 % (8-40); MCH 34.3 pg (25.7-33.7); MCHC 33.5 g/dl (32.0-35.9); MEAN CELL VOLUME 102.2 fl (80-96); MEAN PLT VOLUME 8.1 fl (7.5-11.1); MONO % 6.8 % (3.8-10.2); NEUT % 57.6 % (42.8-82.8); PLATELET COUNT 206 10^3/uL (134-434); RBC 3.26 M/mm3 (4.00-5.60); RDW 16.4 % (11.9-15.9); WHITE BLOOD COUNT 4.7 K/mm3 (4.0-10.0)
[2021-10-24 02:28] LABS: ALBUMIN 2.6 g/dl (3.4-5.0); BILIRUBIN,TOTAL 0.3 mg/dL (0.2-1); BLOOD UREA NITROGEN 10.7 mg/dL (7-18); CREATININE 0.8 mg/dL (0.55-1.3); N-TERMINAL BNP 276.8 pg/ml (5-125)
[2021-10-24] MEDS ORDERED: SODIUM CHLORIDE 0.9% 500 ML INFUS.BAG IV ONE (02:42)
[2021-10-24 04:04] LABS: CALCIUM 7.8 mg/dL (8.5-10.1)
[2021-10-24 04:05] LABS: BLOOD UREA NITROGEN 9.8 mg/dL (7-18)
[2021-10-24 04:08] LABS: CREATININE 0.6 mg/dL (0.55-1.3)
[2021-10-24] MEDS ORDERED: ACETAMINOPHEN 1000 MG/100 ML BAG IVPB ONE (04:43)
[2021-10-24] MEDS ORDERED: FAMOTIDINE 20 MG TABLET PO ONE (04:43)
[2021-10-24] MEDS ORDERED: MAG HYDROX/AL HYDROX/SIMETH 30 ML UNIT-DOSE CUP PO ONE (04:43)
[2021-10-24] MEDS ORDERED: FAMOTIDINE 20 MG TABLET ONE (04:46)
[2021-10-24] MEDS ORDERED: SUCRALFATE 1 GM TABLET (FP) PO ONE (04:46)
[2021-10-24] MEDS ORDERED: SUCRALFATE 1 GM TABLET (FP) ONE (04:47)
[2021-10-24] MEDS ORDERED: MAG HYDROX/AL HYDROX/SIMETH 30 ML UNIT-DOSE CUP ONE (04:47)
[2021-10-24] MEDS ORDERED: ACETAMINOPHEN INJECTION 100 ML IVPB ONE (04:47)
[2021-10-24 07:02] VITALS: TEMP 98.5
[2021-10-24] MEDS ORDERED: POTASSIUM CHLORIDE TABS 20 MEQ TABLET.ER (FP) PO ONE ×2 (08:18→09:15)
[2021-10-24] MEDS ORDERED: ACETAMINOPHEN 325 MG TABLET (FP) PO PRN (08:19)
[2021-10-24] MEDS ORDERED: SODIUM CHLORIDE 0.45% 1,000 ML IV SCH (08:30)
[2021-10-24] MEDS ORDERED: ALBUTEROL SO4 HFA INHALER IH PRN (08:30)
[2021-10-24] MEDS ORDERED: LORazepam 2 MG/ML SDV VIAL IVPUSH PRN (08:32)
[2021-10-24] MEDS ORDERED: THIAMINE HCL 200 MG/2 ML VIAL ONE (09:14)
[2021-10-24] MEDS ORDERED: CARVEDILOL 25 MG TABLET (FP) ONE (09:15)
[2021-10-24] MEDS ORDERED: FOLIC ACID 1 MG TABLET (FP) ONE (09:15)
[2021-10-24] MEDS ORDERED: PANTOPRAZOLE 40 MG TABLET PO ONE (09:15)
[2021-10-24] MEDS ORDERED: APIXABAN 5 MG TABLET ONE (09:15)
[2021-10-24] MEDS ORDERED: ESCITALOPRAM OXALATE 10 MG TABLET PO SCH (10:00)
[2021-10-24] MEDS ORDERED: amLODIPine BESYLATE 10 MG TABLET (FP) PO SCH (10:00)
[2021-10-24] MEDS ORDERED: PATIENT'S OWN MEDICATION (NON-FORMULARY) (Thiamine Hcl [B-1] 100 MG Tablet) PO SCH (10:00)
[2021-10-24] MEDS ORDERED: APIXABAN 5 MG TABLET PO SCH (10:00)
[2021-10-24] MEDS ORDERED: THIAMINE HCL 200 MG/2 ML VIAL IVPB SCH (10:00)
[2021-10-24] MEDS ORDERED: CARVEDILOL 25 MG TABLET (FP) PO SCH (10:00)
[2021-10-24] MEDS ORDERED: PANTOPRAZOLE 40 MG TABLET PO SCH (10:00)
[2021-10-24] MEDS ORDERED: FOLIC ACID 1 MG TABLET (FP) PO SCH (10:00)
[2021-10-24] MEDS ORDERED: levETIRAcetam XR 500 MG TAB PO SCH (10:00)
[2021-10-24 10:01] LABS: MAGNESIUM 1.6 mg/dL (1.8-2.4); PHOSPHOROUS 2.5 mg/dL (2.5-4.9)
[2021-10-24] MEDS ORDERED: ESCITALOPRAM OXALATE 10 MG TABLET ONE (10:07)
[2021-10-24] MEDS ORDERED: amLODIPine BESYLATE 10 MG TABLET (FP) ONE (10:07)
[2021-10-24] MEDS ORDERED: INSULIN SLIDING SCALE (NOVOLOG) 1 VIAL SQ SCH (11:00)
[2021-10-24 11:36] VITALS: BP 158/97; PULSE 83; RESP 24
[2021-10-24] MEDS ORDERED: GABAPENTIN 400 MG CAPSULE PO SCH (14:00)
[2021-10-24] MEDS ORDERED: ATORVASTATIN CA 80 MG TABLET (FP) PO SCH (22:00)
[2021-10-27] MEDS ORDERED: THIAMINE HCL 100 MG TABLET (FP) PO SCH (10:00)
== END 2021-10-24 13:20 | disposition left against medical advice (07) ==
LOC: JER 22:31 → JERBED 10-24 03:18
PROVIDERS: ADMIT Internal Medicine; ATTEND Internal Medicine
PROC: 3E033GC Introduction of Other Therapeutic Substance into Peripheral Vein, Percutaneous Approach (ICD-10-PCS; principal; 2021-10-24)
PROC: 3E0337Z Introduction of Electrolytic and Water Balance Substance into Peripheral Vein, Percutaneous Approach (ICD-10-PCS; 2021-10-24)
DX: R07.89 Other chest pain (principal); R06.02 Shortness of breath; F10.220 Alcohol dependence with intoxication, uncomplicated; I11.0 Hypertensive heart disease with heart failure; I25.10 Atherosclerotic heart disease of native coronary artery without angina pectoris; I25.2 Old myocardial infarction; I50.9 Heart failure, unspecified; I48.0 Paroxysmal atrial fibrillation; E78.5 Hyperlipidemia, unspecified; G47.33 Obstructive sleep apnea (adult) (pediatric); G40.909 Epilepsy, unspecified, not intractable, without status epilepticus; J44.9 Chronic obstructive pulmonary disease, unspecified; R26.2 Difficulty in walking, not elsewhere classified; Z99.89 Dependence on other enabling machines and devices; Z99.81 Dependence on supplemental oxygen; Z86.711 Personal history of pulmonary embolism; Z86.718 Personal history of other venous thrombosis and embolism; Z79.01 Long term (current) use of anticoagulants; Z98.84 Bariatric surgery status
CPT/HCPCS: 36415; 71045-TC-FY; 80048; 80053; 80307; 82962; 83036; 83690; 83735; 83880; 84100; 84443; 84484; 85025; 93005; 93010; 96374; 96375; 99285-25; C9803-CS; G0378; U0003; U0005

== ENCOUNTER 2021-11-08 20:42 | Observation (INO) | payer OTHER ==
[2021-11-08 21:08] VITALS: BMI 21.1
[2021-11-08] MEDS ORDERED: FAMOTIDINE 20 MG/50 ML IVPB 20 MG/50 ML MG IVPB ONE ×2 (21:11→22:09)
[2021-11-08] MEDS ORDERED: ACETAMINOPHEN 1000 MG/100 ML BAG IVPB ONE (21:11)
[2021-11-08] MEDS ORDERED: MAG HYDROX/AL HYDROX/SIMETH 30 ML UNIT-DOSE CUP PO ONE (21:11)
[2021-11-08] MEDS ORDERED: ACETAMINOPHEN INJECTION 100 ML IVPB ONE (22:08)
[2021-11-08] MEDS ORDERED: MAG HYDROX/AL HYDROX/SIMETH 30 ML UNIT-DOSE CUP ONE (22:08)
[2021-11-08 22:13] LABS: BASO % 1.3 % (0-2.0); EOS % 1.7 % (0-4.5); HEMATOCRIT 37.5 % (35.4-49); HEMOGLOBIN 12.9 GM/dL (11.7-16.9); LYMPH % 38.9 % (8-40); MCH 34.8 pg (25.7-33.7); MCHC 34.4 g/dl (32.0-35.9); MEAN PLT VOLUME 9.5 fl (7.5-11.1); MONO % 10.5 % (3.8-10.2); NEUT % 47.6 % (42.8-82.8); PLATELET COUNT 198 10^3/uL (134-434); RBC 3.72 M/mm3 (4.00-5.60); RDW 16.9 % (11.9-15.9)
[2021-11-09 02:04] LABS: CALCIUM 7.9 mg/dL (8.5-10.1)
[2021-11-09 02:05] LABS: ALBUMIN 2.8 g/dl (3.4-5.0); BLOOD UREA NITROGEN 5.9 mg/dL (7-18)
[2021-11-09 02:08] LABS: CREATININE 0.5 mg/dL (0.55-1.3)
[2021-11-09 02:09] LABS: BILIRUBIN,TOTAL 0.6 mg/dL (0.2-1); TOT PROT 6.1 g/dl (6.4-8.2)
[2021-11-09] MEDS ORDERED: SODIUM CHLORIDE FOR INHALATION 3 ML VIAL.NEB IH ONE (04:10)
[2021-11-09] MEDS ORDERED: ALBUTEROL SO4 HFA INHALER IH PRN (05:45)
[2021-11-09] MEDS ORDERED: FOLIC ACID INJECTION - 1 MG, THIAMINE HCL 100 MG, MULTIVIT INJECTION ADULT 10 ML in SOD... IVPB ONE (06:42)
[2021-11-09] MEDS ORDERED: POTASSIUM CHLORIDE ORAL LIQUID 20 MEQ/15 ML PO ONE (06:45)
[2021-11-09 08:00] LABS: ALBUMIN 2.7 g/dl (3.4-5.0); BLOOD UREA NITROGEN 6.2 mg/dL (7-18); MAGNESIUM 1.7 mg/dL (1.8-2.4)
[2021-11-09 08:03] LABS: CREATININE 0.5 mg/dL (0.55-1.3); PHOSPHOROUS 3.7 mg/dL (2.5-4.9)
[2021-11-09 08:04] LABS: BILIRUBIN,TOTAL 0.8 mg/dL (0.2-1)
[2021-11-09] MEDS ORDERED: MAGNESIUM SULF 50% (8.12 MEQ/2 ML-1 GM VIAL) IVPB ONE (08:04)
[2021-11-09] MEDS ORDERED: POTASSIUM CHLORIDE TABS 20 MEQ TABLET.ER (FP) PO ONE ×3 (08:05→13:41)
[2021-11-09 08:43] LABS: HEMATOCRIT 34.7 % (35.4-49); HEMOGLOBIN 11.7 GM/dL (11.7-16.9); MCH 34.7 pg (25.7-33.7); MCHC 33.7 g/dl (32.0-35.9); MEAN CELL VOLUME 102.8 fl (80-96); MEAN PLT VOLUME 9.2 fl (7.5-11.1); PLATELET COUNT 134 10^3/uL (134-434); RBC 3.38 M/mm3 (4.00-5.60); RDW 16.8 % (11.9-15.9); WHITE BLOOD COUNT 4.8 K/mm3 (4.0-10.0)
[2021-11-09] MEDS ORDERED: PANTOPRAZOLE 40 MG TABLET PO ONE (09:12)
[2021-11-09] MEDS ORDERED: levETIRAcetam 500 MG TABLET (FP) PO ONE (09:12)
[2021-11-09] MEDS ORDERED: THIAMINE HCL 100 MG TABLET (FP) ONE (09:12)
[2021-11-09] MEDS ORDERED: APIXABAN 5 MG TABLET ONE (09:12)
[2021-11-09] MEDS ORDERED: ESCITALOPRAM OXALATE 10 MG TABLET ONE (09:13)
[2021-11-09] MEDS ORDERED: FOLIC ACID 1 MG TABLET (FP) ONE (09:13)
[2021-11-09] MEDS ORDERED: MULTIVITAMINS (DAILY MVI) TABLET (FP) ONE (09:13)
[2021-11-09] MEDS ORDERED: amLODIPine BESYLATE 10 MG TABLET (FP) ONE (09:13)
[2021-11-09] MEDS ORDERED: MAGNESIUM 1GM/D5W - 1 GM/100 ML IVPB IVPB ONE (09:14)
[2021-11-09] MEDS ORDERED: CARVEDILOL 25 MG TABLET (FP) ONE (09:14)
[2021-11-09] MEDS: CARVEDILOL 25 MG TABLET (FP) PO SCH ×2 (09:47→23:38)
[2021-11-09] MEDS: FOLIC ACID 1 MG TABLET (FP) PO SCH (09:47)
[2021-11-09] MEDS: levETIRAcetam XR 500 MG TAB PO SCH (09:47)
[2021-11-09] MEDS: ESCITALOPRAM OXALATE 20 MG TABLET PO SCH (09:47)
[2021-11-09] MEDS: APIXABAN 5 MG TABLET PO SCH ×2 (09:47→23:38)
[2021-11-09] MEDS: amLODIPine BESYLATE 10 MG TABLET (FP) PO SCH (09:48)
[2021-11-09] MEDS: MULTIVITAMINS (DAILY MVI) TABLET (FP) PO SCH (09:48)
[2021-11-09] MEDS: PANTOPRAZOLE 40 MG TABLET PO SCH (09:48)
[2021-11-09] MEDS: THIAMINE HCL 100 MG TABLET (FP) PO SCH ×2 (09:48→23:36)
[2021-11-09 11:32] LABS: EPI CELLS 28 /uL (0-25.1); HYALINE CASTS 4 /uL (0-3.1); PH,URINE 5.5 (5.0-8.0); URINE APPEARANCE Clear; URINE BACTERIA 7854 /uL (0-1359); URINE BILIRUBIN Negative (NEGATIVE); URINE COLOR YELLOW; URINE GLUCOSE (UA) Negative (NEGATIVE); URINE KETONE Trace (NEGATIVE); URINE LEUK ESTERASE Negative (NEGATIVE); URINE NITRITE Negative (NEGATIVE); URINE PROTEIN 30 (NEGATIVE); URINE RBC 2 /uL (0-23.9); URINE WBC 48 /uL (0-25.8)
[2021-11-09] MEDS ORDERED: POTASSIUM CHLORIDE TABS 10 MEQ TABLET.ER (FP) PO ONE ×2 (12:20→15:30)
[2021-11-09 12:50] LABS: YEAST NONE SEEN (NEGATIVE)
[2021-11-09] MEDS ORDERED: ACETAMINOPHEN 325 MG TABLET (FP) PO PRN (12:51)
[2021-11-09] MEDS ORDERED: ACETAMINOPHEN 325 MG TABLET (FP) ONE (19:46)
[2021-11-09] MEDS ORDERED: MIRTAZAPINE 30 MG TABLET PO SCH (22:00)
[2021-11-09] MEDS ORDERED: ATORVASTATIN CA 80 MG TABLET (FP) PO SCH (22:00)
[2021-11-09] MEDS ORDERED: MIRTAZAPINE 15 MG TABLET (FP) ONE (23:34)
[2021-11-10 08:22] LABS: BASO % 0.8 % (0-2.0); EOS % 2.1 % (0-4.5); HEMATOCRIT 31.1 % (35.4-49); HEMOGLOBIN 10.7 GM/dL (11.7-16.9); LYMPH % 52.9 % (8-40); MCH 35.2 pg (25.7-33.7); MCHC 34.5 g/dl (32.0-35.9); MEAN CELL VOLUME 102.1 fl (80-96); MEAN PLT VOLUME 9.5 fl (7.5-11.1); MONO % 11.4 % (3.8-10.2); NEUT % 32.8 % (42.8-82.8); PLATELET COUNT 94 10^3/uL (134-434); RBC 3.05 M/mm3 (4.00-5.60); RDW 16.3 % (11.9-15.9); WHITE BLOOD COUNT 3.6 K/mm3 (4.0-10.0)
[2021-11-10 08:32] LABS: ALBUMIN 2.5 g/dl (3.4-5.0); BLOOD UREA NITROGEN 5.5 mg/dL (7-18); CALCIUM 8.2 mg/dL (8.5-10.1); MAGNESIUM 1.9 mg/dL (1.8-2.4)
[2021-11-10 08:35] LABS: CREATININE 0.5 mg/dL (0.55-1.3)
[2021-11-10 08:37] LABS: BILIRUBIN,TOTAL 2.3 mg/dL (0.2-1); TOT PROT 5.4 g/dl (6.4-8.2)
[2021-11-10] MEDS: CARVEDILOL 25 MG TABLET (FP) PO SCH (09:41)
[2021-11-10] MEDS: levETIRAcetam XR 500 MG TAB PO SCH (09:41)
[2021-11-10] MEDS: FOLIC ACID 1 MG TABLET (FP) PO SCH (09:41)
[2021-11-10] MEDS: amLODIPine BESYLATE 10 MG TABLET (FP) PO SCH (09:41)
[2021-11-10] MEDS: MULTIVITAMINS (DAILY MVI) TABLET (FP) PO SCH (09:41)
[2021-11-10] MEDS: ESCITALOPRAM OXALATE 20 MG TABLET PO SCH (09:41)
[2021-11-10] MEDS: THIAMINE HCL 100 MG TABLET (FP) PO SCH (09:41)
[2021-11-10] MEDS: APIXABAN 5 MG TABLET PO SCH (09:41)
[2021-11-10] MEDS: PANTOPRAZOLE 40 MG TABLET PO SCH (09:42)
[2021-11-10 09:43] VITALS: BP 144/96; PULSE 75; RESP 18; TEMP 98.6
[2021-11-10] MEDS ORDERED: VANCOMYCIN 1 GM/200 ML PREMIX BAG IVPB ONE (13:00)
[2021-11-10] MEDS ORDERED: NAPH,MB-DB/K PH,MBDB POWDER PACKET PO ONE (14:24)
[2021-11-10] MEDS ORDERED: POTASSIUM CHLORIDE TABS 20 MEQ TABLET.ER (FP) PO ONE (14:28)
== END 2021-11-10 17:32 | disposition left against medical advice (07) ==
LOC: JER 20:42 → JERBED 21:20 → J4W 11-09 21:10
PROVIDERS: ADMIT Internal Medicine; ATTEND Internal Medicine
PROC: 3E033NZ Introduction of Analgesics, Hypnotics, Sedatives into Peripheral Vein, Percutaneous Approach (ICD-10-PCS; principal; 2021-11-08)
PROC: 3E033GC Introduction of Other Therapeutic Substance into Peripheral Vein, Percutaneous Approach (ICD-10-PCS; 2021-11-08)
PROC: 3E03329 Introduction of Other Anti-infective into Peripheral Vein, Percutaneous Approach (ICD-10-PCS; 2021-11-08)
DX: I48.0 Paroxysmal atrial fibrillation (principal); E87.6 Hypokalemia; E11.9 Type 2 diabetes mellitus without complications; R56.9 Unspecified convulsions; F10.99 Alcohol use, unspecified with unspecified alcohol-induced disorder; E78.5 Hyperlipidemia, unspecified; Z86.73 Personal history of transient ischemic attack (TIA), and cerebral infarction without residual deficits; R06.2 Wheezing; I25.10 Atherosclerotic heart disease of native coronary artery without angina pectoris; I10 Essential (primary) hypertension; I25.2 Old myocardial infarction; Z91.018 Allergy to other foods; R10.11 Right upper quadrant pain
CPT/HCPCS: 36415; 70450-TC; 70480-TC; 71045-TC-FY; 72125-TC; 74177-TC; 80053; 81003; 82962; 83735; 84100; 84484; 85025; 85027; 87086; 87186; 93005; 93010; 96365; 96367; 96375; 99285-25; C9803-CS; G0378; Q9967; U0003; U0005

== ENCOUNTER 2021-11-27 13:40 | Observation (INO) | payer OTHER ==
[2021-11-27] MEDS ORDERED: ACETAMINOPHEN 1000 MG/100 ML BAG IVPB ONE (15:00)
[2021-11-27] MEDS ORDERED: ACETAMINOPHEN INJECTION 100 ML IVPB ONE (15:51)
[2021-11-27 16:27] LABS: INR 0.97 (0.83-1.09); PROTHROMBIN TIME (PATIENT) 11.2 SEC (9.7-13.0)
[2021-11-27 16:30] LABS: ACTIVATED PTT 34.9 SECONDS (25.2-36.5)
[2021-11-27 16:46] LABS: BLOOD UREA NITROGEN 4.6 mg/dL (7-18); CALCIUM 8.6 mg/dL (8.5-10.1); MAGNESIUM 1.8 mg/dL (1.8-2.4)
[2021-11-27] MEDS ORDERED: POTASSIUM CHLORIDE ORAL LIQUID 20 MEQ/15 ML PO ONE (16:46)
[2021-11-27 16:47] LABS: ALBUMIN 3.1 g/dl (3.4-5.0)
[2021-11-27 16:49] LABS: CREATININE 0.6 mg/dL (0.55-1.3); PHOSPHOROUS 2.6 mg/dL (2.5-4.9)
[2021-11-27 16:51] LABS: BILIRUBIN,TOTAL 1.1 mg/dL (0.2-1); TOT PROT 6.9 g/dl (6.4-8.2)
[2021-11-27] MEDS ORDERED: SODIUM CHLORIDE 0.9% 500 ML INFUS.BAG IV ONE (17:11)
[2021-11-27] MEDS ORDERED: ESCITALOPRAM OXALATE 20 MG TABLET PO ONE (17:12)
[2021-11-27 17:58] LABS: BASO % 0.8 % (0-2.0); EOS % 0.2 % (0-4.5); HEMATOCRIT 36.9 % (35.4-49); HEMOGLOBIN 12.5 GM/dL (11.7-16.9); LYMPH % 27.5 % (8-40); MCHC 33.9 g/dl (32.0-35.9); MEAN CELL VOLUME 103.4 fl (80-96); MEAN PLT VOLUME 9.2 fl (7.5-11.1); MONO % 7.9 % (3.8-10.2); NEUT % 63.6 % (42.8-82.8); PLATELET COUNT 182 10^3/uL (134-434); RBC 3.57 M/mm3 (4.00-5.60); RDW 15.9 % (11.9-15.9); WHITE BLOOD COUNT 4.4 K/mm3 (4.0-10.0)
[2021-11-27] MEDS ORDERED: POTASSIUM CHLORIDE ORAL LIQUID 20 MEQ/15 ML ONE (18:32)
[2021-11-27] MEDS ORDERED: FAMOTIDINE 20 MG/50 ML IVPB 20 MG/50 ML MG IVPB ONE ×2 (18:49→18:53)
[2021-11-27] MEDS ORDERED: MAG HYDROX/AL HYDROX/SIMETH 30 ML UNIT-DOSE CUP PO ONE (18:49)
[2021-11-27] MEDS ORDERED: MAG HYDROX/AL HYDROX/SIMETH 30 ML UNIT-DOSE CUP ONE (18:53)
[2021-11-27 19:15] LABS: LACTIC ACID 7.9 mmol/L (0.4-2.0)
[2021-11-27 22:13] LABS: CALCIUM 7.9 mg/dL (8.5-10.1)
[2021-11-27 22:14] LABS: BLOOD UREA NITROGEN 3.6 mg/dL (7-18)
[2021-11-27 22:17] LABS: CREATININE 0.7 mg/dL (0.55-1.3)
[2021-11-27 22:20] LABS: LACTIC ACID 5.6 mmol/L (0.4-2.0)
[2021-11-27] MEDS ORDERED: LORazepam 1 MG TABLET PO PRN (22:45)
[2021-11-27] MEDS ORDERED: FOLIC ACID INJECTION - 1 MG, THIAMINE HCL 100 MG, MULTIVIT INJECTION ADULT 10 ML in SOD... IVPB ONE (22:49)
[2021-11-27] MEDS ORDERED: MAGNESIUM SULF 50% (8.12 MEQ/2 ML-1 GM VIAL) IVPB ONE (22:57)
[2021-11-27] MEDS: LORazepam 2 MG TABLET PO SCH (23:07)
[2021-11-28] MEDS ORDERED: APIXABAN 5 MG TABLET PO ONE (00:14)
[2021-11-28] MEDS: CARVEDILOL 25 MG TABLET (FP) PO SCH ×3 (00:17→21:03)
[2021-11-28] MEDS: KCL 10 MEQ IVPB 10 MEQ/100 ML INFUS.BAG IVPB SCH ×3 (01:10→03:15)
[2021-11-28] MEDS ORDERED: LORazepam 1 MG TABLET PO SCH (05:00)
[2021-11-28] MEDS: GABAPENTIN 400 MG CAPSULE PO SCH ×3 (06:32→21:03)
[2021-11-28 08:59] LABS: BASO % 1.3 % (0-2.0); HEMATOCRIT 29.9 % (35.4-49); LYMPH % 35.2 % (8-40); MCH 35.3 pg (25.7-33.7); MCHC 33.6 g/dl (32.0-35.9); MEAN PLT VOLUME 9.4 fl (7.5-11.1); NEUT % 52.5 % (42.8-82.8); PLATELET COUNT 115 10^3/uL (134-434); RBC 2.85 M/mm3 (4.00-5.60); RDW 15.6 % (11.9-15.9); WHITE BLOOD COUNT 4.4 K/mm3 (4.0-10.0)
[2021-11-28] MEDS ORDERED: ESCITALOPRAM OXALATE 10 MG TABLET ONE (09:09)
[2021-11-28 09:13] LABS: CHLORIDE 106 mmol/L (98-107); SODIUM 142 mmol/L (136-145)
[2021-11-28] MEDS: THIAMINE HCL 100 MG TABLET (FP) PO SCH ×2 (09:16→21:03)
[2021-11-28] MEDS: PANTOPRAZOLE 40 MG TABLET PO SCH (09:16)
[2021-11-28 09:17] LABS: CALCIUM 7.7 mg/dL (8.5-10.1)
[2021-11-28] MEDS: ESCITALOPRAM OXALATE 20 MG TABLET PO SCH (09:17)
[2021-11-28] MEDS: amLODIPine BESYLATE 10 MG TABLET (FP) PO SCH (09:17)
[2021-11-28] MEDS: APIXABAN 5 MG TABLET PO SCH ×2 (09:17→21:03)
[2021-11-28] MEDS: FOLIC ACID 1 MG TABLET (FP) PO SCH (09:17)
[2021-11-28 09:18] LABS: ANION GAP 6 MMOL/L (8-16); CO2 31 mmol/L (21-32); GLUCOSE,RANDOM 72 mg/dL (74-106); MAGNESIUM 1.7 mg/dL (1.8-2.4)
[2021-11-28 09:20] LABS: PHOSPHOROUS 1.8 mg/dL (2.5-4.9); SGPT/ALT 39 U/L (13-61)
[2021-11-28 09:21] LABS: CREATININE 0.5 mg/dL (0.55-1.3); SGOT/AST 79 U/L (15-37)
[2021-11-28 09:22] LABS: BILIRUBIN,TOTAL 1.2 mg/dL (0.2-1); TOT PROT 5.4 g/dl (6.4-8.2)
[2021-11-28 09:26] LABS: ALBUMIN 2.3 g/dl (3.4-5.0); ALK PHOS 104 U/L (45-117); BLOOD UREA NITROGEN 2.9 mg/dL (7-18)
[2021-11-28 09:54] LABS: EPI CELLS 1 /uL (0-25.1); HYALINE CASTS 1 /uL (0-3.1); PH,URINE 7.5 (5.0-8.0); URINE APPEARANCE CLEAR; URINE BACTERIA >9,000 /uL (0-1359); URINE BILIRUBIN NEGATIVE (NEGATIVE); URINE COLOR YELLOW; URINE GLUCOSE (UA) NEGATIVE (NEGATIVE); URINE KETONE NEGATIVE (NEGATIVE); URINE LEUK ESTERASE 3+ (NEGATIVE); URINE NITRITE NEGATIVE (NEGATIVE); URINE PROTEIN NEGATIVE (NEGATIVE); URINE RBC 5 /uL (0-23.9); URINE UROBILINOGEN 0.2 mg/dL (0.2-1.0); URINE WBC 279 /uL (0-25.8)
[2021-11-28] MEDS ORDERED: CARVEDILOL 25 MG TABLET (FP) PO SCH (10:00)
[2021-11-28] MEDS ORDERED: APIXABAN 5 MG TABLET PO SCH (10:00)
[2021-11-28] MEDS: levETIRAcetam XR 500 MG TAB PO SCH (10:35)
[2021-11-28 10:39] LABS: ANISOCYTOSIS 2+; MACROCYTOSIS 2+; PLATELET ESTIMATE DECREASED
[2021-11-28] MEDS ORDERED: MAGNESIUM SULF 50% (8.12 MEQ/2 ML-1 GM VIAL) IVPB ONE (14:03)
[2021-11-28] MEDS ORDERED: POTASSIUM PHOSPHATE 30 MM in DEXTROSE 5%-WATER - 500 ML IVPB ONE (14:30)
[2021-11-28] MEDS: CYANOCOBALAMIN (VITAMIN B-12) 100 MCG TABLET PO SCH (16:09)
[2021-11-28] MEDS ORDERED: ATORVASTATIN CA 80 MG TABLET (FP) PO SCH (22:00)
[2021-11-29] MEDS ORDERED: LORazepam 0.5 MG TABLET PO PRN
[2021-11-29] MEDS ORDERED: LORazepam 0.5 MG TABLET PO SCH (05:00)
[2021-11-29] MEDS: GABAPENTIN 400 MG CAPSULE PO SCH ×2 (05:21→15:39)
[2021-11-29 07:43] LABS: BASO % 0.5 % (0-2.0); EOS % 1.7 % (0-4.5); HEMATOCRIT 28.5 % (35.4-49); HEMOGLOBIN 9.4 GM/dL (11.7-16.9); MCH 34.7 pg (25.7-33.7); MCHC 33.1 g/dl (32.0-35.9); MEAN CELL VOLUME 104.8 fl (80-96); MEAN PLT VOLUME 9.3 fl (7.5-11.1); MONO % 9.7 % (3.8-10.2); NEUT % 55.1 % (42.8-82.8); PLATELET COUNT 118 10^3/uL (134-434); RBC 2.72 M/mm3 (4.00-5.60); RDW 15.4 % (11.9-15.9); WHITE BLOOD COUNT 4.4 K/mm3 (4.0-10.0)
[2021-11-29 07:58] LABS: CALCIUM 8.2 mg/dL (8.5-10.1)
[2021-11-29 07:59] LABS: ALBUMIN 2.2 g/dl (3.4-5.0); MAGNESIUM 2.1 mg/dL (1.8-2.4)
[2021-11-29 08:02] LABS: CREATININE 0.6 mg/dL (0.55-1.3); PHOSPHOROUS 2.8 mg/dL (2.5-4.9)
[2021-11-29 08:05] LABS: BILIRUBIN,TOTAL 1.1 mg/dL (0.2-1); TOT PROT 4.8 g/dl (6.4-8.2)
[2021-11-29] MEDS ORDERED: ESCITALOPRAM OXALATE 10 MG TABLET ONE (08:58)
[2021-11-29 09:01] VITALS: TEMP 98.6
[2021-11-29] MEDS: APIXABAN 5 MG TABLET PO SCH (09:02)
[2021-11-29] MEDS: CARVEDILOL 25 MG TABLET (FP) PO SCH (09:02)
[2021-11-29] MEDS: amLODIPine BESYLATE 10 MG TABLET (FP) PO SCH (09:02)
[2021-11-29] MEDS: PANTOPRAZOLE 40 MG TABLET PO SCH (09:02)
[2021-11-29] MEDS: THIAMINE HCL 100 MG TABLET (FP) PO SCH (09:02)
[2021-11-29] MEDS: FOLIC ACID 1 MG TABLET (FP) PO SCH (09:03)
[2021-11-29] MEDS: ESCITALOPRAM OXALATE 20 MG TABLET PO SCH (09:03)
[2021-11-29] MEDS: levETIRAcetam XR 500 MG TAB PO SCH (10:19)
[2021-11-29] MEDS: CYANOCOBALAMIN (VITAMIN B-12) 100 MCG TABLET PO SCH (10:19)
[2021-11-29 14:12] VITALS: BP 96/59; PULSE 64; RESP 20
[2021-11-29 19:27] VITALS: BMI 22.5
[2021-11-30] MEDS ORDERED: LORazepam 0.5 MG TABLET PO ONE (05:00)
== END 2021-11-29 20:16 | disposition home or self-care (01) ==
LOC: JER 13:40 → JERBED 16:00 → J4S 22:26
PROVIDERS: ADMIT Internal Medicine; ATTEND Internal Medicine
PROC: 3E033NZ Introduction of Analgesics, Hypnotics, Sedatives into Peripheral Vein, Percutaneous Approach (ICD-10-PCS; principal; 2021-11-27)
PROC: 3E033GC Introduction of Other Therapeutic Substance into Peripheral Vein, Percutaneous Approach (ICD-10-PCS; 2021-11-27)
PROC: 3E033GC Introduction of Other Therapeutic Substance into Peripheral Vein, Percutaneous Approach (ICD-10-PCS; 2021-11-27)
PROC: 3E0337Z Introduction of Electrolytic and Water Balance Substance into Peripheral Vein, Percutaneous Approach (ICD-10-PCS; 2021-11-27)
DX: I25.10 Atherosclerotic heart disease of native coronary artery without angina pectoris (principal); I11.9 Hypertensive heart disease without heart failure; J44.9 Chronic obstructive pulmonary disease, unspecified; Z79.01 Long term (current) use of anticoagulants; R56.9 Unspecified convulsions; F10.99 Alcohol use, unspecified with unspecified alcohol-induced disorder; G47.33 Obstructive sleep apnea (adult) (pediatric); E87.6 Hypokalemia; R79.9 Abnormal finding of blood chemistry, unspecified; R07.9 Chest pain, unspecified; Z91.018 Allergy to other foods; Z86.73 Personal history of transient ischemic attack (TIA), and cerebral infarction without residual deficits
CPT/HCPCS: 36415; 71045-TC-FY; 71275-TC; 74174-TC; 80048; 80053; 81003; 83605; 83690; 83735; 84100; 84484; 85025; 85610; 85730; 86850; 86900; 86901; 87086; 87186; 93005; 93010; 96365; 96367; 96375; 96376; 99285-25; C9803-CS; G0378; Q9967; U0003; U0005

== ENCOUNTER 2021-12-05 10:02 | Emergency (ER) | payer OTHER ==
[2021-12-05 10:22] VITALS: BP 107/67; PULSE 80; TEMP 97.2; BMI 22.4
[2021-12-05 10:23] VITALS: RESP 18
[2021-12-05] MEDS: ALBUTEROL SO4 2.5/IPRATROPIUM 0.5 INH SOL 3 ML VIAL.NEB. NEB SCH ×4 (11:15→12:00)
[2021-12-05] MEDS ORDERED: ALBUTEROL SO4 2.5/IPRATROPIUM 0.5 INH SOL 3 ML VIAL.NEB. NEB ONE (11:22)
[2021-12-05 12:25] LABS: BASO % 1.3 % (0-2.0); EOS % 2.7 % (0-4.5); HEMOGLOBIN 11.9 GM/dL (11.7-16.9); LYMPH % 40.9 % (8-40); MCH 34.5 pg (25.7-33.7); MCHC 32.9 g/dl (32.0-35.9); MEAN CELL VOLUME 104.9 fl (80-96); MONO % 9.7 % (3.8-10.2); NEUT % 45.4 % (42.8-82.8); PLATELET COUNT 206 10^3/uL (134-434); RBC 3.44 M/mm3 (4.00-5.60); RDW 15.7 % (11.9-15.9); WHITE BLOOD COUNT 4.5 K/mm3 (4.0-10.0)
[2021-12-05 12:31] LABS: PROTHROMBIN TIME (PATIENT) 11.5 SEC (9.7-13.0)
[2021-12-05 12:33] LABS: ACTIVATED PTT 34.9 SECONDS (25.2-36.5)
[2021-12-05 13:15] LABS: CALCIUM 8.4 mg/dL (8.5-10.1)
[2021-12-05 13:18] LABS: CREATININE 0.7 mg/dL (0.55-1.3)
[2021-12-05 13:19] LABS: BILIRUBIN,TOTAL 0.4 mg/dL (0.2-1); TOT PROT 6.4 g/dl (6.4-8.2)
[2021-12-05 13:23] LABS: N-TERMINAL BNP 186.1 pg/ml (5-125)
[2021-12-05 13:39] LABS: ALBUMIN 2.8 g/dl (3.4-5.0)
== END 2021-12-05 15:44 | disposition left against medical advice (07) ==
LOC: JER 10:02
PROC: 3E0F7GC Introduction of Other Therapeutic Substance into Respiratory Tract, Via Natural or Artificial Opening (ICD-10-PCS; principal; 2021-12-05)
DX: R06.02 Shortness of breath (principal); R10.9 Unspecified abdominal pain; R07.9 Chest pain, unspecified
CPT/HCPCS: 36415; 71045-TC-FY; 71250-TC; 74176-TC; 80053; 83690; 83880; 84484; 85025; 85610; 85730; 93005; 93010; 94640; 99285-25; C9803-CS; U0003; U0005

== ENCOUNTER 2021-12-14 17:47 | Observation (INO) | payer OTHER ==
[2021-12-14 18:04] VITALS: BMI 23.1
[2021-12-14 20:01] LABS: BASO % 0.9 % (0-2.0); EOS % 3.5 % (0-4.5); HEMATOCRIT 32.5 % (35.4-49); HEMOGLOBIN 10.8 GM/dL (11.7-16.9); LYMPH % 30.3 % (8-40); MCH 35.5 pg (25.7-33.7); MCHC 33.2 g/dl (32.0-35.9); MEAN CELL VOLUME 106.9 fl (80-96); MEAN PLT VOLUME 8.7 fl (7.5-11.1); NEUT % 55.3 % (42.8-82.8); PLATELET COUNT 194 10^3/uL (134-434); RBC 3.04 M/mm3 (4.00-5.60); RDW 15.4 % (11.9-15.9); WHITE BLOOD COUNT 4.7 K/mm3 (4.0-10.0)
[2021-12-14 20:15] LABS: INR 1.06 (0.83-1.09); PROTHROMBIN TIME (PATIENT) 12.2 SEC (9.7-13.0)
[2021-12-14 20:17] LABS: ACTIVATED PTT 32.6 SECONDS (25.2-36.5)
[2021-12-14 20:20] LABS: CALCIUM 7.9 mg/dL (8.5-10.1)
[2021-12-14 20:21] LABS: ALBUMIN 2.4 g/dl (3.4-5.0); BLOOD UREA NITROGEN 13.4 mg/dL (7-18)
[2021-12-14 20:24] LABS: CREATININE 0.6 mg/dL (0.55-1.3)
[2021-12-14 20:25] LABS: BILIRUBIN,TOTAL 0.2 mg/dL (0.2-1); TOT PROT 5.8 g/dl (6.4-8.2)
[2021-12-14 20:29] LABS: N-TERMINAL BNP 159.8 pg/ml (5-125)
[2021-12-14] MEDS ORDERED: ACETAMINOPHEN 1000 MG/100 ML BAG IVPB ONE (21:32)
[2021-12-14] MEDS ORDERED: ACETAMINOPHEN INJECTION 100 ML IVPB ONE (21:33)
[2021-12-14 21:56] LABS: ANISOCYTOSIS 1+; MACROCYTOSIS 1+
[2021-12-15] MEDS ORDERED: POTASSIUM CHLORIDE TABS 20 MEQ TABLET.ER (FP) PO ONE ×2 (01:33→02:01)
[2021-12-15] MEDS ORDERED: KCL 10 MEQ IVPB 30 MEQ/300 ML INFUS.BAG IVPB ONE (02:01)
[2021-12-15] MEDS: KCL 10 MEQ IVPB 10 MEQ/100 ML INFUS.BAG IVPB SCH ×3 (02:12→04:46)
[2021-12-15] MEDS ORDERED: LORazepam 1 MG TABLET PO PRN (03:38)
[2021-12-15] MEDS ORDERED: LORazepam 2 MG TABLET PO SCH (05:00)
[2021-12-15] MEDS ORDERED: LORazepam 1 MG TABLET ONE ×2 (05:29→12:59)
[2021-12-15 06:24] VITALS: BP 152/80; PULSE 70; RESP 16; TEMP 98.8
[2021-12-15] MEDS ORDERED: LORazepam 1 MG TABLET PO SCH (06:24)
[2021-12-15 07:02] LABS: HEMATOCRIT 29.2 % (35.4-49); HEMOGLOBIN 9.9 GM/dL (11.7-16.9); MCH 35.9 pg (25.7-33.7); MCHC 33.8 g/dl (32.0-35.9); MEAN CELL VOLUME 106.2 fl (80-96); MEAN PLT VOLUME 9.1 fl (7.5-11.1); PLATELET COUNT 145 10^3/uL (134-434); RBC 2.75 M/mm3 (4.00-5.60); RDW 15.3 % (11.9-15.9); WHITE BLOOD COUNT 4.9 K/mm3 (4.0-10.0)
[2021-12-15 07:18] LABS: BLOOD UREA NITROGEN 12.7 mg/dL (7-18); CALCIUM 7.3 mg/dL (8.5-10.1); MAGNESIUM 1.6 mg/dL (1.8-2.4)
[2021-12-15 07:21] LABS: CREATININE 0.5 mg/dL (0.55-1.3); PHOSPHOROUS 3.2 mg/dL (2.5-4.9)
[2021-12-15] MEDS ORDERED: FOLIC ACID INJECTION - 1 MG, THIAMINE HCL 100 MG, MULTIVIT INJECTION ADULT 10 ML in SOD... IVPB ONE (07:45)
[2021-12-15] MEDS ORDERED: ALBUTEROL SO4 HFA INHALER IH PRN (08:21)
[2021-12-15] MEDS ORDERED: PANTOPRAZOLE 40 MG TABLET PO ONE (09:57)
[2021-12-15] MEDS ORDERED: amLODIPine BESYLATE 10 MG TABLET (FP) ONE (09:57)
[2021-12-15] MEDS ORDERED: APIXABAN 5 MG TABLET ONE (09:57)
[2021-12-15] MEDS ORDERED: ATORVASTATIN CA 80 MG TABLET (FP) ONE (09:58)
[2021-12-15] MEDS ORDERED: CARVEDILOL 25 MG TABLET (FP) ONE (09:58)
[2021-12-15] MEDS ORDERED: levETIRAcetam XR 500 MG TAB PO SCH (10:00)
[2021-12-15] MEDS ORDERED: ATORVASTATIN CA 80 MG TABLET (FP) PO SCH (10:00)
[2021-12-15] MEDS ORDERED: PANTOPRAZOLE 40 MG TABLET PO SCH (10:00)
[2021-12-15] MEDS ORDERED: ENOXAPARIN NA (PORCINE) 40 MG/0.4 ML DISP.SYRIN SQ SCH (10:00)
[2021-12-15] MEDS ORDERED: CARVEDILOL 25 MG TABLET (FP) PO SCH (10:00)
[2021-12-15] MEDS ORDERED: amLODIPine BESYLATE 10 MG TABLET (FP) PO SCH (10:00)
[2021-12-15] MEDS ORDERED: APIXABAN 5 MG TABLET PO SCH (10:00)
[2021-12-15] MEDS ORDERED: GABAPENTIN 400 MG CAPSULE PO SCH (14:00)
[2021-12-16] MEDS ORDERED: LORazepam 1 MG TABLET PO SCH (05:00)
[2021-12-16] MEDS ORDERED: THIAMINE HCL 100 MG TABLET (FP) PO SCH (10:00)
[2021-12-16] MEDS ORDERED: MULTIVITAMINS (DAILY MVI) TABLET (FP) PO SCH (10:00)
[2021-12-16] MEDS ORDERED: FOLIC ACID 1 MG TABLET (FP) PO SCH (10:00)
[2021-12-17] MEDS ORDERED: LORazepam 0.5 MG TABLET PO PRN
[2021-12-17] MEDS ORDERED: LORazepam 0.5 MG TABLET PO SCH (05:00)
[2021-12-18] MEDS ORDERED: LORazepam 0.5 MG TABLET PO ONE (05:00)
== END 2021-12-15 15:29 | disposition left against medical advice (07) ==
LOC: JER 17:47 → JERBED 23:16
PROVIDERS: ADMIT Internal Medicine; ATTEND Nurse Practitioner Acute Care
PROC: 3E033NZ Introduction of Analgesics, Hypnotics, Sedatives into Peripheral Vein, Percutaneous Approach (ICD-10-PCS; principal; 2021-12-14)
PROC: 3E033GC Introduction of Other Therapeutic Substance into Peripheral Vein, Percutaneous Approach (ICD-10-PCS; 2021-12-14)
DX: J44.9 Chronic obstructive pulmonary disease, unspecified (principal); E11.9 Type 2 diabetes mellitus without complications; F10.10 Alcohol abuse, uncomplicated; E55.9 Vitamin D deficiency, unspecified; E78.5 Hyperlipidemia, unspecified; I10 Essential (primary) hypertension; R10.9 Unspecified abdominal pain; R06.02 Shortness of breath; R07.89 Other chest pain; D64.9 Anemia, unspecified; I25.2 Old myocardial infarction; Z29.8 Encounter for other specified prophylactic measures; Z91.018 Allergy to other foods
CPT/HCPCS: 0241U-QW; 36415; 71046-TC-FY; 74177-TC; 80048; 80053; 82962; 83690; 83735; 83880; 84100; 84484; 85025; 85027; 85610; 85730; 93005; 93010; 96365; 96375; 99285-25; G0378

== ENCOUNTER 2022-01-01 10:45 | Emergency (ER) | payer OTHER ==
[2022-01-01] MEDS ORDERED: ALBUTEROL SO4 0.083% IH SOL 2.5 MG/3 ML VIAL.NEB. NEB ONE ×2 (10:50→11:31)
[2022-01-01 11:39] VITALS: BP 107/76; PULSE 96; RESP 18; TEMP 97.9; BMI 26.1
[2022-01-01 12:26] LABS: BASO % 0.2 % (0-2.0); HEMATOCRIT 36.4 % (35.4-49); HEMOGLOBIN 11.7 GM/dL (11.7-16.9); LYMPH % 14.3 % (8-40); MCH 34.1 pg (25.7-33.7); MCHC 32.2 g/dl (32.0-35.9); MEAN CELL VOLUME 105.9 fl (80-96); MONO % 9.7 % (3.8-10.2); NEUT % 75.8 % (42.8-82.8); PLATELET COUNT 127 10^3/uL (134-434); RBC 3.44 M/mm3 (4.00-5.60); RDW 13.8 % (11.9-15.9); WHITE BLOOD COUNT 7.1 K/mm3 (4.0-10.0)
[2022-01-01 12:44] LABS: CHLORIDE 97 mmol/L (98-107); SODIUM 142 mmol/L (136-145)
[2022-01-01 12:47] LABS: ALBUMIN 2.6 g/dl (3.4-5.0); ANION GAP 22 MMOL/L (8-16); BLOOD UREA NITROGEN 16.4 mg/dL (7-18); CALCIUM 8.4 mg/dL (8.5-10.1); CO2 23 mmol/L (21-32); GLUCOSE,RANDOM 69 mg/dL (74-106); MAGNESIUM 2.3 mg/dL (1.8-2.4)
[2022-01-01 12:49] LABS: CREATININE 0.9 mg/dL (0.55-1.3); SGOT/AST 46 U/L (15-37); SGPT/ALT 19 U/L (13-61)
[2022-01-01 12:51] LABS: TOT PROT 6.2 g/dl (6.4-8.2)
[2022-01-01 12:52] LABS: ALK PHOS 88 U/L (45-117)
[2022-01-01 13:26] LABS: ANISOCYTOSIS 1+; MACROCYTOSIS 1+
== END 2022-01-01 12:52 | disposition left against medical advice (07) ==
LOC: JER 10:45
DX: R06.02 Shortness of breath (principal)
CPT/HCPCS: 36415; 71045-TC-FY; 80053; 82962; 83735; 84484; 85025; 93005; 93010; 99285-25

== ENCOUNTER 2022-01-01 14:42 | Inpatient (IN) | payer OTHER ==
[2022-01-01] MEDS ORDERED: POTASSIUM CHLORIDE TABS 20 MEQ TABLET.ER (FP) PO ONE ×2 (17:05→17:14)
[2022-01-01] MEDS ORDERED: SODIUM CHLORIDE 0.9% 500 ML INFUS.BAG IV ONE (18:51)
[2022-01-01 19:34] VITALS: BMI 22.0
[2022-01-01] MEDS ORDERED: LORazepam 1 MG TABLET PO PRN (21:47)
[2022-01-01] MEDS ORDERED: FOLIC ACID INJECTION - 1 MG, THIAMINE HCL 100 MG, MULTIVIT INJECTION ADULT 10 ML in SOD... IVPB ONE (21:49)
[2022-01-01] MEDS ORDERED: REMDESIVIR 200 MG in SODIUM CHLORIDE 250 ML IVPB ONE (21:53)
[2022-01-01] MEDS ORDERED: ALBUTEROL SO4 HFA INHALER IH PRN (21:54)
[2022-01-01] MEDS ORDERED: DEXTROSE 5%-NORMAL SALINE 1,000 ML IV SCH (22:00)
[2022-01-01] MEDS ORDERED: LORazepam 2 MG TABLET PO SCH (23:00)
[2022-01-01 23:07] LABS: EPI CELLS 19 /uL (0-25.1); HYALINE CASTS 6 /uL (0-3.1); PH,URINE 5.5 (5.0-8.0); URINE APPEARANCE CLOUDY; URINE BILIRUBIN NEGATIVE (NEGATIVE); URINE COLOR YELLOW; URINE GLUCOSE (UA) NEGATIVE (NEGATIVE); URINE KETONE 2+ (NEGATIVE); URINE LEUK ESTERASE NEGATIVE (NEGATIVE); URINE NITRITE POSITIVE (NEGATIVE); URINE PROTEIN 1+ (NEGATIVE); URINE WBC 47 /uL (0-25.8)
[2022-01-01 23:09] LABS: URINE BACTERIA 1156.4 /uL (0-1359); URINE RBC 39.5 /uL (0-23.9)
[2022-01-01 23:15] LABS: PHENCYCLIDINE,URINE NEGATIVE (NEGATIVE)
[2022-01-01 23:16] LABS: METHADONE, UR NEGATIVE (NEGATIVE); OPIATES, URI NEGATIVE (NEGATIVE)
[2022-01-01 23:18] LABS: URINE BARBITURATES NEGATIVE (NEGATIVE)
[2022-01-01 23:34] LABS: COCAINE, UR NEGATIVE (NEGATIVE); URINE AMPHETAMINES NEGATIVE (NEGATIVE); URINE BENZODIAZEPINES NEGATIVE (NEGATIVE)
[2022-01-02] MEDS ORDERED: VANCOMYCIN/WATER 1,250 MG/250 ML BAG IVPB SCH (00:15)
[2022-01-02] MEDS ORDERED: APIXABAN 5 MG TABLET ONE (00:32)
[2022-01-02] MEDS ORDERED: levETIRAcetam 500 MG TABLET (FP) PO ONE (00:32)
[2022-01-02] MEDS ORDERED: LORazepam 1 MG TABLET ONE (00:33)
[2022-01-02] MEDS ORDERED: CARVEDILOL 25 MG TABLET (FP) ONE (00:33)
[2022-01-02] MEDS: levETIRAcetam XR 500 MG TAB PO SCH ×2 (00:41→10:00)
[2022-01-02] MEDS: CARVEDILOL 25 MG TABLET (FP) PO SCH ×4 (00:41→22:39)
[2022-01-02] MEDS: APIXABAN 5 MG TABLET PO SCH ×3 (00:41→22:14)
[2022-01-02 00:51] LABS: BASO % 0.2 % (0-2.0); HEMATOCRIT 30.4 % (35.4-49); HEMOGLOBIN 10.2 GM/dL (11.7-16.9); LYMPH % 12.1 % (8-40); MCH 34.7 pg (25.7-33.7); MCHC 33.5 g/dl (32.0-35.9); MEAN CELL VOLUME 103.4 fl (80-96); MEAN PLT VOLUME 8.1 fl (7.5-11.1); MONO % 17.4 % (3.8-10.2); NEUT % 70.3 % (42.8-82.8); PLATELET COUNT 94 10^3/uL (134-434); RBC 2.94 M/mm3 (4.00-5.60); RDW 13.5 % (11.9-15.9); WHITE BLOOD COUNT 4.6 K/mm3 (4.0-10.0)
[2022-01-02] MEDS ORDERED: THIAMINE HCL 200 MG/2 ML VIAL IVPB ONE ×2 (01:06→05:00)
[2022-01-02] MEDS ORDERED: DEXTROSE 5%-NORMAL SALINE 1,000 ML IV SCH (02:00)
[2022-01-02 02:32] LABS: ALBUMIN 2.5 g/dl (3.4-5.0); ALK PHOS 84 U/L (45-117); ANION GAP 13 MMOL/L (8-16); BILIRUBIN,TOTAL 1.7 mg/dL (0.2-1); BLOOD UREA NITROGEN 12.7 mg/dL (7-18); CALCIUM 7.6 mg/dL (8.5-10.1); CHLORIDE 97 mmol/L (98-107); CO2 29 mmol/L (21-32); CREATININE 0.8 mg/dL (0.55-1.3); GLUCOSE,RANDOM 91 mg/dL (74-106); SGOT/AST 51 U/L (15-37); SGPT/ALT 20 U/L (13-61); SODIUM 139 mmol/L (136-145)
[2022-01-02] MEDS ORDERED: KCL 10 MEQ IVPB 10 MEQ/100 ML INFUS.BAG IVPB ONE (02:57)
[2022-01-02] MEDS ORDERED: POTASSIUM CHLORIDE TABS 20 MEQ TABLET.ER (FP) PO ONE ×3 (03:00→05:00)
[2022-01-02] MEDS ORDERED: POTASSIUM CHLORIDE ORAL LIQUID 20 MEQ/15 ML PO ONE (03:02)
[2022-01-02] MEDS: KCL 10 MEQ IVPB 10 MEQ/100 ML INFUS.BAG IVPB SCH ×4 (03:09→10:00)
[2022-01-02] MEDS ORDERED: VANCOMYCIN/WATER 1250 MG 1,250 MG/250 ML BAG IVPB ONE (03:19)
[2022-01-02] MEDS: VANCOMYCIN/WATER 1,250 MG/250 ML BAG IVPB SCH ×2 (03:32→14:37)
[2022-01-02] MEDS: LORazepam 1 MG TABLET PO SCH ×4 (05:19→22:14)
[2022-01-02 08:37] LABS: BASO % 0.2 % (0-2.0); EOS % 0.2 % (0-4.5); HEMATOCRIT 26.8 % (35.4-49); HEMOGLOBIN 9.1 GM/dL (11.7-16.9); LYMPH % 13.4 % (8-40); MCH 35.1 pg (25.7-33.7); MCHC 33.8 g/dl (32.0-35.9); MEAN CELL VOLUME 103.7 fl (80-96); MEAN PLT VOLUME 9.4 fl (7.5-11.1); MONO % 19.8 % (3.8-10.2); NEUT % 66.4 % (42.8-82.8); PLATELET COUNT 73 10^3/uL (134-434); RBC 2.59 M/mm3 (4.00-5.60); RDW 13.7 % (11.9-15.9); WHITE BLOOD COUNT 4.5 K/mm3 (4.0-10.0)
[2022-01-02 08:57] LABS: CALCIUM 7.5 mg/dL (8.5-10.1)
[2022-01-02 08:58] LABS: MAGNESIUM 1.8 mg/dL (1.8-2.4)
[2022-01-02 08:59] LABS: ALBUMIN 2.2 g/dl (3.4-5.0)
[2022-01-02 09:00] LABS: BLOOD UREA NITROGEN 11.5 mg/dL (7-18)
[2022-01-02 09:01] LABS: CREATININE 0.6 mg/dL (0.55-1.3)
[2022-01-02 09:03] LABS: PHOSPHOROUS 1.3 mg/dL (2.5-4.9); TOT PROT 5.3 g/dl (6.4-8.2)
[2022-01-02 09:04] LABS: BILIRUBIN,TOTAL 1.6 mg/dL (0.2-1)
[2022-01-02] MEDS ORDERED: THIAMINE HCL 200 MG/2 ML VIAL IVPB SCH (10:00)
[2022-01-02] MEDS: PANTOPRAZOLE 40 MG TABLET PO SCH (10:39)
[2022-01-02] MEDS: FOLIC ACID 1 MG TABLET (FP) PO SCH (10:39)
[2022-01-02] MEDS: CEFTRIAXONE 1 GM in DEXTROSE 5%-WATER - 50 ML IVPB SCH (10:39)
[2022-01-02] MEDS: MULTIVITAMINS (DAILY MVI) TABLET (FP) PO SCH (10:39)
[2022-01-02] MEDS: THIAMINE HCL 100 MG TABLET (FP) PO SCH ×2 (10:39→22:14)
[2022-01-02] MEDS: ESCITALOPRAM OXALATE 20 MG TABLET PO SCH (10:40)
[2022-01-02] MEDS: ATORVASTATIN CA 80 MG TABLET (FP) PO SCH (10:40)
[2022-01-02] MEDS: amLODIPine BESYLATE 10 MG TABLET (FP) PO SCH (10:40)
[2022-01-02] MEDS ORDERED: POTASSIUM PHOSPHATE 15 MM in DEXTROSE 5%-WATER - 250 ML IVPB ONE (11:30)
[2022-01-02] MEDS ORDERED: REMDESIVIR 200 MG in SODIUM CHLORIDE 250 ML IVPB ONE (13:00)
[2022-01-02] MEDS: DEXAMETHASONE SOD PHOSPHATE 4 MG/1 ML VIAL IVPUSH SCH (14:37)
[2022-01-02] MEDS: NAPH,MB-DB/K PH,MBDB POWDER PACKET PO SCH (22:14)
[2022-01-03] MEDS: NAPH,MB-DB/K PH,MBDB POWDER PACKET PO SCH ×3 (06:23→22:45)
[2022-01-03] MEDS: LORazepam 1 MG TABLET PO SCH ×4 (06:24→23:06)
[2022-01-03] MEDS: DEXAMETHASONE SOD PHOSPHATE 4 MG/1 ML VIAL IVPUSH SCH (09:34)
[2022-01-03] MEDS: CARVEDILOL 25 MG TABLET (FP) PO SCH ×2 (09:35→22:45)
[2022-01-03] MEDS: ESCITALOPRAM OXALATE 20 MG TABLET PO SCH (09:35)
[2022-01-03] MEDS: APIXABAN 5 MG TABLET PO SCH ×2 (09:35→22:45)
[2022-01-03] MEDS: FOLIC ACID 1 MG TABLET (FP) PO SCH (09:35)
[2022-01-03] MEDS: THIAMINE HCL 100 MG TABLET (FP) PO SCH ×2 (09:35→22:46)
[2022-01-03] MEDS: PANTOPRAZOLE 40 MG TABLET PO SCH (09:35)
[2022-01-03] MEDS: MULTIVITAMINS (DAILY MVI) TABLET (FP) PO SCH (09:35)
[2022-01-03] MEDS: amLODIPine BESYLATE 10 MG TABLET (FP) PO SCH (09:36)
[2022-01-03] MEDS: CEFTRIAXONE 1 GM in DEXTROSE 5%-WATER - 50 ML IVPB SCH (09:36)
[2022-01-03] MEDS: ATORVASTATIN CA 80 MG TABLET (FP) PO SCH (09:36)
[2022-01-03] MEDS: levETIRAcetam XR 500 MG TAB PO SCH (11:19)
[2022-01-03] MEDS: REMDESIVIR 100 MG in SODIUM CHLORIDE 250 ML IVPB SCH (11:43)
[2022-01-03 15:57] LABS: BASO % 0.2 % (0-2.0); HEMATOCRIT 27.6 % (35.4-49); LYMPH % 9.5 % (8-40); MCH 34.3 pg (25.7-33.7); MCHC 32.6 g/dl (32.0-35.9); MEAN CELL VOLUME 105.3 fl (80-96); MEAN PLT VOLUME 9.8 fl (7.5-11.1); MONO % 13.8 % (3.8-10.2); NEUT % 76.5 % (42.8-82.8); PLATELET COUNT 86 10^3/uL (134-434); RBC 2.62 M/mm3 (4.00-5.60); RDW 13.8 % (11.9-15.9); WHITE BLOOD COUNT 3.4 K/mm3 (4.0-10.0)
[2022-01-03 16:18] LABS: ALBUMIN 2.1 g/dl (3.4-5.0); CALCIUM 7.8 mg/dL (8.5-10.1)
[2022-01-03 16:19] LABS: BLOOD UREA NITROGEN 9.8 mg/dL (7-18); MAGNESIUM 1.9 mg/dL (1.8-2.4)
[2022-01-03 16:20] LABS: CREATININE 0.6 mg/dL (0.55-1.3)
[2022-01-03 16:23] LABS: BILIRUBIN,TOTAL 0.8 mg/dL (0.2-1); TOT PROT 5.1 g/dl (6.4-8.2)
[2022-01-04] MEDS ORDERED: LORazepam 0.5 MG TABLET PO PRN
[2022-01-04] MEDS: NAPH,MB-DB/K PH,MBDB POWDER PACKET PO SCH ×3 (05:36→21:53)
[2022-01-04] MEDS: LORazepam 0.5 MG TABLET PO SCH ×4 (05:37→22:01)
[2022-01-04 08:00] LABS: BASO % 0.4 % (0-2.0); HEMATOCRIT 27.6 % (35.4-49); HEMOGLOBIN 9.4 GM/dL (11.7-16.9); LYMPH % 15.4 % (8-40); MCH 35.6 pg (25.7-33.7); MCHC 34.1 g/dl (32.0-35.9); MEAN CELL VOLUME 104.3 fl (80-96); MEAN PLT VOLUME 9.9 fl (7.5-11.1); NEUT % 69.2 % (42.8-82.8); PLATELET COUNT 102 10^3/uL (134-434); RBC 2.64 M/mm3 (4.00-5.60); RDW 13.6 % (11.9-15.9); WHITE BLOOD COUNT 5.4 K/mm3 (4.0-10.0)
[2022-01-04 08:22] LABS: ALBUMIN 2.1 g/dl (3.4-5.0)
[2022-01-04 08:23] LABS: CREATININE 0.6 mg/dL (0.55-1.3)
[2022-01-04 08:25] LABS: MAGNESIUM 1.9 mg/dL (1.8-2.4)
[2022-01-04 08:30] LABS: BILIRUBIN,TOTAL 0.8 mg/dL (0.2-1)
[2022-01-04] MEDS: PANTOPRAZOLE 40 MG TABLET PO SCH (09:16)
[2022-01-04] MEDS: CARVEDILOL 25 MG TABLET (FP) PO SCH ×2 (09:16→21:53)
[2022-01-04] MEDS: MULTIVITAMINS (DAILY MVI) TABLET (FP) PO SCH (09:16)
[2022-01-04] MEDS: CEFTRIAXONE 1 GM in DEXTROSE 5%-WATER - 50 ML IVPB SCH (09:16)
[2022-01-04] MEDS: APIXABAN 5 MG TABLET PO SCH ×2 (09:16→21:53)
[2022-01-04] MEDS: ESCITALOPRAM OXALATE 20 MG TABLET PO SCH (09:16)
[2022-01-04] MEDS: ATORVASTATIN CA 80 MG TABLET (FP) PO SCH (09:16)
[2022-01-04] MEDS: amLODIPine BESYLATE 10 MG TABLET (FP) PO SCH (09:16)
[2022-01-04] MEDS: DEXAMETHASONE SOD PHOSPHATE 4 MG/1 ML VIAL IVPUSH SCH (09:16)
[2022-01-04] MEDS: THIAMINE HCL 100 MG TABLET (FP) PO SCH ×2 (09:16→21:53)
[2022-01-04] MEDS: levETIRAcetam XR 500 MG TAB PO SCH (09:17)
[2022-01-04] MEDS: FOLIC ACID 1 MG TABLET (FP) PO SCH (09:17)
[2022-01-04] MEDS: REMDESIVIR 100 MG in SODIUM CHLORIDE 250 ML IVPB SCH (11:50)
[2022-01-04] MEDS: INSULIN SLIDING SCALE (NOVOLOG) 1 VIAL SQ SCH (21:56)
[2022-01-05] MEDS ORDERED: LORazepam 0.5 MG TABLET PO ONE (05:00)
[2022-01-05] MEDS: NAPH,MB-DB/K PH,MBDB POWDER PACKET PO SCH ×2 (06:21→13:00)
[2022-01-05] MEDS: INSULIN SLIDING SCALE (NOVOLOG) 1 VIAL SQ SCH ×3 (06:21→17:33)
[2022-01-05 07:39] LABS: BASO % 0.2 % (0-2.0); EOS % 0.1 % (0-4.5); HEMOGLOBIN 9.7 GM/dL (11.7-16.9); MCH 34.9 pg (25.7-33.7); MCHC 33.4 g/dl (32.0-35.9); MEAN CELL VOLUME 104.6 fl (80-96); MONO % 11.9 % (3.8-10.2); NEUT % 68.8 % (42.8-82.8); PLATELET COUNT 143 10^3/uL (134-434); RBC 2.77 M/mm3 (4.00-5.60); RDW 13.3 % (11.9-15.9)
[2022-01-05 08:08] LABS: ALBUMIN 2.1 g/dl (3.4-5.0); BLOOD UREA NITROGEN 11.5 mg/dL (7-18); CALCIUM 8.1 mg/dL (8.5-10.1); CREATININE 0.6 mg/dL (0.55-1.3); MAGNESIUM 1.6 mg/dL (1.8-2.4)
[2022-01-05 08:09] LABS: BILIRUBIN,TOTAL 0.6 mg/dL (0.2-1)
[2022-01-05 08:14] LABS: TOT PROT 4.9 g/dl (6.4-8.2)
[2022-01-05] MEDS ORDERED: POTASSIUM CHLORIDE TABS 20 MEQ TABLET.ER (FP) PO ONE (08:32)
[2022-01-05] MEDS: PANTOPRAZOLE 40 MG TABLET PO SCH (10:58)
[2022-01-05] MEDS: CARVEDILOL 25 MG TABLET (FP) PO SCH (10:58)
[2022-01-05] MEDS: APIXABAN 5 MG TABLET PO SCH (10:58)
[2022-01-05] MEDS: THIAMINE HCL 100 MG TABLET (FP) PO SCH (10:59)
[2022-01-05] MEDS: ESCITALOPRAM OXALATE 20 MG TABLET PO SCH (10:59)
[2022-01-05] MEDS: ATORVASTATIN CA 80 MG TABLET (FP) PO SCH (10:59)
[2022-01-05] MEDS: amLODIPine BESYLATE 10 MG TABLET (FP) PO SCH (10:59)
[2022-01-05] MEDS: CEFTRIAXONE 1 GM in DEXTROSE 5%-WATER - 50 ML IVPB SCH (10:59)
[2022-01-05] MEDS: MULTIVITAMINS (DAILY MVI) TABLET (FP) PO SCH (10:59)
[2022-01-05] MEDS: levETIRAcetam XR 500 MG TAB PO SCH (11:00)
[2022-01-05] MEDS: DEXAMETHASONE SOD PHOSPHATE 4 MG/1 ML VIAL IVPUSH SCH (11:00)
[2022-01-05] MEDS: FOLIC ACID 1 MG TABLET (FP) PO SCH (11:00)
[2022-01-05] MEDS: REMDESIVIR 100 MG in SODIUM CHLORIDE 250 ML IVPB SCH (12:44)
[2022-01-05 15:13] VITALS: BP 118/75; PULSE 86; RESP 22; TEMP 98
== END 2022-01-05 17:15 | disposition left against medical advice (07) | DRG 178 ==
LOC: JER 14:42 → JERBED 18:43 → J4W 01-02 04:31
PROVIDERS: ADMIT Internal Medicine; ATTEND Nurse Practitioner Family
PROC: XW033E5 Introduction of Remdesivir Anti-infective into Peripheral Vein, Percutaneous Approach, New Technology Group 5 (ICD-10-PCS; principal; 2022-01-01)
PROC: HZ2ZZZZ Detoxification Services for Substance Abuse Treatment (ICD-10-PCS; 2022-01-01)
DX: U07.1 COVID-19 (principal); N39.0 Urinary tract infection, site not specified; E87.6 Hypokalemia; R26.81 Unsteadiness on feet; F10.929 Alcohol use, unspecified with intoxication, unspecified; E11.9 Type 2 diabetes mellitus without complications; E78.5 Hyperlipidemia, unspecified; I25.10 Atherosclerotic heart disease of native coronary artery without angina pectoris
CPT/HCPCS: 36415; 70450-TC; 71275-TC; 72125-TC; 80053; 80061; 80307; 81003; 82962; 83036; 83735; 84100; 84484; 85025; 86140; 93005; 93010; 93880-TC; 97116-GP; 97162-GP; 99285-25; C9399; C9803-CS; Q9967; U0003; U0005

== ENCOUNTER 2022-01-26 10:15 | Observation (INO) | payer OTHER ==
[2022-01-26 10:29] VITALS: BMI 22.4
[2022-01-26] MEDS ORDERED: ALBUTEROL SO4 2.5/IPRATROPIUM 0.5 INH SOL 3 ML VIAL.NEB. NEB ONE ×2 (10:43→11:17)
[2022-01-26] MEDS ORDERED: ACETAMINOPHEN 1000 MG/100 ML BAG IVPB ONE (10:43)
[2022-01-26] MEDS ORDERED: MAG HYDROX/AL HYDROX/SIMETH 30 ML UNIT-DOSE CUP PO ONE (10:43)
[2022-01-26] MEDS ORDERED: FAMOTIDINE 20 MG/50 ML IVPB 20 MG/50 ML MG IVPB ONE ×2 (10:43→11:17)
[2022-01-26] MEDS ORDERED: MAG HYDROX/AL HYDROX/SIMETH 30 ML UNIT-DOSE CUP ONE (11:17)
[2022-01-26] MEDS ORDERED: ACETAMINOPHEN INJECTION 100 ML IVPB ONE (11:17)
[2022-01-26 12:10] LABS: BASO % 0.6 % (0-2.0); EOS % 1.4 % (0-4.5); HEMATOCRIT 35.5 % (35.4-49); HEMOGLOBIN 11.8 GM/dL (11.7-16.9); MCH 35.2 pg (25.7-33.7); MCHC 33.3 g/dl (32.0-35.9); MEAN CELL VOLUME 105.6 fl (80-96); MEAN PLT VOLUME 8.5 fl (7.5-11.1); MONO % 8.2 % (3.8-10.2); NEUT % 55.8 % (42.8-82.8); PLATELET COUNT 225 10^3/uL (134-434); RBC 3.36 M/mm3 (4.00-5.60); RDW 14.6 % (11.9-15.9); WHITE BLOOD COUNT 5.5 K/mm3 (4.0-10.0)
[2022-01-26 12:38] LABS: CHLORIDE 116 mmol/L (98-107); SODIUM 147 mmol/L (136-145)
[2022-01-26 12:41] LABS: ANION GAP 5 MMOL/L (8-16); BLOOD UREA NITROGEN 12.5 mg/dL (7-18); CALCIUM 8.2 mg/dL (8.5-10.1); CO2 25 mmol/L (21-32); LIPASE 55 U/L (73-393)
[2022-01-26 12:42] LABS: ALBUMIN 2.6 g/dl (3.4-5.0); MAGNESIUM 1.8 mg/dL (1.8-2.4)
[2022-01-26 12:44] LABS: CREATININE 0.6 mg/dL (0.55-1.3); SGOT/AST 99 U/L (15-37); SGPT/ALT 46 U/L (13-61)
[2022-01-26 12:45] LABS: BILIRUBIN,TOTAL 0.5 mg/dL (0.2-1); TOT PROT 6.7 g/dl (6.4-8.2)
[2022-01-26 12:46] LABS: ALK PHOS 100 U/L (45-117)
[2022-01-26 12:49] LABS: GLUCOSE,RANDOM 49 mg/dL (74-106)
[2022-01-26 12:53] LABS: ANISOCYTOSIS 1+; MACROCYTOSIS 1+
[2022-01-26] MEDS ORDERED: chlordiazePOXIDE HCL 25 MG CAPSULE PO ONE (13:42)
[2022-01-26] MEDS ORDERED: chlordiazePOXIDE HCL 25 MG CAPSULE ONE (14:07)
[2022-01-26] MEDS ORDERED: ACETAMINOPHEN 325 MG TABLET (FP) PO PRN (17:29)
[2022-01-26] MEDS ORDERED: ATORVASTATIN CA 80 MG TABLET (FP) PO SCH (22:00)
[2022-01-26] MEDS ORDERED: APIXABAN 5 MG TABLET ONE (23:23)
[2022-01-26] MEDS ORDERED: levETIRAcetam 500 MG TABLET (FP) PO ONE (23:23)
[2022-01-26] MEDS ORDERED: ATORVASTATIN CA 80 MG TABLET (FP) ONE (23:24)
[2022-01-26] MEDS ORDERED: CARVEDILOL 25 MG TABLET (FP) ONE (23:24)
[2022-01-27] MEDS: levETIRAcetam XR 500 MG TAB PO SCH ×2 (00:10→12:42)
[2022-01-27] MEDS: CARVEDILOL 25 MG TABLET (FP) PO SCH ×4 (00:10→21:35)
[2022-01-27] MEDS: APIXABAN 5 MG TABLET PO SCH (00:10)
[2022-01-27] MEDS ORDERED: ACETAMINOPHEN 325 MG TABLET (FP) ONE (00:26)
[2022-01-27] MEDS: INSULIN SLIDING SCALE (NOVOLOG) 1 VIAL SQ SCH ×3 (07:47→17:49)
[2022-01-27 08:08] LABS: BASO % 1.1 % (0-2.0); HEMATOCRIT 29.4 % (35.4-49); HEMOGLOBIN 9.9 GM/dL (11.7-16.9); LYMPH % 28.2 % (8-40); MCH 35.4 pg (25.7-33.7); MCHC 33.8 g/dl (32.0-35.9); MEAN CELL VOLUME 104.8 fl (80-96); MONO % 8.5 % (3.8-10.2); NEUT % 60.2 % (42.8-82.8); PLATELET COUNT 144 10^3/uL (134-434); RDW 14.4 % (11.9-15.9); WHITE BLOOD COUNT 5.2 K/mm3 (4.0-10.0)
[2022-01-27] MEDS ORDERED: ACETAMINOPHEN 1000 MG/100 ML BAG IVPB PRN (08:19)
[2022-01-27] MEDS ORDERED: PANTOPRAZOLE SODIUM 40 MG VIAL IVPUSH ONE (08:23)
[2022-01-27] MEDS ORDERED: ALBUTEROL SO4 HFA INHALER IH PRN (08:24)
[2022-01-27 08:27] LABS: CALCIUM 8.3 mg/dL (8.5-10.1)
[2022-01-27 08:29] LABS: ALBUMIN 2.3 g/dl (3.4-5.0); BLOOD UREA NITROGEN 11.8 mg/dL (7-18); MAGNESIUM 1.6 mg/dL (1.8-2.4)
[2022-01-27 08:31] LABS: CREATININE 0.6 mg/dL (0.55-1.3); PHOSPHOROUS 2.7 mg/dL (2.5-4.9)
[2022-01-27 08:33] LABS: BILIRUBIN,TOTAL 1.1 mg/dL (0.2-1); TOT PROT 5.4 g/dl (6.4-8.2)
[2022-01-27] MEDS ORDERED: PANTOPRAZOLE 40 MG TABLET PO SCH (10:00)
[2022-01-27] MEDS: POTASSIUM CHLORIDE TABS 20 MEQ TABLET.ER (FP) PO SCH ×2 (10:45→21:34)
[2022-01-27] MEDS: ESCITALOPRAM OXALATE 10 MG TABLET PO SCH (10:45)
[2022-01-27] MEDS: MAGNESIUM OXIDE 400 MG TABLET (FP) PO SCH ×2 (10:46→21:33)
[2022-01-27] MEDS: amLODIPine BESYLATE 10 MG TABLET (FP) PO SCH (10:47)
[2022-01-27 12:57] VITALS: RESP 18
[2022-01-27] MEDS: GABAPENTIN 400 MG CAPSULE PO SCH ×2 (14:46→21:35)
[2022-01-27] MEDS: PANTOPRAZOLE 40 MG TABLET PO SCH (21:35)
[2022-01-28] MEDS: GABAPENTIN 400 MG CAPSULE PO SCH ×3 (06:20→21:12)
[2022-01-28] MEDS: INSULIN SLIDING SCALE (NOVOLOG) 1 VIAL SQ SCH ×3 (06:29→17:07)
[2022-01-28 08:06] LABS: BASO % 0.7 % (0-2.0); EOS % 4.2 % (0-4.5); HEMATOCRIT 30.4 % (35.4-49); HEMOGLOBIN 10.1 GM/dL (11.7-16.9); MCH 35.1 pg (25.7-33.7); MCHC 33.1 g/dl (32.0-35.9); MEAN CELL VOLUME 106.1 fl (80-96); MEAN PLT VOLUME 9.7 fl (7.5-11.1); MONO % 8.4 % (3.8-10.2); NEUT % 61.7 % (42.8-82.8); PLATELET COUNT 144 10^3/uL (134-434); RBC 2.87 M/mm3 (4.00-5.60); WHITE BLOOD COUNT 4.3 K/mm3 (4.0-10.0)
[2022-01-28 08:50] LABS: ALBUMIN 2.3 g/dl (3.4-5.0)
[2022-01-28 08:53] LABS: CREATININE 0.7 mg/dL (0.55-1.3)
[2022-01-28 08:55] LABS: BILIRUBIN,TOTAL 0.7 mg/dL (0.2-1); CALCIUM 8.1 mg/dL (8.5-10.1); TOT PROT 5.5 g/dl (6.4-8.2)
[2022-01-28 08:56] LABS: MAGNESIUM 1.6 mg/dL (1.8-2.4)
[2022-01-28] MEDS: APIXABAN 5 MG TABLET PO SCH ×2 (09:54→21:12)
[2022-01-28] MEDS: CARVEDILOL 25 MG TABLET (FP) PO SCH ×2 (09:55→21:12)
[2022-01-28] MEDS: levETIRAcetam XR 500 MG TAB PO SCH (09:55)
[2022-01-28] MEDS: PANTOPRAZOLE 40 MG TABLET PO SCH ×2 (09:55→21:12)
[2022-01-28] MEDS: amLODIPine BESYLATE 10 MG TABLET (FP) PO SCH (09:56)
[2022-01-28] MEDS: ESCITALOPRAM OXALATE 10 MG TABLET PO SCH (09:56)
[2022-01-28] MEDS: MAGNESIUM OXIDE 400 MG TABLET (FP) PO SCH ×2 (14:22→21:12)
[2022-01-29] MEDS: GABAPENTIN 400 MG CAPSULE PO SCH ×2 (05:57→13:10)
[2022-01-29] MEDS: INSULIN SLIDING SCALE (NOVOLOG) 1 VIAL SQ SCH ×2 (06:12→11:47)
[2022-01-29 08:01] LABS: BASO % 1.2 % (0-2.0); EOS % 5.1 % (0-4.5); HEMOGLOBIN 9.8 GM/dL (11.7-16.9); LYMPH % 34.1 % (8-40); MCH 35.9 pg (25.7-33.7); MCHC 33.7 g/dl (32.0-35.9); MEAN CELL VOLUME 106.6 fl (80-96); MEAN PLT VOLUME 9.6 fl (7.5-11.1); MONO % 10.1 % (3.8-10.2); NEUT % 49.5 % (42.8-82.8); PLATELET COUNT 145 10^3/uL (134-434); RBC 2.72 M/mm3 (4.00-5.60); RDW 14.3 % (11.9-15.9); WHITE BLOOD COUNT 4.7 K/mm3 (4.0-10.0)
[2022-01-29 08:14] VITALS: TEMP 98.3
[2022-01-29 08:55] LABS: CALCIUM 8.1 mg/dL (8.5-10.1)
[2022-01-29 08:56] LABS: ALBUMIN 2.4 g/dl (3.4-5.0); BLOOD UREA NITROGEN 10.9 mg/dL (7-18)
[2022-01-29 08:57] LABS: MAGNESIUM 1.8 mg/dL (1.8-2.4)
[2022-01-29 08:59] LABS: CREATININE 0.6 mg/dL (0.55-1.3)
[2022-01-29 09:00] LABS: BILIRUBIN,TOTAL 0.6 mg/dL (0.2-1); TOT PROT 5.6 g/dl (6.4-8.2)
[2022-01-29] MEDS ORDERED: REGADENOSON 0.4 MG/5 ML PRE-FILLED SYRINGE IVPUSH ONE ×2 (09:27→09:45)
[2022-01-29] MEDS: ESCITALOPRAM OXALATE 10 MG TABLET PO SCH (11:32)
[2022-01-29] MEDS: amLODIPine BESYLATE 10 MG TABLET (FP) PO SCH (11:32)
[2022-01-29] MEDS: APIXABAN 5 MG TABLET PO SCH (11:32)
[2022-01-29] MEDS: PANTOPRAZOLE 40 MG TABLET PO SCH (11:32)
[2022-01-29] MEDS: levETIRAcetam XR 500 MG TAB PO SCH (11:33)
[2022-01-29 14:20] VITALS: BP 121/80; PULSE 70
== END 2022-01-29 16:45 | disposition home health service (06) ==
LOC: JER 10:15 → JERBED 13:41 → INTOOBSV 13:41 → J4W 01-27 02:48
PROVIDERS: ADMIT Internal Medicine; ATTEND Nurse Practitioner Acute Care
PROC: 3E033GC Introduction of Other Therapeutic Substance into Peripheral Vein, Percutaneous Approach (ICD-10-PCS; principal; 2022-01-26)
PROC: 3E033NZ Introduction of Analgesics, Hypnotics, Sedatives into Peripheral Vein, Percutaneous Approach (ICD-10-PCS; 2022-01-26)
PROC: 3E0F7SF Introduction of Other Gas into Respiratory Tract, Via Natural or Artificial Opening (ICD-10-PCS; 2022-01-26)
DX: R07.89 Other chest pain (principal); J96.01 Acute respiratory failure with hypoxia; J44.9 Chronic obstructive pulmonary disease, unspecified; I11.0 Hypertensive heart disease with heart failure; I50.9 Heart failure, unspecified; I25.10 Atherosclerotic heart disease of native coronary artery without angina pectoris; I25.2 Old myocardial infarction; E11.9 Type 2 diabetes mellitus without complications; E78.5 Hyperlipidemia, unspecified; G40.909 Epilepsy, unspecified, not intractable, without status epilepticus; F10.10 Alcohol abuse, uncomplicated; I48.0 Paroxysmal atrial fibrillation; R74.01 Elevation of levels of liver transaminase levels; U07.1 COVID-19; Z79.01 Long term (current) use of anticoagulants; Z87.891 Personal history of nicotine dependence; Z86.718 Personal history of other venous thrombosis and embolism; Z86.711 Personal history of pulmonary embolism; Z91.14 Patient's other noncompliance with medication regimen; Z95.5 Presence of coronary angioplasty implant and graft; Z29.8 Encounter for other specified prophylactic measures
CPT/HCPCS: 36415; 71045-TC-FY; 71275-TC; 76705-TC; 78452-TC; 80053; 82962; 83690; 83735; 84100; 84443; 84484; 85025; 86705; 86708; 86803; 87340; 87517; 93005; 93010; 93017; 94640; 96365; 96375; 96376; 99285-25; A9502; C9803-CS; G0378; J2785; Q9967; U0003; U0005

== ENCOUNTER 2022-02-09 11:08 | Emergency (ER) | payer OTHER ==
[2022-02-09 11:15] VITALS: BP 148/90; PULSE 75; RESP 18; TEMP 97.3; BMI 22.4
[2022-02-09] MEDS ORDERED: MAG HYDROX/AL HYDROX/SIMETH 30 ML UNIT-DOSE CUP PO ONE (12:10)
[2022-02-09] MEDS ORDERED: FAMOTIDINE 20 MG TABLET PO ONE (12:11)
[2022-02-09] MEDS ORDERED: MAG HYDROX/AL HYDROX/SIMETH 30 ML UNIT-DOSE CUP ONE (12:22)
[2022-02-09] MEDS ORDERED: FAMOTIDINE 20 MG TABLET ONE (12:22)
[2022-02-09 14:50] LABS: EOS % 0.9 % (0-4.5); HEMATOCRIT 35.7 % (35.4-49); LYMPH % 43.4 % (8-40); MCH 35.1 pg (25.7-33.7); MCHC 33.6 g/dl (32.0-35.9); MEAN CELL VOLUME 104.6 fl (80-96); MEAN PLT VOLUME 8.4 fl (7.5-11.1); MONO % 5.9 % (3.8-10.2); NEUT % 48.8 % (42.8-82.8); PLATELET COUNT 180 10^3/uL (134-434); RBC 3.41 M/mm3 (4.00-5.60); RDW 13.9 % (11.9-15.9); WHITE BLOOD COUNT 5.4 K/mm3 (4.0-10.0)
[2022-02-09 15:22] LABS: CALCIUM 8.1 mg/dL (8.5-10.1)
[2022-02-09 15:23] LABS: ALBUMIN 2.8 g/dl (3.4-5.0); BLOOD UREA NITROGEN 5.8 mg/dL (7-18)
[2022-02-09 15:26] LABS: CREATININE 0.5 mg/dL (0.55-1.3)
[2022-02-09 15:27] LABS: BILIRUBIN,TOTAL 0.8 mg/dL (0.2-1); TOT PROT 6.6 g/dl (6.4-8.2)
[2022-02-09] MEDS ORDERED: POTASSIUM CHLORIDE TABS 20 MEQ TABLET.ER (FP) PO ONE ×2 (16:20→16:41)
[2022-02-09] MEDS ORDERED: POTASSIUM CHLORIDE TABS 10 MEQ TABLET.ER (FP) ONE (16:41)
[2022-02-09 18:11] LABS: MAGNESIUM 1.8 mg/dL (1.8-2.4)
== END 2022-02-09 18:40 | disposition home or self-care (01) ==
LOC: JER 11:08
DX: R07.9 Chest pain, unspecified (principal); R06.02 Shortness of breath
CPT/HCPCS: 0241U-QW; 71045-TC-FY; 80053; 83735; 84484; 85025; 93005; 93010; 99284-25

== ENCOUNTER 2022-02-10 09:15 | Emergency (ER) | payer OTHER ==
[2022-02-10 09:41] VITALS: BMI 22.4
[2022-02-10] MEDS ORDERED: diazePAM 2 MG TABLET PO ONE (10:44)
[2022-02-10] MEDS ORDERED: ACETAMINOPHEN 325 MG TABLET (FP) ONE (10:57)
[2022-02-10] MEDS ORDERED: ACETAMINOPHEN 500 MG TABLET (FP) PO ONE (10:57)
[2022-02-10] MEDS ORDERED: diazePAM 2 MG TABLET ONE (10:57)
[2022-02-10 11:32] LABS: EOS % 0.6 % (0-4.5); HEMATOCRIT 33.1 % (35.4-49); HEMOGLOBIN 11.1 GM/dL (11.7-16.9); LYMPH % 43.2 % (8-40); MCH 35.1 pg (25.7-33.7); MCHC 33.6 g/dl (32.0-35.9); MEAN CELL VOLUME 104.5 fl (80-96); MEAN PLT VOLUME 8.2 fl (7.5-11.1); MONO % 6.9 % (3.8-10.2); NEUT % 48.3 % (42.8-82.8); PLATELET COUNT 133 10^3/uL (134-434); RBC 3.17 M/mm3 (4.00-5.60); WHITE BLOOD COUNT 5.1 K/mm3 (4.0-10.0)
[2022-02-10 12:00] LABS: ALBUMIN 2.5 g/dl (3.4-5.0); BLOOD UREA NITROGEN 6.2 mg/dL (7-18); CALCIUM 8.2 mg/dL (8.5-10.1); MAGNESIUM 1.5 mg/dL (1.8-2.4)
[2022-02-10 12:02] LABS: CREATININE 0.6 mg/dL (0.55-1.3)
[2022-02-10 12:04] LABS: BILIRUBIN,TOTAL 0.8 mg/dL (0.2-1)
[2022-02-10 12:08] LABS: N-TERMINAL BNP 150.3 pg/ml (5-125)
[2022-02-10 12:55] VITALS: BP 158/90; PULSE 114; RESP 20; TEMP 98.7
== END 2022-02-10 15:22 | disposition home or self-care (01) ==
LOC: JER 09:15
DX: R07.9 Chest pain, unspecified (principal)
CPT/HCPCS: 71045-TC-FY; 80053; 82962; 83690; 83735; 83880; 84484; 85025; 99284-25

== ENCOUNTER 2022-02-10 20:48 | Emergency (ER) | payer OTHER ==
[2022-02-10 21:02] VITALS: BP 121/75; RESP 20; TEMP 97.9; BMI 22.4
[2022-02-10] MEDS ORDERED: FAMOTIDINE 20 MG/50 ML IVPB 20 MG/50 ML MG IVPB ONE ×2 (21:50→21:59)
[2022-02-10] MEDS ORDERED: ACETAMINOPHEN 1000 MG/100 ML BAG IVPB ONE (21:50)
[2022-02-10] MEDS ORDERED: MAG HYDROX/AL HYDROX/SIMETH -MYLANTA- ORAL SUSPENSION PO ONE (21:50)
[2022-02-10] MEDS ORDERED: SUCRALFATE 1 GM TABLET (FP) PO ONE (21:50)
[2022-02-10] MEDS ORDERED: MAG HYDROX/AL HYDROX/SIMETH 30 ML UNIT-DOSE CUP ONE (21:58)
[2022-02-10] MEDS ORDERED: SUCRALFATE 1 GM TABLET (FP) ONE (21:58)
[2022-02-10] MEDS ORDERED: ACETAMINOPHEN INJECTION 100 ML IVPB ONE (21:58)
[2022-02-10 22:45] LABS: BASO % 0.5 % (0-2.0); EOS % 0.6 % (0-4.5); HEMATOCRIT 30.5 % (35.4-49); HEMOGLOBIN 10.4 GM/dL (11.7-16.9); LYMPH % 34.4 % (8-40); MCH 35.3 pg (25.7-33.7); MEAN CELL VOLUME 103.9 fl (80-96); MEAN PLT VOLUME 8.4 fl (7.5-11.1); MONO % 6.2 % (3.8-10.2); NEUT % 58.3 % (42.8-82.8); PLATELET COUNT 124 10^3/uL (134-434); RBC 2.94 M/mm3 (4.00-5.60); RDW 13.9 % (11.9-15.9); WHITE BLOOD COUNT 5.6 K/mm3 (4.0-10.0)
[2022-02-10 22:50] LABS: INR 1.11 (0.83-1.09); PROTHROMBIN TIME (PATIENT) 12.8 SEC (9.7-13.0)
[2022-02-10 22:53] LABS: ACTIVATED PTT 33.5 SECONDS (25.2-36.5)
[2022-02-10 23:07] LABS: ALBUMIN 2.6 g/dl (3.4-5.0); BLOOD UREA NITROGEN 7.2 mg/dL (7-18); CALCIUM 8.1 mg/dL (8.5-10.1)
[2022-02-10 23:10] LABS: CREATININE 0.6 mg/dL (0.55-1.3)
[2022-02-10 23:12] LABS: BILIRUBIN,TOTAL 0.6 mg/dL (0.2-1); TOT PROT 5.9 g/dl (6.4-8.2)
[2022-02-11] MEDS ORDERED: SODIUM CHLORIDE 0.9% 500 ML INFUS.BAG IV ONE (00:02)
[2022-02-11] MEDS ORDERED: DEXTROSE 5%-NORMAL SALINE 1,000 ML IV ONE (00:18)
[2022-02-11 01:32] VITALS: PULSE 102
[2022-02-11] MEDS ORDERED: LIDOCAINE 5% TOPICAL PATCH TP ONE (01:52)
[2022-02-11] MEDS ORDERED: LIDOCAINE PATCH REMOVAL MC SCH (22:00)
== END 2022-02-11 07:20 | disposition home or self-care (01) ==
LOC: JER 20:48
PROC: 3E0333Z Introduction of Anti-inflammatory into Peripheral Vein, Percutaneous Approach (ICD-10-PCS; principal; 2022-02-10)
PROC: 3E033GC Introduction of Other Therapeutic Substance into Peripheral Vein, Percutaneous Approach (ICD-10-PCS; 2022-02-10)
PROC: 3E033GC Introduction of Other Therapeutic Substance into Peripheral Vein, Percutaneous Approach (ICD-10-PCS; 2022-02-10)
DX: R10.9 Unspecified abdominal pain (principal); R07.9 Chest pain, unspecified; R06.02 Shortness of breath
CPT/HCPCS: 36415; 70450-TC; 71046-TC-FY; 72125-TC; 74177-TC; 80053; 83690; 84484; 85025; 85610; 85730; 93005; 93010; 96374; 96375; 99285-25; Q9967

== ENCOUNTER 2022-02-15 02:00 | Emergency (ER) | payer OTHER ==
[2022-02-15 02:59] VITALS: BP 133/76; PULSE 98; RESP 18; TEMP 97.6; BMI 23.6
== END 2022-02-15 03:45 | disposition home or self-care (01) ==
LOC: JER 02:00
DX: G89.29 Other chronic pain (principal)
CPT/HCPCS: 93005; 93010; 99284-25